=== PATIENT | male | born 1960 | race Caucasian/White ===

== ENCOUNTER 2019-04-14 21:17 | Inpatient (IN) | payer MEDICARE, BC, SELFPAY ==
[2019-04-14 20:15] VITALS: BP 138/77; PULSE 81; RESP 19; TEMP 37; O2SAT 94
[2019-04-14 21:25] VITALS: BMI 24.7
--- NOTE | 2019-04-14 21:38 | ECG_ITS ---
Measurements Intervals [place] Rate: 87 P: 68 RI: 164 QRS: -9 QRSD: 71 T: 30 QT: 334 QTc: 404 SINUS RHYTHM No previous ECG available for comparison Electronically Signed On 04-15-2019 14:44:06 [employer] by Pj Worthington M.D. [email or web address]
[2019-04-14 23:05] VITALS: RESP 20
[2019-04-14] MEDS: morphine 4 mg/mL SDV 1 mL 2 MG IVP (23:05)
[2019-04-14] MEDS: dextrose 5%-sod chloride 0.45% 1,000 ML 75 ML IV (23:05)
[2019-04-15] VITALS (23 sets, daily range): BP systolic 121–156; BP diastolic 68–83; PULSE 65–88; RESP 14–20; TEMP 36.1–38.1; O2SAT 90–98; BMI 24.5
[2019-04-15] MEDS: acetaminophen 325 mg Tablet 650 MG PO (00:24)
--- NOTE | 2019-04-15 02:59 | P.HP_ITS ---
Providers/Chief Complaint Admitting Physician: Awa Dozier MD Primary Care Provider: Evangelist Duvall Chief Complaint: L HIP FRACTURE History of Present Illness Regino Calvert is a 59 year old male who presented from [facility] with a complaint of left hip fracture. Patient had fallen a couple of days previously. He been getting around with assistance of a walker though with some difficulty. He was seen by primary care provider and sent to [facility] for further evaluation. He was found to have left subcapital hip fracture as well as a left fifth proximal phalanx fracture. He was transferred to [facility] for orthopedic care. Dr. Yousif was already made aware of the patient. Review of Systems Const: Denies: fever or chills Eyes: Denies: change in vision ENMT: Denies: throat pain or nasal congestion Card: Denies: chest pain or palpitations Resp: Denies: shortness of breath, productive cough or non-productive cough GI: Denies: abdominal pain, nausea or vomiting : Reports: testicular pain (Left testicle) Musc: Reports: extremity pain Skin/Breast: Denies: rash or itching Neuro: Reports: numbness in extremities and weakness in extremities Psych: Denies: anxiety or depression Medications/Allergies Home Medications Medication Instructions Recorded Confirmed Last Taken Type Unable to Assess 04/14/19 04/14/19 Unknown History Allergies Allergy/AdvReac Type Severity Reaction Status Date / Time No Known Allergies Allergy Verified 04/14/19 18:31 Additional Medication Information Additional Medication Information: Medication list from outside hospital showed xigduo, prednisolone ophthalmic, diclofenac gel, gabapentin 300 mg tablets, lisinopril 20 mg tablets and tramadol 50 mg tablets as well as what I think is probably polymyxin PFSH Acute PFSH: Statuses (acute, chronic, etc) shown below reflect problem list status as previously entered and may not be historically accurate Medical History (Updated 04/15/19 @ 03:37 by Myra Chang MD) Diabetes mellitus type 2, noninsulin dependent (Acute) Diabetic peripheral neuropathy (Acute) History of osteomyelitis (Acute) Right foot History of septic arthritis (Acute) Left knee Hyperlipidemia (Acute) Hypertension (Acute) Surgical History (Updated 04/15/19 @ 03:04 by Myra Chang MD) History of hand surgery (Acute) History of knee surgery (Acute) Bilateral History of toe surgery (Acute) Family History (Updated 04/15/19 @ 03:27 by Myra Chang MD) Other Cancer Diabetes Social History (Updated 04/15/19 @ 05:00 by Myra Chang MD) Smoking and tobacco status: never smoked Alcohol intake: current Alcohol intake frequency: 3 or more drinks per day Alcohol type: beer Substance/Drug Use: never Household members: spouse and children Marital status: Vitals/I&O/Wt Last Vital Signs Temp 99.2 F 04/15/19 00:00 Pulse 88 04/15/19 00:00 Resp 20 H 04/15/19 00:00 BP 137/83 04/15/19 00:00 Pulse Ox 94 04/15/19 00:00 04/14/19 04/14/19 04/15/19 14:59 22:59 06:59 Output Total 200 / 200 500 / 700 Balance -200 / -200 -500 / -700 Weight last 48 hrs Weight 80.513 kg Physical Exam Const: COMMON NORMALS: no apparent distress, oriented x3 and alert HENMT: COMMON NORMALS: normocephalic and head/scalp atraumatic Eye: COMMON NORMALS: PERRL and EOMs intact bilaterally Resp: COMMON NORMALS: normal respiratory effort, no use of accessory muscles and clear to auscultation bilaterally Cardio: COMMON NORMALS: regular rate, regular rhythm and no murmurs GI: COMMON NORMALS: normal to inspection, nondistended, normoactive bowel sounds, soft to palpation and non-tender : TESTES: Yes testicular lie normal, No testicular swelling, No testicular tenderness, No epididymal induration and No epididymal tenderness Extremity: NARRATIVE EXTREMITY EXAM: left leg externally rotated and shortened Neuro: COMMON NORMALS: oriented x3 and moves all extremities (decreasd left hip) Psych: COMMON NORMALS: mental status grossly normal, thought process normal and cooperative Skin: COMMON NORMALS: skin turgor normal NARRATIVE SKIN EXAM: left great toe sore ~0.5cm Urinary Catheter Management^: Truong: Cath Placed During This Visit: yes Urethral Indwelling: Yes Reason for Continuing Indwelling Catheter: Perioperative Use in Selected Surgeries Data Other Data: Other data: Labs and studies from [facility]: Chest x-ray showed no acute cardiopulmonary process Fracture at the base of the proximal phalanx of the fifth digit left hand Negative alcohol level Magnesium 2.0 Glucose 117, BUN/creatinine 19/0.9, sodium 137, potassium 4.1, chloride 103, CO2 22, total bilirubin 0.6, albumin 3.8, alkaline phosphatase 111 AST 15 ALT 10 osmolality 268, calcium 9.0 White count 11,000, H&H 10/32, platelet count 537 INR 1.2, PTT 26.3 UA with a specific gravity 1.020 and clear yellow urine with 2+ glucose, 1+ ketones negative nitrites and negative leukocyte esterase EKG here with sinus rhythm with no acute ST segment changes per my personal int erpretation A&P Assessment and plan (1) Closed left hip fracture: Status: Acute Qualifiers: Encounter type: initial encounter Qualified Code(s): S72.002A - Fracture of unspecified part of neck of left femur, initial encounter for closed fracture Code(s): S72.002A - Fracture of unspecified part of neck of left femur, initial encounter for closed fracture (2) Fracture of phalanx of digit of hand: Status: Acute Qualifiers: Encounter type: initial encounter Fracture type: closed Qualified Code(s): S62.609A - Fracture of unspecified phalanx of unspecified finger, initial encounter for closed fracture Code(s): S62.609A - Fracture of unspecified phalanx of unspecified finger, initial encounter for closed fracture (3) Diabetes mellitus type 2, noninsulin dependent: Status: Acute Code(s): E11.9 - Type 2 diabetes mellitus without complications (4) Hypertension: Status: Acute Qualifiers: Hypertension type: essential hypertension Qualified Code(s): I10 - Essential (primary) hypertension Code(s): I10 - Essential (primary) hypertension (5) Hyperlipidemia: Status: Acute Qualifiers: Hyperlipidemia type: pure hypercholesterolemia Qualified Code(s): E78.00 - Pure hypercholesterolemia, unspecified Code(s): E78.5 - Hyperlipidemia, unspecified (6) Diabetic peripheral neuropathy: Status: Acute Code(s): E11.42 - Type 2 diabetes mellitus with diabetic polyneuropathy Additional A&P Information Additional A&P Information: Inpatient admission Orthopedic consultation Pain control Need to clarify home medications more completely I will go on and continue gabapentin SCDs for DVT prophylaxis Images have been sent to radiology to be uploaded into the system Corrective dose insulin for diabetes currently Supportive care otherwise Full code Plans discussed with patient and he was given an opportunity to discuss questions Attestations Medical Necessity Statement*: Anticipated stay greater than 2 midnights in a patient with a hip fracture in need of surgical repair Coding Level of Care Code Acute Plan Coordinator for [facility] F[facility] Diagnoses Closed left hip fracture S72.002A Encounter type: initial encounter Fracture of phalanx of digit of hand S62.609A Encounter type: initial encounter Fracture type: closed Diabetes mellitus type 2, noninsulin dependent E11.9 Hypertension I10 Hypertension type: essential hypertension Hyperlipidemia E78.00 Hyperlipidemia type: pure hypercholesterolemia Diabetic peripheral neuropathy E11.42
[2019-04-15] MEDS: morphine 4 mg/mL SDV 1 mL 2 MG IVP (03:16)
[2019-04-15 06:48] LABS: Glucose Point of Care 142 mg/dL (70-110)
[2019-04-15 07:03] LABS: Blood Urea Nitrogen 14 mg/dL (6-20); Calcium 9.2 mg/Dl (8.6-10.0); Carbon Dioxide 22 mmol/L (22-29); Chloride 101 mmol/L (98-107); Glomerular Filtration Rate 99.3 mL/min (90-130); Glucose 142 mg/dL (74-109); Sodium 134 mmol/L (136-145)
[2019-04-15 07:06] LABS: Basophils # 0.1 10^3/uL (0.0-0.1); Basophils % 0.5 %; Eosinophils # 0.2 10^3/uL (0.0-0.8); Eosinophils % 2.4 %; Hematocrit 28.6 % (42.0-52.0); Hemoglobin 9.3 g/dL (11.7-16.6); Lymphocytes # 1.6 10^3/uL (0.8-4.8); Lymphocytes % 17.3 %; Mean Corpuscular HGB Conc 32.5 g/dL (30.0-36.0); Mean Corpuscular Hemoglobin 29.8 pg (28.0-34.0); Mean Corpuscular Volume 91.7 fL (80-94); Mean Platelet Volume 8.8 fL (7.4-10.4); Monocytes % 10.6 %; Neutrophils # 6.4 10^3/uL (1.8-7.7); Neutrophils % 68.7 %; Nucleated Red Blood Cells % 0 %; Platelet Count 401 10^3/cmm (130-400); Red Blood Count 3.12 10^6/uL (4.1-5.3); Red Cell Distribution Width 18.9 % (12.1-15.1); White Blood Count 9.3 10^3/uL (4.0-10.0)
--- NOTE | 2019-04-15 07:15 | ANES.PREANES ---
Pre-Anesthetic Assessment Pre-Anesthetic Assessment: Height/Weight: Height 1.8 m Weight 79.742 kg Temp Pulse Resp BP Pulse Ox 99.0 F 75 17 128/69 93 04/15/19 04:00 04/15/19 04:00 04/15/19 04:00 04/15/19 04:00 04/15/19 04:00 Preop Diagnosis: L hip fracture Proposed Procedure: Operation Date: 04/15/19 08:45 Proposed Procedures p Hemiarthroplasty Hip(Left) - Gino Yousif MD Operation Date: 04/15/19 08:00 Proposed Procedures p Hemiarthroplasty Hip(Left) - Gino Yousif MD Familial anesthetic complications: no trouble Was Beta Yee taken within 24 hours: N/A Last intake: Intake Last Liquid Date 04/14/19 Last Liquid Time 23:59 Last Solid Date 04/14/19 Last Solid Time 17:00 Social: Social History: No alcohol and No tobacco Exam: Pre-Anes Outpt Exam: alert, oriented x 3, clear to auscultation bilaterally and regular rate & rhythm Airway: Cervical ROM: WNL MP: 1 Dentition: Chipped Pulmonary: Pulmonary: None reported CV/HEM: CV/HEM: HTN : : None reported Hepatic: Hepatic: None reported GI: GI: GERD Metabolic: Metabolic: DM and Hyperlipidemia Musc/skel: Comments: L hip fracture, L 5th finger fracture Neuropsych: Neuropsych: None reported Anesthetic Plan: ASA status: II Anesthesia: General Risk of > 500 ml blood loss (7ml/kg in children): Yes, adequate IV access and fluids planned Meds/Allergies Current Medications: Current Medications Generic Name Dose Route Start Last Admin Trade Name Freq PRN Reason Stop Dose Admin Acetaminophen 650 mg 04/14/19 21:38 04/15/19 00:24 Tylenol PO 650 mg Q6H PRN Administration Mild/Mod Pain Or Temp >/= 101 Dextrose/Sodium Ch loride 1,000 mls @ 75 ml s/hr 04/14/19 21:45 04/14/19 23:05 Dextrose 5%-Sod Chloride 0.45% IV 75 mls/hr .[id number] ANA LAURA Administration Morphine Sulfate 2 mg 04/14/19 21:38 04/15/19 03:16 Morphine IVP 2 mg Q4H PRN Administration SEVERE PAIN Additional Medication Information: Medication list from outside hospital showed xigduo, prednisolone ophthalmic, diclofenac gel, gabapentin 300 mg tablets, lisinopril 20 mg tablets and tramadol 50 mg tablets as well as what I think is probably polymyxin PFSH Anesthesia PFSH: Medical History (Updated 04/15/19 @ 03:37 by Myra Chang MD) Diabetes mellitus type 2, noninsulin dependent (Acute) Diabetic peripheral neuropathy (Acute) History of osteomyelitis (Acute) Right foot History of septic arthritis (Acute) Left knee Hyperlipidemia (Acute) Hypertension (Acute) Surgical History (Updated 04/15/19 @ 03:04 by Myra Chang MD) History of hand surgery (Acute) History of knee surgery (Acute) Bilateral History of toe surgery (Acute) Family History (Updated 04/15/19 @ 03:27 by Myra Chang MD) Other Cancer Diabetes Social History (Updated 04/15/19 @ 05:00 by Myra Chang MD) Smoking and tobacco status: never smoked Alcohol intake: current Alcohol intake frequency: 3 or more drinks per day Alcohol type: beer Substance/Drug Use: never Household members: spouse and children Marital status: Data Anesthesia Labs: Other Labs: Laboratory Results - last 48 hr 04/15/19 04/15/19 04/15/19 06:29 06:29 06:30 WBC 9.3 RBC 3.12 L Hgb 9.3 L Hct 28.6 L MCV 91.7 MCH 29.8 MCHC 32.5 RDW 18.9 H Plt Count 401 H MPV 8.8 Neut % (Auto) 68.7 Lymph % (Auto) 17.3 [place] % (Auto) 10.6 Eos % (Auto) 2.4 Baso % (Auto) 0.5 Neut # (Auto) 6.4 Lymph # (Auto) 1.6 [place] # (Auto) 1.0 H Eos # (Auto) 0.2 Baso # (Auto) 0.1 Nucleated RBC % (a uto) 0 Nucleated RBCs # 0.0 Sodium 134 L Potassium 4.0 Chloride 101 Carbon Dioxide 22 Anion Gap 15.0 BUN 14 Creatinine 0.8 GFR Calculation 99.3 Glucose 142 H POC Glucose 142 Calcium 9.2 Cardiac Studies: No Data to Display
[2019-04-15] MEDS: sodium chloride 0.9% 1,000 ML 30 ML IV (07:18)
[2019-04-15 07:30] LABS: INR 1.14 (0.8-1.2)
--- NOTE | 2019-04-15 07:48 | PM.CONSULT ---
Providers/Reason For Consult Consulting Physican/Specialty*: Orthopedic surgery Reason for Consult*: Displaced left femoral neck fracture, nondisplaced fracture left little finger Requesting Physcian: Gino Yousif MD Attending Physician: Awa Dozier MD Primary Care Provider: Evangelist Duvall History of Present Illness History of Present Illness Regino Calvert is a 59 year old male transferred from [facility] with complaints of pain in his left hip and left hand. He apparently fell on Thursday. He has a history of neuropathy attributable to his diabetes on and had a walker at home. He has been ambulating with a walker with continued pain. He finally was seen by his primary care physician and sent to the [facility] emergency room last night. There radiographs revealed a displaced left subcapital fracture and a left fifth proximal phalanx fracture. He is transferred [facility] overt definitive medical care. The patient states he is and lives in a house with his . He has a walker but does not routinely use it. He states he is able to drive and typically walks short distances. He is disabled Review of Systems Const: Denies: fever or chills Card: Denies: chest pain, palpitations or irregular heart rhythm Resp: Denies: shortness of breath or productive cough GI: Denies: abdominal pain, nausea or vomiting : Denies: painful urination or urinary frequency Neuro: Reports: numbness in extremities (Attributable to diabetic neuropathy) and weakness in extremities (Attributable to diabetic neuropathy) Meds/Allergies Home Medications and Allergies Home Medications Medication Instructions Recorded Confirmed Type Unable to Assess 04/14/19 04/14/19 History Allergies Allergy/AdvReac Type Severity Reaction Status Date / Time No Known Allergies Allergy Verified 04/14/19 18:31 Current Medications Current Medications Generic Name Dose Route Start Last Admin Trade Name Freq PRN Reason Stop Dose Admin Acetaminophen 650 mg 04/14/19 21:38 04/15/19 00:24 Tylenol PO 650 mg Q6H PRN Administration Mild/Mod Pain Or Temp >/= 101 Dextrose/Sodium Chloride 1,000 mls @ 75 mls/hr 04/14/19 21:45 04/15/19 07:15 Dextrose 5%-Sod Chloride 0.45% IV Infused .[id number] ANA LAURA Infusion Sodium Chloride 1,000 mls @ 30 mls/hr 04/15/19 07:00 04/15/19 07:18 Sodium Chloride 0.9% IV 04/16/19 06:59 30 mls/hr .Q24H ANA LAURA Administration Morphine Sulfate 2 mg 04/14/19 21:38 04/15/19 03:16 Morphine IVP 2 mg Q4H PRN Administration SEVERE PAIN PFSH Acute PFSH: Statuses (acute, chronic, etc) shown below reflect problem list status as previously entered and may not be historically accurate Medical History Diabetes mellitus type 2, noninsulin dependent (Acute) Diabetic peripheral neuropathy (Acute) History of osteomyelitis (Acute) Right foot History of septic arthritis (Acute) Left knee Hyperlipidemia (Acute) Hypertension (Acute) Surgical History (Updated 04/15/19 @ 03:04 by Myra Chang MD) History of hand surgery (Acute) History of knee surgery (Acute) Bilateral History of toe surgery (Acute) Family History (Updated 04/15/19 @ 03:27 by Myra Chang MD) Other Cancer Diabetes Social History Smoking and tobacco status: never smoked Alcohol intake: current Alcohol intake frequency: 3 or more drinks per day Alcohol type: beer Substance/Drug Use: never Household members: spouse and children Marital status: Vitals/I&O/Wt Last Vital Signs Temp 97.0 F L 04/15/19 07:19 Pulse 72 04/15/19 07:19 Resp 18 04/15/19 07:19 BP 130/70 04/15/19 07:19 Pulse Ox 95 04/15/19 07:19 04/14/19 04/15/19 04/15/19 22:59 06:59 14:59 Intake Total 120 / 120 600 / 600 Output Total 200 / 200 1800 / 2000 Balance -200 / -200 -1680 / -1880 600 / 600 Weight last 48 hrs Weight 175 lb 12.8 oz Weight 175 lb 12.8 oz Weight 177 lb 8 oz Physical Exam HENMT: COMMON NORMALS: normocephalic HEAD & SCALP: normocephalic Neck/C-Spine: COMMON NORMALS: full ROM and supple CERVICAL SPINE: No pain with cervical ROM Chest: COMMONS NORMALS: inspection of chest normal Resp: COMMON NORMALS: clear to auscultation bilaterally AUSCULTATION: clear to auscultation bilaterally Cardio: COMMON NORMALS: regular rate and regular rhythm RATE: regular rate RHYTHM: regular rhythm GI: COMMON NORMALS: soft to palpation INSPECTION: Yes normal to inspection PALPATION: Yes soft and No tender Extremity: NARRATIVE EXTREMITY EXAM: The patient's left lower extremity is remarkable for being held in a shortened externally rotated position. He has severe pain with any motion of the hip. He has ecchymoses and swelling about his little finger and slight ulnar deviation of the digit. He will not move the digit due to pain. Neuro: SENSORY EXAM: Yes extremities (The patient has diminished sensation in both lower extremities attributed to his diabetes. Sensation is slightly diminished in the left little finger.) MOTOR EXAM: No no movement abnormalities noted (The patient has no purposeful movement in his ankles or toes. He will minimally invert and seymour his ankle. He can perform a straight leg raise on the right.) Urinary Catheter Management^: Truong: Cath Placed During This Visit: no Data Imaging^: Xray Ortho: My impression: Radiographs of the left hip reveal a displaced left femoral neck fracture. He has reasonable bone quality. Radiographs of the left hand reveal a essentially nondisplaced fracture through the proximal metaphysis. The fracture is in good alignment. Ulnar deviation of the digit is noted. A&P Assessment and plan (1) Fracture of phalanx of digit of hand: The fracture is in satisfactory alignment. We will put him in a functional ulnar gutter splint for protection. Platform walker will be used for for mobilization. Status: Acute Qualifiers: Encounter type: initial encounter Fracture type: closed Qualified Code(s): S62.609A - Fracture of unspecified phalanx of unspecified finger, initial encounter for closed fracture Code(s): S62.609A - Fracture of unspecified phalanx of unspecified finger, initial encounter for closed fracture (2) Closed left hip fracture: Status: Acute Qualifiers: Encounter type: initial encounter Qualified Code(s): S72.002A - Fracture of unspecified part of neck of left femur, initial encounter for closed fracture Code(s): S72.002A - Fracture of unspecified part of neck of left femur, initial encounter for closed fracture Coding Level of Care Code Acute Healthcare Analyst for [facility] Fwd Diagnoses Fracture of phalanx of digit of hand S62.607F Encounter type: initial encounter Fracture type: closed Closed left hip fracture S72.002A Encounter type: initial encounter
--- NOTE | 2019-04-15 09:35 | PM.OP ---
Operative Report Post-Operative Note: Date of procedure: 04/15/19 Preop Diagnosis: Dislaced left femoral neck fracture Post-op diagnosis: same Post-op Findings: Same Procedure Done: Left bipolar hip arthroplasty Implants: [place] Secure fit BUTT stem, 51 mm bipolar head, 28 mm femoral head/standard neck length Specimens removed/disposition: None Pathology: none sent Surgeon: Gino Yousif Anesthesia: general Estimated blood loss (mL): 250 Complications: None Findings: The patient had the previously described subacute left femoral neck fracture Condition: stable Disposition: PACU Operative Report: Brief History: The patient is a 59-year-old male who fell from his truck on Thursday with persistent pain in his left hip. He had a significant history of diabetes mellitus with complications of ulcers on his left foot and significant sensory and motor neuropathy. Physiologically he was felt to be much older than his 59 years of age and with his medical comorbidities bipolar was chosen as the most reliable option Procedure: The patient was taken to the operating room and a general l anesthesia was provided by the anesthesia service. They were given 2 g of Ancef and 1 g of TXA. and positioned in the lateral position with the hip exposed. A 10 cm long incision was made over the greater trochanter with a scalpel blade. Dissection was carried down through the fascia prudencio to the greater trochanter. The anterior two thirds of gluteus medius and minimus were elevated off the greater trochanter with electrocautery. The capsule was divided T like fashion. The hip was externally rotated and the neck brought up into the wound. An oscillating saw was really used to resect the neck just above the level of the lesser trochanter. The femoral head was removed and the acetabulumt sized to a 51 mm bipolar head. Sequential reaming of the canal was accomplished up to a size . The canal was broached to a size 10 and a size 10 [place] Secure[employer] BUTT stem was press fit into place. A trial reduction with a standard mm neck provided excellent stability. The final head and neck were placed and the hip reduced. The anterior capsule were reapproximated with 1 Ethibond. The gluteus medius and minimus were repaired through the greater trochanter with 5 Ethibond and reinforced with 1 Ethibond. The fascia prudencio was closed with 1 Ethibond. The subcutaneous tissues were closed with 2-0 Vicryl. The skin was closed with skin christiano. Sterile dressings were applied. The patient was placed in abduction pillow and taken recovery room in stable condition. 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
--- NOTE | 2019-04-15 09:51 | SUR.PHASEI ---
0949 PATIENT TO PACU FROM OR AT THIS TIME VIA BED. PATIENT AWAKE, RR EVEN AND UNLABORED. DRESSING TO LEFT HIP, CDI. PULSE PRESENT. CAP REFILL LESS THAN 3 SECONDS.
--- NOTE | 2019-04-15 09:56 | XR_ITS ---
WS: [id number] Left hip, AP view, today Clinical Data: L hip hemiarthroplasty Comparison: Left hip x-ray, 04/14/2019 Findings: The patient has had a left hip hemiarthroplasty. The acetabular component is in good position in the acetabulum. The femoral component is stabilized within the femoral medullary canal. XR/XR hip LT 2-3V wo/w pel* [id number] Impression: Left hip hemiarthroplasty.
--- NOTE | 2019-04-15 10:09 | SUR.PHASEI ---
1009 PATIENT SPOUSE UPDATED.
--- NOTE | 2019-04-15 10:28 | SUR.PHASEI ---
1017 PATIENT TO MED SURG VIA BED AT THIS TIME. RR EVEN AND UNLABORED. PWD. DRESSING INTACT TO LEFT HIP, CDI. PULSE PRESENT. FIRST ICE IN PLACE. VSS: 156/81, PULSE 74, RR 16, 94%RA, 97.7
[2019-04-15] MEDS: oxyCODONE 5 mg IR Tab/Cap PO ×3 (10:33→19:33)
[2019-04-15] MEDS: sodium chloride 0.9% 1,000 ML 100 ML IV ×2 (10:35→20:47)
[2019-04-15 11:39] LABS: Glucose Point of Care 126 mg/dL (70-110)
[2019-04-15] MEDS: chlorhexidine gluconate 0.12% Btl 473 mL 30 ML MUCOUS MEM ×3 (12:13→21:49)
--- NOTE | 2019-04-15 13:31 | PM.PN ---
Subjective Subjective: Interval history: AM labs noted, s/p L hip arthroplasty done earlier this AM. EBL-250 mL. Had 2000 mL urine output overnight. Patient seen and examined upon return from OR, awake, alert and oriented x3, adductor pillow in place which he complains is quite uncomfortable, ice pack in place as well over left hip incision which looks clean and intact. Requesting something for pain relief. Medications: Reviewed: Yes Medication Review Details: Active Medications Generic Name Dose Route Start Last Admin Trade Name Freq PRN Reason Stop Dose Admin Acetaminophen 650 mg 04/14/19 21:38 04/15/19 00:24 Tylenol PO 650 mg Q6H PRN Administration Mild/Mod Pain Or Temp >/= 101 Al Hydrox/Mg [place] x/Simethicone 15 ml 04/14/19 21:38 Maalox PO Q6H PRN INDIGESTION Calcium Carbonate 1,000 mg 04/15/19 18:00 Tums PO BID ANA LAURA Chlorhexidine Gluc marie 30 ml 04/15/19 13:00 04/15/19 12:13 Perigard MUCOUS MEM 30 ml QID ANA LAURA Administration Dextrose 25 ml 04/15/19 10:21 D50w IVP ONCE PRN hypoglycemia prot ocol Protocol Dextrose 50 ml 04/15/19 10:21 D50w IVP PRN PRN hypoglycemia prot ocol Protocol Enoxaparin Sodium 40 mg 04/16/19 10:52 Lovenox SUBCUT Q24H ANA LAURA Gabapentin 300 mg 04/15/19 09:00 Neurontin PO TID ANA LAURA Glucagon 1 mg 04/15/19 10:21 Glucagen IM ONCE PRN Adult Acute Hypog lycemia Prot. Protocol Cefazolin Sodium/D extrose 2 gm in 50 mls @ 100 mls/hr 04/15/19 15:30 Kefzol IV 04/16/19 07:59 Q8H ANA LAURA Protocol Sodium Chloride 1,000 mls @ 100 m ls/hr 04/15/19 10:21 04/15/19 10:35 Sodium Chloride 0.9% IV 100 mls/hr .Q10H ANA LAURA Administration Dextrose 500 mls @ 100 mls /hr 04/15/19 10:21 D5w IV ONCE PRN Adult Acute Hypog lycemia Prot Protocol Insulin Aspart 0 unit 04/15/19 12:00 04/15/19 11:50 Novolog SUBCUT Not Given WM&BEDTIME [facility] Protocol Morphine Sulfate 4 mg 04/15/19 10:21 Morphine IVP Q1H PRN BREAKTHROUGH PAIN Multivitamins Ther apeutic 1 tab 04/16/19 09:00 Multivitamin Tab PO DAILY [facility] Mupirocin 1 applic 04/15/19 18:00 Bactroban NASAL 04/20/19 17:59 BID [facility] Naloxone HCl 0.1 mg 04/15/19 10:21 Narcan IVP Q2M PRN Respiratory rate less than 8. Ondansetron HCl 4 mg 04/15/19 10:21 Zofran IVP Q6H PRN NAUSEA AND VOMITI NG Oxycodone HCl 5 mg 04/15/19 10:21 04/15/19 10:33 Oxycodone Ir PO 5 mg Q4H PRN Administration MODERATE PAIN Polysaccharide Iro n Complex 150 mg 04/15/19 18:00 Ferrex PO BIDWM [facility] Senna/Docusate Sod ium 2 tab 04/15/19 18:00 Senna-S PO BID [facility] Vitamin D 1,000 unit 04/16/19 09:00 Vitamin D3 PO DAILY [facility] No Known Allergies Allergy (Verified 04/14/19 18:31) Vitals/I&O/Wt Last Vital Signs Temp 97.8 F 04/15/19 11:20 Pulse 79 04/15/19 12:20 Resp 16 04/15/19 12:20 BP 122/69 04/15/19 12:20 Pulse Ox 95 04/15/19 12:20 04/14/19 04/15/19 04/15/19 22:59 06:59 14:59 Intake Total 120 / 120 1480 / 1480 Output Total 200 / 200 1800 / 2000 950 / 950 Balance -200 / -200 -1680 / -1880 530 / 530 Weight last 48 hrs Weight 79.742 kg Weight 79.742 kg Weight 79.742 kg Weight 80.513 kg Physical Exam Const: COMMON NORMALS: no apparent distress and oriented x3 GENERAL APPEARANCE: cooperative and comfortable ORIENTATION/CONSCIOUSNESS: Yes awake HENMT: COMMON NORMALS: normocephalic, head/scalp atraumatic, hearing grossly normal bilaterally and moist oral mucous membranes HEAD & SCALP: normocephalic and atraumatic Eye: COMMON NORMALS: PERRL, EOMs intact bilaterally and conjunctivae normal CONJUNCTIVA: Yes conjunctivae normal PUPIL: Yes PERRL Neck/C-Spine: COMMON NORMALS: full ROM GENERAL: Yes normal visual inspection and Yes trachea midline Resp: COMMON NORMALS: normal respiratory effort, no retractions, no use of accessory muscles and clear to auscultation bilaterally EFFORT & INSPECTION: Yes able to speak in complete sentences, Yes symmetric chest movement and No tachypneic AUSCULTATION: clear to auscultation bilaterally Cardio: COMMON NORMALS: regular rate, regular rhythm, S1 normal heart sound, S2 normal heart sound and no murmurs RATE: regular rate RHYTHM: regular rhythm HEART SOUNDS: S1 normal and S2 normal GI: COMMON NORMALS: normal to inspection, nondistended, normoactive bowel sounds, soft to palpation and non-tender PALPATION: Yes soft Extremity: COMMON NORMALS: normal to inspection, full ROM and no clubbing, cyanosis or edema; negative for no pedal edema LEFT UPPER EXTREMITY: Yes hand & digits (noted swelling of DIP and PIP joints of L 5th digit) LEFT LOWER EXTREMITY: Yes hip joint (Noted clean, intact dressing over incision; left thigh soft, no apparent hematoma) Neuro: COMMON NORMALS: oriented x3, moves all extremities, no focal motor deficits, no sensory deficits noted and gait normal Psych: COMMON NORMALS: mental status grossly normal, thought process normal, cooperative, affect normal and speech normal SPEECH: Yes normal speech THOUGHT PROCESS: normal thought process Skin: COMMON NORMALS: no rashes or lesions noted, no jaundice, no petechiae and no mottling GENERAL SKIN EXAM: no rashes or lesions noted Urinary Catheter Management^: Truong: Cath Placed During This Visit: no A&P Assessment and plan (1) Closed left hip fracture: -secondary to fall -now s/p L hip arthroplasty done today by Dr. Yousif; EBL-250 mL -fall precautions, pain control as needed -f/u H/H post-op -continue to monitor urine output -PT/OT evaluations when appropriate -bowel regimen -IVF hydration -on DVT ppx with Lovenox -complete regan-op abx -UA done at outside facility, not indicative of infection -pre-op labs noted -VSS; continue to monitor Status: Acute Qualifiers: Encounter type: initial encounter Qualified Code(s): S72.002A - Fracture of unspecified part of neck of left femur, initial encounter for closed fracture Code(s): S72.002A - Fracture of unspecified part of neck of left femur, initial encounter for closed fracture (2) Fracture of phalanx of digit of hand: -secondary to mechanical fall Status: Acute Qualifiers: Encounter type: initial encounter Fracture type: closed Qualified Code(s): S62.609A - Fracture of unspecified phalanx of unspecified finger, initial encounter for closed fracture Code(s): S62.609A - Fracture of unspecified phalanx of unspecified finger, initial encounter for closed fracture (3) Diabetes mellitus type 2, noninsulin dependent: -hx of NIDDM type II complicated by peripheral neuropathy -A1c -Acuchecks, ISS -diabetic diet as tolerated Status: Acute Code(s): E11.9 - Type 2 diabetes mellitus without complications (4) Diabetic peripheral neuropathy: Status: Acute Code(s): E11.42 - Type 2 diabetes mellitus with diabetic polyneuropathy Additional A&P Information Additional A&P Information: -Acute on chronic normocytic anemia; baseline Hg around 11 -GERD -Hyperlipidemia -HTN; currently normotensive -DVT ppx with lovenox -Dispo: home -Code status: FULL code Attestations Medical Necessity Statement*: Patient requires hospitalization for continued post-op management including appropriate pain control, pending PT/OT evaluations. Time Spent in Patient Care: Greater than 35 minutes (>than 50% of time spent in counselling and/or direct pt care on unit). Coding Level of Care Code Acute [employer] for Jack [employer]o Exam Problem Focused Diagnoses Closed left hip fracture S72.002A Encounter type: initial encounter Fracture of phalanx of digit of hand S62.609A Encounter type: initial encounter Fracture type: closed Diabetes mellitus type 2, noninsulin dependent E11.9 Diabetic peripheral neuropathy E11.42
[2019-04-15] MEDS: gabapentin 300 mg Capsule PO ×2 (15:01→21:49)
--- NOTE | 2019-04-15 15:50 | PM.PACU ---
PACU note Post-Anesthesia Exam: awake and vital signs stable Disposition: back to floor
--- NOTE | 2019-04-15 16:04 | PC.OT ---
OT NOTE: ORDERS RECEIVED FOR FASTFORM SPLINT TO LITTLE FINGER/FOREARM DUE TO FX OF UNSPECIFIED PHALNAX. THIS THERAPIST IS NOT TRAINED IN FASTFORM DEVICE USE. CONTACTED MY ROAD MAKER CONCERNING THIS SEVERAL TIME TODAY. CALLED [facility]IEL [facility] TO REPORT THIS AND ASK FOR CLARIFICATION FROM DR. BEST HE IS IN SURGERY TODAY. SUGGESTED TKO SPLINT APPLICATION. SHE REPORTED THAT SHE WOULD ATTEMPT TO CONTACT HIM TODAY. ALSO INFORMED NURSE IRVING ON 2ND FLOOR REGARDING ABOVE. PER ROAD MAKER, JORDY HAMMOND, IF NO CONTACT FROM DR. BEST, APPLY TKO SPLINT TO STABILIZE. TKO SPLINT APPLIED TO LEFT HAND WITH 5TH DIGIT IN ALIGNMENT. HAND ELEVATED ON PILLOW. NURSE IRVING INFORMED OF APPLICATION OF SPLINT.
--- NOTE | 2019-04-15 16:49 | PC.CHAP ---
Pastoral Care Encounter/Spiritual Assessment Type of Contact [] Declined flake or shred roll operator visit [] Patient/Family/Request visit [] Outpatient visit [] Follow-up visit [] Physician referral [] Code/Alert [x] Routine visit [] Staff referral [] Actively dying [] Patient sleeping [] Family support [] [] Out of room [] Palliative care [] [] Receiving care in room [x] Pre-surgical visit [] Trauma [] Long length of stay [] ICU visit [] Other: Relational/Emotional Strength [x] Patient feels connected with others/family/visitors/staff [] Distress [] Loneliness/isolation [] Abandonment Spirituality of Patient [x] Person of Shanna [] Attends Mosque of their Shanna [x] Believes in Prayer [] Reads Bible or Mu-Ism materials [] There are Spiritual issues to be addressed Swing Manager Interventions [x] Prayer [x] Active listening [x] Non-anxious presence []x Spiritual/emotional support [] Crisis/trauma care [] Spiritual counseling [] Bereavement support [] Provided bereavement packet [] Provided Bible/devotional materials [] Provided toy/stuffed animal, coloring book to patient or family member [] Completed spiritual assessment [] Provided Communion [] Anointing/[place] [] Salvation [] Other: Impact on Illness or Injury [] Angry [] Fearful [] Anxious [] Often cries [] Exhaustion [] Unable to work [x] Unable to attend oriental orthodox [x] Unable to walk/stand [] Unable to read [x] Unable to drive [] Unable to eat/drink [] Unable to sleep [] Unable to be with family [] Other: Summary patiemt was very uncomfortable due to surgery ths morning Swing Manager prayed with patient. Time spent with patient 20 min.
[2019-04-15 17:08] LABS: Glucose Point of Care 105 mg/dL (70-110)
[2019-04-15] MEDS: calcium carbonate 500 mg Chew Tablet 1000 MG PO (17:22)
[2019-04-15] MEDS: iron polysaccharide complex 150 mg Capsule PO (17:23)
[2019-04-15] MEDS: sennosides-docusate Tablet 2 TAB PO (17:23)
--- NOTE | 2019-04-15 17:29 | PC.OT ---
OT NOTE: PHONE CALL RECEIVED FROM [facility]ARIEL AT [facility] STATING THAT DR. BEST GAVE VERBAL APPROVAL FOR TKO SPLINT FOR THIS PATIENT.
[2019-04-15 20:53] LABS: Glucose Point of Care 173 mg/dL (70-110)
[2019-04-15 21:26] LABS: Basophils % 0.2 %; Eosinophils # 0.1 10^3/uL (0.0-0.8); Eosinophils % 0.7 %; Hematocrit 27.1 % (42.0-52.0); Hemoglobin 8.7 g/dL (11.7-16.6); Lymphocytes # 1.4 10^3/uL (0.8-4.8); Lymphocytes % 11.1 %; Mean Corpuscular HGB Conc 32.1 g/dL (30.0-36.0); Mean Corpuscular Hemoglobin 28.6 pg (28.0-34.0); Mean Corpuscular Volume 89.1 fL (80-94); Mean Platelet Volume 8.7 fL (7.4-10.4); Monocytes # 0.8 10^3/uL (0.2-0.9); Monocytes % 6.6 %; Neutrophils # 10.4 10^3/uL (1.8-7.7); Neutrophils % 81.2 %; Nucleated Red Blood Cells % 0 %; Platelet Count 410 10^3/cmm (130-400); Red Blood Count 3.04 10^6/uL (4.1-5.3); Red Cell Distribution Width 17.9 % (12.1-15.1); White Blood Count 12.8 10^3/uL (4.0-10.0)
[2019-04-16] VITALS (9 sets, daily range): BP systolic 120–133; BP diastolic 70–75; PULSE 84–107; RESP 18–28; TEMP 36.6–39.4; O2SAT 92–97; BMI 25.2
[2019-04-16 05:15] LABS: Basophils # 0.1 10^3/uL (0.0-0.1); Basophils % 0.3 %; Eosinophils % 0.2 %; Hematocrit 30.2 % (42.0-52.0); Hemoglobin 9.6 g/dL (11.7-16.6); Lymphocytes # 1.2 10^3/uL (0.8-4.8); Lymphocytes % 8.6 %; Mean Corpuscular HGB Conc 31.8 g/dL (30.0-36.0); Mean Corpuscular Hemoglobin 29.7 pg (28.0-34.0); Mean Corpuscular Volume 93.5 fL (80-94); Mean Platelet Volume 8.6 fL (7.4-10.4); Monocytes # 1.2 10^3/uL (0.2-0.9); Monocytes % 8.3 %; Neutrophils # 11.8 10^3/uL (1.8-7.7); Nucleated Red Blood Cells % 0 %; Platelet Count 402 10^3/cmm (130-400); Red Blood Count 3.23 10^6/uL (4.1-5.3); Red Cell Distribution Width 17.4 % (12.1-15.1); White Blood Count 14.4 10^3/uL (4.0-10.0)
[2019-04-16 05:29] LABS: Anion Gap 17.4 (5-19); Blood Urea Nitrogen 12 mg/dL (6-20); Calcium 8.9 mg/Dl (8.6-10.0); Carbon Dioxide 22 mmol/L (22-29); Chloride 94 mmol/L (98-107); Glomerular Filtration Rate 86.7 mL/min (90-130); Glucose 161 mg/dL (74-109); Potassium 4.4 mmol/L (3.5-5.1); Sodium 129 mmol/L (136-145)
[2019-04-16 06:42] LABS: Glucose Point of Care 142 mg/dL (70-110)
[2019-04-16] MEDS: sodium chloride 0.9% 1,000 ML 100 ML IV (06:42)
--- NOTE | 2019-04-16 08:46 | PM.PN ---
Subjective Subjective: Interval history: AM labs noted, had 3550 mL urine output overnight. Received oxycodone for pain control x 1 dose overnight. Will decrease rate of IVF. Anticipate removal of Truong catheter today. Noted high grade temp of 102.9 F overnight, increased leukocytosis this AM, will order UA and CXR. Patient seen and examined, resting in bed, dressing in place over left lateral hip, clean and dry. Continues to complain of pain in this area. Truong catheter is currently being removed by nursing staff. Has worked with PT earlier today. Medications: Reviewed: Yes Medication Review Details: Active Medications Generic Name Dose Route Start Last Admin Trade Name Freq PRN Reason Stop Dose Admin Acetaminophen 650 mg 04/14/19 21:38 04/15/19 00:24 Tylenol PO 650 mg Q6H PRN Administration Mild/Mod Pain Or Temp >/= 101 Al Hydrox/Mg [place] x/Simethicone 15 ml 04/14/19 21:38 Maalox PO Q6H PRN INDIGESTION Calcium Carbonate 1,000 mg 04/15/19 18:00 04/15/19 17:22 Tums PO 1,000 mg BID ANA LAURA Administration Chlorhexidine Gluc marie 30 ml 04/15/19 13:00 04/15/19 21:49 Perigard MUCOUS MEM 30 ml QID ANA LAURA Administration Dextrose 25 ml 04/15/19 10:21 D50w IVP ONCE PRN hypoglycemia prot ocol Protocol Dextrose 50 ml 04/15/19 10:21 D50w IVP PRN PRN hypoglycemia prot ocol Protocol Enoxaparin Sodium 40 mg 04/16/19 10:52 Lovenox SUBCUT Q24H ANA ALURA Gabapentin 300 mg 04/15/19 09:00 04/15/19 21:49 Neurontin PO 300 mg TID ANA LAURA Administration Glucagon 1 mg 04/15/19 10:21 Glucagen IM ONCE PRN Adult Acute Hypog lycemia Prot. Protocol Sodium Chloride 1,000 mls @ 75 ml s/hr 04/15/19 10:21 04/16/19 07:08 Sodium Chloride 0.9% IV 75 mls/hr .[id number] ANA LAURA Infusion Dextrose 500 mls @ 100 mls /hr 04/15/19 10:21 D5w IV ONCE PRN Adult Acute Hypog lycemia Prot Protocol Insulin Aspart 0 unit 04/15/19 12:00 04/15/19 21:48 Novolog SUBCUT 4 unit WM&BEDTIME ANA LAURA Administration Protocol Morphine Sulfate 4 mg 04/15/19 10:21 Morphine IVP Q1H PRN BREAKTHROUGH PAIN Multivitamins Ther apeutic 1 tab 04/16/19 09:00 Multivitamin Tab PO DAILY [facility] Mupirocin 1 applic 04/15/19 18:00 04/15/19 17:23 Bactroban NASAL 04/20/19 17:59 Not Given BID [facility] Naloxone HCl 0.1 mg 04/15/19 10:21 Narcan IVP Q2M PRN Respiratory rate less than 8. Ondansetron HCl 4 mg 04/15/19 10:21 Zofran IVP Q6H PRN NAUSEA AND VOMITI NG Oxycodone HCl 5 mg 04/15/19 10:21 04/15/19 19:33 Oxycodone Ir PO 5 mg Q4H PRN Administration MODERATE PAIN Polysaccharide Iro n Complex 150 mg 04/15/19 18:00 04/15/19 17:23 Ferrex PO 150 mg BIDWM [facility] Administration Senna/Docusate Sod ium 2 tab 04/15/19 18:00 04/15/19 17:23 Senna-S PO 2 tab BID [facility] Administration Vitamin D 1,000 unit 04/16/19 09:00 Vitamin D3 PO DAILY [facility] No Known Allergies Allergy (Verified 04/14/19 18:31) Vitals/I&O/Wt Last Vital Signs Temp 97.8 F 04/16/19 07:26 Pulse 84 04/16/19 07:26 Resp 18 04/16/19 07:26 BP 128/74 04/16/19 07:26 Pulse Ox 94 04/16/19 07:26 04/15/19 04/16/19 04/16/19 22:59 06:59 14:59 Intake Total 2009 1133.333 / 4623.333 0 / 0 Output Total 3550 / 4500 Balance 2009 2320 -2416.667 / 123.333 0 / 0 Weight last 48 hrs Weight 82.185 kg Weight 81.692 kg Weight 79.742 kg Weight 79.742 kg Weight 79.742 kg Weight 80.513 kg Physical Exam Const: COMMON NORMALS: no apparent distress and oriented x3 GENERAL APPEARANCE: cooperative and comfortable ORIENTATION/CONSCIOUSNESS: Yes awake HENMT: COMMON NORMALS: normocephalic, head/scalp atraumatic, hearing grossly normal bilaterally and moist oral mucous membranes HEAD & SCALP: normocephalic and atraumatic Eye: COMMON NORMALS: PERRL, EOMs intact bilaterally and conjunctivae normal CONJUNCTIVA: Yes conjunctivae normal PUPIL: Yes PERRL Neck/C-Spine: COMMON NORMALS: full ROM GENERAL: Yes normal visual inspection and Yes trachea midline Resp: COMMON NORMALS: normal respiratory effort, no retractions, no use of accessory muscles and clear to auscultation bilaterally EFFORT & INSPECTION: Yes able to speak in complete sentences, Yes symmetric chest movement and No tachypneic AUSCULTATION: clear to auscultation bilaterally Cardio: COMMON NORMALS: regular rate, regular rhythm, S1 normal heart sound, S2 normal heart sound and no murmurs RATE: regular rate RHYTHM: regular rhythm HEART SOUNDS: S1 normal and S2 normal GI: COMMON NORMALS: normal to inspection, nondistended, normoactive bowel sounds, soft to palpation and non-tender PALPATION: Yes soft Extremity: COMMON NORMALS: normal to inspection, full ROM and no clubbing, cyanosis or edema; negative for no pedal edema OTHER: Left hip: Clean, dry, intact dressing over lateral area. Splint in place over left hand Neuro: COMMON NORMALS: oriented x3, moves all extremities, no focal motor deficits, no sensory deficits noted and gait normal Psych: COMMON NORMALS: mental status grossly normal, thought process normal, cooperative, affect normal and speech normal SPEECH: Yes normal speech THOUGHT PROCESS: normal thought process Skin: COMMON NORMALS: no rashes or lesions noted, no jaundice, no petechiae and no mottling GENERAL SKIN EXAM: no rashes or lesions noted Urinary Catheter Management^: Truong: Cath Placed During This Visit: no A&P Assessment and plan (1) Closed left hip fracture: -secondary to fall -now POD # 1 s/p L hip arthroplasty done by Dr. Yousif; EBL-250 mL -fall precautions, pain control as needed -f/u H/H post-op stable -continue to monitor urine output; anticipate Truong catheter removal today -PT/OT evaluations appreciated -bowel regimen -IVF hydration; wean with improved oral intake -on DVT ppx with Lovenox -complete regan-op abx -UA done at outside facility, not indicative of infection -pre-op labs noted -VSS; continue to monitor -typically wears braces in both lower extremities Status: Acute Qualifiers: Encounter type: initial encounter Qualified Code(s): S72.002A - Fracture of unspecified part of neck of left femur, initial encounter for closed fracture Code(s): S72.002A - Fracture of unspecified part of neck of left femur, initial encounter for closed fracture (2) Fracture of phalanx of digit of hand: -secondary to mechanical fall -splint in place Status: Acute Qualifiers: Encounter type: initial encounter Fracture type: closed Qualified Code(s): S62.609A - Fracture of unspecified phalanx of unspecified finger, initial encounter for closed fracture Code(s): S62.609A - Fracture of unspecified phalanx of unspecified finger, initial encounter for closed fracture (3) Diabetes mellitus type 2, noninsulin dependent: -hx of NIDDM type II complicated by peripheral neuropathy -order A1c -Acuchecks, ISS -diabetic diet as tolerated Status: Acute Code(s): E11.9 - Type 2 diabetes mellitus without complications (4) Diabetic peripheral neuropathy: Status: Acute Code(s): E11.42 - Type 2 diabetes mellitus with diabetic polyneuropathy Additional A&P Information Additional A&P Information: -Acute on chronic normocytic anemia; baseline Hg around 11. Slight drop noted though improved from yesterday, continue to trend H/H -GERD; Add Famotidine for GI ppx -Hyperlipidemia -HTN; currently normotensive -DVT ppx with lovenox -Dispo: home -Code status: FULL code Attestations Medical Necessity Statement*: Patient requires hospitalization for continued post-op management including pain control, PT/OT evaluations. Time Spent in Patient Care: 16 - 35 minutes (>than 50% of time spent in counselling and/or direct pt care on unit). Coding Level of Care Code Acute [employer] for Jack Rayo Exam Problem Focused Diagnoses Closed left hip fracture S72.002A Encounter type: initial encounter Fracture of phalanx of digit of hand S62.609A Encounter type: initial encounter Fracture type: closed Diabetes mellitus type 2, noninsulin dependent E11.9 Diabetic peripheral neuropathy E11.42
--- NOTE | 2019-04-16 08:54 | XRR_ITS ---
PROCEDURE INFORMATION: Exam: XR Chest, 1 View Exam date and time: 04/16/2019 9:47 AM Age: 59 years old Clinical indication: Fever; Patient HX: PT denies any surgery; Additional info: High grade fever, leukocytosis post-op TECHNIQUE: Imaging protocol: XR of the chest Views: 1 view. COMPARISON: DX Chest 1 [place] [id number] 04/14/2019 4:59 PM FINDINGS: Lungs: No consolidation. Pleural space: No pleural effusion. No pneumothorax. Heart/Mediastinum: No cardiomegaly. Bones/joints: No acute fracture. XR/XR chest 1V portable [id number] IMPRESSION: No acute findings.
[2019-04-16] MEDS: sennosides-docusate Tablet 2 TAB PO ×2 (09:09→18:47)
[2019-04-16] MEDS: chlorhexidine gluconate 0.12% Btl 473 mL 30 ML MUCOUS MEM ×4 (09:10→21:59)
[2019-04-16] MEDS: multivitamin therapeutic Tablet 1 TAB PO (09:10)
[2019-04-16] MEDS: gabapentin 300 mg Capsule PO ×3 (09:10→22:00)
[2019-04-16] MEDS: iron polysaccharide complex 150 mg Capsule PO ×2 (09:10→18:47)
[2019-04-16] MEDS: cholecalciferol (vitamin D3) 1,000 unit Tablet 1000 UNIT PO (09:10)
[2019-04-16] MEDS: calcium carbonate 500 mg Chew Tablet 1000 MG PO ×2 (09:10→18:46)
--- NOTE | 2019-04-16 10:05 | ANE.PACU ---
 Inpatient post-anesthesia follow up: Airway intact: Yes Vital signs: Temperature 97.8 F Pulse Rate [Left D orsalis 84 Pedis] Pulse Rate [Left A pical] 68 Pulse Rate 89 Respiratory Rate 18 Blood Pressure [Ri ght Arm] 128/74 Pulse Oximetry 94 Oxygen Delivery Me thod Room Air Oxygen Flow Rate Fraction of Inspir ed Oxygen Hydration adequate: Yes Nausea and vomiting: No Mental status: Baseline
[2019-04-16 11:21] LABS: Estmated Average Glucose 111; Hemoglobin A1C 5.5 % (4.0-6.0)
[2019-04-16 11:36] LABS: Glucose Point of Care 154 mg/dL (70-110)
[2019-04-16] MEDS: enoxaparin 40 mg/0.4 mL Syringe SUBCUT (12:47)
[2019-04-16 13:54] LABS: Add Urine Microscopic? NO
[2019-04-16 14:20] LABS: Bilirubin Urine Neg (NEGATIVE); Blood Urine Neg (Negative); Glucose Urine UA 4+ (Normal); Ketones Urine Negative (Negative); Leukocyte Esterase Urine Negative (Negative); Nitrate Urine Negative (Negative); Protein Urine Neg (Negative); Urine Appearance Clear (CLEAR); Urine Color Yellow (Yellow); Urobilinogen Urine Norm (Negative); pH Urine 5 (5-7)
[2019-04-16] MEDS: oxyCODONE 5 mg IR Tab/Cap PO (16:35)
[2019-04-16 16:43] LABS: Glucose Point of Care 240 mg/dL (70-110)
[2019-04-16 21:42] LABS: Glucose Point of Care 165 mg/dL (70-110)
[2019-04-16] MEDS: famotidine 20 mg Tablet PO (22:08)
[2019-04-17] VITALS (10 sets, daily range): BP systolic 103–115; BP diastolic 51–66; PULSE 72–94; RESP 18–22; TEMP 36.5–38.7; O2SAT 94–100
[2019-04-17] MEDS: acetaminophen 325 mg Tablet 650 MG PO (01:16)
[2019-04-17] MEDS: sodium chloride 0.9% 1,000 ML 75 ML IV ×2 (02:55→18:16)
[2019-04-17 06:39] LABS: Basophils % 0.2 %; Eosinophils % 0.2 %; Hematocrit 27.5 % (42.0-52.0); Hemoglobin 8.7 g/dL (11.7-16.6); Lymphocytes % 15.4 %; Mean Corpuscular HGB Conc 31.6 g/dL (30.0-36.0); Mean Corpuscular Hemoglobin 28.6 pg (28.0-34.0); Mean Corpuscular Volume 90.5 fL (80-94); Mean Platelet Volume 9.2 fL (7.4-10.4); Monocytes # 1.4 10^3/uL (0.2-0.9); Monocytes % 11.1 %; Neutrophils # 9.4 10^3/uL (1.8-7.7); Neutrophils % 72.6 %; Nucleated Red Blood Cells % 0 %; Platelet Count 376 10^3/cmm (130-400); Red Blood Count 3.04 10^6/uL (4.1-5.3); Red Cell Distribution Width 16.3 % (12.1-15.1)
[2019-04-17 07:00] LABS: Glucose Point of Care 130 mg/dL (70-110)
[2019-04-17] MEDS: iron polysaccharide complex 150 mg Capsule PO ×2 (09:16→18:11)
[2019-04-17] MEDS: cholecalciferol (vitamin D3) 1,000 unit Tablet 1000 UNIT PO (09:16)
[2019-04-17] MEDS: multivitamin therapeutic Tablet 1 TAB PO (09:16)
[2019-04-17] MEDS: gabapentin 300 mg Capsule PO ×3 (09:16→20:23)
[2019-04-17] MEDS: calcium carbonate 500 mg Chew Tablet 1000 MG PO ×2 (09:16→18:11)
[2019-04-17] MEDS: sennosides-docusate Tablet 2 TAB PO ×2 (09:17→18:10)
[2019-04-17] MEDS: chlorhexidine gluconate 0.12% Btl 473 mL 30 ML MUCOUS MEM ×4 (09:20→20:22)
[2019-04-17] MEDS: oxyCODONE 5 mg IR Tab/Cap PO ×3 (09:23→20:23)
[2019-04-17] MEDS: morphine 4 mg/mL SDV 1 mL IVP (10:58)
[2019-04-17 11:58] LABS: Glucose Point of Care 178 mg/dL (70-110)
--- NOTE | 2019-04-17 12:05 | PM.PN ---
Subjective Subjective: Interval history: AM labs noted, had 710 mL urine output overnight, 1 BM today, got Tylenol for pain control. Noted temp of 101.6F overnight around midnight though has been afebrile since then. Patient resting in bed quietly, came by and selected home health services. Patient and declined SNF placement. Has been afebrile throughout the rest of the day. Medications: Reviewed: Yes Medication Review Details: Active Medications Generic Name Dose Route Start Last Admin Trade Name Freq PRN Reason Stop Dose Admin Acetaminophen 650 mg 04/14/19 21:38 04/17/19 01:16 Tylenol PO 650 mg Q6H PRN Administration Mild/Mod Pain Or Temp >/= 101 Al Hydrox/Mg [place] x/Simethicone 15 ml 04/14/19 21:38 Maalox PO Q6H PRN INDIGESTION Calcium Carbonate 1,000 mg 04/15/19 18:00 04/17/19 09:16 Tums PO 1,000 mg BID ANA LAURA Administration Chlorhexidine Gluc marie 30 ml 04/15/19 13:00 04/17/19 09:20 Perigard MUCOUS MEM 30 ml QID ANA LAURA Administration Dextrose 25 ml 04/15/19 10:21 D50w IVP ONCE PRN hypoglycemia prot ocol Protocol Dextrose 50 ml 04/15/19 10:21 D50w IVP PRN PRN hypoglycemia prot ocol Protocol Enoxaparin Sodium 40 mg 04/16/19 10:52 04/16/19 12:47 Lovenox SUBCUT 40 mg Q24H ANA LAURA Administration Famotidine 20 mg 04/16/19 21:00 04/16/19 22:08 Pepcid Tab PO 20 mg BEDTIME ANA LAURA Administration Gabapentin 300 mg 04/15/19 09:00 04/17/19 09:16 Neurontin PO 300 mg TID ANA LAURA Administration Glucagon 1 mg 04/15/19 10:21 Glucagen IM ONCE PRN Adult Acute Hypog lycemia Prot. Protocol Sodium Chloride 1,000 mls @ 75 ml s/hr 04/15/19 10:21 04/17/19 02:55 Sodium Chloride 0.9% IV 75 mls/hr .[id number] ANA LAURA Administration Dextrose 500 mls @ 100 mls /hr 04/15/19 10:21 D5w IV ONCE PRN Adult Acute Hypog lycemia Prot Protocol Insulin Aspart 0 unit 04/15/19 12:00 04/16/19 22:06 Novolog SUBCUT 4 unit WM&BEDTIME ANA LAURA Administration Protocol Morphine Sulfate 4 mg 04/15/19 10:21 04/17/19 10:58 Morphine IVP 4 mg Q1H PRN Administration BREAKTHROUGH PAIN Multivitamins Ther apeutic 1 tab 04/16/19 09:00 04/17/19 09:16 Multivitamin Tab PO 1 tab DAILY ANA LAURA Administration Mupirocin 1 applic 04/15/19 18:00 04/17/19 11:02 Bactroban NASAL 04/20/19 17:59 Not Given BID ANA LAURA Naloxone HCl 0.1 mg 04/15/19 10:21 Narcan IVP Q2M PRN Respiratory rate less than 8. Ondansetron HCl 4 mg 04/15/19 10:21 Zofran IVP Q6H PRN NAUSEA AND VOMITI NG Oxycodone HCl 5 mg 04/15/19 10:21 04/17/19 09:23 Oxycodone Ir PO 5 mg Q4H PRN Administration MODERATE PAIN Polysaccharide Iro n Complex 150 mg 04/15/19 18:00 04/17/19 09:16 Ferrex PO 150 mg BIDWM ANA LAURA Administration Senna/Docusate Sod ium 2 tab 04/15/19 18:00 04/17/19 09:17 Senna-S PO 2 tab BID ANA LAURA Administration Vitamin D 1,000 unit 04/16/19 09:00 04/17/19 09:16 Vitamin D3 PO 1,000 unit DAILY ANA LAURA Administration No Known Allergies Allergy (Verified 04/14/19 18:31) Vitals/I&O/Wt Last Vital Signs Temp 97.7 F 04/17/19 11:57 Pulse 94 04/17/19 11:57 Resp 20 H 04/17/19 11:57 BP 105/66 04/17/19 11:57 Pulse Ox 94 04/17/19 11:57 04/16/19 04/17/19 04/17/19 22:59 06:59 14:59 Intake Total 1356.667 / 2076.667 200 / 2276.667 360 / 360 Output Total 480 / 1680 430 / 2110 150 / 150 Balance 876.667 / 396.667 -230 / 166.667 210 / 210 Weight last 48 hrs Weight 79.095 kg Weight 82.185 kg Weight 81.692 kg Weight 79.742 kg Physical Exam Const: COMMON NORMALS: no apparent distress and oriented x3 GENERAL APPEARANCE: cooperative and comfortable ORIENTATION/CONSCIOUSNESS: Yes awake HENMT: COMMON NORMALS: normocephalic, head/scalp atraumatic, hearing grossly normal bilaterally and moist oral mucous membranes HEAD & SCALP: normocephalic and atraumatic Eye: COMMON NORMALS: PERRL, EOMs intact bilaterally and conjunctivae normal CONJUNCTIVA: Yes conjunctivae normal PUPIL: Yes PERRL Neck/C-Spine: COMMON NORMALS: full ROM GENERAL: Yes normal visual inspection and Yes trachea midline Resp: COMMON NORMALS: normal respiratory effort, no retractions, no use of accessory muscles and clear to auscultation bilaterally EFFORT & INSPECTION: Yes able to speak in complete sentences, Yes symmetric chest movement and No tachypneic AUSCULTATION: clear to auscultation bilaterally Cardio: COMMON NORMALS: regular rate, regular rhythm, S1 normal heart sound, S2 normal heart sound and no murmurs RATE: regular rate RHYTHM: regular rhythm HEART SOUNDS: S1 normal and S2 normal GI: COMMON NORMALS: normal to inspection, nondistended, normoactive bowel sounds, soft to palpation and non-tender PALPATION: Yes soft Extremity: COMMON NORMALS: normal to inspection, full ROM and no clubbing, cyanosis or edema; negative for no pedal edema OTHER: Left hip: Clean, dry, intact dressing over lateral area. Splint in place over left hand Neuro: COMMON NORMALS: oriented x3, moves all extremities, no focal motor deficits, no sensory deficits noted and gait normal Psych: COMMON NORMALS: mental status grossly normal, thought process normal, cooperative, affect normal and speech normal SPEECH: Yes normal speech THOUGHT PROCESS: normal thought process Skin: COMMON NORMALS: no rashes or lesions noted, no jaundice, no petechiae and no mottling GENERAL SKIN EXAM: no rashes or lesions noted Urinary Catheter Management^: Truong: Cath Placed During This Visit: no A&P Assessment and plan (1) Closed left hip fracture: -secondary to mechanical fall from truck -now POD # 2 s/p L hip arthroplasty done by Dr. Yousif; EBL-250 mL -fall precautions, pain control as needed -H/H post-op gradually trending down, continue to monitor -continue to monitor urine output; Truong catheter removed -PT/OT evaluations appreciated -bowel regimen -Discontinue IV fluid hydration as has appropriate oral intake -on DVT ppx with Lovenox -completed regan-op abx -UA not indicative of infection -VSS; continue to monitor -typically wears braces in both lower extremities Status: Acute Qualifiers: Encounter type: initial encounter Qualified Code(s): S72.002A - Fracture of unspecified part of neck of left femur, initial encounter for closed fracture Code(s): S72.002A - Fracture of unspecified part of neck of left femur, initial encounter for closed fracture (2) Fracture of phalanx of digit of hand: -secondary to mechanical fall -ulnar gutter splint in place Status: Acute Qualifiers: Encounter type: initial encounter Fracture type: closed Qualified Code(s): S62.609A - Fracture of unspecified phalanx of unspecified finger, initial encounter for closed fracture Code(s): S62.609A - Fracture of unspecified phalanx of unspecified finger, initial encounter for closed fracture (3) Diabetes mellitus type 2, noninsulin dependent: -hx of NIDDM type II complicated by peripheral neuropathy -A1c at goal (5.5) -CELESTE Mayo -diabetic diet as tolerated Status: Acute Code(s): E11.9 - Type 2 diabetes mellitus without complications (4) Diabetic peripheral neuropathy: Status: Acute Code(s): E11.42 - Type 2 diabetes mellitus with diabetic polyneuropathy Additional A&P Information Additional A&P Information: -Acute on chronic normocytic anemia; baseline Hg around 11. Continued drop noted today, transfuse if continued trend downward or patient is symptomatic -GERD; on Famotidine for GI ppx -Hyperlipidemia -HTN; currently normotensive -DVT ppx with lovenox -Dispo: home with home health services -Code status: FULL code Attestations Medical Necessity Statement*: Patient requires hospitalization for continued monitoring of H/H, pending appropriate disposition. Coding Level of Care Code Acute Ear Nose Throat Surgeon for Jack Rayo Exam Problem Focused Diagnoses Closed left hip fracture S72.002A Encounter type: initial encounter Fracture of phalanx of digit of hand S62.609A Encounter type: initial encounter Fracture type: closed Diabetes mellitus type 2, noninsulin dependent E11.9 Diabetic peripheral neuropathy E11.42
[2019-04-17 16:44] LABS: Glucose Point of Care 195 mg/dL (70-110)
[2019-04-17] MEDS: famotidine 20 mg Tablet PO (20:23)
[2019-04-17 22:04] LABS: Glucose Point of Care 140 mg/dL (70-110)
[2019-04-18] VITALS (11 sets, daily range): BP systolic 109–134; BP diastolic 57–73; PULSE 72–79; RESP 14–20; TEMP 36.4–37.3; O2SAT 94–97
[2019-04-18] MEDS: oxyCODONE 5 mg IR Tab/Cap PO ×5 (00:42→20:15)
[2019-04-18] MEDS: acetaminophen 325 mg Tablet 650 MG PO (03:55)
[2019-04-18] MEDS: sodium chloride 0.9% 1,000 ML 75 ML IV ×2 (03:56→21:37)
[2019-04-18 07:00] LABS: Basophils # 0.1 10^3/uL (0.0-0.1); Basophils % 0.6 %; Eosinophils # 0.2 10^3/uL (0.0-0.8); Eosinophils % 2.2 %; Hematocrit 25.4 % (42.0-52.0); Lymphocytes # 1.7 10^3/uL (0.8-4.8); Lymphocytes % 19.9 %; Mean Corpuscular HGB Conc 31.5 g/dL (30.0-36.0); Mean Corpuscular Hemoglobin 29.9 pg (28.0-34.0); Mean Corpuscular Volume 94.8 fL (80-94); Mean Platelet Volume 9.1 fL (7.4-10.4); Monocytes # 0.9 10^3/uL (0.2-0.9); Monocytes % 10.7 %; Neutrophils # 5.7 10^3/uL (1.8-7.7); Neutrophils % 66.1 %; Nucleated Red Blood Cells % 0 %; Platelet Count 347 10^3/cmm (130-400); Red Blood Count 2.68 10^6/uL (4.1-5.3); Red Cell Distribution Width 15.8 % (12.1-15.1); White Blood Count 8.6 10^3/uL (4.0-10.0)
[2019-04-18 07:08] LABS: Glucose Point of Care 184 mg/dL (70-110)
[2019-04-18] MEDS: chlorhexidine gluconate 0.12% Btl 473 mL 30 ML MUCOUS MEM ×4 (08:07→21:37)
[2019-04-18] MEDS: mupirocin oint 22 gm 1 APPLIC NASAL ×2 (08:07→18:16)
[2019-04-18] MEDS: cholecalciferol (vitamin D3) 1,000 unit Tablet 1000 UNIT PO (08:07)
[2019-04-18] MEDS: gabapentin 300 mg Capsule PO ×3 (08:08→21:38)
[2019-04-18] MEDS: iron polysaccharide complex 150 mg Capsule PO ×2 (08:08→18:09)
[2019-04-18] MEDS: calcium carbonate 500 mg Chew Tablet 1000 MG PO ×2 (08:08→18:09)
[2019-04-18] MEDS: multivitamin therapeutic Tablet 1 TAB PO (08:08)
[2019-04-18] MEDS: sennosides-docusate Tablet 2 TAB PO ×2 (09:16→18:10)
[2019-04-18 11:57] LABS: Glucose Point of Care 163 mg/dL (70-110)
--- NOTE | 2019-04-18 12:24 | DCPLANNER ---
*IMM* Patient received The important message from [employer]. Signed and placed in the chart. Patient now has a copy.
[2019-04-18 16:48] LABS: Glucose Point of Care 214 mg/dL (70-110)
--- NOTE | 2019-04-18 19:56 | PM.PN ---
Subjective Subjective: Interval history: Denies any new symptoms. Denies any discomfort. Says he is feeling well. Vitals/I&O/Wt Last Vital Signs Temp 98.0 F 04/18/19 15:43 Pulse 79 04/18/19 15:43 Resp 20 H 04/18/19 15:43 BP 113/63 04/18/19 15:43 Pulse Ox 97 04/18/19 15:43 04/18/19 04/18/19 04/18/19 06:59 14:59 22:59 Intake Total 1225 / 3675 960 / 960 Output Total 1200 / 1935 650 / 650 150 / 800 Balance 0 310 / 310 -150 / 160 Weight last 48 hrs Weight 81.675 kg Weight 79.095 kg Physical Exam Const: COMMON NORMALS: no apparent distress and oriented x3 HENMT: COMMON NORMALS: oropharynx normal Neck/C-Spine: COMMON NORMALS: no JVD Resp: COMMON NORMALS: normal respiratory effort and clear to auscultation bilaterally AUSCULTATION: clear to auscultation bilaterally Cardio: COMMON NORMALS: no JVD, regular rhythm, S1 normal heart sound, S2 normal heart sound and no murmurs RHYTHM: regular rhythm HEART SOUNDS: S1 normal and S2 normal GI: COMMON NORMALS: normal to inspection, nondistended, normoactive bowel sounds, soft to palpation and non-tender PALPATION: Yes soft Extremity: COMMON NORMALS: no joint enlargement and no pedal edema NARRATIVE EXTREMITY EXAM: Left hip with dressing on. Mild bloody strikethrough with old blood. No significant bruising. No significant swelling. No drainage or fresh bleeding. Neuro: COMMON NORMALS: oriented x3 and moves all extremities Skin: COMMON NORMALS: no rashes or lesions noted GENERAL SKIN EXAM: no rashes or lesions noted Urinary Catheter Management^: Truong: Cath Placed During This Visit: no A&P Assessment and plan (1) Closed left hip fracture: DVT prophylaxis was held yesterday. Hemoglobin trended down to 8 this morning. Discussed with orthopedics. Hold Lovenox for now. Recheck hemoglobin in the morning. Continue SCD for DVT prophylaxis. So far no further fever since last night. He says he is feeling well. Denies any respiratory, GI, genitourinary, integumentary, or other symptoms of possible infection. Secondary to mechanical fall from truck Status: Acute Qualifiers: Encounter type: initial encounter Qualified Code(s): S72.002A - Fracture of unspecified part of neck of left femur, initial encounter for closed fracture Code(s): S72.002A - Fracture of unspecified part of neck of left femur, initial encounter for closed fracture (2) Fracture of phalanx of digit of hand: He is having some discomfort, but no severe pain. -secondary to mechanical fall -ulnar gutter splint in place Status: Acute Qualifiers: Encounter type: initial encounter Fracture type: closed Qualified Code(s): S62.609A - Fracture of unspecified phalanx of unspecified finger, initial encounter for closed fracture Code(s): S62.609A - Fracture of unspecified phalanx of unspecified finger, initial encounter for closed fracture (3) Diabetes mellitus type 2, noninsulin dependent: NIDDM type II complicated by peripheral neuropathy. A1c 5.5. Continue Accu-Cheks, sliding scale insulin, consistent carbohydrate diet. Status: Acute Code(s): E11.9 - Type 2 diabetes mellitus without complications (4) Diabetic peripheral neuropathy: Status: Acute Code(s): E11.42 - Type 2 diabetes mellitus with diabetic polyneuropathy Additional A&P Information Acute on chronic normocytic anemia: Hemoglobin down to 8. DVT prophylaxis has been held. Reassess. GERD; on Famotidine for GI ppx Hyperlipidemia HTN; currently normotensive Attestations Medical Necessity Statement*: Continue admission for assessment of management after left hip fracture and repair, acute blood loss anemia. Coding Level of Care Code Acute Electronic Masking System Operator for Jack Rayo Diagnoses Closed left hip fracture S72.002A Encounter type: initial encounter Fracture of phalanx of digit of hand S62.609A Encounter type: initial encounter Fracture type: closed Diabetes mellitus type 2, noninsulin dependent E11.9 Diabetic peripheral neuropathy E11.42
[2019-04-18] MEDS: famotidine 20 mg Tablet PO (21:38)
[2019-04-18 22:39] LABS: Glucose Point of Care 159 mg/dL (70-110)
[2019-04-19] VITALS (14 sets, daily range): BP systolic 106–124; BP diastolic 61–74; PULSE 68–78; RESP 14–20; TEMP 36.3–37.7; O2SAT 93–97
[2019-04-19] MEDS: oxyCODONE 5 mg IR Tab/Cap PO ×3 (02:25→13:44)
[2019-04-19 03:45] LABS: Anion Gap 14.3 (5-19); Blood Urea Nitrogen 16 mg/dL (6-20); Carbon Dioxide 25 mmol/L (22-29); Chloride 97 mmol/L (98-107); Glomerular Filtration Rate 86.7 mL/min (90-130); Glucose 161 mg/dL (74-109); Potassium 4.3 mmol/L (3.5-5.1); Sodium 132 mmol/L (136-145)
[2019-04-19 03:56] LABS: Basophils # 0.1 10^3/uL (0.0-0.1); Basophils % 0.7 %; Eosinophils # 0.3 10^3/uL (0.0-0.8); Eosinophils % 4.2 %; Hematocrit 24.5 % (42.0-52.0); Hemoglobin 7.8 g/dL (11.7-16.6); Lymphocytes # 1.7 10^3/uL (0.8-4.8); Lymphocytes % 24.1 %; Mean Corpuscular HGB Conc 31.8 g/dL (30.0-36.0); Mean Corpuscular Hemoglobin 28.8 pg (28.0-34.0); Mean Corpuscular Volume 90.4 fL (80-94); Mean Platelet Volume 9.4 fL (7.4-10.4); Monocytes # 0.8 10^3/uL (0.2-0.9); Neutrophils # 4.3 10^3/uL (1.8-7.7); Neutrophils % 59.7 %; Nucleated Red Blood Cells % 0 %; Platelet Count 404 10^3/cmm (130-400); Red Blood Count 2.71 10^6/uL (4.1-5.3); Red Cell Distribution Width 15.3 % (12.1-15.1); White Blood Count 7.2 10^3/uL (4.0-10.0)
[2019-04-19] MEDS: acetaminophen 325 mg Tablet 650 MG PO (05:11)
[2019-04-19 06:31] LABS: Glucose Point of Care 170 mg/dL (70-110)
--- NOTE | 2019-04-19 07:15 | PM.PN ---
Subjective Subjective: Interval history: Pain OK with meds. Slow progress with therapy. Hoping for discharge home Vitals/I&O/Wt Last Vital Signs Temp 99.9 F H 04/19/19 03:55 Pulse 78 04/19/19 03:55 Resp 20 H 04/19/19 03:55 BP 115/65 04/19/19 03:55 Pulse Ox 93 04/19/19 03:55 04/18/19 04/19/19 04/19/19 22:59 06:59 14:59 Intake Total 1000 / 1960 Output Total 530 / 1180 1100 / 2280 Balance 470 / 780 -1100 / -320 Weight last 48 hrs Weight 179 lb 4.8 oz Weight 180 lb 1 oz Physical Exam Narrative: EXAM NARRATIVE: Left hip incision without drainage or erythema Left little finger in ulnar gutter brace. Urinary Catheter Management^: Truong: Cath Placed During This Visit: no A&P Assessment and plan (1) Anemia due to blood loss: Patient is currently asymptomatic. Appearance of wound stable. Feel this can be observed for now Status: Acute Code(s): D50.0 - Iron deficiency anemia secondary to blood loss (chronic) (2) Fracture of phalanx of digit of hand: Patient has preexisting abduction deformity at MCP joint. I encouraged him to reyna tape the littleto ring finger during bracing to better control litttle finger Status: Acute Qualifiers: Encounter type: initial encounter Fracture type: closed Qualified Code(s): S62.609A - Fracture of unspecified phalanx of unspecified finger, initial encounter for closed fracture Code(s): S62.609A - Fracture of unspecified phalanx of unspecified finger, initial encounter for closed fracture (3) Diabetic ulcer of foot associated with diabetes mellitus due to underlying condition, limited to breakdown of skin: I discussed the risk of infection to his total joint with non-treatment. I think it would be cole for him to follow-up with wound care. He is familiar with this clinic. Status: Acute Code(s): E08.621 - Diabetes mellitus due to underlying condition with foot ulcer; L97.501 - Non-pressure chronic ulcer of other part of unspecified foot limited to breakdown of skin (4) History of left hip hemiarthroplasty: The patient appears to be doing well with his hip. We can set him up with home health physical therapy for gait training if he chooses discharge home. Status: Acute Code(s): Z96.642 - Presence of left artificial hip joint Attestations Medical Necessity Statement*: Patient is stable for discharge from a orthopedic standpoint Coding Level of Care Code Acute Correctional Supply Supervisor for Chg Fwd Diagnoses Anemia due to blood loss D50.0 Fracture of phalanx of digit of hand S62.609A Encounter type: initial encounter Fracture type: closed Diabetic ulcer of foot associated with diabetes mellitus due to underlying condition, limited to breakdown of skin E08.621; L97.501 History of left hip hemiarthroplasty Z96.642
[2019-04-19] MEDS: multivitamin therapeutic Tablet 1 TAB PO (08:49)
[2019-04-19] MEDS: sennosides-docusate Tablet 2 TAB PO (08:49)
[2019-04-19] MEDS: calcium carbonate 500 mg Chew Tablet 1000 MG PO (08:49)
[2019-04-19] MEDS: cholecalciferol (vitamin D3) 1,000 unit Tablet 1000 UNIT PO (08:49)
[2019-04-19] MEDS: gabapentin 300 mg Capsule PO ×2 (08:49→16:00)
[2019-04-19] MEDS: iron polysaccharide complex 150 mg Capsule PO (08:49)
[2019-04-19] MEDS: mupirocin oint 22 gm 1 APPLIC NASAL (08:50)
[2019-04-19] MEDS: chlorhexidine gluconate 0.12% Btl 473 mL 30 ML MUCOUS MEM ×2 (08:50→13:46)
[2019-04-19 11:23] LABS: Glucose Point of Care 173 mg/dL (70-110)
--- NOTE | 2019-04-19 12:32 | PM.DCS ---
Discharge Providers Date of Admission: 04/14/19 21:17 Date of Discharge: 04/19/19 Attending Provider at Admission: Awa Dozier MD Attending Provider at Discharge: Serjio Hare Consults: Gino Yousif Primary Care Provider: Evangelist Duvall Diagnoses at Discharge Discharge Diagnosis (1) Anemia due to blood loss: Status: Acute (2) Fracture of phalanx of digit of hand: Status: Acute Problem details: Right fifth digit Qualifiers: Encounter type: initial encounter Fracture type: closed Qualified Code(s): S62.609A - Fracture of unspecified phalanx of unspecified finger, initial encounter for closed fracture (3) Diabetic ulcer of foot associated with diabetes mellitus due to underlying condition, limited to breakdown of skin: Status: Acute (4) History of left hip hemiarthroplasty: Status: Acute Reason for Visit Reason for Visit: Reason For Visit: L HIP FRACTURE Hospital Course Hospital Course: 59-year-old gentleman with DM 2, with peripheral neuropathy, history of right hallux osteomyelitis, history of left knee septic arthritis, HLD, HTN presented for evaluation after falling several days prior to admission, with finding of left hip fracture due to which he was transferred here from [facility]. Also noted fracture of left proximal fifth phalanx which was braced. He was assessed by orthopedics. He underwent bipolar hip arthroplasty on 04/15. After the procedure with noted episodes of fever, temperature as high as 102.9, however, without symptoms or signs of active infection. His postoperative course was complicated by acute blood loss anemia with hemoglobin trending down to as low as 7.8. He received 1 unit pRBC. His DVT prophylaxis was continued with SCDs, but Lovenox was held. His fevers gradually resolved. He reports continuing to feel well. He is feeling strong enough to return home. He will have home health follow-up. Hemoglobin will be rechecked in 4 days. Physical Exam Const: COMMON NORMALS: no apparent distress and oriented x3 HENMT: COMMON NORMALS: oropharynx normal Neck/C-Spine: COMMON NORMALS: no JVD Resp: COMMON NORMALS: normal respiratory effort and clear to auscultation bilaterally AUSCULTATION: clear to auscultation bilaterally Cardio: COMMON NORMALS: no JVD, regular rhythm, S1 normal heart sound, S2 normal heart sound and no murmurs RHYTHM: regular rhythm HEART SOUNDS: S1 normal and S2 normal GI: COMMON NORMALS: normal to inspection, nondistended, normoactive bowel sounds, soft to palpation and non-tender PALPATION: Yes soft Extremity: COMMON NORMALS: no joint enlargement and no pedal edema NARRATIVE EXTREMITY EXAM: Left hip wound appears clean, without active bleeding, no significant blue bruising. No surrounding erythema or discharge. Neuro: COMMON NORMALS: oriented x3 and moves all extremities Skin: COMMON NORMALS: no rashes or lesions noted GENERAL SKIN EXAM: no rashes or lesions noted Urinary Catheter Management^: Truong: Cath Placed During This Visit: no Discharge Data Data Completed and Pending: Completed Studies During Hospitalization Category Date Time Status XR chest 1V ben ble [id number] Routine Exams 04/16/19 08:54 Completed XR hip LT 2-3V wo /w pel* [id number] Rout ine Exams 04/15/19 09:56 Completed Labs from last 24 hours 04/19/19 04/19/19 04/19/19 11:12 09:40 06:16 WBC RBC Hgb Hct MCV MCH MCHC RDW Plt Count MPV Neut % (Auto) Lymph % (Auto) [place] % (Auto) Eos % (Auto) Baso % (Auto) Neut # (Auto) Lymph # (Auto) [place] # (Auto) Eos # (Auto) Baso # (Auto) Nucleated RBC % (a uto) Nucleated RBCs # Sodium Potassium Chloride Carbon Dioxide Anion Gap BUN Creatinine GFR Calculation Glucose POC Glucose 173 170 Calcium Blood Type O Positive Antibody Screen Negative Crossmatch See Detail 04/19/19 04/19/19 04/18/19 02:46 02:46 22:28 WBC 7.2 RBC 2.71 L Hgb 7.8 L Hct 24.5 L MCV 90.4 MCH 28.8 MCHC 31.8 RDW 15.3 H Plt Count 404 H MPV 9.4 Neut % (Auto) 59.7 Lymph % (Auto) 24.1 [place] % (Auto) 11.0 Eos % (Auto) 4.2 Baso % (Auto) 0.7 Neut # (Auto) 4.3 Lymph # (Auto) 1.7 [place] # (Auto) 0.8 Eos # (Auto) 0.3 Baso # (Auto) 0.1 Nucleated RBC % (a uto) 0 Nucleated RBCs # 0.0 Sodium 132 L Potassium 4.3 Chloride 97 L Carbon Dioxide 25 Anion Gap 14.3 BUN 16 Creatinine 0.9 GFR Calculation 86.7 L Glucose 161 H POC Glucose 159 Calcium 9.0 Blood Type Antibody Screen Crossmatch 04/18/19 16:45 WBC RBC Hgb Hct MCV MCH MCHC RDW Plt Count MPV Neut % (Auto) Lymph % (Auto) [place] % (Auto) Eos % (Auto) Baso % (Auto) Neut # (Auto) Lymph # (Auto) [place] # (Auto) Eos # (Auto) Baso # (Auto) Nucleated RBC % (a uto) Nucleated RBCs # Sodium Potassium Chloride Carbon Dioxide Anion Gap BUN Creatinine GFR Calculation Glucose POC Glucose 214 Calcium Blood Type Antibody Screen Crossmatch Vitals: Last Vital Signs Temp 98.3 F 04/19/19 11:27 Pulse 78 04/19/19 11:13 Resp 14 04/19/19 11:27 BP 121/63 04/19/19 11:27 Pulse Ox 97 04/19/19 11:27 Discharge Plan Discharge Patient Disposition: Home, Self-Care Condition: Stable Prescriptions: New oxycodone 5 mg Tablet 5 mg PO Q4H PRN (Reason: Moderate Pain) Qty: 30 RF: 0 No Action Unable to Assess RF: 0 Discharge Orders: Discharge Order (Routine); Ordered 04/19/19 Ordered By: Gino Yousif Other Ambulatory Orders: Complete Blood Count w/Auto (Routine) Timeframe: 4 Days Location: Determined by Patient Ordered By: Serjio Hare Referrals: [facility] [Outside] Evangelist Duvall [Primary Care Provider] - 4-7 days Gino Yousif MD [Physician] - 04/28/19 11:30 am [facility], [Staff Physician] - 1 week (L great toe ulcer) Discharge Diet: Advance as tolerated Discharge Activity: As per PT/OT instructions Patient Instructions: Anemia, Oxycodone, Rapid Release (By mouth), Hand Fracture (DC), Iron Rich Diet (DC), Revision Total Joint Arthroplasty (DC), Diabetic Foot Ulcers (DC) Activity Restrictions/Additional Instructions: May shower once incisions completely free of drainage. Discontinue right hip dressing in 24-48 hours. Replaced dressings as needed. Take Celebrex twice a day for the next 15 days for pain as needed, discontinue other anti-inflammatories take oxycodone for breakthrough pain. Exercises per physical therapy. May discontinue abduction pillow Discharge Attestations Time Spent in Discharge Care*: greater than 30 min Quality Metrics Clinical Quality Measures During this hospital stay, did patient experience: None Coding Level of Care Code Acute Bandage Wrapping Machine Operator for Jack Rayo Exam Problem Focused Diagnoses Anemia due to blood loss D50.0 Fracture of phalanx of digit of hand S62.600Q Encounter type: initial encounter Fracture type: closed Diabetic ulcer of foot associated with diabetes mellitus due to underlying condition, limited to breakdown of skin E08.621; L97.501 History of left hip hemiarthroplasty Z96.642
--- NOTE | 2019-04-19 14:58 | PC.CHAP ---
Pastoral Care Encounter/Spiritual Assessment Type of Contact [] Declined publication distributor visit [] Patient/Family/Request visit [] Outpatient visit [x] Follow-up visit [] Physician referral [] Code/Alert [] Routine visit [] Staff referral [] Actively dying [x] Patient sleeping [] Family support [] [] Out of room [] Palliative care [] [] Receiving care in room [] Pre-surgical visit [] Trauma [] Long length of stay [] ICU visit [] Other: Relational/Emotional Strength [] Patient feels connected with others/family/visitors/staff [] Distress [] Loneliness/isolation [] Abandonment Spirituality of Patient [] Person of Shanna [] Attends Denominational of their Shanna [] Believes in Prayer [] Reads Bible or Scientologist materials [] There are Spiritual issues to be addressed Welding Foreman Interventions [] Prayer [] Active listening [] Non-anxious presence [] Spiritual/emotional support [] Crisis/trauma care [] Spiritual counseling [] Bereavement support [] Provided bereavement packet [] Provided Bible/devotional materials [] Provided toy/stuffed animal, coloring book to patient or family member [] Completed spiritual assessment [] Provided Communion [] Anointing/[place] [] Salvation [] Other: Impact on Illness or Injury [] Angry [] Fearful [] Anxious [] Often cries [] Exhaustion [] Unable to work [] Unable to attend nondenominational [] Unable to walk/stand [] Unable to read [] Unable to drive [] Unable to eat/drink [] Unable to sleep [] Unable to be wit summary patient sleeping follow up needed charted by vamshi shine Time spent with patient two min
--- NOTE | 2019-04-20 15:29 | PC.NURSE ---
Patients family contacted staff due to being instructed to take Celebrex for pain. No prescriptions was given for celebrex. Dr. Hare notified of this. Orders received to phone Celebrex 100 mg po bid PRN pain #30. Called to [facility] in [place], [place]
== END 2019-04-19 18:00 | disposition home health service (06) | DRG 470 ==
PROVIDERS: Orthopaedic Surgery; Admitting Provider Family Medicine; Family Provider Student in an Organized Health Care Education/Training Program; PCP Student in an Organized Health Care Education/Training Program; Visit Provider Internal Medicine
PROC: (CPT 27125; principal; 2019-04-15 08:00)
DX: S72.012A Unspecified intracapsular fracture of left femur, initial encounter for closed fracture (principal); D62 Acute posthemorrhagic anemia; E11.42 Type 2 diabetes mellitus with diabetic polyneuropathy; I10 Essential (primary) hypertension; W17.89XA Other fall from one level to another, initial encounter; E78.00 Pure hypercholesterolemia, unspecified; S62.647A Nondisplaced fracture of proximal phalanx of left little finger, initial encounter for closed fracture; E11.621 Type 2 diabetes mellitus with foot ulcer; L97.509 Non-pressure chronic ulcer of other part of unspecified foot with unspecified severity; K21.9 Gastro-esophageal reflux disease without esophagitis; E78.5 Hyperlipidemia, unspecified
CPT/HCPCS: 12345; 36415; 36416; 36430; 51702; 71045; 73502; 80048; 81003; 82962; 83036; 85025; 85610; 86850; 86900; 93005; 96372; 96375; 97110; 97116; 97161; 97165; 97530; 97535; C1776; J0690; J1580; J1650; J1815; J2001; J2270; J2405; J2704; J3010; J7030; J7799; P9016

== ENCOUNTER 2019-04-25 16:46 | Outpatient (RCR) | payer MEDICARE, BC, SELFPAY ==
[2019-04-25 17:27] LABS: Basophils % 0.6 %; Eosinophils # 0.2 10^3/uL (0.0-0.8); Eosinophils % 2.4 %; Hematocrit 33.5 % (42.0-52.0); Hemoglobin 10.3 g/dL (11.7-16.6); Lymphocytes # 2.4 10^3/uL (0.8-4.8); Lymphocytes % 33.8 %; Mean Corpuscular HGB Conc 30.7 g/dL (30.0-36.0); Mean Corpuscular Hemoglobin 28.5 pg (28.0-34.0); Mean Corpuscular Volume 92.5 fL (80-94); Mean Platelet Volume 9.5 fL (7.4-10.4); Monocytes # 0.6 10^3/uL (0.2-0.9); Monocytes % 8.9 %; Neutrophils # 3.8 10^3/uL (1.8-7.7); Neutrophils % 53.9 %; Nucleated Red Blood Cells % 0 %; Platelet Count 626 10^3/cmm (130-400); Red Blood Count 3.62 10^6/uL (4.1-5.3); Red Cell Distribution Width 14.5 % (12.1-15.1)
== END 2019-05-06 23:59 | disposition home or self-care (01) ==
LOC: LAB 16:46
PROVIDERS: Internal Medicine; Family Provider Student in an Organized Health Care Education/Training Program; PCP Student in an Organized Health Care Education/Training Program; Visit Provider Dermatology
DX: Z01.89 Encounter for other specified special examinations (principal)
CPT/HCPCS: 85025

== ENCOUNTER → 2019-06-08 14:25 | Outpatient (BNVA) | payer MEDICARE, BC, SELFPAY | PROVIDERS: Family Provider Student in an Organized Health Care Education/Training Program; PCP Student in an Organized Health Care Education/Training Program; Visit Provider Orthopaedic Surgery | DX: M25.562 Pain in left knee (principal); M17.12 Unilateral primary osteoarthritis, left knee | CPT/HCPCS: 73560; 73565 ==

== ENCOUNTER 2019-09-13 13:53 | Inpatient (IN) | payer MEDICARE, BC, SELFPAY ==
[2019-09-12 12:38] LABS: Add Urine Microscopic? NO
[2019-09-12 12:39] VITALS: BMI 25.7
[2019-09-12 12:47] LABS: Bilirubin Urine Neg (NEGATIVE); Blood Urine Neg (Negative); Glucose Urine UA 4+ (Normal); Ketones Urine Negative (Negative); Leukocyte Esterase Urine Negative (Negative); Nitrate Urine Negative (Negative); Protein Urine Neg (Negative); Urine Appearance Clear (CLEAR); Urine Color Yellow (Yellow); Urobilinogen Urine Neg (Negative); pH Urine 5 (5-7)
[2019-09-12 13:30] LABS: Basophils # 0.1 10^3/uL (0.0-0.1); Basophils % 0.7 %; Eosinophils # 0.2 10^3/uL (0.0-0.8); Eosinophils % 3.1 %; Hematocrit 39.1 % (42.0-52.0); Hemoglobin 12.1 g/dL (11.7-16.6); Lymphocytes # 1.9 10^3/uL (0.8-4.8); Lymphocytes % 26.6 %; Mean Corpuscular HGB Conc 30.9 g/dL (30.0-36.0); Mean Corpuscular Hemoglobin 26.1 pg (28.0-34.0); Mean Corpuscular Volume 84.3 fL (80-94); Mean Platelet Volume 10.3 fL (7.4-10.4); Monocytes # 0.5 10^3/uL (0.2-0.9); Monocytes % 7.5 %; Neutrophils # 4.4 10^3/uL (1.8-7.7); Neutrophils % 61.8 %; Nucleated Red Blood Cells % 0 %; Platelet Count 288 10^3/cmm (130-400); Red Blood Count 4.64 10^6/uL (4.1-5.3); White Blood Count 7.1 10^3/uL (4.0-10.0)
[2019-09-12 13:40] LABS: Alanine Aminotransferase 17 U/L (0-41); Albumin Level 4.2 g/dL (3.5-5.2); Alkaline Phosphatase 121 IU/L (40-130); Anion Gap 18.2 (5-19); Aspartate Amino Transferase 18 U/L (0-40); Blood Urea Nitrogen 20 mg/dL (6-20); Calcium 9.6 mg/dL (8.5-10.5); Carbon Dioxide 23 mmol/L (22-29); Chloride 104 mmol/L (98-107); Globulin 2.8 g/dL (1.3-4.6); Glomerular Filtration Rate 56.7 mL/min (90-130); Glucose 156 mg/dL (65-115); Osmolality Calculated 292 mOsm/kg (285-295); Potassium 4.2 mmol/L (3.5-5.1); Sodium 141 mmol/L (136-145); Total Bilirubin 0.3 mg/dL (0.15-1.2)
--- NOTE | 2019-09-12 13:40 | P.ANESASSM_ITS ---
Pre-Anesthetic Assessment Pre-Anesthetic Assessment: Height/Weight: Height 1.8 m Weight 83.915 kg Preop Diagnosis: DJD left knee Proposed Procedure: Operation Date: 09/13/19 10:45 Proposed Procedures p Left total knee arthroplasty with imageless computer navigation/ [id number] Primary osteoarthritis of left knee/ M17.12(Left) - Jean-Pierre Sanders, DO Was Beta Yee taken within 24 hours: N/A Social: Social History: No alcohol and No tobacco Exam: Pre-Anes Outpt Exam: alert, oriented x 3, clear to auscultation bilaterally and regular rate & rhythm Airway: Submandibular: WNL Cervical ROM: WNL MP: 1 History/ROS: No significant complaints Pulmonary: Pulmonary: None reported CV/HEM: CV/HEM: None reported : : None reported Hepatic: Hepatic: None reported GI: GI: GERD Metabolic: Metabolic: DM Musc/skel: Musc/skel: OA/DJD Neuropsych: Neuropsych: None reported Anesthetic Plan: ASA status: 3 Anesthesia: General Risk of > 500 ml blood loss (7ml/kg in children): Yes, adequate IV access and fluids planned PFSH Anesthesia PFSH: Medical History Diabetes mellitus type 2, noninsulin dependent Diabetic peripheral neuropathy History of osteomyelitis Right foot History of septic arthritis Left knee Hx of fracture of left hip Hyperlipidemia Hypertension Surgical History History of hand surgery History of knee surgery Bilateral History of toe surgery Family History Other Cancer Diabetes Social History Smoking and tobacco status: never smoked Alcohol intake: current Alcohol intake frequency: 3 or more drinks per day Alcohol type: beer Household members: spouse and children Marital status: Data Anesthesia CBC & Chem 7: 09/12/19 12:50 Other Labs: Laboratory Results - last 48 hr 09/12/19 09/12/19 12:30 12:50 WBC 7.1 RBC 4.64 Hgb 12.1 Hct 39.1 L MCV 84.3 MCH 26.1 L MCHC 30.9 RDW 15.0 Plt Count 288 MPV 10.3 Neut % (Auto) 61.8 Lymph % (Auto) 26.6 [place] % (Auto) 7.5 Eos % (Auto) 3.1 Baso % (Auto) 0.7 Neut # (Auto) 4.4 Lymph # (Auto) 1.9 [place] # (Auto) 0.5 Eos # (Auto) 0.2 Baso # (Auto) 0.1 Nucleated RBC % (auto) 0 Nucleated RBCs # 0.0 Urine Color Yellow Urine Appearance Clear Urine pH 5 Ur Specific [place] 1.010 Urine Protein Neg Urine Glucose (UA) 4+ H Urine Ketones Negative Urine Blood Neg Urine Nitrate Negative Urine Bilirubin Neg Urine Urobilinogen Neg Ur Leukocyte Esterase Negative Cardiac Studies: No Data to Display
[2019-09-13] VITALS (13 sets, daily range): BP systolic 101–136; BP diastolic 55–83; PULSE 53–69; RESP 14–18; TEMP 35.8–36.7; O2SAT 95–97
--- NOTE | 2019-09-13 08:20 | W.PM.OPSUD ---
Surgery/Procedure H&P Update DATE OF PROCEDURE: September 13, 2019 DATE H&P PERFORMED: 08/17/19 H&P UPDATE INFORMATION: I have reviewed H&P completed within last 30 days, I have examined patient prior to procedure and No changes to prior documentation PREOP DIAGNOSIS: DJD left knee PRIMARY INDICATION FOR PROCEDURE: as above PLANNED PROCEDURE: Operation Date: 09/13/19 10:45 Proposed Procedures p Left total knee arthroplasty with imageless computer navigation/ [id number] Primary osteoarthritis of left knee/ M17.12(Left) - Jean-Pierre Sanders DO
--- NOTE | 2019-09-13 08:21 | PM.OP ---
Operative Report Date of procedure: September 13, 2019 Pre-op Diagnosis: DJD left knee Post-op diagnosis: same Post-op Findings: Severe tricompartmental degenerative arthritis left knee Procedure Done: Left total knee arthroplasty Imageless computer-assisted navigation Implants: Meredith triathlon knee system implants Specimens removed/disposition: Bone and cartilage from left knee Surgeon: Jean-Pierre Sanders Anesthesia: Nerve Block (Single shot adductor canal block) and Other (Spinal) Estimated blood loss (mL): 30 Tourniquet time (min): 120 Complications: No apparent complications Findings: Tricompartmental osteoarthritis Condition: stable Disposition: PACU Procedure: 2 g Ancef 1.5 g vancomycin Meredith triathlon total knee implants Size 6 posterior stabilized left femur Size 68 universal tibial baseplate Size 6 tibial articular surface posterior stabilized 11 mm thickness 36 mm diameter by 10 mm thickness symmetric patella Simplex P-2 package of low-viscosity cement with tobramycin Patient identified. Surgical site signed. Surgical permit signed. Patient received 1.5 g of Vancomycin and 2 g of Ancef for antimicrobial prophylaxis. Anesthesia team performed a adductor canal block in the preoperative holding area. He was taken to the operating room. He received a spinal anesthetic. Truong catheter was placed for urinary drainage. A gel bump was placed under the ipsilateral buttock. A tourniquet was placed about the upper aspect of the operative left limb. The operative limb was then sterilely prepped and draped usual fashion. The patient received 1 gm of TXA prior to skin incsion and prior to wound closure. The operative limb was exsanguinated using an Esmarch bandage and the tourniquet inflated to 300 mm Hg pressure. A 22 cm midline incision was made with a skin knife. Full-thickness skin flaps were made. Skin edge bleeders were coagulated with electrocautery. Using a second knife we perform a medial parapatellar arthrotomy. Soft tissues were released off the anteromedial aspect of the tibia to the posterior medial corner of the tibia with second knife and [place] elevator. The anterior horns of the medial and lateral menisci were released and resected. Partial fat pad resection was performed with sharp dissection. The anterior posterior cruciate ligaments were divided sharply. Using electrocautery the lateral patellofemoral ligament was divided. The knee was placed in full extension. The patella was everted. Marginal osteophytes were removed. Electrocautery was taken around the periphery of the patella. The patella measured 24 to 28 mm in thickness. It sized a 36 mm symmetric patella which is 10 mm in thickness. The patella was reamed to a thickness of 16 mm and then the patellar template was clamped to the cut surface of the patella and the 3 peg holes were drilled. A partial lateral facetectomy was performed with an oscillating saw. The knee was flexed to 60?. A guidepin for the [employer] navigation device was inserted on the distal femur on white sides line. We measured for the anterior posterior offset and input the number. We attached the anterior reference unit. We entered the offset. We maneuvered the leg to register the femur. We then set the resection plane at 0? of varus from the mechanical axis and flexion at 4? for the femoral component. We set the distal femoral resection guide for 11 mm as the pateint has a flexion contracture.. Using an oscillating saw we performed the distal femoral cut. We then secured the tibial cutting jig on the tibia and held in place with a rubberized strap. The guide was put in place and the medial one third of the tibial tubercle and was secured with 3 pins. Tibial registration was performed by first reading and then adjust the distal offset to match 4.5 to the midline probe offset. The side levers were unlocked and we extended the distal probe to match offsets. We then registered the lateral followed by the medial malleolus. We set the varus/valgus angle to 0? and set the posterior slope to 0 degrees. We used the 2 mm stylus set our depth for tibial resection. We then used the oscillating saw to perform our proximal tibial cut. We now at checked our extension space and we were able to put a size 11 spacer and with good stability and to near full extension. We sized the femur for a size 6 using the anterior referencing guide. Rotation was set at 3? of external rotation. The 4-in-1 cutting guide was put into place and an tay wing was placed through the anterior cutting guide to assess for the potential of anterior notching. The aty wing passed anterior to the femoral cortex. The 4-in-1 cutting block was pinned into place and the anterior and posterior as well as the chamfer cuts were then performed. The PS cutting block was pinned into place and the box cut was made with an oscillating saw. Lug holes were drilled. A size 6 femoral box cut component was then put on the distal femur. Box cut was then made with reciprocating saw. The knee was flexed to 110? and a PCL retractor was used to subluxate the tibia anteriorly with respect to the femur.The tibia was sized for a size 6. The placement of the tibial trial was adjusted for maximal coverage and appropriate rotation. The size 6 tibial plate was held in place using headed pins.We then drilled for the stem and punched for the keel. A trial reduction was performed with an 11 mm trial articular surface the knee was able to come to near full extension with a mild degree of effort flexion 110?. The patella had a slight tendency to subluxate laterally so a lateral retinacular release was performed. Patellar tracking improved after the release. All trial components were removed from the knee. The knee was irrigated with pulsatile lavage containing antibiotic solution and the joint was dried. we injected the area of resection of the meniscal tissue joint capsule quadriceps and patellar tendons using a 120 mL solution containing equal parts of Exparel, 0.25% Marcaine and sterile saline. We then mixed 2 bags of low viscosity cement with Tobramycin. Tobramycin for additional antimicrobial prophylaxis. The patellar component was cemented first and the patellar component compress to the patella using the patellar clamp. Excess cement was removed using a [place] elevator. We cemented the femoral component and removed excess cement. The tibial component was then cemented into place and excess cement was removed.The cement was allowed to cure fully. The actual 11 mm posterior stabilized tibial articular bearing surface was inserted into place. The knee was reduced. The knee came to near full extension flexion easily to 110?. The knee was stable to varus valgus stress. The patella tracked nicely with a no touch technique. The knee was then irrigated with Betadine-containing saline solution and antibiotic containing saline solution. FloSeal was then placed in the wound for additional hemostasis within the joint was dried. Vancomycin powder was placed and capsular closure was performed with permanent as well as absorbable barbed suture. The subcutaneous layer was irrigated with Betadine-containing saline solution and antibiotic containing saline solution. Vancomycin powder was also placed in this layer. The wound was then closed in layers with christiano and skin glue on skin. The tourniquet was deflated during closure of skin. Sterile dressings were then applied. A compressive Boogie wrap was applied from ankle to groin. The patient was aroused from sedation with spinal anesthetic still in effect. Patient was taken to recovery room. Patient tolerated the procedure well. All counts were correct.
--- NOTE | 2019-09-13 08:33 | XRR_ITS ---
PROCEDURE INFORMATION: Exam: XR Chest, 2 Views Exam date and time: 09/13/2019 8:58 AM Age: 59 years old Clinical indication: Pre-operative exam; Cardiovascular screening and respiratory screening exam; Patient HX: Pre op; Additional info: HTN TECHNIQUE: Imaging protocol: XR of the chest Views: 2 views. COMPARISON: No relevant prior studies available. FINDINGS: Lungs: Unremarkable. No consolidation. Pleural space: Unremarkable. No pleural effusion. No pneumothorax. Heart/Mediastinum: Unremarkable. No cardiomegaly. Bones/joints: Unremarkable. XR/XR chest 2V* [id number] IMPRESSION: No acute findings.
--- NOTE | 2019-09-13 08:33 | ECG_ITS ---
Measurements Intervals [place] Rate: 68 P: 50 [place]: 164 QRS: -32 QRSD: 82 T: 1 QT: 382 QTc: 408 SINUS RHYTHM MARKED LEFT AXIS DEVIATION [QRS AXIS < -30] LOW QRS VOLTAGE IN PRECORDIAL LEADS [QRS DEFLECTION < 1.0 mV IN CHEST LEADS] PATTERN CONSISTENT WITH PULMONARY DISEASE Compared to ECG 04/15/2019 00:08:47 Left-axis deviation now present Low QRS voltage now present Electronically Signed On 09-13-2019 19:36:24 CDT by Landen Alanis M.D. [email or web address]
--- NOTE | 2019-09-13 08:37 | ANES.PREANE2 ---
Pre-Anesthetic Assessment Pre-Anesthetic Assessment: Height/Weight: Height 1.8 m Weight 83.915 kg Preop Diagnosis: DJD left knee Proposed Procedure: Operation Date: 09/13/19 10:45 Proposed Procedures p Left total knee arthroplasty with imageless computer navigation/ [id number] Primary osteoarthritis of left knee/ M17.12(Left) - Jean-Pierre Sanders, DO Was Beta Yee taken within 24 hours: N/A Last intake: > 8 hours NPO Social: Social History: No alcohol and No tobacco Exam: Pre-Anes Outpt Exam: alert, oriented x 3, clear to auscultation bilaterally and regular rate & rhythm Airway: Submandibular: WNL Cervical ROM: WNL MP: 1 History/ROS: No significant history except as noted Pulmonary: Pulmonary: None reported CV/HEM: CV/HEM: None reported : : None reported Hepatic: Hepatic: None reported GI: GI: GERD Metabolic: Metabolic: DM Musc/skel: Musc/skel: OA/DJD Comments: Severe osteoarthritis with distal contractures Neuropsych: Neuropsych: None reported Anesthetic Plan: ASA status: 3 Anesthesia: Choice Risk of > 500 ml blood loss (7ml/kg in children): Yes, adequate IV access and fluids planned PFSH Anesthesia PFSH: Medical History Diabetes mellitus type 2, noninsulin dependent Diabetic peripheral neuropathy History of osteomyelitis Right foot History of septic arthritis Left knee Hx of fracture of left hip Hyperlipidemia Hypertension Surgical History History of hand surgery History of knee surgery Bilateral History of toe surgery Family History Other Cancer Diabetes Social History Smoking and tobacco status: never smoked Alcohol intake: current Alcohol intake frequency: 3 or more drinks per day Alcohol type: beer Household members: spouse and children Marital status: Data Anesthesia CBC & Chem 7: 09/12/19 12:50 09/12/19 12:50 Other Labs: Laboratory Results - last 48 hr 09/12/19 09/12/19 09/12/19 12:30 12:50 12:50 WBC 7.1 RBC 4.64 Hgb 12.1 Hct 39.1 L MCV 84.3 MCH 26.1 L MCHC 30.9 RDW 15.0 Plt Count 288 MPV 10.3 Neut % (Auto) 61.8 Lymph % (Auto) 26.6 [place] % (Auto) 7.5 Eos % (Auto) 3.1 Baso % (Auto) 0.7 Neut # (Auto) 4.4 Lymph # (Auto) 1.9 [place] # (Auto) 0.5 Eos # (Auto) 0.2 Baso # (Auto) 0.1 Nucleated RBC % (auto) 0 Nucleated RBCs # 0.0 Sodium 141 Potassium 4.2 Chloride 104 Carbon Dioxide 23 Anion Gap 18.2 BUN 20 Creatinine 1.3 H GFR Calculation 56.7 L Glucose 156 H Calculated Osmolality 292 Calcium 9.6 Total Bilirubin 0.3 AST 18 ALT 17 Alkaline Phosphatase 121 Total Protein 7.0 Albumin 4.2 Globulin 2.8 Urine Color Yellow Urine Appearance Clear Urine pH 5 Ur Specific [place] 1.010 Urine Protein Neg Urine Glucose (UA) 4+ H Urine Ketones Negative Urine Blood Neg Urine Nitrate Negative Urine Bilirubin Neg Urine Urobilinogen Neg Ur Leukocyte Esterase Negative Blood Type Rho(D) Type Antibody Screen 09/12/19 12:50 WBC RBC Hgb Hct MCV MCH MCHC RDW Plt Count MPV Neut % (Auto) Lymph % (Auto) [place] % (Auto) Eos % (Auto) Baso % (Auto) Neut # (Auto) Lymph # (Auto) [place] # (Auto) Eos # (Auto) Baso # (Auto) Nucleated RBC % (auto) Nucleated RBCs # Sodium Potassium Chloride Carbon Dioxide Anion Gap BUN Creatinine GFR Calculation Glucose Calculated Osmolality Calcium Total Bilirubin AST ALT Alkaline Phosphatase Total Protein Albumin Globulin Urine Color Urine Appearance Urine pH Ur Specific [place] Urine Protein Urine Glucose (UA) Urine Ketones Urine Blood Urine Nitrate Urine Bilirubin Urine Urobilinogen Ur Leukocyte Esterase Blood Type O Positive Rho(D) Type Positive Antibody Screen Negative Cardiac Studies: No Data to Display
[2019-09-13] MEDS: sodium chloride 0.9% 1,000 ML 30 ML IV (09:34)
[2019-09-13] MEDS: acetaminophen 500 mg Tablet 1000 MG PO ×3 (09:35→23:31)
[2019-09-13] MEDS: CELEcoxib 200 mg Capsule 400 MG PO (09:36)
[2019-09-13] MEDS: gabapentin 300 mg Capsule PO (09:36)
[2019-09-13] MEDS: fentaNYL 50 mcg/mL INJ 2mL 100 MCG IVP (10:46)
[2019-09-13] MEDS: midazolam 1 mg/mL INJ 2 mL 2 MG IVP (10:47)
--- NOTE | 2019-09-13 10:55 | ANES.PROC ---
Anesthesia Procedures Procedure/Date: 09/13/19 Nerve Block ^: Nerve Block 2: Main Anesthesia: other (Popliteal Nerve Block, Left) Time Out Performed: Yes Consent: requested by attending/covering physician, risks and benefits reviewed and patient agrees to proceed Nerve block location: popliteal Anesthesia monitors applied: pulse oximetry and BP cuff Nerve block position: lateral Anesthetic Used: ropivicaine 0.5% Amount of anesthesia used (mL): 20 Ultrasound used to: recognize landmarks Nerve Stimulator Used?: Yes Interscalene/Femoral BLK: 4 stimuplex 21 g needle used for position and inplane approach Injection: neg aspiration of heme Patient Tolerated Procedure: no complications Complications: none
--- NOTE | 2019-09-13 11:14 | ANES.PROC ---
Anesthesia Procedures Procedure/Date: 09/13/19 Nerve Block ^: Nerve Block 2: Main Anesthesia: other Time Out Performed: Yes Consent: requested by attending/covering physician, risks and benefits reviewed and patient agrees to proceed Nerve block location: adductor canal Anesthesia monitors applied: pulse oximetry and BP cuff Nerve block position: supine Anesthetic Used: ropivicaine 0.5% Amount of anesthesia used (mL): 20 Ultrasound used to: recognize landmarks Nerve Stimulator Used?: No Interscalene/Femoral BLK: 4 stimuplex 21 g needle used for position and inplane approach, visualize local anesthetic spread and no vascular puncture identified Patient Tolerated Procedure: well Complications: none
[2019-09-13] MEDS: vancomycin 1,000 MG SDV 1000 MG XX (12:47)
--- NOTE | 2019-09-13 14:54 | SUR.PHASEI ---
1447 PATIENT TO PACU FROM OR. TALKING, RR EVEN AND UNLABORED. SPO2 96% ON RA. DRESSING TO LEFT KNEE, CDI WITH DHRUV WRAP IN PLACE. LEFT PEDAL PULSE STRONG AND MARKED. FIRST ICE APPLIED. GÓMEZ CATH IN PLACE AND DRAINING CLEAR, YELLOW URINE.
--- NOTE | 2019-09-13 14:55 | XRR_ITS ---
PROCEDURE INFORMATION: Exam: XR Left Knee Exam date and time: 09/13/2019 3:05 PM Age: 59 years old Clinical indication: Device placement; Joint replacement hardware; Prior surgery; Surgery date: Post-operative (0-2 days); Surgery type: Knee replacement; Additional info: S/P left tkr TECHNIQUE: Imaging protocol: XR Left knee. Views: 3 views. COMPARISON: No relevant prior studies available. FINDINGS: Bones/joints: Vertical anterior row of skin christiano over the knee. Recent total knee replacement with a vertical row skin christiano. Soft tissues: Postoperative air in the subcutaneous tissues and knee joint consistent with recent surgery. XR/XR knee LT 3V* [id number] IMPRESSION: Recent total knee replacement with a vertical row skin christiano.
--- NOTE | 2019-09-13 15:15 | SUR.PHASEI ---
1506 PATIENT TO MED SURG AT THIS TIME. NO DISTRESS. DENIES PAIN. TALKATIVE. DENIES NAUSEA, TOLERATING ICE CHIPS. DRESSING TO LEFT KNEE, CDI. GÓMEZ CATH IN PLACE.
[2019-09-13] MEDS: sodium chloride 0.9% 1,000 ML 100 ML IV (15:52)
[2019-09-13] MEDS: gabapentin 400 mg Capsule 800 MG PO ×2 (15:53→20:31)
[2019-09-13 16:44] LABS: Glucose Point of Care 187 mg/dL (70-110)
[2019-09-13] MEDS: calcium carbonate 500 mg Chew Tablet 1000 MG PO (17:13)
[2019-09-13] MEDS: sennosides-docusate Tablet 2 TAB PO (17:13)
[2019-09-13] MEDS: iron polysaccharide complex 150 mg Capsule PO (17:13)
[2019-09-13] MEDS: chlorhexidine gluconate 0.12% Btl 473 mL 30 ML MUCOUS MEM ×2 (17:15→20:30)
[2019-09-13] MEDS: mupirocin oint 22 gm 1 APPLIC NASAL (17:29)
--- NOTE | 2019-09-13 18:14 | PC.NURSE ---
Summary MISHEL tx got PT up earlier in chair and he is sitting there drinking his dinner. No c/o pain as of yet.
[2019-09-13 21:13] LABS: Glucose Point of Care 159 mg/dL (70-110)
[2019-09-14] VITALS (8 sets, daily range): BP systolic 93–108; BP diastolic 48–65; PULSE 52–63; RESP 16–22; TEMP 35.8–36.7; O2SAT 95–99
[2019-09-14] MEDS: sodium chloride 0.9% 1,000 ML 100 ML IV ×2 (01:52→13:07)
[2019-09-14 02:40] LABS: Basophils % 0.1 %; Hemoglobin 10.9 g/dL (11.7-16.6); Lymphocytes % 8.9 %; Mean Corpuscular HGB Conc 31.1 g/dL (30.0-36.0); Mean Corpuscular Hemoglobin 26.3 pg (28.0-34.0); Mean Corpuscular Volume 84.3 fL (80-94); Mean Platelet Volume 10.5 fL (7.4-10.4); Monocytes # 0.3 10^3/uL (0.2-0.9); Monocytes % 2.9 %; Neutrophils # 9.6 10^3/uL (1.8-7.7); Neutrophils % 87.6 %; Nucleated Red Blood Cells % 0 %; Platelet Count 244 10^3/cmm (130-400); Red Blood Count 4.15 10^6/uL (4.1-5.3)
[2019-09-14 03:00] LABS: Blood Urea Nitrogen 18 mg/dL (6-20); Calcium 9.5 mg/dL (8.5-10.5); Carbon Dioxide 22 mmol/L (22-29); Chloride 104 mmol/L (98-107); Glomerular Filtration Rate 76.7 mL/min (90-130); Glucose 142 mg/dL (65-115); Osmolality Calculated 283 mOsm/kg (285-295); Sodium 137 mmol/L (136-145)
[2019-09-14] MEDS: apixaban 5 mg Tablet 2.5 MG PO ×3 (04:11→19:09)
[2019-09-14 06:51] LABS: Glucose Point of Care 122 mg/dL (70-110)
[2019-09-14] MEDS: multivitamin therapeutic Tablet 1 TAB PO (08:46)
[2019-09-14] MEDS: pantoprazole DR 40 mg Tablet PO (08:46)
[2019-09-14] MEDS: acetaminophen 500 mg Tablet 1000 MG PO ×3 (08:46→23:27)
[2019-09-14] MEDS: sennosides-docusate Tablet 2 TAB PO ×2 (08:46→19:09)
[2019-09-14] MEDS: cholecalciferol (vitamin D3) 1,000 unit Tablet 1000 UNIT PO (08:46)
[2019-09-14] MEDS: calcium carbonate 500 mg Chew Tablet 1000 MG PO ×2 (08:46→19:10)
[2019-09-14] MEDS: gabapentin 400 mg Capsule 800 MG PO ×3 (08:47→22:19)
[2019-09-14] MEDS: iron polysaccharide complex 150 mg Capsule PO ×2 (08:47→19:10)
--- NOTE | 2019-09-14 08:51 | PM.PN ---
Subjective Subjective: Interval history: 59-year-old white male postoperative day 1 status post left total knee arthroplasty for degenerative arthritis. Getting ready to participate with physical therapy for first time following surgery. no complaints of dizziness, chest pain, shortness of breath or abdominal discomfort. Vitals/I&O/Wt Last Vital Signs Temp 97.4 F L 09/14/19 07:43 Pulse 58 L 09/14/19 07:43 Resp 22 H 09/14/19 07:43 BP 103/65 09/14/19 07:43 Pulse Ox 95 09/14/19 07:43 09/13/19 09/14/19 09/14/19 22:59 06:59 14:59 Intake Total 910 / 2320 480 / 480 Output Total 0 / 1025 1250 / 2275 Balance 910 / 1295 -1250 / 45 480 / 480 Weight last 48 hrs Weight 185 lb Weight 185 lb Physical Exam Narrative: EXAM NARRATIVE: 59-year-old white male in no acute distress. He is alert and cooperative. Neck/C-Spine: COMMON NORMALS: no JVD Resp: COMMON NORMALS: normal respiratory effort and clear to auscultation bilaterally AUSCULTATION: clear to auscultation bilaterally, no crackles, no rales, no rhonchi and no wheezes Cardio: COMMON NORMALS: no JVD, regular rhythm, S1 normal heart sound present and S2 normal heart sound present RHYTHM: regular rhythm HEART SOUNDS: S1 normal heart sound present and S2 normal heart sound present GI: COMMON NORMALS: Normal to inspection, nondistended, normoactive bowel sounds present and non-tender Extremity: LEFT LOWER EXTREMITY: Yes knee joint (slight strikethrough left knee dressing, no calf tenderness bilaterally) Urinary Catheter Management^: F: Cath Placed During This Visit: yes Reason for Continuing Indwelling Catheter: Required Immobilization for Trauma or Surgery or Anesthesia Urinary Catheter Date of Insertion: 09/13/19 Urinary Catheter Time of Insertion: 12:15 Data : 09/14/19 02:03 09/14/19 02:03 Attestations Medical Necessity Statement*: Patient requires continued inpatient level care following left total knee arthroplasty for mobilization, pain control discharge planning Time Spent in Patient Care: 16 - 35 minutes (>than 50% of time spent in counselling and/or direct pt care on unit). Coding Level of Care Code Acute Human Resources Department Supervisor for Jack Rayo
[2019-09-14] MEDS: chlorhexidine gluconate 0.12% Btl 473 mL 30 ML MUCOUS MEM ×4 (08:55→22:20)
[2019-09-14] MEDS: mupirocin oint 22 gm 1 APPLIC NASAL ×2 (08:55→19:10)
--- NOTE | 2019-09-14 09:56 | PC.CHAP ---
Pastoral Care Encounter/Spiritual Assessment Type of Contact [] Declined cover stripper visit [] Patient/Family/Request visit [] Outpatient visit [] Follow-up visit [] Physician referral [] Code/Alert [x] Routine visit [] Staff referral [] Actively dying [] Patient sleeping [] Family support [] [] Out of room [] Palliative care [] [] Receiving care in room [] Pre-surgical visit [] Trauma [] Long length of stay [] ICU visit [] Other: Relational/Emotional Strength [] Patient feels connected with others/family/visitors/staff [] Distress [] Loneliness/isolation [] Abandonment Spirituality of Patient [] Person of Shanna [] Attends Christian of their Shanna [] Believes in Prayer [] Reads Bible or Presybeterian materials [] There are Spiritual issues to be addressed Stockroom Inventory Clerk Interventions [x] Prayer [] Active listening [] Non-anxious presence [] Spiritual/emotional support [] Crisis/trauma care [] Spiritual counseling [] Bereavement support [] Provided bereavement packet [] Provided Bible/devotional materials [] Provided toy/stuffed animal, coloring book to patient or family member [] Provided Communion [] Anointing/[place] [] Salvation [x] Completed spiritual assessment [] Other: Impact on Illness or Injury [] Angry [] Fearful [] Anxious [] Often cries [] Exhaustion [] Unable to work [] Unable to attend gnosticism [] Unable to walk/stand [] Unable to read [] Unable to drive [] Unable to eat/drink [] Unable to sleep [] Unable to be with family [] Patient intubated [] Other: Summary Patient setting in chair- feeling stronger Time spent with patient 10 min
[2019-09-14 10:48] LABS: Glucose Point of Care 220 mg/dL (70-110)
[2019-09-14 17:17] LABS: Glucose Point of Care 102 mg/dL (70-110)
[2019-09-14 21:09] LABS: Glucose Point of Care 204 mg/dL (70-110)
[2019-09-15 03:48] LABS: Basophils % 0.3 %; Eosinophils # 0.1 10^3/uL (0.0-0.8); Eosinophils % 1.3 %; Hemoglobin 9.9 g/dL (11.7-16.6); Lymphocytes # 1.6 10^3/uL (0.8-4.8); Lymphocytes % 24.1 %; Mean Corpuscular HGB Conc 30.9 g/dL (30.0-36.0); Mean Corpuscular Hemoglobin 25.6 pg (28.0-34.0); Mean Corpuscular Volume 82.9 fL (80-94); Mean Platelet Volume 10.4 fL (7.4-10.4); Monocytes # 0.6 10^3/uL (0.2-0.9); Monocytes % 8.8 %; Neutrophils # 4.4 10^3/uL (1.8-7.7); Neutrophils % 65.2 %; Nucleated Red Blood Cells % 0 %; Platelet Count 248 10^3/cmm (130-400); Red Blood Count 3.86 10^6/uL (4.1-5.3); Red Cell Distribution Width 14.9 % (12.1-15.1); White Blood Count 6.7 10^3/uL (4.0-10.0)
[2019-09-15 04:00] VITALS: BP 100/58; PULSE 62; RESP 18; TEMP 36.6; O2SAT 97
[2019-09-15 04:24] LABS: Anion Gap 13.6 (5-19); Blood Urea Nitrogen 17 mg/dL (6-20); Calcium 8.9 mg/dL (8.5-10.5); Carbon Dioxide 24 mmol/L (22-29); Chloride 108 mmol/L (98-107); Glomerular Filtration Rate 76.7 mL/min (90-130); Glucose 102 mg/dL (65-115); Osmolality Calculated 291 mOsm/kg (285-295); Potassium 3.6 mmol/L (3.5-5.1); Sodium 142 mmol/L (136-145)
[2019-09-15 06:32] LABS: Glucose Point of Care 140 mg/dL (70-110)
[2019-09-15 07:53] VITALS: BP 123/70; PULSE 68; RESP 18; TEMP 36.7; O2SAT 98
[2019-09-15] MEDS: calcium carbonate 500 mg Chew Tablet 1000 MG PO (08:19)
[2019-09-15] MEDS: acetaminophen 500 mg Tablet 1000 MG PO (08:20)
[2019-09-15] MEDS: cholecalciferol (vitamin D3) 1,000 unit Tablet 1000 UNIT PO (08:20)
[2019-09-15] MEDS: sennosides-docusate Tablet 2 TAB PO (08:20)
[2019-09-15] MEDS: apixaban 5 mg Tablet 2.5 MG PO (08:21)
[2019-09-15] MEDS: multivitamin therapeutic Tablet 1 TAB PO (08:21)
[2019-09-15] MEDS: pantoprazole DR 40 mg Tablet PO (08:21)
[2019-09-15] MEDS: iron polysaccharide complex 150 mg Capsule PO (08:21)
[2019-09-15] MEDS: gabapentin 400 mg Capsule 800 MG PO (08:21)
[2019-09-15] MEDS: mupirocin oint 22 gm 1 APPLIC NASAL (08:27)
[2019-09-15] MEDS: chlorhexidine gluconate 0.12% Btl 473 mL 30 ML MUCOUS MEM ×2 (08:27→12:13)
--- NOTE | 2019-09-15 09:43 | P.DS_ITS ---
Discharge Providers Date of Admission: 09/13/19 13:53 Date of Discharge: September 15, 2019 Attending Provider at Admission: Jean-Pierre Sanders DO Attending Provider at Discharge: Jean-Pierre Sanders DO Primary Care Provider: Evangelist Duvall Diagnoses at Discharge Discharge Diagnosis (1) History of total knee arthroplasty: Status: Acute Qualifiers: Laterality: left Qualified Code(s): Z96.652 - Presence of left artificial knee joint (2) Diabetes mellitus type 2, noninsulin dependent: Status: Acute Reason for Visit Reason for Visit: Primary osteoarthritis of left knee/ M17.12 Hospital Course Hospital Course: Patient was taken to the operating room where under spinal anesthetic and abductor canal block he underwent left total knee arthroplasty using imageless guided computer navigation. Patient had no intraoperative complications. Postoperatively he was on both vancomycin and cefazolin for a ntibiotic prophylaxis. He was started on mobilization, SCDs and Eliquis for VTE prophylaxis. He was started on physical therapy. Truong catheter was removed on postoperative day 1. He is been weightbearing as tolerated on his left lower extremity. He describes his pain is being less following surgery than prior to surgery although he is having discomfort. His comfort is well controlled with oral medication the present time. Immediate postoperative x-rays show satisfactory placement of the implants without complication. Discharge Summary: Patient was deemed fit for discharge on postoperative day 2 he will continue on Eliquis as he is discharged for VT prophylaxis for 2 weeks until he is seen in the office. He is to start cefuroxime 500 mg 1 p.o. twice daily for extended oral prophylaxis. He is given a prescription for oxycodone/acetaminophen 5/325 1 p.o. every 4 hours as needed pain. Arrangement for home health with home nursing, home health aide and physical therapy. Patient will follow-up in the office on September 28, 2019 for staple removal and wound check and review of his immediate postoperative x-rays. Physical Exam Narrative: EXAM NARRATIVE: 59-year-old white male in no acute distress. He is alert and cooperative. Neck/C-Spine: COMMON NORMALS: no JVD Resp: COMMON NORMALS: normal respiratory effort and clear to auscultation bilaterally AUSCULTATION: clear to auscultation bilaterally Cardio: COMMON NORMALS: no JVD, regular rate and regular rhythm RATE: regular rate RHYTHM: regular rhythm GI: COMMON NORMALS: Normal to inspection, nondistended, normoactive bowel sounds present, Soft to palpation and non-tender PALPATION: Yes Soft to palpation Extremity: RIGHT LOWER EXTREMITY: Yes lower leg Right lower leg: Yes special tests Right lower leg special tests: Nelsy's sign: Negative LEFT LOWER EXTREMITY: Yes knee joint Left knee: Yes inspection (Incision intact without erythema some mild bloody drainage) and Yes lower leg Left lower leg: Yes special tests Left lower leg special tests: Nelsy's sign: Negative Urinary Catheter Management^: F: Cath Placed During This Visit: yes Reason for Continuing Indwelling Catheter: Required Immobilization for Trauma or Surgery or Anesthesia Urinary Catheter Date of Insertion: 09/13/19 Urinary Catheter Time of Insertion: 12:15 Discharge Data Data Completed and Pending: Completed Studies During Hospitalization Category Date Time Status XR chest 2V* 7104 6 Routine Exams 09/13/19 08:33 Completed XR knee LT 3V* 73 562 Urgent Exams 09/13/19 14:55 Completed Pending at discharge Category Date Time Status Complete Blood Co unt w/Auto AM LABS Lab 09/16/19 04:00 Ordered Pathology: Surgic al [PTH] Routine Pth 09/13/19 14:53 Received Labs from last 24 hours 09/15/19 09/15/19 09/15/19 06:20 03:10 03:10 WBC 6.7 RBC 3.86 L Hgb 9.9 L Hct 32.0 L MCV 82.9 MCH 25.6 L MCHC 30.9 RDW 14.9 Plt Count 248 MPV 10.4 Neut % (Auto) 65.2 Lymph % (Auto) 24.1 [place] % (Auto) 8.8 Eos % (Auto) 1.3 Baso % (Auto) 0.3 Neut # (Auto) 4.4 Lymph # (Auto) 1.6 [place] # (Auto) 0.6 Eos # (Auto) 0.1 Baso # (Auto) 0.0 Nucleated RBC % (a uto) 0 Nucleated RBCs # 0.0 Sodium 142 Potassium 3.6 Chloride 108 H Carbon Dioxide 24 Anion Gap 13.6 BUN 17 Creatinine 1.0 GFR Calculation 76.7 L Glucose 102 POC Glucose 140 Calculated Osmolal ity 291 Calcium 8.9 09/14/19 09/14/19 09/14/19 20:48 16:49 10:39 WBC RBC Hgb Hct MCV MCH MCHC RDW Plt Count MPV Neut % (Auto) Lymph % (Auto) [place] % (Auto) Eos % (Auto) Baso % (Auto) Neut # (Auto) Lymph # (Auto) [place] # (Auto) Eos # (Auto) Baso # (Auto) Nucleated RBC % (a uto) Nucleated RBCs # Sodium Potassium Chloride Carbon Dioxide Anion Gap BUN Creatinine GFR Calculation Glucose POC Glucose 204 102 220 Calculated Osmolal ity Calcium Vitals: Last Vital Signs Temp 98.1 F 09/15/19 07:53 Pulse 68 09/15/19 07:53 Resp 18 09/15/19 07:53 BP 123/70 09/15/19 07:53 Pulse Ox 98 09/15/19 07:53 Discharge Plan Discharge Patient Disposition: Home Health Service Condition: Stable Prescriptions: New oxycodone-acetaminophen 5-325 mg tablet 1 tab PO Q4H PRN (Reason: pain) Qty: 40 RF: 0 cefuroxime axetil 500 mg tablet 500 mg PO BID 7 Days Qty: 14 RF: 0 Eliquis 2.5 mg tablet 2.5 mg PO BID 14 Days Qty: 28 RF: 0 Continued gabapentin [Neurontin] 800 mg tablet 800 mg PO TID RF: 0 Xigduo XR 10-500 mg tablet, IR - ER, biphasic 24hr 1 tab PO DAILY RF: 0 omeprazole 20 mg capsule,delayed release(DR/EC) 20 mg PO DAILY RF: 0 Discharge Orders: Discharge Order (Routine); Ordered 09/14/19 Ordered By: Jean-Pierre Sanders Referrals: Jean-Pierre Sanders DO [Physician] - 09/28/19 1:00 pm (You have a follow up appointment with [facility] on September 27 at 1:00. ) Discharge Diet: Diabetic Discharge Activity: Limit activity as instructed and Use walker/crutches as instructed Patient Instructions: Cefuroxime (By mouth), Oxycodone/Acetaminophen (By mouth), Apixaban (By mouth), Total Knee Replacement (DC) Activity Restrictions/Additional Instructions: Wound care right knee: Remove old dressing. Clean incision line with Castile soap. Rinse with saline. apply triple antibiotic ointment to incision line. Cover with Telfa island dressing gait and transfer training begin with walker may progress to cane as tolerated Quad sets, active and passive range of motion. Do not attempt to progress beyond 90 degrees of flexion so as not to disrupt wound ankle pumps, calf/thigh isometrics and gluteal squeezes--25 reps 3-4 sets per day stairclimbing when appropriate Mariya may be removed at 14 days postop. Apply benzoin and half-inch Steri- Strips to incision line after mariya removed Sponge bathe until mariya removed. Patient may shower after mariya are removed Discharge Attestations Time Spent in Discharge Care*: less than 30 min Status at Discharge: Cognitive status at discharge: cognitively intact , Behavioral status at discharge: cooperative , Functional status at discharge: uses cane/walker Overall status at discharge: patient is progressing back to baseline Quality Metrics Clinical Quality Measures During this hospital stay, did patient experience: None Coding Level of Care Code Acute Escape Wheel Tooth Cutter for Jack Rayo Diagnoses History of total knee arthroplasty Z96.652 Laterality: left Diabetes mellitus type 2, noninsulin dependent E11.9
[2019-09-15 11:00] LABS: Glucose Point of Care 262 mg/dL (70-110)
[2019-09-15 11:12] VITALS: BP 125/68; PULSE 87; RESP 18; TEMP 36.9; O2SAT 99
[2019-09-15 14:57] VITALS: BP 125/68; PULSE 87; RESP 18; TEMP 36.9; O2SAT 99
== END 2019-09-15 14:57 | disposition home health service (06) | DRG 470 ==
LOC: MEDSURG 21:27
PROVIDERS: Admitting Provider Orthopaedic Surgery; PCP Student in an Organized Health Care Education/Training Program; Visit Provider Orthopaedic Surgery
PROC: 0SRD0JZ Replacement of Left Knee Joint with Synthetic Substitute, Open Approach (ICD-10-PCS; CPT 27447; principal; 2019-09-13 10:45)
DX: M17.12 Unilateral primary osteoarthritis, left knee (principal); E11.42 Type 2 diabetes mellitus with diabetic polyneuropathy; E78.5 Hyperlipidemia, unspecified; I10 Essential (primary) hypertension
CPT/HCPCS: 12345; 36415; 36416; 51702; 71046; 73562; 80048; 80053; 81003; 82962; 85025; 86850; 86900; 88304; 93005; 96372; 97110; 97116; 97161; 97165; 97530; C1776; C9290; J0690; J1100; J1580; J1815; J2001; J2250; J2274; J2704; J2795; J3010; J3370; J3490; J7030; J7050

== ENCOUNTER 2019-09-20 13:51 | Inpatient (IN) | payer MEDICARE, BC, SELFPAY ==
[2019-09-20] VITALS (7 sets, daily range): BP systolic 116–167; BP diastolic 63–78; PULSE 82–98; RESP 16–20; TEMP 36.6–37.1; O2SAT 93–97; BMI 25.7
--- NOTE | 2019-09-20 14:13 | XR_ITS ---
WS: [id number] XR knee LT 3V* [id number] REASON FOR EXAM: injury FINDINGS: Total knee replacement is seen with the prosthesis adequately positioned. The joint space a t the knee appears to be narrowed. There is postop changes in the soft tissue XR/XR knee LT 3V* [id number] IMPRESSION: Total knee replacement with no displacement of the prosthesis. There is narrowing of the joint space seen at the knee.
--- NOTE | 2019-09-20 14:13 | XR_ITS ---
WS: [id number] XR hip LT 2-3V wo/w pel* [id number] REASON FOR EXAM: injury FINDINGS: Total hip prosthesis on the left. no change in the positioning since previous exam of 2019. Good settling of the stem is seen with no dysfunction noted. XR/XR hip LT 2-3V wo/w pel* [id number] IMPRESSION: Left total hip arthroplasty good position.
--- NOTE | 2019-09-20 14:15 | ED_ITS ---
HPI - Fall General: Chief Complaint: Fall Stated Complaint: HIP PAIN Time Seen by Provider: 09/20/19 14:11 Source: patient and EMS Mode of arrival: EMS Limitations: no limitations History of Present Illness: HPI Narrative: 59-year-old male with history of knee and hip replacements on the left. Patient had a knee replacement done weeks ago. He states he fell at home yesterday tripped and fell. He states he landed on his left hip and has had pain in that hip and difficulty walking since then. He states the pain is a 3 out of 10. He denies any other injuries. States pain is worse with movement and improved with rest. complaint: fall Onset (ago): hour(s) Fall from: standing Fall witnessed: yes, by family Place fall occurred: home Loss of consciousness: None Associated symptoms-after fall: Denies abdominal pain, chest pain or headache(s) Review of Systems Const: Denies: fever(s), chills, body aches or change in appetite Eyes: Denies: blurry vision or eye discomfort ENMT: Denies: throat pain or dental pain Card: Denies: chest pain Resp: Denies: dyspnea GI: Denies: abdominal pain, nausea, vomiting or diarrhea : Denies: dysuria Musc: Reports: joint pain Skin/Breast: Denies: rash Neuro: Denies: headache(s) Psych: Denies: depression Brian/Lymph: Denies: easy bruising All/Imm: Denies: urticaria PFSH ED PFSH: Medical History Diabetes mellitus type 2, noninsulin dependent Diabetic peripheral neuropathy History of osteomyelitis Right foot History of septic arthritis Left knee Hx of fracture of left hip Hyperlipidemia Hypertension Surgical History History of hand surgery History of knee surgery Bilateral History of toe surgery History of total knee arthroplasty Family History Other Cancer Diabetes Social History Smoking and tobacco status: never smoked Alcohol intake: current Alcohol intake frequency: 3 or more drinks per day Alcohol type: beer Household members: spouse and children Marital status: Physical Exam Const: COMMON NORMALS: no acute distress, patient oriented x3 and healthy appearing HENMT: COMMON NORMALS: normocephalic and atraumatic HEAD & SCALP: normocephalic and atraumatic Eye: COMMON NORMALS: Equal, round and reactive pupils present and EOMs intact bilaterally PUPIL: Yes Equal, round and reactive pupils present Neck/C-Spine: COMMON NORMALS: full ROM and supple Chest: COMMONS NORMALS: normal inspection of the chest and normal palpation of entire chest wall Resp: COMMON NORMALS: normal respiratory effort, No retractions, No use of accessory muscles and clear to auscultation bilaterally AUSCULTATION: clear to auscultation bilaterally Cardio: COMMON NORMALS: regular rate, regular rhythm and No murmurs present (Cardio) RATE: regular rate RHYTHM: regular rhythm GI: COMMON NORMALS: Normal to inspection, nondistended, normoactive bowel sounds present, Soft to palpation, non-tender and no masses PALPATION: Yes Soft to palpation Extremity: COMMON NORMALS: normal to inspection NARRATIVE EXTREMITY EXAM: Tenderness over left hip Neuro: COMMON NORMALS: patient oriented x3, moves all extremities and no focal motor deficits Psych: COMMON NORMALS: mental status grossly normal, Normal thought process present and cooperative THOUGHT PROCESS: Normal thought process present Skin: COMMON NORMALS: no rashes or lesions noted and no wounds GENERAL SKIN EXAM: no rashes or lesions noted Course Vital Signs: Vital signs: Vital Signs Temperature 97.8 F 09/20/19 13:54 Pulse Rate 98 09/20/19 15:11 Respiratory Rate 20 H 09/20/19 16:54 Blood Pressure 167/71 09/20/19 15:11 Pulse Oximetry 97 09/20/19 15:11 MDM - Fall MDM Narrative: Medical decision making narrative: Patient presents here with fall along with hip pain. Patient's x-ray of his knee and hip are negative patient's incision on his left knee is clean dry and intact. Patient here is unable to bear any weight or ambulate. Spoke to orthopedics and will admit is likely patient may need residential. Spoke to hospitalist who is admitting. Lab Data: Labs: Lab Results 09/20/19 Range/Units 16:38 WBC 9.2 (4.0-10.0) 10^3/ uL RBC 3.77 L (4.1-5.3) 10^6/u L Hgb 9.8 L (11.7-16.6) g/dL Hct 32.0 L (42.0-52.0) % MCV 84.9 (80-94) fL MCH 26.0 L (28.0-34.0) pg MCHC 30.6 (30.0-36.0) g/dL RDW 15.1 (12.1-15.1) % Plt Count 340 (130-400) 10^3/c mm MPV 9.6 (7.4-10.4) fL Neut % (Auto) 63.5 % Lymph % (Auto) 23.1 % [place] % (Auto) 11.7 % Eos % (Auto) 1.1 % Baso % (Auto) 0.4 % Neut # (Auto) 5.8 (1.8-7.7) 10^3/u L Lymph # (Auto) 2.1 (0.8-4.8) 10^3/u L [place] # (Auto) 1.1 H (0.2-0.9) 10^3/u L Eos # (Auto) 0.1 (0.0-0.8) 10^3/u L Baso # (Auto) 0.0 (0.0-0.1) 10^3/u L Nucleated RBC % (a uto) 0 % Nucleated RBCs # 0.0 /100WBC Imaging Data^: xr L hip: Attestation: I personally reviewed and interpreted this imaging study as follows: Radiologist's impression: [place] [address] XRay Report Signed Patient: Regino Calvert Unit #: [id number] : 1960 Age/Sex: 59 / M ADM Date: 09/20/19 Loc: ER Room/Bed: Attending Dr: Ordering Provider/Ordering MD: Clifford Vincent MD Date of Service: 09/20/19 Procedure(s): XR hip LT 2-3V wo/w pel* [id number] Accession Number(s): [id number] Report Number: [id number] WS: [id number] XR hip LT 2-3V wo/w pel* [id number] REASON FOR EXAM: injury FINDINGS: Total hip prosthesis on the left. no change in the positioning since previous exam of April 15, 2019. Good settling of the stem is seen with no dysfunction noted. XR/XR hip LT 2-3V wo/w pel* [id number] IMPRESSION: Left total hip arthroplasty good position. xr l knee: Radiologist's impression: [address] [address] XRay Report Signed Patient: Regino Calvert Unit #: [id number] : 1960 Age/Sex: 59 / M ADM Date: 09/20/19 Loc: ER Room/Bed: Attending Dr: Ordering Provider/Ordering MD: Clifford Vincent MD Date of Service: 09/20/19 Procedure(s): XR knee LT 3V* [id number] Accession Number(s): [id number] Report Number: [id number] WS: [id number] XR knee LT 3V* [id number] REASON FOR EXAM: injury FINDINGS: Total knee replacement is seen with the prosthesis adequately positioned. The joint space at the knee appears to be narrowed. There is postop changes in the soft tissue XR/XR knee LT 3V* [id number] IMPRESSION: Total knee replacement with no displacement of the prosthesis. There is narrowing of the joint space seen at the knee. Discharge Plan Discharge Patient Disposition: Admitted As Inpatient Clinical Impression: Hip pain, left Fall Qualifiers: Encounter type: initial encounter Qualified Code(s): W19.XXXA - Unspecified fall, initial encounter Condition: Stable Referrals: Evangelist Duvall [Primary Care Provider] - Interventions: ED Discharge Assessment Last Done: 09/20/19 15:11 ED Charges Last Done: 09/20/19 15:11 Coding Level of Care Code ED Milk Of Lime Slaker for Jack Fwd Exam Comprehensive
[2019-09-20 16:42] LABS: Basophils % 0.4 %; Eosinophils # 0.1 10^3/uL (0.0-0.8); Eosinophils % 1.1 %; Hemoglobin 9.8 g/dL (11.7-16.6); Lymphocytes # 2.1 10^3/uL (0.8-4.8); Lymphocytes % 23.1 %; Mean Corpuscular HGB Conc 30.6 g/dL (30.0-36.0); Mean Corpuscular Volume 84.9 fL (80-94); Mean Platelet Volume 9.6 fL (7.4-10.4); Monocytes # 1.1 10^3/uL (0.2-0.9); Monocytes % 11.7 %; Neutrophils # 5.8 10^3/uL (1.8-7.7); Neutrophils % 63.5 %; Nucleated Red Blood Cells % 0 %; Platelet Count 340 10^3/cmm (130-400); Red Blood Count 3.77 10^6/uL (4.1-5.3); Red Cell Distribution Width 15.1 % (12.1-15.1); White Blood Count 9.2 10^3/uL (4.0-10.0)
[2019-09-20] MEDS: morphine 4 mg/mL SDV 1 mL IVP (16:54)
[2019-09-20 17:08] LABS: Alanine Aminotransferase 9 U/L (0-41); Albumin Level 4.1 g/dL (3.5-5.2); Alkaline Phosphatase 101 IU/L (40-130); Anion Gap 19.7 (5-19); Aspartate Amino Transferase 18 U/L (0-40); Blood Urea Nitrogen 15 mg/dL (6-20); Carbon Dioxide 23 mmol/L (22-29); Chloride 98 mmol/L (98-107); Glomerular Filtration Rate 68.8 mL/min (90-130); Glucose 136 mg/dL (65-115); Osmolality Calculated 282 mOsm/kg (285-295); Potassium 3.7 mmol/L (3.5-5.1); Sodium 137 mmol/L (136-145); Total Bilirubin 0.7 mg/dL (0.15-1.2); Total Protein 7.1 g/dL (6.6-8.7)
--- NOTE | 2019-09-20 17:19 | PC.NURSE ---
patient ambulated with assist
--- NOTE | 2019-09-20 18:41 | PM.HP ---
Providers/Chief Complaint Admitting Physician: Awa Dozier MD Primary Care Provider: Evangelist Duvall Chief Complaint: Left hip pain, fall History of Present Illness Regino Calvert is a 59 year old male with PMHx of HTN, NIDDM type II and complicated by peripheral neuropathy, GERD, Chronic anemia, CKD stage 2, presents from home via ambulance following 2 falls due to acute onset of left hip pain since yesterday. Patient recently had left total knee arthroplasty done by Dr. Sanders last week and seemed to be doing well immediately postop, was discharged home with home health services and has been ambulating with a walker up until yesterday. Knee seems to be healing appropriately and he has residual bruising and noted swelling of his left leg. His pain is limited to the upper lateral thigh and hip joint. While attempting to ambulate yesterday in the living room he felt his left lower extremity give out on him and fell on the floor. He scooted on his bottom to the couch then was able to brace himself up onto the couch as he was by himself when the fall occurred. Later in the day he had another fall while in the bathroom and again was unable to get up unassisted so was able to edge to the bathtub and brace himself on the edge to get up. He remembers hitting his head but does not recall loss of consciousness. He denies any preceding chest pain, shortness of breath, lightheadedness or dizziness. Patient is known to me from previous admission in April during which time he had had a mechanical fall with resulting left hip fracture that required surgical intervention. During his last surgery last week he was discharged on an extended course of cefuroxime for antibiotic prophylaxis as well as apixaban 2.5 mg twice daily for VTE prophylaxis which he reports compliance with. He has significant pain during my assessment in the ER and I am unable to fully evaluate range of motion as a result of his inability to tolerate much movement. Per ER staff and attempt to get him up and ambulating was unsuccessful as he was barely able to stand up. Work-up shows normal white count of 9.2, hemoglobin of 9.8, normal chemistry including renal function. He has had a knee and hip and pelvic x-ray both of which are unremarkable for any displacement or fractures. Dr. Yu has been contacted by the ER physician. Due to significant pain and inability to ambulate patient will be admitted for further management. I did discuss possibility of SNF placement which patient is agreeable to if needed. Review of Systems Const: Denies: fever(s), chills, change in appetite or fatigue Eyes: Denies: change in vision ENMT: Reports: dry mouth; Denies: odynophagia Card: Denies: chest pain, swelling of feet/ankles or lightheadedness Resp: Denies: dyspnea, productive cough or non-productive cough GI: Denies: abdominal pain, nausea, vomiting, hematemesis or hematochezia : Denies: dysuria or urinary frequency Musc: Reports: extremity swelling (left leg), joint pain (left hip pain) and limited range of motion (left hip); Denies: back pain Skin/Breast: Reports: other (residual bruising around L knee and leg); Denies: rash Neuro: Reports: weakness in extremities, difficulty walking and frequent falls; Denies: numbness in extremities Psych: Denies: anxiety Medications/Allergies Home Medications Medication Instructions Recorded Confirmed Last Taken Type gabapentin 800 mg tablet 800 mg PO TID 05/02/19 09/20/19 09/20/19 History dapagliflozin 10 mg-metformin ER 1 tab PO DAILY 06/08/19 09/20/19 09/20/19 History 500 mg tablet,extended release 24hr omeprazole 20 mg capsule,delayed 20 mg PO DAILY 08/17/19 09/20/19 09/20/19 History release apixaban [Eliquis] 2.5 mg PO BID 14 Days #28 tab 09/14/19 09/20/19 09/20/19 Rx cefuroxime axetil 500 mg PO BID 7 Days #14 tab 09/14/19 09/20/19 09/20/19 Rx oxycodone-acetaminophen 1 tab PO Q4H PRN #40 tab 09/14/19 09/20/19 09/20/19 Rx Allergies Allergy/AdvReac Type Severity Reaction Status Date / Time No Known Allergies Allergy Verified 08/17/19 14:34 PFSH Acute PFSH: Medical History (Updated 09/20/19 @ 19:18 by Awa Dozier MD) Chronic anemia CKD (chronic kidney disease) stage 2, GFR 60-89 ml/min Diabetes mellitus type 2, noninsulin dependent Diabetic peripheral neuropathy GERD (gastroesophageal reflux disease) History of osteomyelitis Right foot History of septic arthritis Left knee Hx of fracture of left hip Hyperlipidemia Hypertension Surgical History History of hand surgery History of knee surgery Bilateral History of toe surgery History of total knee arthroplasty Family History Other Cancer Diabetes Social History Smoking and tobacco status: never smoked Alcohol intake: current Alcohol intake frequency: 3 or more drinks per day Alcohol type: beer Household members: spouse and children Marital status: Vitals/I&O/Wt Last Vital Signs Temp 98.3 F 09/20/19 18:23 Pulse 83 09/20/19 18:23 Resp 20 H 09/20/19 18:23 BP 126/71 09/20/19 18:23 Pulse Ox 93 09/20/19 18:23 Weight last 48 hrs Weight 83.915 kg Physical Exam Const: COMMON NORMALS: no acute distress, patient oriented x3 and alert GENERAL APPEARANCE: cooperative and comfortable ORIENTATION/CONSCIOUSNESS: Yes awake HENMT: COMMON NORMALS: normocephalic, atraumatic, hearing grossly normal bilaterally and moist oral mucous membranes HEAD & SCALP: normocephalic and atraumatic Eye: COMMON NORMALS: Equal, round and reactive pupils present, EOMs intact bilaterally and conjunctivae normal CONJUNCTIVA: Yes conjunctivae normal PUPIL: Yes Equal, round and reactive pupils present Neck/C-Spine: COMMON NORMALS: full ROM GENERAL: Yes normal visual inspection and Yes trachea midline Chest: CHEST: Yes Symmetrical chest wall rise Resp: COMMON NORMALS: normal respiratory effort, No retractions, No use of accessory muscles and clear to auscultation bilaterally EFFORT & INSPECTION: Yes able to speak in complete sentences, Yes symmetric chest movement and No tachypneic AUSCULTATION: clear to auscultation bilaterally OTHER: -on RA Cardio: COMMON NORMALS: regular rate, regular rhythm, S1 normal heart sound present, S2 normal heart sound present and No murmurs present (Cardio) RATE: regular rate RHYTHM: regular rhythm HEART SOUNDS: S1 normal heart sound present and S2 normal heart sound present GI: COMMON NORMALS: Normal to inspection, nondistended, normoactive bowel sounds present, Soft to palpation and non-tender INSPECTION: Yes central obesity PALPATION: Yes Soft to palpation Back/Pelvis: COMMON NORMALS: thoracic and lumbar spine normal to inspection Extremity: COMMON NORMALS: normal to inspection and full ROM NARRATIVE EXTREMITY EXAM: -L hip: tenderness to palpation of upper lateral thigh and hip joint. Unable to effectively assess ROM due to pain even with minimal movement GENERAL: Yes edema (Left leg ) Neuro: COMMON NORMALS: patient oriented x3, no focal motor deficits and no sensory deficits noted SENSORIUM/ORIENTATION: Yes alert GAIT: Yes Unable to assess gait (as unable to weight bear) Psych: COMMON NORMALS: mental status grossly normal, Normal thought process present, cooperative, normal affect and speech normal SPEECH: Yes normal speech THOUGHT PROCESS: Normal thought process present Skin: COMMON NORMALS: no rashes or lesions noted, no jaundice, no petechiae and no mottling GENERAL SKIN EXAM: no rashes or lesions noted Data : 09/20/19 16:38 09/20/19 16:38 A&P Assessment and plan (1) Hip pain, left: -acute onset of L hip pain x 1 day with falls x 2 -had recent L total knee arthroplasty done secondary to primary OA 1 week ago; had L total hip arthroplasty done in 04/2019 after mechanical fall. Did well post-op after both surgeries, was ambulatory with walker at home until fall yesterday -pain control as needed -unable to stand and weight bear currently -PT evaluation in AM -imaging reviewed, no dislocation or fracture noted -apparent swelling of left leg, has been on Eliquis 2.5 mg BID for DVT ppx but with recent surgery will order venous duplex to r/o DVT -Ortho consult requested; Dr. Yu to see patient -had been prescribed extended course of oral antibiotics for ppx; will resume Cefuroxime 500 mg BID -no leukocytosis, afebrile -monitor vital signs Status: Acute (2) Fall: -fall x 2 as noted above -fall precautions Status: Acute Qualifiers: Encounter type: initial encounter Qualified Code(s): W19.XXXA - Unspecified fall, initial encounter (3) Hyperlipidemia: Status: Chronic Qualifiers: Hyperlipidemia type: pure hypercholesterolemia Qualified Code(s): E78.00 - Pure hypercholesterolemia, unspecified (4) Hypertension: -monitor vital signs Status: Chronic Qualifiers: Hypertension type: essential hypertension Qualified Code(s): I10 - Essential (primary) hypertension (5) Diabetes mellitus type 2, noninsulin dependent: -hx of NIDDM type II complicated by peripheral neuropathy -A1c at goal (5.5) -Acuchecks, ISS -diabetic diet as tolerated Status: Chronic (6) GERD (gastroesophageal reflux disease): -resume PPI Status: Chronic Qualifiers: Esophagitis presence: esophagitis presence not specified Qualified Code(s): K21.9 - Gastro-esophageal reflux disease without esophagitis (7) Chronic anemia: -Chronic normocytic anemia; baseline Hg around 10. -monitor H/H Status: Chronic (8) CKD (chronic kidney disease) stage 2, GFR 60-89 ml/min: -baseline Cr wnl -renal function stable Status: Chronic Additional A&P Information -DVT ppx not needed as on Eliquis -Dispo: will likely need SNF placement, came from home with services ([place]) -Code status: FULL code Attestations Medical Necessity Statement*: Regino Calvert's hospital stay will require greater than 2 midnights for management of L hip pain with subsequent falls and inability to ambulate. Time Spent in Patient Care: Greater than 35 minutes (>than 50% of time spent in counselling and/or direct pt care on unit). Coding Level of Care Code Acute Electronic Warfare Specialist for Chg Fwd Diagnoses Hip pain, left M25.552 Fall W19.XXXA Encounter type: initial encounter Hyperlipidemia E78.00 Hyperlipidemia type: pure hypercholesterolemia Hypertension I10 Hypertension type: essential hypertension Diabetes mellitus type 2, noninsulin dependent E11.9 GERD (gastroesophageal reflux disease) K21.9 Esophagitis presence: esophagitis presence not specified Chronic anemia D64.9 CKD (chronic kidney disease) stage 2, GFR 60-89 ml/min N18.2
[2019-09-20] MEDS: gabapentin 400 mg Capsule 800 MG PO (19:43)
[2019-09-20 20:42] LABS: Glucose Point of Care 148 mg/dL (70-110)
[2019-09-21] VITALS (11 sets, daily range): BP systolic 103–132; BP diastolic 65–73; PULSE 67–85; RESP 16–18; TEMP 36.4–36.9; O2SAT 94–97
[2019-09-21 06:17] LABS: Glucose Point of Care 168 mg/dL (70-110)
[2019-09-21] MEDS: apixaban 5 mg Tablet 2.5 MG PO ×2 (08:30→17:26)
[2019-09-21] MEDS: gabapentin 400 mg Capsule 800 MG PO ×2 (08:30→21:43)
[2019-09-21] MEDS: pantoprazole DR 40 mg Tablet PO (08:30)
[2019-09-21] MEDS: cefUROXime 250 mg Tablet 500 MG PO ×2 (08:30→17:25)
--- NOTE | 2019-09-21 09:36 | PC.CHAP ---
Pastoral Care Encounter/Spiritual Assessment Type of Contact [] Declined informatics specialist visit [] Patient/Family/Request visit [] Outpatient visit [] Follow-up visit [] Physician referral [] Code/Alert [x] Routine visit [] Staff referral [] Actively dying [] Patient sleeping [] Family support [] [] Out of room [] Palliative care [] [] Receiving care in room [] Pre-surgical visit [] Trauma [] Long length of stay [] ICU visit [] Other: Relational/Emotional Strength [] Patient feels connected with others/family/visitors/staff [] Distress [] Loneliness/isolation [] Abandonment Spirituality of Patient [] Person of Shanna [] Attends Tenriism of their Shanna [] Believes in Prayer [] Reads Bible or Church materials [] There are Spiritual issues to be addressed Scenery Builder Interventions [x] Prayer [] Active listening [] Non-anxious presence [] Spiritual/emotional support [] Crisis/trauma care [] Spiritual counseling [] Bereavement support [] Provided bereavement packet [] Provided Bible/devotional materials [] Provided toy/stuffed animal, coloring book to patient or family member [] Provided Communion [] Anointing/[place] [] Salvation [x] Completed spiritual assessment [] Other: Impact on Illness or Injury [] Angry [] Fearful [] Anxious [] Often cries [] Exhaustion [] Unable to work [] Unable to attend taoist [] Unable to walk/stand [] Unable to read [] Unable to drive [] Unable to eat/drink [] Unable to sleep [] Unable to be with family [] Patient intubated [] Other: Summary Patient has fallen twice in home. Not noted if broken, feeling stronger, but pain. Time spent with patient 10 min
[2019-09-21] MEDS: oxyCODONE-APAP 5-325 mg Tablet 1 TAB PO ×4 (09:46→21:44)
[2019-09-21 10:49] LABS: Glucose Point of Care 180 mg/dL (70-110)
--- NOTE | 2019-09-21 13:48 | CT_ITS ---
WS: [id number] CT hip LT wo con* [id number] REASON FOR EXAM: Pain following bipolar hip arthroplasty IV CONTRAST ADMINISTERED: NONE TOTAL EXAM DLP: 2739.[address] scans at [facility] use at least one of these dose optimization techniques: automat ed exposure control; mA and/or kV adjustment per patient size (includes targeted exams where dose is matched to clinical indication); or iterative reconstruction. FINDINGS: A bipolar hip arthritic plasty is seen. Previous plain films show normal alignment yesterda y CT today suggests a nondisplaced fracture through the proximal diaphyseal metaphyseal portion of th e femur no gross displacement of the shaft is seen but there is mild slight deformity seen at this ar ea. The bipolar configuration remains satisfactory alignment. CT/CT hip LT wo con* [id number] IMPRESSION: Suspect nondisplaced fracture through the shaft of the proximal femur The bipolar arthroplasty otherwise is normal.
--- NOTE | 2019-09-21 15:51 | PC.NURSE ---
Patient returned from CT at this time.
--- NOTE | 2019-09-21 16:06 | P.CONIM_ITS ---
Providers/Reason For Consult Consulting Physican/Specialty*: Dr. Kylie Yu - Orthopedics Reason for Consult*: Left hip and left knee pain following fall at home with recent history of left total knee arthroplasty Requesting Physcian: Dr. Vincent Attending Physician: Awa Dozier MD Primary Care Provider: Evangelist Duvall History of Present Illness History of Present Illness Regino Calvert is a 59 year old male who recently underwent left total knee arthroplasty with Dr. Sanders. He was admitted last evening through the emergency department after he fell at home. Additionally, the patient had a bipolar hip arthroplasty with Dr. Yousif in April of this year. Today, upon my evaluation, the patient complained primarily of hip pain. He notes that his total knee which was accomplished 2 weeks ago is doing quite well. The patient was discharged home with home health, and he has been using his walker to ambulate until yesterday. He states that his left lower extremity gave out on him and he fell onto the floor onto his left lower extremity. He was able to scoot on his bottom over to the couch, and he was then able to get himself up. Later in the day, he fell again and at that time, he notes he hit his head but did not recall losing consciousness. The patient denied any chest pain dizziness or lightheadedness causing his fall. When he came to the emergency department, attempt was made to help him ambulate, but he was barely able to stand up. Therefore, the patient was admitted to the hospital for further treatment and possible SNF placement if we were not able to identify a reason for his weakness. Review of Systems Const: Denies: fever(s) or chills Eyes: Denies: change in vision Card: Denies: chest pain or dyspnea on exertion Resp: Denies: dyspnea or productive cough GI: Denies: abdominal pain Musc: Reports: extremity pain (Left lower extremity) Skin/Breast: Denies: erythema or changes in skin color Neuro: Denies: numbness in extremities Psych: Denies: anxiety or depression Brian/Lymph: Denies: easy bruising or easy bleeding Meds/Allergies Home Medications and Allergies Home Medications Medication Instructions Recorded Confirmed Last Taken Type gabapentin 800 mg tablet 800 mg PO TID 05/02/19 09/20/19 09/20/19 History dapagliflozin 10 mg-metformin ER 1 tab PO DAILY 06/08/19 09/20/19 09/20/19 Histo ry 500 mg tablet,extended release 24hr omeprazole 20 mg capsule,delayed 20 mg PO DAILY 08/17/19 09/20/19 09/20/19 History release apixaban [Eliquis] 2.5 mg PO BID 14 Days #28 tab 09/14/19 09/20/19 09/20/19 Rx cefuroxime axetil 500 mg PO BID 7 Days #14 tab 09/14/19 09/20/19 09/20/19 Rx oxycodone-acetaminophen 1 tab PO Q4H PRN #40 tab 09/14/19 09/20/19 09/20/19 Rx Allergies Allergy/AdvReac Type Severity Reaction Status Date / Time No Known Allergies Allergy Verified 08/17/19 14:34 Current Medications Current Medications Generic Name Dose Route Start Last Admin Trade Name Freq PRN Reason Stop Dose Admin Apixaban 2.5 mg 09/21/19 09:00 09/21/19 08:30 Eliquis PO 2.5 mg BID ANA LAURA Administration Cefuroxime Axetil 500 mg 09/21/19 09:00 09/21/19 08:30 Ceftin PO 500 mg BID ANA LAURA Administration Gabapentin 800 mg 09/20/19 21:00 09/21/19 08:30 Neurontin PO 800 mg TID ANA LAURA Administration Insulin Aspart 0 unit 09/20/19 21:00 09/21/19 12:11 Novolog SUBCUT 2 unit WM&BEDTIME ANA LAURA Administration Protocol Oxycodone/Acetaminophen 1 tab 09/20/19 19:00 09/21/19 13:38 Percocet 5-325 Mg PO 1 tab Q4H PRN Administration pain Pantoprazole Sodium 40 mg 09/21/19 09:00 09/21/19 08:30 Protonix PO 40 mg DAILY ANA LAURA Administration PFSH Acute PFSH: Medical History Chronic anemia CKD (chronic kidney disease) stage 2, GFR 60-89 ml/min Diabetes mellitus type 2, noninsulin dependent Diabetic peripheral neuropathy GERD (gastroesophageal reflux disease) History of osteomyelitis Right foot History of septic arthritis Left knee Hx of fracture of left hip Hyperlipidemia Hypertension Surgical History History of hand surgery History of knee surgery Bilateral History of toe surgery History of total knee arthroplasty Family History Other Cancer Diabetes Social History Smoking and tobacco status: never smoked Alcohol intake: current Alcohol intake frequency: 3 or more drinks per day Alcohol type: beer Household members: spouse and children Marital status: Vitals/I&O/Wt Last Vital Signs Temp 98.4 F 09/21/19 11:06 Pulse 83 09/21/19 11:06 Resp 18 09/21/19 13:38 BP 103/65 09/21/19 11:06 Pulse Ox 96 09/21/19 11:06 09/21/19 09/21/19 09/21/19 06:59 14:59 22:59 Intake Total 680 / 680 Output Total 960 / 960 1275 / 1275 Balance -960 / -960 -595 / -595 Weight last 48 hrs Weight 186 lb 6 oz Weight 185 lb Physical Exam Const: COMMON NORMALS: no acute distress, average body habitus, patient oriented x3 and alert GENERAL APPEARANCE: cooperative and comfortable ORIENTATION/CONSCIOUSNESS: Yes awake HENMT: COMMON NORMALS: normocephalic and atraumatic HEAD & SCALP: normocephalic and atraumatic Eye: GENERAL EYE: appearance normal, both eyes and all related structures Chest: COMMONS NORMALS: normal inspection of the chest Resp: COMMON NORMALS: normal respiratory effort EFFORT & INSPECTION: Yes able to speak in complete sentences and Yes symmetric chest movement Extremity: GENERAL: Yes normal exam except as noted LEFT LOWER EXTREMITY: Yes hip joint (Severe tenderness to any range of motion.) Left hip: Yes palpation (Light palpation causes significant tenderness.) and Yes neurovascular exam (Intact neurovascular function.) and Yes knee joint Left knee: Yes inspection (Recent surgical incision without drainage or evidence of infection.), Yes ROM (Not evaluated secondary to hip pain, severe) and Yes neurovascular exam (No evidence of DVT) Neuro: COMMON NORMALS: patient oriented x3 SENSORIUM/ORIENTATION: Yes alert Psych: COMMON NORMALS: mental status grossly normal APPEARANCE: Yes grossly normal ATTITUDE: Yes calm and Yes engaged ATTENTION/CONCENTRATION: Yes attention grossly intact Skin: COMMON NORMALS: no rashes or lesions noted GENERAL SKIN EXAM: no rashes or lesions noted Data Imaging^: CT Abd/Pel: My impression: CT scan is reviewed. There appears to be a periprosthetic fracture surrounding the upper portion of the femoral stem. Also, this extends to the base of the greater trochanter. There is subsidence of the femoral stem on regular images and on the machinist bench image. Xray Ortho: I personally reviewed and interpreted this imaging study as follows: My impression: X-rays are concerning for subsidence of the femoral stem. For this reason, I have ordered a CT scan for further evaluation. Other Xray: I personally reviewed and interpreted this imaging study as follows: My impression: Knee images are reviewed. There is no evidence of fracture or dislocation. A&P Assessment and plan (1) Hip pain, left: The patient has hip pain following a fall x2 at his home. Initial x-rays were felt to be negative, however, on my review, there did appear to be subsidence of the bipolar hip arthroplasty which was placed there in April. CT scan was therefore ordered. The CT scan demonstrates a periprosthetic fracture around the femoral stem. Status: Acute (2) Periprosthetic fracture around internal prosthetic left hip joint, initial encounter: Discussion will be undertaken with the patient regarding appropriate treatment and therapies for this fracture. I have made arrangements for the pentecostal modular [employer] system so that we can remove the patient's previous hip stem and place a modular revision prosthesis in hopes of bypassing the proximal fractures. Status: Acute (3) History of total knee arthroplasty: Recent total knee arthroplasty appears to be in good position with no evidence of fracture, dislocation, or other complication. Status: Acute Qualifiers: Laterality: left Qualified Code(s): Z96.652 - Presence of left artificial knee joint Consult Attestations Medical Necessity Statement: Patient will require inpatient for optimization. He is on Eliquis, and will require 48 hours prior to undergoing surgical interventions. Plan will be made for revision surgery following this. Coding Level of Care Code Acute Wholesale Account Executive for Jack Rayo Diagnoses Hip pain, left M25.552 Periprosthetic fracture around internal prosthetic left hip joint, initial encounter M97.02XA History of total knee arthroplasty Z96.652 Laterality: left
[2019-09-21 17:11] LABS: Glucose Point of Care 146 mg/dL (70-110)
--- NOTE | 2019-09-21 17:44 | PM.PN ---
Subjective Subjective: Interval history: Seems more comfortable, pain is tolerable, aggravated by movement. Had 960 mL urine output overnight. CT hip done and shows possible non-displaced fracture through shaft of proximal femur. Will need surgical intervention, discussed with Dr. Yu, has been on Eliquis for DVT ppx due to recent L knee surgery. Hemodynamically stable, on RA, afebrile. Stable hemoglobin. Medications: Reviewed: Yes Medication Review Details: Active Medications Generic Name Dose Route Start Last Admin Trade Name Freq PRN Reason Stop Dose Admin Acetaminophen 650 mg 09/20/19 19:00 Tylenol PO Q6H PRN Mild/Mod Pain Or Temp >/= 101 Apixaban 2.5 mg 09/21/19 09:00 09/21/19 17:26 Eliquis PO 2.5 mg BID ANA LAURA Administration Cefuroxime Axetil 500 mg 09/21/19 09:00 09/21/19 17:25 Ceftin PO 500 mg BID ANA LAURA Administration Dextrose 25 ml 09/20/19 19:00 D50w IVP ONCE PRN hypoglycemia prot ocol Protocol Dextrose 50 ml 09/20/19 19:00 D50w IVP PRN PRN hypoglycemia prot ocol Protocol Gabapentin 800 mg 09/20/19 21:00 09/21/19 16:16 Neurontin PO Not Given TID ANA LAURA Glucagon 1 mg 09/20/19 19:00 Glucagen IM ONCE PRN Adult Acute Hypog lycemia Prot. Protocol Dextrose 500 mls @ 100 mls /hr 09/20/19 19:00 D5w IV ONCE PRN Adult Acute Hypog lycemia Prot Protocol Insulin Aspart 0 unit 09/20/19 21:00 09/21/19 17:26 Novolog SUBCUT 2 unit WM&BEDTIME ANA LAURA Administration Protocol Morphine Sulfate 2 mg 09/20/19 19:00 Morphine IVP Q4H PRN SEVERE PAIN Ondansetron HCl 4 mg 09/20/19 19:00 Zofran IVP Q6H PRN vomiting, or N/V if npo Oxycodone/Acetamin ophen 1 tab 09/20/19 19:00 09/21/19 17:36 Percocet 5-325 M g PO 1 tab Q4H PRN Administration pain Pantoprazole Sodiu m 40 mg 09/21/19 09:00 06/17/20 08:30 Protonix PO 40 mg DAILY ANA LAURA Administration No Known Allergies Allergy (Verified 08/17/19 14:34) Vitals/I&O/Wt Last Vital Signs Temp 98.1 F 09/21/19 16:00 Pulse 75 09/21/19 16:00 Resp 16 09/21/19 17:36 BP 124/73 09/21/19 16:00 Pulse Ox 95 09/21/19 16:00 09/21/19 09/21/19 09/21/19 06:59 14:59 22:59 Intake Total 680 / 680 360 / 1040 Output Total 960 / 960 1275 / 1275 250 / 1525 Balance -960 / -960 -595 / -595 110 / -485 Weight last 48 hrs Weight 84.538 kg Weight 83.915 kg Physical Exam Const: COMMON NORMALS: no acute distress, patient oriented x3 and alert GENERAL APPEARANCE: cooperative and comfortable ORIENTATION/CONSCIOUSNESS: Yes awake HENMT: COMMON NORMALS: normocephalic, atraumatic, hearing grossly normal bilaterally and moist oral mucous membranes HEAD & SCALP: normocephalic and atraumatic Eye: COMMON NORMALS: Equal, round and reactive pupils present, EOMs intact bilaterally and conjunctivae normal CONJUNCTIVA: Yes conjunctivae normal PUPIL: Yes Equal, round and reactive pupils present Neck/C-Spine: COMMON NORMALS: full ROM GENERAL: Yes normal visual inspection and Yes trachea midline Chest: CHEST: Yes Symmetrical chest wall rise Resp: COMMON NORMALS: normal respiratory effort, No retractions, No use of accessory muscles and clear to auscultation bilaterally EFFORT & INSPECTION: Yes able to speak in complete sentences, Yes symmetric chest movement and No tachypneic AUSCULTATION: clear to auscultation bilaterally OTHER: -on RA Cardio: COMMON NORMALS: regular rate, regular rhythm, S1 normal heart sound present, S2 normal heart sound present and No murmurs present (Cardio) RATE: regular rate RHYTHM: regular rhythm HEART SOUNDS: S1 normal heart sound present and S2 normal heart sound present GI: COMMON NORMALS: Normal to inspection, nondistended, normoactive bowel sounds present, Soft to palpation and non-tender INSPECTION: Yes central obesity PALPATION: Yes Soft to palpation Back/Pelvis: COMMON NORMALS: thoracic and lumbar spine normal to inspection Extremity: COMMON NORMALS: normal to inspection and full ROM NARRATIVE EXTREMITY EXAM: -L hip: tenderness to palpation of upper lateral thigh and hip joint. Unable to effectively assess ROM due to pain even with minimal movement GENERAL: Yes edema (Left leg ) Neuro: COMMON NORMALS: patient oriented x3, no focal motor deficits and no sensory deficits noted SENSORIUM/ORIENTATION: Yes alert GAIT: Yes Unable to assess gait (as unable to weight bear) Psych: COMMON NORMALS: mental status grossly normal, Normal thought process present, cooperative, normal affect and speech normal SPEECH: Yes normal speech THOUGHT PROCESS: Normal thought process present Skin: COMMON NORMALS: no rashes or lesions noted, no jaundice, no petechiae and no mottling GENERAL SKIN EXAM: no rashes or lesions noted Data : 09/20/19 16:38 09/20/19 16:38 A&P Assessment and plan (1) Hip pain, left: -acute onset of L hip pain x 1 day with falls x 2 -had recent L total knee arthroplasty done secondary to primary OA 1 week ago; had L total hip arthroplasty done in 04/2019 after mechanical fall. Did well post-op after both surgeries, was ambulatory with walker at home until fall yesterday -pain control as needed -unable to stand and weight bear currently -PT evaluation appreciated -imaging reviewed, no dislocation or fracture noted -apparent swelling of left leg, has been on Eliquis 2.5 mg BID for DVT ppx but with recent surgery, venous duplex done, pending report -Ortho consult by Dr. Yu appreciated; will need surgical repair; need to have Eliquis held for 48 hrs prior to surgery -had been prescribed extended course of oral antibiotics for ppx; on Cefuroxime 500 mg BID -no leukocytosis, afebrile -VSS: continue to monitor -check UA Status: Acute (2) Fall: -fall x 2 as noted above -fall precautions Status: Acute Qualifiers: Encounter type: initial encounter Qualified Code(s): W19.XXXA - Unspecified fall, initial encounter (3) Hyperlipidemia: Status: Chronic Qualifiers: Hyperlipidemia type: pure hypercholesterolemia Qualified Code(s): E78.00 - Pure hypercholesterolemia, unspecified (4) Hypertension: -monitor vital signs Status: Chronic Qualifiers: Hypertension type: essential hypertension Qualified Code(s): I10 - Essential (primary) hypertension (5) Diabetes mellitus type 2, noninsulin dependent: -hx of NIDDM type II complicated by peripheral neuropathy -A1c at goal (5.5) -Acuchecks, ISS -diabetic diet as tolerated Status: Chronic (6) GERD (gastroesophageal reflux disease): -continue PPI Status: Chronic Qualifiers: Esophagitis presence: esophagitis presence not specified Qualified Code(s): K21.9 - Gastro-esophageal reflux disease without esophagitis (7) Chronic anemia: -Chronic normocytic anemia; baseline Hg around 10. -continue to monitor H/H Status: Chronic (8) CKD (chronic kidney disease) stage 2, GFR 60-89 ml/min: -baseline Cr wnl -renal function stable Status: Chronic Additional A&P Information -DVT ppx with SCDs, foot pumps; d/c Eliquis in anticipation of surgery. If need for extended period pending surgery, will need alternative prophylaxis due to recent L knee surgery and decreased mobility with increased risk of VTE. -Dispo: will likely need SNF placement, came from home with services ([place]) -Code status: FULL code Attestations Medical Necessity Statement*: Patient requires hospitalization for continued pain control, pending surgical intervention for periprosthetic fracture of L hip. Time Spent in Patient Care: 16 - 35 minutes (>than 50% of time spent in counselling and/or direct pt care on unit). Coding Level of Care Code Acute Merchandise Planner for g Fwd Exam Comprehensive Diagnoses Hip pain, left M25.552 Fall W19.XXXA Encounter type: initial encounter Hyperlipidemia E78.00 Hyperlipidemia type: pure hypercholesterolemia Hypertension I10 Hypertension type: essential hypertension Diabetes mellitus type 2, noninsulin dependent E11.9 GERD (gastroesophageal reflux disease) K21.9 Esophagitis presence: esophagitis presence not specified Chronic anemia D64.9 CKD (chronic kidney disease) stage 2, GFR 60-89 ml/min N18.2
--- NOTE | 2019-09-21 18:18 | USCV_ITS ---
SavjuniRegino Age: 59 Gender: M : 1960 Exam Date: 09/21/2019 06:35 Ordering Phys: Clifford Vincent MD Technologist: Homar Hurst [place] [facility] [place]ication: POST LT KNEE SURG SWELLING HISTORY: Lower extremity swelling. PROCEDURES: Venous duplex imaging was performed in only the left lower extremity. The following venous structures were evaluated: common femoral vein, profunda vein, proximal portion of the greater saphenous vein, superficial femoral vein, and the popliteal vein. In addition, the posterior tibial and peroneal trunk were evaluated. On the left side, the common femoral, superficial femoral, profunda femoral, popliteal, posterior tibial, greater saphenous veins, and the peroneal trunk were identified and interrogated in the standard fashion. These veins were found to be easily compressible with spontaneous blood flow. No evidence of insufficiency or thrombus noted. FINDINGS: Normal 2-D Doppler and augmentation and compressibility throughout the lower extremity venous structures. Additional imaging through the proximal calf veins also reveals no thrombus. Limited evaluation of the greater saphenous vein is patent with no thrombus.. Echolucent areas are noted in the subcutaneous plane. CONCLUSIONS No evidence of DVT in the above-mentioned identifiable veins. Features of fluid retention/edema in the left lower extremity Dr Landen Alanis MD [facility] (Electronically Signed) Final Date: 22 September 2019 08:08 S
[2019-09-21 19:36] LABS: Add Urine Microscopic? NO
[2019-09-21 20:06] LABS: Bilirubin Urine Neg (NEGATIVE); Blood Urine Neg (Negative); Glucose Urine UA 4+ (Normal); Ketones Urine Negative (Negative); Leukocyte Esterase Urine Negative (Negative); Nitrate Urine Negative (Negative); Protein Urine Neg (Negative); Specific Gravity, Urine 1.005 (1.005-1.030); Urine Appearance Clear (CLEAR); Urine Color Straw (Yellow); Urobilinogen Urine Norm (Negative); pH Urine 6 (5-7)
[2019-09-21 20:21] LABS: Glucose Point of Care 206 mg/dL (70-110)
[2019-09-22] VITALS (11 sets, daily range): BP systolic 114–128; BP diastolic 67–79; PULSE 72–78; RESP 18–20; TEMP 36.7–37.1; O2SAT 95–96
[2019-09-22] MEDS: oxyCODONE-APAP 5-325 mg Tablet 1 TAB PO ×5 (03:25→21:17)
[2019-09-22 06:19] LABS: Glucose Point of Care 177 mg/dL (70-110)
[2019-09-22] MEDS: acetaminophen 325 mg Tablet 650 MG PO (08:43)
[2019-09-22] MEDS: gabapentin 400 mg Capsule 800 MG PO ×3 (08:44→21:17)
[2019-09-22] MEDS: pantoprazole DR 40 mg Tablet PO (08:44)
[2019-09-22] MEDS: cefUROXime 250 mg Tablet 500 MG PO ×2 (08:44→17:14)
[2019-09-22 10:55] LABS: Glucose Point of Care 182 mg/dL (70-110)
[2019-09-22] MEDS: morphine 4 mg/mL SDV 1 mL 2 MG IVP (10:56)
--- NOTE | 2019-09-22 15:24 | PM.PN ---
Subjective Subjective: Interval history: Had 850 mL urine output overnight, hemodynamically stable, it has been about 24 hours since last dose of Eliquis. L hip pain exacerbated by movement. Knee appears to be healing appropriately. Pain seems to be controlled with current analgesic regimen. Medications: Reviewed: Yes Medication Review Details: Active Medications Generic Name Dose Route Start Last Admin Trade Name Freq PRN Reason Stop Dose Admin Acetaminophen 650 mg 09/20/19 19:00 09/22/19 08:43 Tylenol PO 650 mg Q6H PRN Administration Mild/Mod Pain Or Temp >/= 101 Cefuroxime Axetil 500 mg 09/21/19 09:00 09/22/19 08:44 Ceftin PO 500 mg BID ANA LAURA Administration Dextrose 25 ml 09/20/19 19:00 D50w IVP ONCE PRN hypoglycemia prot ocol Protocol Dextrose 50 ml 09/20/19 19:00 D50w IVP PRN PRN hypoglycemia prot ocol Protocol Gabapentin 800 mg 09/20/19 21:00 09/22/19 14:12 Neurontin PO 800 mg TID ANA LAURA Administration Glucagon 1 mg 09/20/19 19:00 Glucagen IM ONCE PRN Adult Acute Hypog lycemia Prot. Protocol Dextrose 500 mls @ 100 mls /hr 09/20/19 19:00 D5w IV ONCE PRN Adult Acute Hypog lycemia Prot Protocol Insulin Aspart 0 unit 09/20/19 21:00 09/22/19 11:02 Novolog SUBCUT 2 unit WM&BEDTIME ANA LAURA Administration Protocol Morphine Sulfate 2 mg 09/20/19 19:00 09/22/19 10:56 Morphine IVP 2 mg Q4H PRN Administration SEVERE PAIN Ondansetron HCl 4 mg 09/20/19 19:00 Zofran IVP Q6H PRN vomiting, or N/V if npo Oxycodone/Acetamin ophen 1 tab 09/20/19 19:00 09/22/19 13:02 Percocet 5-325 M g PO 1 tab Q4H PRN Administration pain Pantoprazole Sodiu m 40 mg 09/21/19 09:00 09/22/19 08:44 Protonix PO 40 mg DAILY ANA LAURA Administration No Known Allergies Allergy (Verified 08/17/19 14:34) Vitals/I&O/Wt Last Vital Signs Temp 98.6 F 09/22/19 15:19 Pulse 72 09/22/19 15:19 Resp 18 09/22/19 15:19 BP 118/74 09/22/19 15:19 Pulse Ox 96 09/22/19 15:19 09/22/19 09/22/19 09/22/19 06:59 14:59 22:59 Intake Total 1100 / 1100 Output Total 750 / 2525 640 / 640 Balance -750 / -1485 460 / 460 Weight last 48 hrs Weight 85.502 kg Weight 84.538 kg Physical Exam Const: COMMON NORMALS: no acute distress, patient oriented x3 and alert GENERAL APPEARANCE: cooperative and comfortable ORIENTATION/CONSCIOUSNESS: Yes awake HENMT: COMMON NORMALS: normocephalic, atraumatic, hearing grossly normal bilaterally and moist oral mucous membranes HEAD & SCALP: normocephalic and atraumatic Eye: COMMON NORMALS: Equal, round and reactive pupils present, EOMs intact bilaterally and conjunctivae normal CONJUNCTIVA: Yes conjunctivae normal PUPIL: Yes Equal, round and reactive pupils present Neck/C-Spine: COMMON NORMALS: full ROM GENERAL: Yes normal visual inspection and Yes trachea midline Chest: CHEST: Yes Symmetrical chest wall rise Resp: COMMON NORMALS: normal respiratory effort, No retractions, No use of accessory muscles and clear to auscultation bilaterally EFFORT & INSPECTION: Yes able to speak in complete sentences, Yes symmetric chest movement and No tachypneic AUSCULTATION: clear to auscultation bilaterally OTHER: -on RA Cardio: COMMON NORMALS: regular rate, regular rhythm, S1 normal heart sound present, S2 normal heart sound present and No murmurs present (Cardio) RATE: regular rate RHYTHM: regular rhythm HEART SOUNDS: S1 normal heart sound present and S2 normal heart sound present GI: COMMON NORMALS: Normal to inspection, nondistended, normoactive bowel sounds present, Soft to palpation and non-tender INSPECTION: Yes central obesity PALPATION: Yes Soft to palpation Back/Pelvis: COMMON NORMALS: thoracic and lumbar spine normal to inspection Extremity: COMMON NORMALS: normal to inspection and full ROM NARRATIVE EXTREMITY EXAM: -L hip: tenderness to palpation of upper lateral thigh and hip joint. Unable to effectively assess ROM due to pain even with minimal movement -L knee: linear incision with christiano intact; decreased leg edema and bruising GENERAL: Yes edema (Left leg ) Neuro: COMMON NORMALS: patient oriented x3, no focal motor deficits and no sensory deficits noted SENSORIUM/ORIENTATION: Yes alert GAIT: Yes Unable to assess gait (as unable to weight bear) Psych: COMMON NORMALS: mental status grossly normal, Normal thought process present, cooperative, normal affect and speech normal SPEECH: Yes normal speech THOUGHT PROCESS: Normal thought process present Skin: COMMON NORMALS: no rashes or lesions noted, no jaundice, no petechiae and no mottling GENERAL SKIN EXAM: no rashes or lesions noted Data : 09/20/19 16:38 09/20/19 16:38 Micro: Microbiology 09/22/19 06:40 MRSA Culture - Final Nose A&P Assessment and plan (1) Hip pain, left: -acute onset of L hip pain x 1 day with falls x 2 -had recent L total knee arthroplasty done secondary to primary OA 1 week ago; had L total hip arthroplasty done in 04/2019 after mechanical fall. Did well post-op after both surgeries, was ambulatory with walker at home until fall yesterday -pain control as needed -unable to stand and weight bear currently -PT evaluation appreciated -imaging reviewed, no dislocation or fracture noted -apparent swelling of left leg, has been on Eliquis 2.5 mg BID for DVT ppx but with recent surgery, venous duplex done and negative for DVT -Ortho consult by Dr. Yu appreciated; will need surgical repair; need to have Eliquis held for 48 hrs prior to surgery (which will be 09/22 after 1700); currently scheduled for 09/23 -had been prescribed extended course of oral antibiotics for ppx; on Cefuroxime 500 mg BID -no leukocytosis, afebrile -VSS: continue to monitor -UA negative for infection Status: Acute (2) Fall: -fall x 2 as noted above -fall precautions Status: Acute Qualifiers: Encounter type: initial encounter Qualified Code(s): W19.XXXA - Unspecified fall, initial encounter (3) Hyperlipidemia: Status: Chronic Qualifiers: Hyperlipidemia type: pure hypercholesterolemia Qualified Code(s): E78.00 - Pure hypercholesterolemia, unspecified (4) Hypertension: -VSS; continue to monitor Status: Chronic Qualifiers: Hypertension type: essential hypertension Qualified Code(s): I10 - Essential (primary) hypertension (5) Diabetes mellitus type 2, noninsulin dependent: -hx of NIDDM type II complicated by peripheral neuropathy -A1c at goal (5.5) -Acuchecks, ISS -diabetic diet as tolerated Status: Chronic (6) GERD (gastroesophageal reflux disease): -continue PPI Status: Chronic Qualifiers: Esophagitis presence: esophagitis presence not specified Qualified Code(s): K21.9 - Gastro-esophageal reflux disease without esophagitis (7) Chronic anemia: -Chronic normocytic anemia; baseline Hg around 10. -continue to monitor H/H Status: Chronic (8) CKD (chronic kidney disease) stage 2, GFR 60-89 ml/min: -baseline Cr wnl -renal function stable Status: Chronic Additional A&P Information -DVT ppx with SCDs, foot pumps; d/c Eliquis in anticipation of surgery. Will cover with lovenox in the interim then hold for surgery to continue appropriate DVT ppx with shorter acting reversable AC -Dispo: will likely need SNF placement, came from home with services ([place]). [facility]ed to [facility] -Code status: FULL code Attestations Medical Necessity Statement*: Patient requires hospitalization pending surgical repair of L periprosthetic fracture, needs to be off anticoagulation for 48 hrs, continued pain control. Time Spent in Patient Care: 16 - 35 minutes (>than 50% of time spent in counselling and/or direct pt care on unit). Coding Level of Care Code Acute Collector Of Internal Revenue for g Fwd Exam Comprehensive Diagnoses Hip pain, left M25.552 Fall W19.XXXA Encounter type: initial encounter Hyperlipidemia E78.00 Hyperlipidemia type: pure hypercholesterolemia Hypertension I10 Hypertension type: essential hypertension Diabetes mellitus type 2, noninsulin dependent E11.9 GERD (gastroesophageal reflux disease) K21.9 Esophagitis presence: esophagitis presence not specified Chronic anemia D64.9 CKD (chronic kidney disease) stage 2, GFR 60-89 ml/min N18.2
[2019-09-22 17:07] LABS: Glucose Point of Care 180 mg/dL (70-110)
--- NOTE | 2019-09-22 17:33 | P.PN_ITS ---
Subjective Subjective: Interval history: The patient is comfortable when he is not moving. Any range of motion of the hip, however, is very uncomfortable for him. Medications: Reviewed: Yes Medication Review Details: Tanyais has been held pending further surgical intervention. Vitals/I&O/Wt Last Vital Signs Temp 98.6 F 09/22/19 16:00 Pulse 72 09/22/19 16:00 Resp 18 09/22/19 17:15 BP 118/74 09/22/19 16:00 Pulse Ox 96 09/22/19 16:00 09/22/19 09/22/19 09/22/19 06:59 14:59 22:59 Intake Total 1100 / 1100 Output Total 750 / 2525 640 / 640 Balance -750 / -1485 460 / 460 Weight last 48 hrs Weight 188 lb 8 oz Weight 186 lb 6 oz Physical Exam Const: COMMON NORMALS: no acute distress, average body habitus, patient oriented x3 and alert GENERAL APPEARANCE: cooperative and comfortable ORIENTATION/CONSCIOUSNESS: Yes awake HENMT: COMMON NORMALS: normocephalic and atraumatic HEAD & SCALP: normocephalic and atraumatic Eye: GENERAL EYE: appearance normal, both eyes and all related structures Chest: COMMONS NORMALS: normal inspection of the chest Resp: COMMON NORMALS: normal respiratory effort EFFORT & INSPECTION: Yes able to speak in complete sentences and Yes symmetric chest movement Extremity: GENERAL: Yes normal exam except as noted LEFT LOWER EXTREMITY: Yes hip joint Left hip: Yes inspection (The patient has no swelling or ecc hymosis about the hip.), Yes palpation (There is pain to palpation over the greater trochanter), Yes ROM (There is pain with any range of motion of the hip that the patient is unable to tolerate.) and Yes neurovascular exam (Intact) and Yes knee joint Left knee: Yes inspection (There is a total knee incision anteriorly of the knee which demonstrates no evidence of infection.), Yes palpation (There is expected postoperative tenderness to palpation secondary to total knee arthroplasty.) and Yes neurovascular exam (Intact) Neuro: COMMON NORMALS: patient oriented x3 SENSORIUM/ORIENTATION: Yes alert Psych: COMMON NORMALS: mental status grossly normal APPEARANCE: Yes grossly normal ATTITUDE: Yes calm and Yes engaged ATTENTION/CONCENTRATION: Yes attention grossly intact Skin: COMMON NORMALS: no rashes or lesions noted GENERAL SKIN EXAM: no rashes or lesions noted Data : 09/20/19 16:38 09/20/19 16:38 Micro: Microbiology 09/22/19 06:40 MRSA Culture - Final Nose A&P Assessment and plan (1) Periprosthetic fracture around internal prosthetic left hip joint, initial encounter: Plans have been made for the patient undergo open reduction internal fixation of his left hip periprosthetic fracture. The patient had his bipolar hip arthroplasty in April of this year. He has significant pain with any range of motion. Plans have been made to proceed with operative intervention, however, the patient requires a minimum of 48 hours off Eliquis to allow us to proceed with the surgery. Therefore, surgery is scheduled for him on September 23 to allow this 48-hour passage of time. Status: Acute (2) Status post hip hemiarthroplasty: Status: Acute (3) History of total knee arthroplasty: Status: Acute Qualifiers: Laterality: left Qualified Code(s): Z96.652 - Presence of left ely ficial knee joint Attestations Medical Necessity Statement*: Awaiting 48 hours post last Eliquis dosing. Coding Level of Care Code Acute [place] Weapon System Operator for Jack Rayo Diagnoses Periprosthetic fracture around internal prosthetic left hip joint, initial encounter M97.02XA Status post hip hemiarthroplasty Z96.649 History of total knee arthroplasty Z96.652 Laterality: left
[2019-09-22] MEDS: enoxaparin 40 mg/0.4 mL Syringe SUBCUT (18:34)
[2019-09-22 20:38] LABS: Glucose Point of Care 204 mg/dL (70-110)
[2019-09-23] VITALS (12 sets, daily range): BP systolic 104–121; BP diastolic 60–70; PULSE 70–77; RESP 16–20; TEMP 36.7–37.1; O2SAT 95–96
[2019-09-23] MEDS: morphine 4 mg/mL SDV 1 mL 2 MG IVP (00:54)
[2019-09-23] MEDS: oxyCODONE-APAP 5-325 mg Tablet 1 TAB PO ×5 (02:01→20:56)
[2019-09-23 06:41] LABS: Glucose Point of Care 144 mg/dL (70-110)
[2019-09-23] MEDS: cefUROXime 250 mg Tablet 500 MG PO ×2 (08:31→17:33)
[2019-09-23] MEDS: gabapentin 400 mg Capsule 800 MG PO ×3 (08:31→20:56)
[2019-09-23] MEDS: pantoprazole DR 40 mg Tablet PO (08:31)
--- NOTE | 2019-09-23 09:00 | PC.SOCIAL ---
IMM Page 2 of IMM explained to patient. Initialed, dated, and timed and placed in chart. Copy provided to patient.
--- NOTE | 2019-09-23 09:48 | PC.CHAP ---
Pastoral Care Encounter/Spiritual Assessment Type of Contact [] Declined president & ceo visit [] Patient/Family/Request visit [] Outpatient visit [] Follow-up visit [] Physician referral [] Code/Alert [x] Routine visit [] Staff referral [] Actively dying [] Patient sleeping [] Family support [] [] Out of room [] Palliative care [] [] Receiving care in room [] Pre-surgical visit [] Trauma [] Long length of stay [] ICU visit [] Other: Relational/Emotional Strength [] Patient feels connected with others/family/visitors/staff [] Distress [] Loneliness/isolation [] Abandonment Spirituality of Patient [] Person of Shanna [] Attends Spiritism of their Shanna [x] Believes in Prayer [] Reads Bible or Voodoo materials [] There are Spiritual issues to be addressed Milk Deliverer Interventions [x] Prayer [] Active listening [] Non-anxious presence [] Spiritual/emotional support [] Crisis/trauma care [] Spiritual counseling [] Bereavement support [] Provided bereavement packet [] Provided Bible/devotional materials [] Provided toy/stuffed animal, coloring book to patient or family member [] Provided Communion [] Anointing/[place] [] Salvation [x] Completed spiritual assessment [] Other: Impact on Illness or Injury [] Angry [] Fearful [] Anxious [] Often cries [] Exhaustion [] Unable to work [] Unable to attend pentecostal [] Unable to walk/stand [] Unable to read [] Unable to drive [] Unable to eat/drink [] Unable to sleep [] Unable to be with family [] Patient intubated [] Other: Summary Patient resting- awaiting surgery for hip replacement tomorrow. Time spent with patient 10 min
[2019-09-23 11:31] LABS: Glucose Point of Care 156 mg/dL (70-110)
--- NOTE | 2019-09-23 13:43 | PC.OT ---
OT TREATMENT HELD YESTERDAY AND TODAY DUE TO HIP FX AND AWAITING SURGERY. WILL AWAIT NEW ORDERS AFTER SURGERY
--- NOTE | 2019-09-23 14:59 | PM.PN ---
Subjective Subjective: Interval history: Had 900 mL urine output overnight, pending surgery tomorrow as he will be off Eliquis x 48 hrs later this afternoon. Hemodynamically stable. Pain controlled as long as he is not moving his LLE. He is in good spirits but a little nervous about surgery tomorrow. Will be NPO after midnight. Medications: Reviewed: Yes Medication Review Details: Active Medications Generic Name Dose Route Start Last Admin Trade Name Freq PRN Reason Stop Dose Admin Acetaminophen 650 mg 09/20/19 19:00 09/22/19 08:43 Tylenol PO 650 mg Q6H PRN Administration Mild/Mod Pain Or Temp >/= 101 Cefuroxime Axetil 500 mg 09/21/19 09:00 09/23/19 08:31 Ceftin PO 500 mg BID ANA LAURA Administration Dextrose 25 ml 09/20/19 19:00 D50w IVP ONCE PRN hypoglycemia prot ocol Protocol Dextrose 50 ml 09/20/19 19:00 D50w IVP PRN PRN hypoglycemia prot ocol Protocol Gabapentin 800 mg 09/20/19 21:00 09/23/19 08:31 Neurontin PO 800 mg TID ANA LAURA Administration Glucagon 1 mg 09/20/19 19:00 Glucagen IM ONCE PRN Adult Acute Hypog lycemia Prot. Protocol Dextrose 500 mls @ 100 mls /hr 09/20/19 19:00 D5w IV ONCE PRN Adult Acute Hypog lycemia Prot Protocol Insulin Aspart 0 unit 09/20/19 21:00 09/23/19 12:19 Novolog SUBCUT 2 unit WM&BEDTIME ANA LAURA Administration Protocol Morphine Sulfate 2 mg 09/20/19 19:00 09/23/19 00:54 Morphine IVP 2 mg Q4H PRN Administration SEVERE PAIN Ondansetron HCl 4 mg 09/20/19 19:00 Zofran IVP Q6H PRN vomiting, or N/V if npo Oxycodone/Acetamin ophen 1 tab 09/20/19 19:00 09/23/19 12:19 Percocet 5-325 M g PO 1 tab Q4H PRN Administration pain Pantoprazole Sodiu m 40 mg 09/21/19 09:00 09/23/19 08:31 Protonix PO 40 mg DAILY ANA LAURA Administration No Known Allergies Allergy (Verified 08/17/19 14:34) Vitals/I&O/Wt Last Vital Signs Temp 98.2 F 09/23/19 11:13 Pulse 77 09/23/19 11:13 Resp 18 09/23/19 12:19 BP 104/61 09/23/19 11:13 Pulse Ox 96 09/23/19 11:13 09/22/19 09/23/19 09/23/19 22:59 06:59 14:59 Intake Total 480 / 1580 360 / 1940 720 / 720 Output Total 750 / 1390 350 / 1740 Balance -270 / 190 10 / 200 720 / 720 Weight last 48 hrs Weight 79.288 kg Weight 85.502 kg Physical Exam Const: COMMON NORMALS: no acute distress, patient oriented x3 and alert GENERAL APPEARANCE: cooperative and comfortable ORIENTATION/CONSCIOUSNESS: Yes awake HENMT: COMMON NORMALS: normocephalic, atraumatic, hearing grossly normal bilaterally and moist oral mucous membranes HEAD & SCALP: normocephalic and atraumatic Eye: COMMON NORMALS: Equal, round and reactive pupils present, EOMs intact bilaterally and conjunctivae normal CONJUNCTIVA: Yes conjunctivae normal PUPIL: Yes Equal, round and reactive pupils present Neck/C-Spine: COMMON NORMALS: full ROM GENERAL: Yes normal visual inspection and Yes trachea midline Chest: CHEST: Yes Symmetrical chest wall rise Resp: COMMON NORMALS: normal respiratory effort, No retractions, No use of accessory muscles and clear to auscultation bilaterally EFFORT & INSPECTION: Yes able to speak in complete sentences, Yes symmetric chest movement and No tachypneic AUSCULTATION: clear to auscultation bilaterally OTHER: -on RA Cardio: COMMON NORMALS: regular rate, regular rhythm, S1 normal heart sound present, S2 normal heart sound present and No murmurs present (Cardio) RATE: regular rate RHYTHM: regular rhythm HEART SOUNDS: S1 normal heart sound present and S2 normal heart sound present GI: COMMON NORMALS: Normal to inspection, nondistended, normoactive bowel sounds present, Soft to palpation and non-tender INSPECTION: Yes central obesity PALPATION: Yes Soft to palpation Back/Pelvis: COMMON NORMALS: thoracic and lumbar spine normal to inspection Extremity: COMMON NORMALS: normal to inspection and full ROM NARRATIVE EXTREMITY EXAM: -L hip: tenderness to palpation of upper lateral thigh and hip joint. Unable to effectively assess ROM due to pain even with minimal movement -L knee: linear incision with christiano intact; decreased leg edema and bruising GENERAL: Yes edema (Left leg ) Neuro: COMMON NORMALS: patient oriented x3, no focal motor deficits and no sensory deficits noted SENSORIUM/ORIENTATION: Yes alert GAIT: Yes Unable to assess gait (as unable to weight bear) Psych: COMMON NORMALS: mental status grossly normal, Normal thought process present, cooperative, normal affect and speech normal SPEECH: Yes normal speech THOUGHT PROCESS: Normal thought process present Skin: COMMON NORMALS: no rashes or lesions noted, no jaundice, no petechiae and no mottling GENERAL SKIN EXAM: no rashes or lesions noted Data : 09/20/19 16:38 09/20/19 16:38 Micro: Microbiology 09/22/19 06:40 MRSA Culture - Final Nose A&P Assessment and plan (1) Hip pain, left: -acute onset of L hip pain x 1 day with falls x 2 -had recent L total knee arthroplasty done secondary to primary OA 1 week ago; had L total hip arthroplasty done in 04/2019 after mechanical fall. Did well post-op after both surgeries, was ambulatory with walker at home until fall yesterday -pain control as needed -unable to stand and weight bear currently -PT evaluation appreciated -imaging reviewed, no dislocation or fracture noted -apparent swelling of left leg, has been on Eliquis 2.5 mg BID for DVT ppx but with recent surgery, venous duplex done and negative for DVT -Ortho consult by Dr. Yu appreciated; will need surgical repair; need to have Eliquis held for 48 hrs prior to surgery (which will be 09/22 after 1700); currently scheduled for 09/23 -had been prescribed extended course of oral antibiotics for ppx; on Cefuroxime 500 mg BID -no leukocytosis, afebrile -VSS: continue to monitor -UA negative for infection -keep NPO after midnight, IVF due to NPO status Status: Acute (2) Fall: -fall x 2 as noted above -fall precautions Status: Acute Qualifiers: Encounter type: initial encounter Qualified Code(s): W19.XXXA - Unspecified fall, initial encounter (3) Hyperlipidemia: Status: Chronic Qualifiers: Hyperlipidemia type: pure hypercholesterolemia Qualified Code(s): E78.00 - Pure hypercholesterolemia, unspecified (4) Hypertension: -VSS; continue to monitor Status: Chronic Qualifiers: Hypertension type: essential hypertension Qualified Code(s): I10 - Essential (primary) hypertension (5) Diabetes mellitus type 2, noninsulin dependent: -hx of NIDDM type II complicated by peripheral neuropathy -A1c at goal (5.5) -Acuchecks, ISS -diabetic diet as tolerated Status: Chronic (6) GERD (gastroesophageal reflux disease): -continue PPI Status: Chronic Qualifiers: Esophagitis presence: esophagitis presence not specified Qualified Code(s): K21.9 - Gastro-esophageal reflux disease without esophagitis (7) Chronic anemia: -Chronic normocytic anemia; baseline Hg around 10. -continue to monitor H/H Status: Chronic (8) CKD (chronic kidney disease) stage 2, GFR 60-89 ml/min: -baseline Cr wnl -renal function stable Status: Chronic Additional A&P Information -DVT ppx with SCDs, foot pumps; d/c Eliquis in anticipation of surgery. Will cover with lovenox in the interim then hold for surgery to continue appropriate DVT ppx with shorter acting reversable AC -Dispo: will likely need SNF placement, came from home with services ([facility]). Accepted to [facility] -Code status: FULL code Attestations Medical Necessity Statement*: Patient requires hospitalization pending surgical intervention for left periprosthetic fracture, once off anticoagulation x 48 hrs. Time Spent in Patient Care: 16 - 35 minutes (>than 50% of time spent in counselling and/or direct pt care on unit). Coding Level of Care Code Acute Manager User Experience for [facility] Fwd Exam Comprehensive Diagnoses Hip pain, left M25.552 Fall W19.XXXA Encounter type: initial encounter Hyperlipidemia E78.00 Hyperlipidemia type: pure hypercholesterolemia Hypertension I10 Hypertension type: essential hypertension Diabetes mellitus type 2, noninsulin dependent E11.9 GERD (gastroesophageal reflux disease) K21.9 Esophagitis presence: esophagitis presence not specified Chronic anemia D64.9 CKD (chronic kidney disease) stage 2, GFR 60-89 ml/min N18.2
[2019-09-23 16:52] LABS: Glucose Point of Care 196 mg/dL (70-110)
[2019-09-23 21:00] LABS: Glucose Point of Care 165 mg/dL (70-110)
[2019-09-23] MEDS: dextrose 5%-ns 0.45% + KCl 10 1,000 ML 75 MEQ IV (21:37)
--- NOTE | 2019-09-23 21:51 | P.PN_ITS ---
Subjective Subjective: Interval history: The patient continues to have pain with left hip range of motion. He is ready for his surgery tomorrow. Medications: Reviewed: Yes Vitals/I&O/Wt Last Vital Signs Temp 98.1 F 09/23/19 20:22 Pulse 75 09/23/19 20:22 Resp 18 09/23/19 20:56 BP 115/60 09/23/19 20:22 Pulse Ox 95 09/23/19 20:22 09/23/19 09/23/19 09/23/19 06:59 14:59 22:59 Intake Total 360 / 1940 720 / 720 360 / 1080 Output Total 350 / 1740 830 / 830 Balance 10 / 200 720 / 720 -470 / 250 Weight last 48 hrs Weight 174 lb 12.8 oz Weight 188 lb 8 oz Physical Exam Const: COMMON NORMALS: no acute distress, average body habitus, patient oriented x3 and alert GENERAL APPEARANCE: cooperative and comfortable ORIENTATION/CONSCIOUSNESS: Yes awake HENMT: COMMON NORMALS: normocephalic and atraumatic HEAD & SCALP: normocephalic and atraumatic Eye: GENERAL EYE: appearance normal, both eyes and all related structures Chest: COMMONS NORMALS: normal inspection of the chest Resp: COMMON NORMALS: normal respiratory effort EFFORT & INSPECTION: Yes able to speak in complete sentences and Yes symmetric chest movement Extremity: GENERAL: Yes normal exam except as noted LEFT LOWER EXTREMITY: Yes hip joint (Pain with any range of motion to left hip) and Yes knee joint (Healing well post total knee arthroplasty) Left knee: Yes neurovascular exam (Intact) Neuro: COMMON NORMALS: patient oriented x3 SENSORIUM/ORIENTATION: Yes alert Psych: COMMON NORMALS: mental status grossly normal APPEARANCE: Yes grossly normal ATTITUDE: Yes calm and Yes engaged ATTENTION/CONCENTRATION: Yes attention grossly intact Skin: COMMON NORMALS: no rashes or lesions noted GENERAL SKIN EXAM: no rashes or lesions noted Data : 09/20/19 16:38 09/20/19 16:38 A&P Assessment and plan (1) Periprosthetic fracture around internal prosthetic left hip joint, initial encounter: Plans have been made for the patient undergo open reduction internal fixation of his left hip periprosthetic fracture. The patient had his bipolar hip arthroplasty in April of this year. He has significant pain with any range of motion. Plans have been made to proceed with operative intervention, however, the patient requires a minimum of 48 hours off Eliquis to allow us to proceed with the surgery. Therefore, surgery is scheduled for him on September 23 to allow this 48-hour passage of time. Status: Acute (2) Status post hip hemiarthroplasty: Status: Acute (3) History of total knee arthroplasty: Status: Acute Qualifiers: Laterality: left Qualified Code(s): Z96.652 - Presence of left artificial knee joint Attestations Medical Necessity Statement*: Patient required 48 hours off Eliquis prior to surgical treatment of his periprosthetic hip fracture. 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
[2019-09-24] VITALS (29 sets, daily range): BP systolic 115–159; BP diastolic 69–107; PULSE 67–105; RESP 12–18; TEMP 36.4–38; O2SAT 91–100
[2019-09-24] MEDS: oxyCODONE-APAP 5-325 mg Tablet 1 TAB PO ×2 (01:56→13:19)
[2019-09-24] MEDS: morphine 4 mg/mL SDV 1 mL 2 MG IVP (05:36)
[2019-09-24 06:59] LABS: Glucose Point of Care 159 mg/dL (70-110)
--- NOTE | 2019-09-24 07:31 | PC.NURSE ---
Off Unit Pt went down to surgery via bed with Nurse Deanna.
--- NOTE | 2019-09-24 07:43 | P.ANESASSM_ITS ---
Pre-Anesthetic Assessment Pre-Anesthetic Assessment: Height/Weight: Height 1.8 m Weight 79.515 kg Temp Pulse Resp BP Pulse Ox 98.4 F 68 18 121/69 96 09/24/19 04:00 09/24/19 04:00 09/24/19 05:36 09/24/19 04:00 09/24/19 04:00 Preop Diagnosis: DJD left knee Proposed Procedure: Operation Date: 09/24/19 08:00 Proposed Procedures p Total Hip Arthroplasty Revision(Left) - Kylie Yu MD Last intake: Intake Last Liquid Date 09/23/19 Last Liquid Time 23:30 Last Solid Date 09/23/19 Last Solid Time 17:00 Social: Social History: Alcohol (occ) and No tobacco Exam: Pre-Anes Outpt Exam: alert, oriented x 3, clear to auscultation bilatera lly and regular rate & rhythm Airway: Submandibular: WNL Cervical ROM: WNL MP: 2 Dentition: Other (teeth ok) History/ROS: No significant history except as noted Pulmonary: Pulmonary: None reported CV/HEM: CV/HEM: HTN : : Chronic renal Insufficiency Hepatic: Hepatic: None reported GI: GI: GERD Metabolic: Metabolic: DM and Hyperlipidemia Musc/skel: Musc/skel: OA/DJD Neuropsych: Neuropsych: None reported Anesthetic Plan: ASA status: 3 Anesthesia: Anesthesia Evaluation and General Risk of > 500 ml blood loss (7ml/kg in children): Yes, adequate IV access and fluids planned Meds/Allergies Current Medications: Current Medications Generic Name Dose Route Start Last Admin Trade Name Freq PRN Reason Stop Dose Admin Acetaminophen 650 mg 09/20/19 19:00 09/22/19 08:43 Tylenol PO 650 mg Q6H PRN Administration Mild/Mod Pain Or Temp >/= 101 Cefuroxime Axetil 500 mg 09/21/19 09:00 09/23/19 17:33 Ceftin PO 500 mg BID ANA LAURA Administration Gabapentin 800 mg 09/20/19 21:00 09/23/19 20:56 Neurontin PO 800 mg TID ANA LAURA Administration Potassium Chloride /Dextrose/Sod Cl 1,000 mls @ 75 ml s/hr 09/23/19 18:45 09/23/19 21:37 Dextrose 5%-Ns 0 .45% + Kcl 10 IV 75 mls/hr .[id number] ANA LAURA Administration Insulin Aspart 0 unit 09/20/19 21:00 09/24/19 07:31 Novolog SUBCUT Not Given WM&BEDTIME ANA LAURA Protocol Morphine Sulfate 2 mg 09/20/19 19:00 09/24/19 05:36 Morphine IVP 2 mg Q4H PRN Administration SEVERE PAIN Oxycodone/Acetamin ophen 1 tab 09/20/19 19:00 09/24/19 01:56 Percocet 5-325 M g PO 1 tab Q4H PRN Administration pain Pantoprazole Sodiu m 40 mg 09/21/19 09:00 09/23/19 08:31 Protonix PO 40 mg DAILY ANA LAURA Administration Additional Medication Information: Active Medications Generic Name Dose Route Start Last Admin Trade Name Freq PRN Reason Stop Dose Admin Acetaminophen 650 mg 09/20/19 19:00 09/22/19 08:43 Tylenol PO 650 mg Q6H PRN Administration Mild/Mod Pain Or Temp >/= 101 Cefuroxime Axetil 500 mg 09/21/19 09:00 09/23/19 08:31 Ceftin PO 500 mg BID ANA LAURA Administration Dextrose 25 ml 09/20/19 19:00 D50w IVP ONCE PRN hypoglycemia prot ocol Protocol Dextrose 50 ml 09/20/19 19:00 D50w IVP PRN PRN hypoglycemia prot ocol Protocol Gabapentin 800 mg 09/20/19 21:00 09/23/19 08:31 Neurontin PO 800 mg TID ANA LAURA Administration Glucagon 1 mg 09/20/19 19:00 Glucagen IM ONCE PRN Adult Acute Hypog lycemia Prot. Protocol Dextrose 500 mls @ 100 mls /hr 09/20/19 19:00 D5w IV ONCE PRN Adult Acute Hypog lycemia Prot Protocol Insulin Aspart 0 unit 09/20/19 21:00 09/23/19 12:19 Novolog SUBCUT 2 unit WM&BEDTIME ANA LAURA Administration Protocol Morphine Sulfate 2 mg 09/20/19 19:00 09/23/19 00:54 Morphine IVP 2 mg Q4H PRN Administration SEVERE PAIN Ondansetron HCl 4 mg 09/20/19 19:00 Zofran IVP Q6H PRN vomiting, or N/V if npo Oxycodone/Acetamin ophen 1 tab 09/20/19 19:00 09/23/19 12:19 Percocet 5-325 M g PO 1 tab Q4H PRN Administration pain Pantoprazole Sodiu m 40 mg 09/21/19 09:00 09/23/19 08:31 Protonix PO 40 mg DAILY ANA LAURA Administration No Known Allergies Allergy (Verified 08/17/19 14:34) PFSH Anesthesia PFSH: Medical History Chronic anemia CKD (chronic kidney disease) stage 2, GFR 60-89 ml/min Diabetes mellitus type 2, noninsulin dependent Diabetic peripheral neuropathy GERD (gastroesophageal reflux disease) History of osteomyelitis Right foot History of septic arthritis Left knee Hx of fracture of left hip Hyperlipidemia Hypertension Surgical History History of hand surgery History of knee surgery Bilateral History of toe surgery History of total knee arthroplasty Family History Other Cancer Diabetes Social History Smoking and tobacco status: never smoked Alcohol intake: current Alcohol intake frequency: 3 or more drinks per day Alcohol type: beer Household members: spouse and children Marital status: Data Anesthesia CBC & Chem 7: 09/20/19 16:38 09/20/19 16:38 Other Labs: Laboratory Results - last 48 hr 09/22/19 09/22/19 09/22/19 10:51 16:54 20:33 POC Glucose 182 180 204 09/23/19 09/23/19 09/23/19 06:37 11:17 16:48 POC Glucose 144 156 196 09/23/19 09/24/19 20:56 06:53 POC Glucose 165 159 Cardiac Studies: No Data to Display
[2019-09-24] MEDS: sodium chloride 0.9% 1,000 ML 100 ML IV (07:46)
[2019-09-24] MEDS: fentaNYL 50 mcg/mL INJ 2mL 100 MCG (07:58)
--- NOTE | 2019-09-24 08:11 | SUR.PHASEI ---
0735 PT TO PACU AWAKE ALERT ON BED CALL LIGHT WITHIN REACH,
[2019-09-24] MEDS: vancomycin 1,000 MG SDV 1000 MG XX (08:25)
[2019-09-24] MEDS: vancomycin 1,000 MG in sodium chloride 0.9% 250 ML 250 MG IV ×2 (08:25→21:12)
--- NOTE | 2019-09-24 08:26 | SUR.PHASEI ---
2233 DR AGUILAR AT BEDSIDE ORDERS FOR FENTANYL PER PRE OP ORDERS SEE MED GIVEN IVP SLOWLY, PT RATES PAIN AT 8 . LAB HERE TO DRAW BLOOD FOR T&C. 0403 PT AWAKE ALERT TO OR PER BED . PT GLASSES TO PACU.
[2019-09-24] MEDS: ceFAZolin 1,000 mg SDV 1000 MG IRRIGATION ×2 (09:39→10:27)
--- NOTE | 2019-09-24 11:34 | XRR_ITS ---
PROCEDURE INFORMATION: Exam: XR Pelvis Exam date and time: 09/24/2019 11:36 AM Age: 59 years old Clinical indication: Device placement; Other: Hardware; Prior surgery; Surgery date: Post-operative (0-2 days); Surgery type: Lt hip; Additional info: Status post revision total hip arthroplasty TECHNIQUE: Imaging protocol: XR pelvis. Views: 1 or 2 view. COMPARISON: No relevant prior studies available. FINDINGS: Bones/joints: Total left hip arthroplasty in place. Air in the joint postoperatively. Overlying row of skin closure christiano in place. Soft tissues: See Bones/joints finding. XR/XR pelvis 1-2V* [id number] IMPRESSION: Status post left hip arthroplasty revision.
--- NOTE | 2019-09-24 11:36 | PM.OP ---
Operative Report Date of procedure: September 24, 2019 Pre-op Diagnosis: Left periprosthetic hip fracture Post-op diagnosis: same Post-op Findings: Significant comminution of the proximal femur around the prior hemiarthroplasty. Femoral stem removed without bone loss. Procedure Done: Left hip revision femoral stem of hip arthroplasty and conversion to bipolar revision hip arthroplasty utilizing the following system: The [place] Confucianist Modular hip system with a size 155 mm x 21 mm modular femoral stem, a size 29 mm with a +0 height and a V40 taper proximal calcar replacement, a size 51 mm outer diameter by 28 mm inner diameter universal head bipolar component with a femoral head size 28 mm x +0 mm offset Specimens removed/disposition: Explant disposed of Pathology: none sent Surgeon: Kylie Yu Supervisor Inspection: Kat Booker Anesthesia: General (Intubated, ASA 3) Estimated blood loss (mL): 900 Estimated blood loss: With 390 mL return per Cell Saver IV fluids (mL): 1,300 Urine output (mL): 1,000 Complications: None Findings: Comminuted fracture surrounding the proximal aspect of the previous bipolar hip arthroplasty stem. Loose stem. Following completion of the implants, the hip was stable at 90 degrees of flexion with 90 degrees of internal rotation and 30 degrees of adduction. It was also stable to toe hang and external rotation. Condition: stable Disposition: PACU (Then to floor for postoperative rehabilitation and pain management.) Brief History: This 59-year-old gentleman was in his usual state of health when he fell in his home suffering the above injury. The patient had a bipolar hip arthroplasty placed by Dr. Yousif in April of this year, and most recently, he had a total knee arthroplasty by Dr. Sanders earlier in September. Patient presents with a fresh postoperative knee with christiano still in place. He had pain in the hip consistent with hip injury. CT scan demonstrated a periprosthetic fracture that was not visualized on x-ray. Procedure: Patient was brought to the operating theater. He was transferred to the operating room table and subsequently administered a general anesthetic intubated. Following administration of adequate anesthesia, the patient was placed in full lateral position and held in position with a pegboard. Care was taken to protect the patient's recent total knee throughout the operative procedure. We removed dressing and clean the area. A Tegaderm was then placed sterilely prior to prepping and draping. The patient's [] lower extremity was then prepped and draped in usual fashion utilizing Betadine. It was draped free. Following prepping and draping a surgical pause was performed. At the time of surgical pause, we identified the site and side of surgery. We also identified the patient and preoperative surgical markings. Confirmation was made of equipment availability. Additionally, the patient's preoperative IV antibiotic, vancomycin 1 g, was confirmed as being given in a timely fashion and being the appropriate antibiotic. Following the surgical pause, an incision was made in the location of the previous incision as it was from April. Dissection continued through skin and soft tissues using a scalpel and hemostasis was obtained using electrocautery. Prior Ethibond suture was removed from the local wound. The tensor fascia prudencio was identified and incised longitudinally. Sciatic nerve was identified and protected throughout the surgical procedure. A Charnley U retractor was placed after the tensor fascia prudencio had been incised longitudinally, and the sciatic nerve had been identified. The hip was internally rotated, and the piriformis muscle was identified and tagged. Piriformis muscle along with the remaining short external rotators were then incised from the posterior aspect of the hip joint. These were retracted posteriorly. The capsule was entered in a T-type fashion with the edges being tagged, and subsequently the hip was dislocated. We are able to remove the previous bipolar head and femoral head. This left the stem in position. There was significant scarring and soft tissue adhesions which were removed to allow the hip to be dislocated, and subsequent to dislocation, further soft tissue was removed. The femur was evaluated. Once soft tissue had been cleared from the superior aspect of the femoral stem, there was noted to be a significant calcar split. There was also evidence of instability extending down the femoral shaft including the greater trochanter. We were able to remove the stem with minimal bone loss. There was minimal bone healing to the stem which was placed in April. We then evaluated the proximal femur and there was comminution in the area. Further evaluation of the acetabulum demonstrated retained labrum posteriorly and this was excised without difficulty. Components were removed were evaluated. The universal head component was a size 51 and plans were made to use the similar size femoral head and bipolar head as this fit the acetabulum nicely. Attention was redirected to the proximal femur. We then began reaming for the distal aspect of the Confucianist Modular femoral stem. This was a straight stem. We reamed to allow for a size 15 mm stem. Proximally, reaming was accomplished to allow for a calcar replacement of 29 mm. This was a +0 height. Reduction was then accomplished with a 51 mm universal head component and a +0 femoral head. With this in place, we had the above stabilities, and at that time, we felt that we had restored leg lengths. We also felt that we had excellent stability noted above. Therefore, trial components were removed after the hip was dislocated. Proximal calcar component was placed in appropriate rotation. It was impacted into position. The screw was then torqued to 180. Onto this, we placed a +0 femoral head with a bipolar head component size 51 to match what was removed. At this time, with all components in appropriate position, the hip was reduced. Following reduction of the prosthesis once again, we confirmed the stability of the hip. Leg lengths were also felt to be satisfactory. Being satisfied with the prosthesis, attention was directed to closure. Closure was accomplished with 0 Vicryl in the capsular tissues. Piriformis was reattached with 0 Vicryl as well. Tensor fascia prudencio was closed with 0 Vicryl in an interrupted fashion. The subcutaneous tissues were closed with 2-0 Monocryl. Vancomycin powder and a Gelfoam thrombin mixture was placed into the wound as well. The skin was closed with skin christiano followed by Exofin and Steri-Strips. This was covered with Telfa and Tegaderm. The patient was placed in an abduction pillow. He was returned the Recovery Room in a satisfactory condition and will be discharged to the floor for postoperative rehabilitation and pain management. There were no complications. Associated Problem List Diagnoses (1) Periprosthetic fracture around internal prosthetic left hip joint, initial encounter:
[2019-09-24] MEDS: fentaNYL 50 mcg/mL INJ 2mL IVP (12:08)
--- NOTE | 2019-09-24 12:51 | P.PN_ITS ---
Subjective Subjective: Interval history: OR today, hemodynamically stable, had 1210 mL urine output overnight. Seen post-op, resting in bed, quite groggy and not making much sense, cannot seem to remember that he just had surgery following a fall several days ago. Discussed with Dr. Yu. Medications: Reviewed: Yes Medication Review Details: Active Medications Generic Name Dose Route Start Last Admin Trade Name Freq PRN Reason Stop Dose Admin Acetaminophen 1,000 mg 09/25/19 14:00 Tylenol PO Q8H ANA LAURA Apixaban 2.5 mg 09/24/19 23:33 Eliquis PO BID ANA LAURA Calcium Carbonate 1,000 mg 09/24/19 18:00 Tums PO BID ANA LAURA Cefuroxime Axetil 500 mg 09/21/19 09:00 09/23/19 17:33 Ceftin PO 500 mg BID ANA LAURA Administration Celecoxib 200 mg 09/24/19 13:00 Celebrex PO Q12H ANA LAURA Chlorhexidine Gluc marie 30 ml 09/24/19 13:00 Perigard MUCOUS MEM QID ANA LAURA Dextrose 25 ml 09/20/19 19:00 D50w IVP ONCE PRN hypoglycemia prot ocol Protocol Dextrose 50 ml 09/20/19 19:00 D50w IVP PRN PRN hypoglycemia prot ocol Protocol Gabapentin 800 mg 09/20/19 21:00 09/23/19 20:56 Neurontin PO 800 mg TID ANA LAURA Administration Glucagon 1 mg 09/20/19 19:00 Glucagen IM ONCE PRN Adult Acute Hypog lycemia Prot. Protocol Dextrose 500 mls @ 100 mls /hr 09/20/19 19:00 D5w IV ONCE PRN Adult Acute Hypog lycemia Prot Protocol Potassium Chloride /Dextrose/Sod Cl 1,000 mls @ 75 ml s/hr 09/23/19 18:45 09/23/19 21:37 Dextrose 5%-Ns 0 .45% + Kcl 10 IV 75 mls/hr .[id number] ANA LAURA Administration Acetaminophen 1,000 mg in 100 m ls @ 400 mls/hr 09/24/19 17:00 Ofirmev IV 09/25/19 09:14 Q8H ANA LAURA Vancomycin HCl 1,0 00 mg/ 250 mls @ 250 mls /hr 09/24/19 20:00 Sodium Chloride IV 09/24/19 20:59 ONCE ONE Protocol Insulin Aspart 0 unit 09/20/19 21:00 09/24/19 07:31 Novolog SUBCUT Not Given WM&BEDTIME [facility] Protocol Morphine Sulfate 2 mg 09/20/19 19:00 09/24/19 05:36 Morphine IVP 2 mg Q4H PRN Administration SEVERE PAIN Multivitamins Ther apeutic 1 tab 09/25/19 09:00 Multivitamin Tab PO DAILY [facility] Mupirocin 1 applic 09/24/19 18:00 Bactroban NASAL 09/29/19 17:59 BID [facility] Naloxone HCl 0.1 mg 09/24/19 12:39 Narcan IVP Q2M PRN Respiratory rate less than 8. Ondansetron HCl 4 mg 09/24/19 12:39 Zofran IVP Q6H PRN NAUSEA AND VOMITI NG Oxycodone HCl 5 mg 09/24/19 12:39 Oxycodone Ir PO Q4H PRN MODERATE PAIN Oxycodone/Acetamin ophen 1 tab 09/20/19 19:00 09/24/19 01:56 Percocet 5-325 M g PO 1 tab Q4H PRN Administration pain Pantoprazole Sodiu m 40 mg 09/21/19 09:00 09/23/19 08:31 Protonix PO 40 mg DAILY [facility] Administration Polysaccharide Iro n Complex 150 mg 09/24/19 18:00 Ferrex PO BIDWM [facility] Senna/Docusate Sod ium 2 tab 09/24/19 18:00 Senna-S PO BID [facility] Vitamin D 1,000 unit 09/25/19 09:00 Vitamin D3 PO DAILY [facility] No Known Allergies Allergy (Verified 08/17/19 14:34) Vitals/I&O/Wt Last Vital Signs Temp 97.6 F 09/24/19 12:40 Pulse 88 09/24/19 12:40 Resp 18 09/24/19 12:40 BP 159/94 09/24/19 12:40 Pulse Ox 100 09/24/19 12:40 09/23/19 09/24/19 09/24/19 22:59 06:59 14:59 Intake Total 360 / 1080 720 / 1800 1760 / 1760 Output Total 830 / 830 800 / 1630 2900 / 2900 Balance -470 / 250 -80 / 170 -1140 / -1140 Weight last 48 hrs Weight 79.515 kg Weight 79.288 kg Physical Exam Const: COMMON NORMALS: no acute distress GENERAL APPEARANCE: cooperative and comfortable; not ill appearing ORIENTATION/CONSCIOUSNESS: Yes awake OTHER: -groggy HENMT: COMMON NORMALS: normocephalic, atraumatic, hearing grossly normal bilaterally and moist oral mucous membranes HEAD & SCALP: normocephalic and atraumatic Eye: COMMON NORMALS: Equal, round and reactive pupils present, EOMs intact bilaterally and conjunctivae normal CONJUNCTIVA: Yes conjunctivae normal PUPIL: Yes Equal, round and reactive pupils present Neck/C-Spine: COMMON NORMALS: full ROM GENERAL: Yes normal visual inspection and Yes trachea midline Chest: CHEST: Yes Symmetrical chest wall rise Resp: COMMON NORMALS: normal respiratory effort, No retractions, No use of accessory muscles and clear to auscultation bilaterally EFFORT & INSPECTION: Yes able to speak in complete sentences, Yes symmetric chest movement and No tachypneic AUSCULTATION: clear to auscultation bilaterally OTHER: -on RA Cardio: COMMON NORMALS: regular rate, regular rhythm, S1 normal heart sound present, S2 normal heart sound present and No murmurs present (Cardio) RATE: regular rate RHYTHM: regular rhythm HEART SOUNDS: S1 normal heart sound present and S2 normal heart sound present GI: COMMON NORMALS: Normal to inspection, nondistended, normoactive bowel sounds present, Soft to palpation and non-tender INSPECTION: Yes central obesity PALPATION: Yes Soft to palpation Back/Pelvis: COMMON NORMALS: thoracic and lumbar spine normal to inspection Extremity: COMMON NORMALS: normal to inspection and full ROM NARRATIVE EXTREMITY EXAM: -L hip: clean/dry/intact dressing in place; gross sensation intact, able to move toes -L knee: linear incision with christiano intact; decreased leg edema and bruising GENERAL: Yes edema (Left leg, decreasing) Neuro: COMMON NORMALS: moves all extremities, no focal motor deficits and no sensory deficits noted GAIT: Yes Unable to assess gait (as unable to weight bear) Psych: COMMON NORMALS: mental status grossly normal, Normal thought process present, cooperative, normal affect and speech normal SPEECH: Yes normal speech THOUGHT PROCESS: Normal thought process present Skin: COMMON NORMALS: no rashes or lesions noted, no jaundice, no petechiae and no mottling GENERAL SKIN EXAM: no rashes or lesions noted Urinary Catheter Management^: Truong: Cath Placed During This Visit: yes Urinary Catheter Date of Insertion: 09/24/19 Urinary Catheter Time of Insertion: 09:00 Data : 09/20/19 16:38 09/20/19 16:38 A&P Assessment and plan (1) Hip pain, left: -acute onset of L hip pain x 1 day with falls x 2 -had recent L total knee arthroplasty done secondary to primary OA 1 week ago; had L total hip arthroplasty done in 04/2019 after mechanical fall. Did well post-op after both surgeries, was ambulatory with walker at home until fall yesterday -pain control as needed -unable to stand and weight bear currently -PT evaluation appreciated -imaging reviewed, no dislocation or fracture noted -apparent swelling of left leg, has been on Eliquis 2.5 mg BID for DVT ppx but with recent surgery, venous duplex done and negative for DVT -Ortho consult by Dr. Yu appreciated; s/p L bipolar hip arthroplasty revision today. EBL-900 mL, received 390 mL return per Cell Saver. Close monitoring of H/H post op in case of need for additional blood products -had been prescribed extended course of oral antibiotics for ppx; on Cefuroxime 500 mg BID -no leukocytosis, afebrile -VSS: continue to monitor -UA negative for infection -kept NPO after midnight, IVF due to NPO status Status: Acute (2) Fall: -fall x 2 as noted above -fall precautions Status: Acute Qualifiers: Encounter type: initial encounter Qualified Code(s): W19.XXXA - Unspecified fall, initial encounter (3) Hyperlipidemia: Status: Chronic Qualifiers: Hyperlipidemia type: pure hypercholesterolemia Qualified Code(s): E78.00 - Pure hypercholesterolemia, unspecified (4) Hypertension: -VSS; continue to monitor Status: Chronic Qualifiers: Hypertension type: essential hypertension Qualified Code(s): I10 - Essential (primary) hypertension (5) Diabetes mellitus type 2, noninsulin dependent: -hx of NIDDM type II complicated by peripheral neuropathy -A1c at goal (5.5) -Acuchecks, ISS -diabetic diet as tolerated Status: Chronic (6) GERD (gastroesophageal reflux disease): -continue PPI Status: Chronic Qualifiers: Esophagitis presence: esophagitis presence not specified Qualified Code(s): K21.9 - Gastro-esophageal reflux disease without esophagitis (7) Chronic anemia: -Chronic normocytic anemia; baseline Hg around 10. -EBL-900 mL, received 390 mL return per Cell Saver. Close monitoring of H/H post op in case of need for additional blood products Status: Chronic (8) CKD (chronic kidney disease) stage 2, GFR 60-89 ml/min: -baseline Cr wnl -renal function stable Status: Chronic Additional A&P Information -DVT ppx with SCDs, foot pumps; resume Eliquis post-op -Dispo: Accepted to [facility] -Code status: FULL code Attestations Medical Necessity Statement*: Patient requires hospitalization for post-op care s/p L hip revision surgery, including pain control, therapy evaluations and monitoring of hemoglobin. Time Spent in Patient Care: 16 - 35 minutes (>than 50% of time spent in counselling and/or direct pt care on unit) . Coding Level of Care Code Acute Wharfmaster for Chg Fwd Exam Comprehensive Diagnoses Hip pain, left M25.552 Fall W19.XXXA Encounter type: initial encounter Hyperlipidemia E78.00 Hyperlipidemia type: pure hypercholesterolemia Hypertension I10 Hypertension type: essential hypertension Diabetes mellitus type 2, noninsulin dependent E11.9 GERD (gastroesophageal reflux disease) K21.9 Esophagitis presence: esophagitis presence not specified Chronic anemia D64.9 CKD (chronic kidney disease) stage 2, GFR 60-89 ml/min N18.2
[2019-09-24 12:56] LABS: Glucose Point of Care 205 mg/dL (70-110)
--- NOTE | 2019-09-24 13:13 | SUR.PHASEI ---
1226 PT ALERT TALKATIVE ON RA, PT ORIENTED TO PLACE AND NAME BUT DENIES REMEMBERING HOW IT HAPPENED OR BEING IN HOSPITAL CELL SAVER BLOOD INFUSED IN OR AND LINE FLUSHED WITH NS IN PACU AND DCD TUBING. LT HIP DRESSING D/I, FIRST ICE TO HIP , X RAYS DONE PT HAS STRONG REGULAR PULSE TO LT FOOT MARKED AND FOOT PUMP TO LT FOOT. REPORT CALLED AND PT TO FLOOR PER BED 1240 PT BP 159/94, HRE 88, RESP 18 SATS ON RA 100%. HANDOFF AT BEDSIDE.
[2019-09-24] MEDS: chlorhexidine gluconate 0.12% Btl 473 mL 30 ML MUCOUS MEM ×3 (13:18→21:12)
[2019-09-24] MEDS: CELEcoxib 200 mg Capsule PO (13:19)
[2019-09-24] MEDS: gabapentin 400 mg Capsule 800 MG PO ×2 (16:11→21:13)
[2019-09-24] MEDS: dextrose 5%-ns 0.45% + KCl 10 1,000 ML 75 MEQ IV (16:13)
[2019-09-24 16:47] LABS: Glucose Point of Care 220 mg/dL (70-110)
[2019-09-24] MEDS: mupirocin oint 22 gm 1 APPLIC NASAL (18:17)
[2019-09-24] MEDS: iron polysaccharide complex 150 mg Capsule PO (18:18)
[2019-09-24] MEDS: calcium carbonate 500 mg Chew Tablet 1000 MG PO (18:18)
[2019-09-24] MEDS: sennosides-docusate Tablet 2 TAB PO (18:18)
[2019-09-24] MEDS: cefUROXime 250 mg Tablet 500 MG PO (18:18)
[2019-09-24] MEDS: oxyCODONE 5 mg IR Tab/Cap PO ×2 (18:22→23:37)
[2019-09-24 21:41] LABS: Glucose Point of Care 163 mg/dL (70-110)
[2019-09-25] VITALS (10 sets, daily range): BP systolic 101–125; BP diastolic 63–74; PULSE 76–90; RESP 16–22; TEMP 36.6–37.6; O2SAT 95–97
[2019-09-25] MEDS: apixaban 5 mg Tablet 2.5 MG PO ×3 (01:47→17:54)
[2019-09-25] MEDS: CELEcoxib 200 mg Capsule PO ×3 (01:49→23:12)
[2019-09-25 03:04] LABS: Basophils % 0.2 %; Eosinophils # 0.1 10^3/uL (0.0-0.8); Eosinophils % 0.9 %; Hematocrit 27.2 % (42.0-52.0); Hemoglobin 8.5 g/dL (11.7-16.6); Lymphocytes % 10.1 %; Mean Corpuscular HGB Conc 31.3 g/dL (30.0-36.0); Mean Corpuscular Hemoglobin 26.4 pg (28.0-34.0); Mean Corpuscular Volume 84.5 fL (80-94); Mean Platelet Volume 9.6 fL (7.4-10.4); Monocytes # 0.8 10^3/uL (0.2-0.9); Monocytes % 8.1 %; Neutrophils # 7.9 10^3/uL (1.8-7.7); Neutrophils % 80.3 %; Nucleated Red Blood Cells % 0 %; Platelet Count 354 10^3/cmm (130-400); Red Blood Count 3.22 10^6/uL (4.1-5.3); Red Cell Distribution Width 14.7 % (12.1-15.1); White Blood Count 9.9 10^3/uL (4.0-10.0)
[2019-09-25 03:17] LABS: Anion Gap 15.3 (5-19); Blood Urea Nitrogen 18 mg/dL (6-20); Calcium 8.3 mg/dL (8.5-10.5); Carbon Dioxide 23 mmol/L (22-29); Chloride 97 mmol/L (98-107); Glomerular Filtration Rate 86.7 mL/min (90-130); Glucose 207 mg/dL (65-115); Osmolality Calculated 275 mOsm/kg (285-295); Potassium 4.3 mmol/L (3.5-5.1); Sodium 131 mmol/L (136-145)
[2019-09-25 06:07] LABS: Glucose Point of Care 218 mg/dL (70-110)
[2019-09-25] MEDS: sennosides-docusate Tablet 2 TAB PO ×2 (08:22→17:54)
[2019-09-25] MEDS: gabapentin 400 mg Capsule 800 MG PO ×3 (08:23→21:41)
[2019-09-25] MEDS: calcium carbonate 500 mg Chew Tablet 1000 MG PO ×2 (08:23→17:54)
[2019-09-25] MEDS: cefUROXime 250 mg Tablet 500 MG PO ×2 (08:23→17:54)
[2019-09-25] MEDS: iron polysaccharide complex 150 mg Capsule PO ×2 (08:23→17:54)
[2019-09-25] MEDS: pantoprazole DR 40 mg Tablet PO (08:23)
[2019-09-25] MEDS: cholecalciferol (vitamin D3) 1,000 unit Tablet 1000 UNIT PO (08:23)
[2019-09-25] MEDS: multivitamin therapeutic Tablet 1 TAB PO (08:24)
[2019-09-25] MEDS: oxyCODONE 5 mg IR Tab/Cap PO ×2 (09:34→23:12)
[2019-09-25 11:02] LABS: Glucose Point of Care 233 mg/dL (70-110)
[2019-09-25] MEDS: chlorhexidine gluconate 0.12% Btl 473 mL 30 ML MUCOUS MEM ×4 (12:08→21:42)
[2019-09-25] MEDS: mupirocin oint 22 gm 1 APPLIC NASAL ×2 (12:09→17:53)
--- NOTE | 2019-09-25 13:37 | P.PN_ITS ---
Subjective Subjective: Interval history: The patient notes he feels much better after his hip revision. He complains of some soreness at the hip, but he has been up with physical therapy and is able to move with minimal discomfort. Medications: Reviewed: Yes Vitals/I&O/Wt Last Vital Signs Temp 98.5 F 09/25/19 12:00 Pulse 88 09/25/19 12:00 Resp 20 H 09/25/19 12:00 BP 112/64 09/25/19 12:00 Pulse Ox 96 09/25/19 12:00 09/24/19 09/25/19 09/25/19 22:59 06:59 14:59 Intake Total 1180 / 3970 580 / 4550 477 / 477 Output Total 750 / 3650 1550 / 5200 300 / 300 Balance 430 / 320 -970 / -650 177 / 177 Weight last 48 hrs Weight 189 lb 6.4 oz Weight 175 lb 4.8 oz Physical Exam Const: COMMON NORMALS: no acute distress, average body habitus, patient oriented x3 and alert GENERAL APPEARANCE: cooperative and comfortable ORIENTATION/CONSCIOUSNESS: Yes awake HENMT: COMMON NORMALS: normocephalic and atraumatic HEAD & SCALP: normocephalic and atraumatic Eye: GENERAL EYE: appearance normal, both eyes and all related structures Chest: COMMONS NORMALS: normal inspection of the chest Resp: COMMON NORMALS: normal respiratory effort EFFORT & INSPECTION: Yes able to speak in complete sentences and Yes symmetric chest movement Extremity: GENERAL: Yes normal exam except as noted LEFT LOWER EXTREMITY: Yes hip joint (The thigh is slightly swollen, but it is minimally tender.) Left hip: Yes inspection (There is no evidence of infection or drainage.) and Yes neurovascular exam (Intact distal to the surgical site with no evidence of DVT.) Neuro: COMMON NORMALS: patient oriented x3 SENSORIUM/ORIENTATION: Yes alert Psych: COMMON NORMALS: mental status grossly normal APPEARANCE: Yes grossly normal ATTITUDE: Yes calm and Yes engaged ATTENTION/CONCENTRATION: Yes attention grossly intact Skin: COMMON NORMALS: no rashes or lesions noted GENERAL SKIN EXAM: no r ashes or lesions noted Urinary Catheter Management^: Truong: Cath Placed During This Visit: yes, but has since been removed by the nurse Reason for Continuing Indwelling Catheter: Decision to DC Catheter Urinary Catheter Date of Insertion: 06/20/20 Urinary Catheter Time of Insertion: 09:00 Date Urinary Catheter Removed: 09/25/19 Time Urinary Catheter Discontinued: 06:34 Data : 09/25/19 02:20 09/25/19 02:20 A&P Assessment and plan (1) Periprosthetic fracture around internal prosthetic left hip joint, initial encounter: Patient underwent prosthesis removal yesterday. We revised him to a longer stem alevism modular hip system. No cerclage wires were required. This was a bipolar implant as well. The patient is much more comfortable today and working with physical therapy. He will likely require jail at the time of discharge. Status: Acute Attestations Medical Necessity Statement*: Patient continues to require inpatient management for his periprosthetic fracture and progression of activities. Coding Level of Care Code Acute [employer] Professional for [employer] Diagnoses Periprosthetic fracture around internal prosthetic left hip joint, initial encounter M97.02XA
--- NOTE | 2019-09-25 14:10 | PC.SOCIAL ---
IMM Updated Page 2 of IMM updated and given to patient. Initialed, dated, and timed and placed back in chart.
[2019-09-25] MEDS: acetaminophen 500 mg Tablet 1000 MG PO ×2 (15:12→21:42)
[2019-09-25 17:09] LABS: Glucose Point of Care 268 mg/dL (70-110)
--- NOTE | 2019-09-25 17:47 | P.PN_ITS ---
Subjective Subjective: Interval history: Seems to be doing well, has been up and working with physical therapy today, had 1550 mL urine output overnight, noted drop in hemoglobin from 9.8->8.5 this morning, mild hyponatremia with a sodium of 131. Hemodynamically stable, afebrile, on room air. He is postop day #1 s/p revision surgery. Pain is much better controlled today. Eliquis resumed for DVT prophylaxis. Truong catheter removed this morning and has been able to void without difficulty. Medications: Reviewed: Yes Medication Review Details: Active Medications Generic Name Dose Route Start Last Admin Trade Name Freq PRN Reason Stop Dose Admin Acetaminophen 1,000 mg 09/25/19 14:00 09/25/19 15:12 Tylenol PO 1,000 mg Q8H ANA LAURA Administration Apixaban 2.5 mg 09/24/19 23:33 09/25/19 08:23 Eliquis PO 2.5 mg BID ANA LAURA Administration Calcium Carbonate 1,000 mg 09/24/19 18:00 09/25/19 08:23 Tums PO 1,000 mg BID ANA LAURA Administration Cefuroxime Axetil 500 mg 09/21/19 09:00 09/25/19 08:23 Ceftin PO 500 mg BID ANA LAURA Administration Celecoxib 200 mg 09/24/19 13:00 09/25/19 12:07 Celebrex PO 200 mg Q12H ANA LAURA Administration Chlorhexidine Gluc marie 30 ml 09/24/19 13:00 09/25/19 14:59 Perigard MUCOUS MEM 30 ml QID ANA LAURA Administration Dextrose 25 ml 09/20/19 19:00 D50w IVP ONCE PRN hypoglycemia prot ocol Protocol Dextrose 50 ml 09/20/19 19:00 D50w IVP PRN PRN hypoglycemia prot ocol Protocol Gabapentin 800 mg 09/20/19 21:00 09/25/19 15:12 Neurontin PO 800 mg TID ANA LAURA Administration Glucagon 1 mg 09/20/19 19:00 Glucagen IM ONCE PRN Adult Acute Hypog lycemia Prot. Protocol Dextrose 500 mls @ 100 mls /hr 09/20/19 19:00 D5w IV ONCE PRN Adult Acute Hypog lycemia Prot Protocol Insulin Aspart 0 unit 09/20/19 21:00 09/25/19 12:07 Novolog SUBCUT 6 unit WM&BEDTIME ANA LAURA Administration Protocol Morphine Sulfate 2 mg 09/20/19 19:00 09/24/19 05:36 Morphine IVP 2 mg Q4H PRN Administration SEVERE PAIN Multivitamins Ther apeutic 1 tab 09/25/19 09:00 09/25/19 08:24 Multivitamin Tab PO 1 tab DAILY ANA LAURA Administration Mupirocin 1 applic 09/24/19 18:00 09/25/19 12:09 Bactroban NASAL 09/29/19 17:59 1 applic BID ANA LAURA Administration Naloxone HCl 0.1 mg 09/24/19 12:39 Narcan IVP Q2M PRN Respiratory rate less than 8. Ondansetron HCl 4 mg 09/24/19 12:39 Zofran IVP Q6H PRN NAUSEA AND VOMITI NG Oxycodone HCl 5 mg 09/24/19 12:39 09/25/19 09:34 Oxycodone Ir PO 5 mg Q4H PRN Administration MODERATE PAIN Oxycodone/Acetamin ophen 1 tab 09/20/19 19:00 09/24/19 13:19 Percocet 5-325 M g PO 1 tab Q4H PRN Administration pain Pantoprazole Sodiu m 40 mg 09/21/19 09:00 09/25/19 08:23 Protonix PO 40 mg DAILY ANA LAURA Administration Polysaccharide Iro n Complex 150 mg 09/24/19 18:00 09/25/19 08:23 Ferrex PO 150 mg BIDWM ANA LAURA Administration Senna/Docusate Sod ium 2 tab 09/24/19 18:00 09/25/19 08:22 Senna-S PO 2 tab BID ANA LAURA Administration Vitamin D 1,000 unit 09/25/19 09:00 09/25/19 08:23 Vitamin D3 PO 1,000 unit DAILY ANA LAURA Administration No Known Allergies Allergy (Verified 08/17/19 14:34) Vitals/I&O/Wt Last Vital Signs Temp 97.8 F 09/25/19 16:00 Pulse 84 09/25/19 16:00 Resp 20 H 09/25/19 16:00 BP 113/68 09/25/19 16:00 Pulse Ox 96 09/25/19 16:00 09/25/19 09/25/19 09/25/19 06:59 14:59 22:59 Intake Total 580 / 4550 477 / 477 Output Total 1550 / 5200 300 / 300 720 / 1020 Balance -970 / -650 177 / 177 -720 / -543 Weight last 48 hrs Weight 85.91 kg Weight 79.515 kg Physical Exam Const: COMMON NORMALS: no acute distress, patient oriented x3 and alert GENERAL APPEARANCE: cooperative and comfortable; not ill appearing ORIENTATION/CONSCIOUSNESS: Yes awake HENMT: COMMON NORMALS: normocephalic, atraumatic, hearing grossly normal bilaterally and moist oral mucous membranes HEAD & SCALP: normocephalic and atraumatic Eye: COMMON NORMALS: Equal, round and reactive pupils present, EOMs intact bilaterally and conjunctivae normal CONJUNCTIVA: Yes conjunctivae normal PUPIL: Yes Equal, round and reactive pupils present Neck/C-Spine: COMMON NORMALS: full ROM GENERAL: Yes normal visual inspection and Yes trachea midline Chest: CHEST: Yes Symmetrical chest wall rise Resp: COMMON NORMALS: normal respiratory effort, No retractions, No use of accessory muscles and clear to auscultation bilaterally EFFORT & INSPECTION: Yes able to speak in complete sentences, Yes symmetric chest movement and No tachypneic AUSCULTATION: clear to auscultation bilaterally OTHER: -on RA Cardio: COMMON NORMALS: regular rate, regular rhythm, S1 normal heart sound present, S2 normal heart sound present and No murmurs present (Cardio) RATE: regular rate RHYTHM: regular rhythm HEART SOUNDS: S1 normal heart sound present and S2 normal heart sound present GI: COMMON NORMALS: Normal to inspection, nondistended, normoactive bowel sounds present, Soft to palpation and non-tender INSPECTION: Yes central obesity PALPATION: Yes Soft to palpation Back/Pelvis: COMMON NORMALS: thoracic and lumbar spine normal to inspection Extremity: COMMON NORMALS: normal to inspection and full ROM NARRATIVE EXTREMITY EXAM: -L hip: clean/dry/intact dressing in place; gross sensation intact, able to move toes -L knee: linear incision with christiano intact; decreased leg edema and bruising GENERAL: Yes edema (Left leg, decreasing) Neuro: COMMON NORMALS: patient oriented x3, moves all extremities, no focal motor deficits and no sensory deficits noted SENSORIUM/ORIENTATION: Yes alert GAIT: Yes Unable to assess gait (as unable to weight bear) Psych: COMMON NORMALS: mental status grossly normal, Normal thought process present, cooperative, normal affect and speech normal SPEECH: Yes normal speech THOUGHT PROCESS: Normal thought process present Skin: COMMON NORMALS: no rashes or lesions noted, no jaundice, no petechiae and no mottling GENERAL SKIN EXAM: no rashes or lesions noted Urinary Catheter Management^: Truong: Cath Placed During This Visit: yes, but has since been removed by the nurse Reason for Continuing Indwelling Catheter: Decision to DC Catheter Urinary Catheter Date of Insertion: 09/24/19 Urinary Catheter Time of Insertion: 09:00 Date Urinary Catheter Removed: 09/25/19 Time Urinary Catheter Discontinued: 06:34 Data : 09/25/19 02:20 09/25/19 02:20 A&P Assessment and plan (1) Hip pain, left: -acute onset of L hip pain x 1 day with falls x 2 -had recent L total knee arthroplasty done secondary to primary OA 1 week ago; had L total hip arthroplasty done in 04/2019 after mechanical fall. Did well post-op after both surgeries, was ambulatory with walker at home until fall yesterday -pain control as needed -unable to stand and weight bear currently -PT evaluation appreciated -imaging reviewed, no dislocation or fracture noted -apparent swelling of left leg, has been on Eliquis 2.5 mg BID for DVT ppx but with recent surgery, venous duplex done and negative for DVT -Ortho consult by Dr. Yu appreciated; s/p L bipolar hip arthroplasty revision today. EBL-900 mL, received 390 mL return per [facility]. Close monitoring of H/H post op in case of need for additional blood products. Noted slight drop from 9.8->8.5. Continue to monitor closely -had been prescribed extended course of oral antibiotics for ppx; on Cefuroxime 500 mg BID -no leukocytosis, afebrile -VSS: continue to monitor -UA negative for infection -received Vancomycin for regan-op abx Status: Acute (2) Fall: -fall x 2 as noted above -fall precautions Status: Acute Qualifiers: Encounter type: initial encounter Qualified Code(s): W19.XXXA - Unspecified fall, initial encounter (3) Hyperlipidemia: Status: Chronic Qualifiers: Hyperlipidemia type: pure hypercholesterolemia Qualified Code(s): E78.00 - Pure hypercholesterolemia, unspecified (4) Hypertension: -VSS; continue to monitor Status: Chronic Qualifiers: Hypertension type: essential hypertension Qualified Code(s): I10 - Essential (primary) hypertension (5) Diabetes mellitus type 2, noninsulin dependent: -hx of NIDDM type II complicated by peripheral neuropathy -A1c at goal (5.5) -Acuchecks, ISS -diabetic diet as tolerated Status: Chronic (6) GERD (gastroesophageal reflux disease): -continue PPI Status: Chronic Qualifiers: Esophagitis presence: esophagitis presence not specified Qualified Code(s): K21.9 - Gastro-esophageal reflux disease without esophagitis (7) Chronic anemia: -Chronic normocytic anemia; baseline Hg around 10. -EBL-900 mL, received 390 mL return per [facility]. Close monitoring of H/H post op in case of need for additional blood products Status: Chronic (8) CKD (chronic kidney disease) stage 2, GFR 60-89 ml/min: -baseline Cr wnl -renal function stable Status: Chronic Additional A&P Information -DVT ppx with SCDs, foot pumps; resumed Eliquis post-op -Dispo: Accepted to [facility], patient now reports wanting to go home with instead -Code status: FULL code Attestations Medical Necessity Statement*: Patient requires hospitalization for continued post-op management including pain control, therapy. Time Spent in Patient Care: 16 - 35 minutes (>than 50% of time spent in counselling and/or direct pt care on unit) . 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
--- NOTE | 2019-09-25 19:42 | PC.NURSE ---
Patient very pleasant and eager to go home. Patient states he does not want to go to rehab and wants therapy at home. Patient was up in chair three times and used bedside commode. Voiding well and no complaints of pain or difficulty voiding. Patient had two large bowel movements, Appetite good, and only requested pain medication one time this shift. Patient had dressing change to Left and the left hip dressing was intact and was inspected per Dr. Yu.
[2019-09-25 20:39] LABS: Glucose Point of Care 173 mg/dL (70-110)
[2019-09-26] VITALS (12 sets, daily range): BP systolic 97–126; BP diastolic 55–66; PULSE 69–92; RESP 16–18; TEMP 36.6–37.6; O2SAT 94–99
[2019-09-26 04:05] LABS: Basophils % 0.3 %; Eosinophils # 0.1 10^3/uL (0.0-0.8); Eosinophils % 1.6 %; Hematocrit 24.5 % (42.0-52.0); Hemoglobin 7.4 g/dL (11.7-16.6); Lymphocytes # 1.4 10^3/uL (0.8-4.8); Lymphocytes % 16.2 %; Mean Corpuscular HGB Conc 30.2 g/dL (30.0-36.0); Mean Corpuscular Hemoglobin 25.9 pg (28.0-34.0); Mean Corpuscular Volume 85.7 fL (80-94); Mean Platelet Volume 9.4 fL (7.4-10.4); Monocytes # 0.7 10^3/uL (0.2-0.9); Monocytes % 7.8 %; Neutrophils # 6.5 10^3/uL (1.8-7.7); Neutrophils % 73.6 %; Nucleated Red Blood Cells % 0 %; Platelet Count 321 10^3/cmm (130-400); Red Blood Count 2.86 10^6/uL (4.1-5.3); Red Cell Distribution Width 15.1 % (12.1-15.1); White Blood Count 8.8 10^3/uL (4.0-10.0)
[2019-09-26 04:22] LABS: Blood Urea Nitrogen 21 mg/dL (6-20); Calcium 8.3 mg/dL (8.5-10.5); Carbon Dioxide 24 mmol/L (22-29); Chloride 103 mmol/L (98-107); Glomerular Filtration Rate 86.7 mL/min (90-130); Glucose 204 mg/dL (65-115); Osmolality Calculated 286 mOsm/kg (285-295); Sodium 137 mmol/L (136-145)
[2019-09-26] MEDS: acetaminophen 500 mg Tablet 1000 MG PO ×3 (05:21→21:01)
[2019-09-26 06:56] LABS: Glucose Point of Care 174 mg/dL (70-110)
--- NOTE | 2019-09-26 08:35 | P.DS_ITS ---
Discharge Providers Date of Admission: 09/20/19 16:48 Date of Discharge: September 26, 2019 Attending Provider at Admission: Awa Dozier MD Attending Provider at Discharge: Awa Dozier MD Consults: Kylie Yu MD; Orthopedic surgery Primary Care Provider: Evangelist Duvall Diagnoses at Discharge Discharge Diagnosis (1) Hip pain, left: Status: Acute Problem details: -acute onset of L hip pain x 1 day with falls x 2 -had recent L total knee arthroplasty done secondary to primary OA approximately 1 week ago; had L total hip arthroplasty done in 04/2019 after mechanical fall. Did well post-op after both surgeries, was ambulatory with walker at home until fall yesterday -pain control as needed -PT evaluation appreciated -imaging reviewed, no dislocation or fracture noted -apparent swelling of left leg, has been on Eliquis 2.5 mg BID for DVT ppx but with recent surgery, venous duplex done and negative for DVT -Ortho consult by Dr. Yu appreciated; s/p L bipolar hip arthroplasty revision today. EBL-900 mL, received 390 mL return per [facility]. Continued drop in Hg (12.1--->7.4); transfused 1 unit PRBCs. -had been prescribed extended course of oral antibiotics for ppx; on Cefuroxime 500 mg BID -no leukocytosis, afebrile -VSS: continue to monitor -UA negative for infection -received Vancomycin for regan-op abx (2) Fall: Status: Acute Problem details: -fall x 2 as noted above -fall precautions Qualifiers: Encounter type: initial encounter Qualified Code(s): W19.XXXA - U nspecified fall, initial encounter (3) Hyperlipidemia: Status: Chronic Qualifiers: Hyperlipidemia type: pure hypercholesterolemia Qualified Code(s): E78.00 - Pure hypercholesterolemia, unspecified (4) Hypertension: Status: Chronic Problem details: -VSS; continue to monitor Qualifiers: Hypertension type: essential hypertension Qualified Code(s): I10 - Essential (primary) hypertension (5) Diabetes mellitus type 2, noninsulin dependent: Status: Chronic Problem details: -hx of NIDDM type II complicated by peripheral neuropathy -A1c at goal (5.5) -Acuchecks, ISS -diabetic diet as tolerated (6) GERD (gastroesophageal reflux disease): Status: Chronic Problem details: -continue PPI Qualifiers: Esophagitis presence: esophagitis presence not specified Qualified Code(s): K21.9 - Gastro-esophageal reflux disease without esophagitis (7) Chronic anemia: Status: Chronic Problem details: -Chronic normocytic anemia; baseline Hg around 10. Noted acute blood loss post- op -continue to monitor H/H (8) CKD (chronic kidney disease) stage 2, GFR 60-89 ml/min: Status: Chronic Problem details: -baseline Cr wnl -renal function stable Reason for Visit Reason for Visit: Left hip pain, fall Hospital Course Hospital Course: Patient was admitted to the medical surgical floor and orthopedic surgery consulted due to finding of left periprosthetic hip fracture. It was initially unclear what the chief cause of patient's left hip pain was as initial imaging was negative for any fracture or dislocation. Patient had recently had a left knee arthroplasty approximately a week prior to presentation and had been discharged on Eliquis for DVT prophylaxis. Due to high risk for VTE and lack of clear fracture or dislocation on initial imaging Eliquis was continued. Patient was found to have a left periprosthetic hip fracture on CT and determined to require surgical intervention at which point his Eliquis was discontinued. However he would need to be off of anticoagulation for 48 hours p rior to surgical intervention hence surgery done on Thursday. He is post-op day #2 status post revision surgery done by Dr. Yu. He had an estimated blood loss of approximately 900 mL and received 390 mL through [facility]. His hemoglobin is slowly trended down and he has received a transfusion of 1 unit of PRBCs. Due to anticipated need for SNF placement and this was pursued early on and he has been accepted at [facility]. However, following surgery, patient is now wanting to return home with home health services. He is to be weight bearing as tolerated on the left and has been working with physical therapy following his surgery. He has been hemodynamically stable, afebrile and on room air consistently throughout his hospital stay. He has had good urine output. Truong catheter was placed prior to surgery then removed approximately 24 hours thereafter and he has been able to void without difficulty. He had been placed on extended antibiotic prophylaxis which has since been completed. Eliquis has been resumed for VTE prophylaxis which will be continued for 2 weeks. Patient did not require COVID-19 testing as he did not present with symptoms concerning for this. He will need to follow-up with Dr. Yu in 2 weeks and with his primary care provider within 1 week or per SNF. He will need close follow up on his hemoglobin in the next 2-3 days. Discharge Summary: -Patient to follow up with primary care physician within 1 week or per SNF. He will need CBC done in about 3-4 days to monitor his hemoglobin -Patient to follow up with Dr. Yu in 2 weeks Physical Exam Const: COMMON NORMALS: no acute distress, patient oriented x3 and alert GENERAL APPEARANCE: cooperative and comfortable; not ill appearing ORIENTATION/CONSCIOUSNESS: Yes awake HENMT: COMMON NORMALS: normocephalic, atraumatic, hearing grossly normal bilaterally and moist oral mucous membranes HEAD & SCALP: normocephalic and atraumatic Eye: COMMON NORMALS: Equal, round and reactive pupils present, EOMs intact sienna aterally and conjunctivae normal CONJUNCTIVA: Yes conjunctivae normal PUPIL: Yes Equal, round and reactive pupils present Neck/C-Spine: COMMON NORMALS: full ROM GENERAL: Yes normal visual inspe ction and Yes trachea midline Chest: CHEST: Yes Symmetrical chest wall rise Resp: COMMON NORMALS: normal respiratory effort, No retractions, No use of accessory muscles and clear to auscultation bilaterally EFFORT & INSPECTION: Yes able to speak in complete sentences, Yes symmetric chest movement and No tachypneic AUSCULTATION: clear to auscultation bilaterally OTHER: -on RA Cardio: COMMON NORMALS: regular rate, regular rhythm, S1 normal heart sound present, S2 normal heart sound present and No murmurs present (Cardio) RATE: regular rate RHYTHM: regular rhythm HEART SOUNDS: S1 normal heart sound present and S2 normal heart sound present GI: COMMON NORMALS: Normal to inspection, nondistended, normoactive bowel sounds present, Soft to palpation and non-tender INSPECTION: Yes central obesity PALPATION: Yes Soft to palpation Back/Pelvis: COMMON NORMALS: thoracic and lumbar spine normal to inspection Extremity: COMMON NORMALS: normal to inspection and full ROM NARRATIVE EXTREMITY EXAM: -L hip: clean/dry/intact dressing in place; gross sensation intact, able to move toes -L knee: linear incision with christiano intact; decreased leg edema and bruising GENERAL: Yes edema (Left leg, decreasing) Neuro: COMMON NORMALS: patient oriented x3, moves all extremities, no focal motor deficits and no sensory deficits noted SENSORIUM/ORIENTATION: Yes alert GAIT: Yes Unable to assess gait (as unable to weight bear) Psych: COMMON NORMALS: mental status grossly normal, Normal thought process present, cooperative, normal affect and speech normal SPEECH: Yes normal speech THOUGHT PROCESS: Normal thought process present Skin: COMMON NORMALS: no rashes or lesions noted, no jaundice, no petechiae and no mottling GENERAL SKIN EXAM: no rashes or lesions noted Urinary Catheter Management^: Truong: Cath Placed During This Visit: yes, but has since been removed by the nurse Reason for Continuing Indwelling Catheter: Decision to DC Catheter Urinary Catheter Date of Insertion: 09/24/19 Urinary Catheter Time of Insertion: 09:00 Date Urinary Catheter Removed: 09/25/19 Time Urinary Catheter Discontinued: 06:34 Discharge Data Data Completed and Pending: Completed Studies During Hospitalization Category Date Time Status CT hip LT wo con* [id number] Routine Cat Scan 09/21/19 13:48 Completed XR hip LT 2-3V wo /w pel* [id number] Stat Exams 09/20/19 14:13 Completed XR knee LT 3V* 73 [id number] Stat Exams 09/20/19 14:13 Completed XR pelvis 1-2V* 7 [id number] Routine Exams 09/24/19 11:34 [place] [id number] Routin e Ultrasound 09/21/19 18:18 Completed Pending at discharge Category Date Time Status Hemoglobin and He matocrit Timed Lab 09/26/19 13:00 Ordered Leukocyte Reduced RBC Stat Lab 09/24/19 08:05 Results Type and Screen S tat Lab 09/24/19 08:05 Results Labs from last 24 hours 09/26/19 09/26/19 09/26/19 06:18 03:25 03:25 WBC 8.8 RBC 2.86 L Hgb 7.4 L Hct 24.5 L MCV 85.7 MCH 25.9 L MCHC 30.2 RDW 15.1 Plt Count 321 MPV 9.4 Neut % (Auto) 73.6 Lymph % (Auto) 16.2 [place] % (Auto) 7.8 Eos % (Auto) 1.6 Baso % (Auto) 0.3 Neut # (Auto) 6.5 Lymph # (Auto) 1.4 [place] # (Auto) 0.7 Eos # (Auto) 0.1 Baso # (Auto) 0.0 Nucleated RBC % (a uto) 0 Nucleated RBCs # 0.0 Sodium 137 Potassium 4.0 Chloride 103 Carbon Dioxide 24 Anion Gap 14.0 BUN 21 H Creatinine 0.9 GFR Calculation 86.7 L Glucose 204 H POC Glucose 174 Calculated Osmolal ity 286 Calcium 8.3 L Crossmatch 09/25/19 09/25/19 09/25/19 20:29 17:04 10:55 WBC RBC Hgb Hct MCV MCH MCHC RDW Plt Count MPV Neut % (Auto) Lymph % (Auto) [place] % (Auto) Eos % (Auto) Baso % (Auto) Neut # (Auto) Lymph # (Auto) [place] # (Auto) Eos # (Auto) Baso # (Auto) Nucleated RBC % (a uto) Nucleated RBCs # Sodium Potassium Chloride Carbon Dioxide Anion Gap BUN Creatinine GFR Calculation Glucose POC Glucose 173 268 233 Calculated Osmolal ity Calcium Crossmatch 09/24/19 08:05 WBC RBC Hgb Hct MCV MCH MCHC RDW Plt Count MPV Neut % (Auto) Lymph % (Auto) [place] % (Auto) Eos % (Auto) Baso % (Auto) Neut # (Auto) Lymph # (Auto) [place] # (Auto) Eos # (Auto) Baso # (Auto) Nucleated RBC % (a uto) Nucleated RBCs # Sodium Potassium Chloride Carbon Dioxide Anion Gap BUN Creatinine GFR Calculation Glucose POC Glucose Calculated Osmolal ity Calcium Crossmatch See Detail Vitals: Last Vital Signs Temp 98.1 F 09/26/19 07:27 Pulse 74 09/26/19 07:27 Resp 16 09/26/19 07:27 BP 108/59 09/26/19 07:27 Pulse Ox 97 09/26/19 07:27 Discharge Plan Discharge Patient Disposition: Home Health Service Condition: Stable Prescriptions: New celecoxib 200 mg Capsule 200 mg PO Q12H Qty: 30 RF: 0 Ferrex 150 150 mg iron Capsule 150 mg PO BIDWM 30 Days Qty: 60 RF: 0 sennosides-docusate sodium 8.6-50 mg Tablet 2 tab PO BID PRN (Reason: Constipation) Qty: 30 RF: 0 Vitamin D3 25 mcg (1,000 unit) Tablet 1,000 unit PO DAILY 30 Days Qty: 30 RF: 0 Thera 400 mcg Tablet 1 tab PO DAILY 30 Days Qty: 30 RF: 0 Continued gabapentin [Neurontin] 800 mg tablet 800 mg PO TID RF: 0 Xigduo XR 10-500 mg tablet, IR - ER, biphasic 24hr 1 tab PO DAILY RF: 0 omeprazole 20 mg capsule,delayed release(DR/EC) 20 mg PO DAILY RF: 0 Eliquis 2.5 mg tablet 2.5 mg PO BID 14 Days Qty: 28 RF: 0 oxycodone-acetaminophen 5-325 mg tablet 1 tab PO Q4H PRN (Reason: pain) Qty: 40 RF: 0 Discontinued cefuroxime axetil 500 mg tablet 500 mg PO BID 7 Days Qty: 14 RF: 0 Discharge Orders: Discharge Order (Routine); Ordered 09/26/19 Ordered By: Awa Dozier Referrals: [facility] [Outside] Evangelist Duvall [Primary Care Provider] - 4-7 days (Post hospital discharge follow up. Had revision surgery of L hip due to periprosthetic fracture. ) Kylie Yu MD [Physician] - 2 weeks Discharge Diet: Diabetic Discharge Activity: Limit activity as instructed, Use walker/crutches as instructed and As per PT/OT instructions Activity Restrictions/Additional Instructions: Posterior hip precautions, work with physical therapy and Occupational Therapy on gait training and ambulation, he may weight-bear fully on your left lower extremity. Discharge Attestations Time Spent in Discharge Care*: greater than 30 min Specific Discharge Activities: Specific discharge activities: educating patient, discussing with supportive employment case manager/social workers/dc planners, documenting/other paperwork and evaluating patient/reviewing data Status at Discharge: Cognitive status at discharge: cognitively intact , Behavioral status at discharge: cooperative , Functional status at discharge: uses cane/walker (weight bearing as tolerated on left) Overall status at discharge: patient is progressing back to baseline Quality Metrics Clinical Quality Measures During this hospital stay, did patient experience: None Coding Level of Care Code 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
[2019-09-26] MEDS: cefUROXime 250 mg Tablet 500 MG PO ×2 (09:27→17:59)
[2019-09-26] MEDS: cholecalciferol (vitamin D3) 1,000 unit Tablet 1000 UNIT PO (09:30)
[2019-09-26] MEDS: gabapentin 400 mg Capsule 800 MG PO ×3 (09:30→21:01)
[2019-09-26] MEDS: calcium carbonate 500 mg Chew Tablet 1000 MG PO ×2 (09:30→17:59)
[2019-09-26] MEDS: apixaban 5 mg Tablet 2.5 MG PO ×2 (09:31→17:59)
[2019-09-26] MEDS: multivitamin therapeutic Tablet 1 TAB PO (09:31)
[2019-09-26] MEDS: pantoprazole DR 40 mg Tablet PO (09:31)
[2019-09-26] MEDS: iron polysaccharide complex 150 mg Capsule PO ×2 (09:33→17:59)
[2019-09-26 11:40] LABS: Glucose Point of Care 264 mg/dL (70-110)
[2019-09-26] MEDS: CELEcoxib 200 mg Capsule PO (12:56)
[2019-09-26] MEDS: chlorhexidine gluconate 0.12% Btl 473 mL 30 ML MUCOUS MEM ×3 (12:56→21:02)
[2019-09-26 15:40] LABS: Hematocrit 25.6 % (42.0-52.0); Hemoglobin 8.1 g/dL (11.7-16.6)
[2019-09-26 17:27] LABS: Glucose Point of Care 162 mg/dL (70-110)
[2019-09-26] MEDS: sennosides-docusate Tablet 2 TAB PO (17:58)
--- NOTE | 2019-09-26 18:53 | PM.PN ---
Subjective Subjective: Interval history: Noted drop in his hemoglobin this morning from 8.5-7.4 so we will transfuse 1 unit of PRBCs and recheck H&H in the afternoon. Had 550 mL urine output overnight. Hemodynamically stable, Accu-Cheks reviewed. He is postop day #2 s/p L hip revision surgery. Hyponatremia has resolved, renal function is stable. Noted oozing from left knee incision, clean dressing currently in place. He insists on wanting to go home though we discussed need for more intensive therapy which would be better served in a rehab setting. Later in the day I discussed this with the patient's Krysta who states that she is away from home for about 8 hours a day and in light of recent surgery patient may not be safe at home on his own. Per his he seems to be reluctant to go to SNF though he is agreeable. Medications: Reviewed: Yes Medication Review Details: Active Medications Generic Name Dose Route Start Last Admin Trade Name Freq PRN Reason Stop Dose Admin Acetaminophen 1,000 mg 09/25/19 14:00 09/26/19 12:56 Tylenol PO 1,000 mg Q8H ANA LAURA Administration Apixaban 2.5 mg 09/24/19 23:33 09/26/19 17:59 Eliquis PO 2.5 mg BID ANA LAURA Administration Calcium Carbonate 1,000 mg 09/24/19 18:00 09/26/19 17:59 Tums PO 1,000 mg BID ANA LAURA Administration Cefuroxime Axetil 500 mg 09/21/19 09:00 09/26/19 17:59 Ceftin PO 500 mg BID ANA LAURA Administration Celecoxib 200 mg 09/24/19 13:00 09/26/19 12:56 Celebrex PO 200 mg Q12H ANA LAURA Administration Chlorhexidine Gluc marie 30 ml 09/24/19 13:00 09/26/19 18:01 Perigard MUCOUS MEM 30 ml QID ANA ALURA Administration Dextrose 25 ml 09/20/19 19:00 D50w IVP ONCE PRN hypoglycemia prot ocol Protocol Dextrose 50 ml 09/20/19 19:00 D50w IVP PRN PRN hypoglycemia prot ocol Protocol Gabapentin 800 mg 09/20/19 21:00 09/26/19 14:44 Neurontin PO 800 mg TID ANA LAURA Administration Glucagon 1 mg 09/20/19 19:00 Glucagen IM ONCE PRN Adult Acute Hypog lycemia Prot. Protocol Dextrose 500 mls @ 100 mls /hr 09/20/19 19:00 D5w IV ONCE PRN Adult Acute Hypog lycemia Prot Protocol Insulin Aspart 0 unit 09/20/19 21:00 09/26/19 17:59 Novolog SUBCUT 2 unit WM&BEDTIME ANA LAURA Administration Protocol Morphine Sulfate 2 mg 09/20/19 19:00 09/24/19 05:36 Morphine IVP 2 mg Q4H PRN Administration SEVERE PAIN Multivitamins Ther apeutic 1 tab 09/25/19 09:00 09/26/19 09:31 Multivitamin Tab PO 1 tab DAILY ANA LAURA Administration Mupirocin 1 applic 09/24/19 18:00 09/26/19 18:03 Bactroban NASAL 09/29/19 17:59 Not Given BID ANA LAURA Naloxone HCl 0.1 mg 09/24/19 12:39 Narcan IVP Q2M PRN Respiratory rate less than 8. Ondansetron HCl 4 mg 09/24/19 12:39 Zofran IVP Q6H PRN NAUSEA AND VOMITI NG Oxycodone HCl 5 mg 09/24/19 12:39 09/25/19 23:12 Oxycodone Ir PO 5 mg Q4H PRN Administration MODERATE PAIN Oxycodone/Acetamin ophen 1 tab 09/20/19 19:00 09/24/19 13:19 Percocet 5-325 M g PO 1 tab Q4H PRN Administration pain Pantoprazole Sodiu m 40 mg 09/21/19 09:00 09/26/19 09:31 Protonix PO 40 mg DAILY ANA LAURA Administration Polysaccharide Iro n Complex 150 mg 09/24/19 18:00 09/26/19 17:59 Ferrex PO 150 mg BIDWM ANA LAURA Administration Senna/Docusate Sod ium 2 tab 09/24/19 18:00 09/26/19 17:58 Senna-S PO 2 tab BID ANA LAURA Administration Vitamin D 1,000 unit 09/25/19 09:00 09/26/19 09:30 Vitamin D3 PO 1,000 unit DAILY ANA LAURA Administration No Known Allergies Allergy (Verified 08/17/19 14:34) Vitals/I&O/Wt Last Vital Signs Temp 97.9 F 09/26/19 16:43 Pulse 79 09/26/19 16:43 Resp 16 09/26/19 16:43 BP 106/58 09/26/19 16:43 Pulse Ox 96 09/26/19 16:43 09/26/19 09/26/19 09/26/19 06:59 14:59 22:59 Intake Total 220 / 697 1070 / 1070 Output Total 900 / 900 Balance 220 / -873 1070 / 1070 -900 / 170 Weight last 48 hrs Weight 88.496 kg Weight 85.91 kg Physical Exam Const: COMMON NORMALS: no acute distress, patient oriented x3 and alert GENERAL APPEARANCE: cooperative and comfortable; not ill appearing ORIENTATION/CONSCIOUSNESS: Yes awake HENMT: COMMON NORMALS: normocephalic, atraumatic, hearing grossly normal bilaterally and moist oral mucous membranes HEAD & SCALP: normocephalic and atraumatic Eye: COMMON NORMALS: Equal, round and reactive pupils present, EOMs intact bilaterally and conjunctivae normal CONJUNCTIVA: Yes conjunctivae normal PUPIL: Yes Equal, round and reactive pupils present Neck/C-Spine: COMMON NORMALS: full ROM GENERAL: Yes normal visual inspection and Yes trachea midline Chest: CHEST: Yes Symmetrical chest wall rise Resp: COMMON NORMALS: normal respiratory effort, No retractions, No use of accessory muscles and clear to auscultation bilaterally EFFORT & INSPECTION: Yes able to speak in complete sentences, Yes symmetric chest movement and No tachypneic AUSCULTATION: clear to auscultation bilaterally OTHER: -on RA Cardio: COMMON NORMALS: regular rate, regular rhythm, S1 normal heart sound present, S2 normal heart sound present and No murmurs present (Cardio) RATE: regular rate RHYTHM: regular rhythm HEART SOUNDS: S1 normal heart sound present and S2 normal heart sound present GI: COMMON NORMALS: Normal to inspection, nondistended, normoactive bowel sounds present, Soft to palpation and non-tender INSPECTION: Yes central obesity PALPATION: Yes Soft to palpation Back/Pelvis: COMMON NORMALS: thoracic and lumbar spine normal to inspection Extremity: COMMON NORMALS: normal to inspection and full ROM NARRATIVE EXTREMITY EXAM: -L hip: clean/dry/intact dressing in place; gross sensation intact, able to move toes -L knee: linear incision with christiano intact; decreased leg edema and bruising GENERAL: Yes edema (Left leg, decreasing) Neuro: COMMON NORMALS: patient oriented x3, moves all extremities, no focal motor deficits and no sensory deficits noted SENSORIUM/ORIENTATION: Yes alert GAIT: Yes Unable to assess gait (as unable to weight bear) Psych: COMMON NORMALS: mental status grossly normal, Normal thought process present, cooperative, normal affect and speech normal SPEECH: Yes normal speech THOUGHT PROCESS: Normal thought process present Skin: COMMON NORMALS: no rashes or lesions noted, no jaundice, no petechiae and no mottling GENERAL SKIN EXAM: no rashes or lesions noted Urinary Catheter Management^: Truong: Cath Placed During This Visit: yes, but has since been removed by the nurse Reason for Continuing Indwelling Catheter: Decision to DC Catheter Urinary Catheter Date of Insertion: 09/24/19 Urinary Catheter Time of Insertion: 09:00 Date Urinary Catheter Removed: 09/25/19 Time Urinary Catheter Discontinued: 06:34 Data : 09/26/19 15:26 09/26/19 03:25 A&P Assessment and plan (1) Hip pain, left: -acute onset of L hip pain x 1 day with falls x 2 -had recent L total knee arthroplasty done secondary to primary OA 1 week ago; had L total hip arthroplasty done in 04/2019 after mechanical fall. Did well post-op after both surgeries, was ambulatory with walker at home until fall yesterday -pain control as needed -unable to stand and weight bear currently -PT evaluation appreciated -imaging reviewed, no dislocation or fracture noted -apparent swelling of left leg, has been on Eliquis 2.5 mg BID for DVT ppx but with recent surgery, venous duplex done and negative for DVT -Ortho consult by Dr. Yu appreciated; s/p L bipolar hip arthroplasty revision today. EBL-900 mL, received 390 mL return per Cell [employer]ver. Close monitoring of H/H post op in case of need for additional blood products. Noted slight drop from 9.8->8.5. Continue to monitor closely -had been prescribed extended course of oral antibiotics for ppx; on Cefuroxime 500 mg BID -no leukocytosis, afebrile -VSS: continue to monitor -UA negative for infection -received Vancomycin for regan-op abx Status: Acute (2) Fall: -fall x 2 as noted above -fall precautions Status: Acute Qualifiers: Encounter type: initial encounter Qualified Code(s): W19.XXXA - Unspecified fall, initial encounter (3) Hyperlipidemia: Status: Chronic Qualifiers: Hyperlipidemia type: pure hypercholesterolemia Qualified Code(s): E78.00 - Pure hypercholesterolemia, unspecified (4) Hypertension: -VSS; continue to monitor Status: Chronic Qualifiers: Hypertension type: essential hypertension Qualified Code(s): I10 - Essential (primary) hypertension (5) Diabetes mellitus type 2, noninsulin dependent: -hx of NIDDM type II complicated by peripheral neuropathy -A1c at goal (5.5) -Acuchecks, ISS -diabetic diet as tolerated Status: Chronic (6) GERD (gastroesophageal reflux disease): -continue PPI Status: Chronic Qualifiers: Esophagitis presence: esophagitis presence not specified Qualified Code(s): K21.9 - Gastro-esophageal reflux disease without esophagitis (7) Chronic anemia: -Chronic normocytic anemia; baseline Hg around 10. -EBL-900 mL, received 390 mL return per Cell Saver. Close monitoring of H/H post op in case of need for additional blood products. Transfuse 1 unit today, repeat H & H in AM Status: Chronic (8) CKD (chronic kidney disease) stage 2, GFR 60-89 ml/min: -baseline Cr wnl -renal function stable Status: Chronic Additional A&P Information -DVT ppx with SCDs, foot pumps; resumed Eliquis post-op -Dispo: Accepted to [facility], patient now reports wanting to go home with instead. Following discussion with Lashonda, patient seems agreeable to SNF -Code status: FULL code Attestations Medical Necessity Statement*: Patient requires hospitalization for continued monitoring of hemoglobin, pending appropriate disposition now that he is agreeable to SNF placement. Time Spent in Patient Care: Greater than 35 minutes (>than 50% of time spent in counselling and/or direct pt care on unit). Coding Level of Care Code Acute Rehabilitation Specialist for Chg Fwd Diagnoses Hip pain, left M25.552 Fall W19.XXXA Encounter type: initial encounter Hyperlipidemia E78.00 Hyperlipidemia type: pure hypercholesterolemia Hypertension I10 Hypertension type: essential hypertension Diabetes mellitus type 2, noninsulin dependent E11.9 GERD (gastroesophageal reflux disease) K21.9 Esophagitis presence: esophagitis presence not specified Chronic anemia D64.9 CKD (chronic kidney disease) stage 2, GFR 60-89 ml/min N18.2
[2019-09-26 20:46] LABS: Glucose Point of Care 237 mg/dL (70-110)
[2019-09-26] MEDS: oxyCODONE 5 mg IR Tab/Cap PO (20:58)
[2019-09-27] VITALS (8 sets, daily range): BP systolic 106–119; BP diastolic 54–69; PULSE 72–77; RESP 16–18; TEMP 36.7–37.2; O2SAT 96–99
[2019-09-27] MEDS: oxyCODONE 5 mg IR Tab/Cap PO ×2 (01:24→09:57)
[2019-09-27] MEDS: acetaminophen 500 mg Tablet 1000 MG PO ×2 (05:06→13:20)
[2019-09-27 05:31] LABS: Hematocrit 26.5 % (42.0-52.0); Hemoglobin 8.3 g/dL (11.7-16.6)
[2019-09-27 06:16] LABS: Glucose Point of Care 170 mg/dL (70-110)
--- NOTE | 2019-09-27 07:57 | P.PN_ITS ---
Subjective Subjective: Interval history: Hemoglobin 8.3 today, hemodynamically stable, afebrile, had 1100 mL urine output overnight. He is POD # 3 s/p L hip revision surgery. Sitting the chair by window, seems to be in good spirits, he is agreeable to going to [facility]. Medications: Reviewed: Yes Medication Review Details: Active Medications Generic Name Dose Route Start Last Admin Trade Name Freq PRN Reason Stop Dose Admin Acetaminophen 1,000 mg 09/25/19 14:00 09/27/19 05:06 Tylenol PO 1,000 mg Q8H ANA LAURA Administration Apixaban 2.5 mg 09/24/19 23:33 09/26/19 17:59 Eliquis PO 2.5 mg BID ANA LAURA Administration Calcium Carbonate 1,000 mg 09/24/19 18:00 09/26/19 17:59 Tums PO 1,000 mg BID ANA LAURA Administration Cefuroxime Axetil 500 mg 09/21/19 09:00 09/26/19 17:59 Ceftin PO 500 mg BID ANA LAURA Administration Celecoxib 200 mg 09/24/19 13:00 09/27/19 00:00 Celebrex PO 200 mg Q12H ANA LAURA Administration Chlorhexidine Gluc marie 30 ml 09/24/19 13:00 09/26/19 21:02 Perigard MUCOUS MEM 30 ml QID ANA LAURA Administration Dextrose 25 ml 09/20/19 19:00 D50w IVP ONCE PRN hypoglycemia prot ocol Protocol Dextrose 50 ml 09/20/19 19:00 D50w IVP PRN PRN hypoglycemia prot ocol Protocol Gabapentin 800 mg 09/20/19 21:00 09/26/19 21:01 Neurontin PO 800 mg TID ANA LAURA Administration Glucagon 1 mg 09/20/19 19:00 Glucagen IM ONCE PRN Adult Acute Hypog lycemia Prot. Protocol Dextrose 500 mls @ 100 mls /hr 09/20/19 19:00 D5w IV ONCE PRN Adult Acute Hypog lycemia Prot Protocol Insulin Aspart 0 unit 09/20/19 21:00 09/26/19 20:57 Novolog SUBCUT 6 unit WM&BEDTIME ANA LAURA Administration Protocol Morphine Sulfate 2 mg 09/20/19 19:00 09/24/19 05:36 Morphine IVP 2 mg Q4H PRN Administration SEVERE PAIN Multivitamins Ther apeutic 1 tab 09/25/19 09:00 09/26/19 09:31 Multivitamin Tab PO 1 tab DAILY ANA LAURA Administration Mupirocin 1 applic 09/24/19 18:00 09/26/19 18:03 Bactroban NASAL 09/29/19 17:59 Not Given BID ANA LAURA Naloxone HCl 0.1 mg 09/24/19 12:39 Narcan IVP Q2M PRN Respiratory rate less than 8. Ondansetron HCl 4 mg 09/24/19 12:39 Zofran IVP Q6H PRN NAUSEA AND VOMITI NG Oxycodone HCl 5 mg 09/24/19 12:39 09/27/19 01:24 Oxycodone Ir PO 5 mg Q4H PRN Administration MODERATE PAIN Oxycodone/Acetamin ophen 1 tab 09/20/19 19:00 09/24/19 13:19 Percocet 5-325 M g PO 1 tab Q4H PRN Administration pain Pantoprazole Sodiu m 40 mg 09/21/19 09:00 09/26/19 09:31 Protonix PO 40 mg DAILY ANA LAURA Administration Polysaccharide Iro n Complex 150 mg 09/24/19 18:00 09/26/19 17:59 Ferrex PO 150 mg BIDWM ANA LAURA Administration Senna/Docusate Sod ium 2 tab 09/24/19 18:00 09/26/19 17:58 Senna-S PO 2 tab BID ANA LAURA Administration Vitamin D 1,000 unit 09/25/19 09:00 09/26/19 09:30 Vitamin D3 PO 1,000 unit DAILY ANA LAURA Administration No Known Allergies Allergy (Verified 08/17/19 14:34) Vitals/I&O/Wt Last Vital Signs Temp 98.1 F 09/27/19 04:00 Pulse 72 09/27/19 04:00 Resp 18 09/27/19 04:00 BP 119/67 09/27/19 04:00 Pulse Ox 98 09/27/19 04:00 09/26/19 09/27/19 09/27/19 22:59 06:59 14:59 Output Total 1300 / 1300 700 / 2000 Balance -1300 / -230 -700 / -930 Weight last 48 hrs Weight 89.981 kg Weight 88.496 kg Physical Exam Const: COMMON NORMALS: no acute distress, patient oriented x3 and alert GENERAL APPEARANCE: cooperative and comfortable; not ill appearing ORIENTATION/CONSCIOUSNESS: Yes awake OTHER: HENMT: COMMON NORMALS: normocephalic, atraumatic, hearing grossly normal bilaterally and moist oral mucous membranes HEAD & SCALP: normocephalic and atraumatic Eye: COMMON NORMALS: Equal, round and reactive pupils present, EOMs intact bilaterally and conjunctivae normal CONJUNCTIVA: Yes conjunctivae normal PUPIL: Yes Equal, round and reactive pupils present Neck/C-Spine: COMMON NORMALS: full ROM GENERAL: Yes normal visual inspection and Yes trachea midline Chest: CHEST: Yes Symmetrical chest wall rise Resp: COMMON NORMALS: normal respiratory effort, No retractions, No use of accessory muscles and clear to auscultation bilaterally EFFORT & INSPECTION: Yes able to speak in complete sentences, Yes symmetric chest movement and No tachypneic AUSCULTATION: clear to auscultation bilaterally OTHER: -on RA Cardio: COMMON NORMALS: regular rate, regular rhythm, S1 normal heart sound present, S2 normal heart sound present and No murmurs present (Cardio) RATE: regular rate RHYTHM: regular rhythm HEART SOUNDS: S1 normal heart sound present and S2 normal heart sound present GI: COMMON NORMALS: Normal to inspection, nondistended, normoactive bowel sounds present, Soft to palpation and non-tender INSPECTION: Yes central obesity PALPATION: Yes Soft to palpation Back/Pelvis: COMMON NORMALS: thoracic and lumbar spine normal to inspection Extremity: COMMON NORMALS: normal to inspection and full ROM NARRATIVE EXTREMITY EXAM: -L hip: clean/dry/intact dressing in place; gross sensation intact, able to move toes -L knee: linear incision with christiano intact; decreased leg edema and bruising GENERAL: Yes edema (Left leg, decreasing) Neuro: COMMON NORMALS: patient oriented x3, moves all extremities, no focal motor deficits and no sensory deficits noted SENSORIUM/ORIENTATION: Yes alert GAIT: Yes Unable to assess gait (as unable to weight bear) Psych: COMMON NORMALS: mental status grossly normal, Normal thought process present, cooperative, normal affect and speech normal SPEECH: Yes normal speech THOUGHT PROCESS: Normal thought process present Skin: COMMON NORMALS: no rashes or lesions noted, no jaundice, no petechiae and no mottling GENERAL SKIN EXAM: no rashes or lesions noted Urinary Catheter Management^: Truong: Cath Placed During This Visit: yes, but has since been removed by the nurse Reason for Continuing Indwelling Catheter: Decision to DC Catheter Urinary Catheter Date of Insertion: 09/24/19 Urinary Catheter Time of Insertion: 09:00 Date Urinary Catheter Removed: 09/25/19 Time Urinary Catheter Discontinued: 06:34 Data : 09/27/19 04:32 09/26/19 03:25 A&P Assessment and plan (1) Hip pain, left: -acute onset of L hip pain x 1 day with falls x 2 -had recent L total knee arthroplasty done secondary to primary OA 1 week ago; had L total hip arthroplasty done in 04/2019 after mechanical fall. Did well post-op after both surgeries, was ambulatory with walker at home until fall yesterday -pain control as needed -unable to stand and weight bear currently -PT evaluation appreciated -imaging reviewed, no dislocation or fracture noted -apparent swelling of left leg, has been on Eliquis 2.5 mg BID for DVT ppx but with recent surgery, venous duplex done and negative for DVT -Ortho consult by Dr. Yu appreciated; s/p L bipolar hip arthroplasty revision; POD # 3. EBL-900 mL, received 390 mL return per Cell Saver and 1 unit PRBCs yesterday with improvement in Hg. Will need follow up CBC in 2-3 days -had been prescribed extended course of oral antibiotics for ppx; on Cefuroxime 500 mg BID; can discontinue -no leukocytosis, afebrile -VSS: continue to monitor -UA negative for infection -received Vancomycin for regan-op abx Status: Acute (2) Fall: -fall x 2 as noted above -fall precautions Status: Acute Qualifiers: Encounter type: initial encounter Qualified Code(s): W19.XXXA - Unspecified fall, initial encounter (3) Hyperlipidemia: Status: Chronic Qualifiers: Hyperlipidemia type: pure hypercholesterolemia Qualified Code(s): E78.00 - Pure hypercholesterolemia, unspecified (4) Hypertension: -VSS; continue to monitor Status: Chronic Qualifiers: Hypertension type: essential hypertension Qualified Code(s): I10 - Essential (primary) hypertension (5) Diabetes mellitus type 2, noninsulin dependent: -hx of NIDDM type II complicated by peripheral neuropathy -A1c at goal (5.5) -Acuchecks, ISS -diabetic diet as tolerated Status: Chronic (6) GERD (gastroesophageal reflux disease): -continue PPI Status: Chronic Qualifiers: Esophagitis presence: esophagitis presence not specified Qualified Code(s): K21.9 - Gastro-esophageal reflux disease without esophagitis (7) Chronic anemia: -Chronic normocytic anemia; baseline Hg around 10. -EBL-900 mL, received 390 mL return per Cell Saver. Close monitoring of H/H post op in case of need for additional blood products. Transfused 1 unit of PRBCs (09/25), repeat H & H in AM shows improvement (8.3) Status: Chronic (8) CKD (chronic kidney disease) stage 2, GFR 60-89 ml/min: -baseline Cr wnl -renal function stable Status: Chronic Additional A&P Information -DVT ppx with SCDs, foot pumps; resumed Eliquis post-op -Dispo: Accepted to [facility], patient now reports wanting to go home with instead. Following discussion with Lashonda, patient seems agreeable to SNF -Code status: FULL code Attestations Medical Necessity Statement*: Discharge to SNF today. Time Spent in Patient Care: 16 - 35 minutes (>than 50% of time spent in counselling and/or direct pt care on unit) . Coding Level of Care Code Acute Rerolling Machine Operator for g Fwd Exam Comprehensive Diagnoses Hip pain, left M25.552 Fall W19.XXXA Encounter type: initial encounter Hyperlipidemia E78.00 Hyperlipidemia type: pure hypercholesterolemia Hypertension I10 Hypertension type: essential hypertension Diabetes mellitus type 2, noninsulin dependent E11.9 GERD (gastroesophageal reflux disease) K21.9 Esophagitis presence: esophagitis presence not specified Chronic anemia D64.9 CKD (chronic kidney disease) stage 2, GFR 60-89 ml/min N18.2
[2019-09-27] MEDS: sennosides-docusate Tablet 2 TAB PO (09:56)
[2019-09-27] MEDS: gabapentin 400 mg Capsule 800 MG PO ×2 (09:56→15:20)
[2019-09-27] MEDS: multivitamin therapeutic Tablet 1 TAB PO (09:56)
[2019-09-27] MEDS: pantoprazole DR 40 mg Tablet PO (09:56)
[2019-09-27] MEDS: cholecalciferol (vitamin D3) 1,000 unit Tablet 1000 UNIT PO (09:56)
[2019-09-27] MEDS: apixaban 5 mg Tablet 2.5 MG PO (09:56)
[2019-09-27] MEDS: cefUROXime 250 mg Tablet 500 MG PO (09:56)
[2019-09-27] MEDS: calcium carbonate 500 mg Chew Tablet 1000 MG PO (09:56)
[2019-09-27] MEDS: iron polysaccharide complex 150 mg Capsule PO (09:56)
[2019-09-27] MEDS: chlorhexidine gluconate 0.12% Btl 473 mL 30 ML MUCOUS MEM ×2 (09:57→13:21)
[2019-09-27 10:39] LABS: Glucose Point of Care 288 mg/dL (70-110)
--- NOTE | 2019-09-27 10:41 | PC.SOCIAL ---
Pg 2 IMM Explained to pt Pg 2 IMM. Pt verbally understands, no questions voiced. Provided pt a copy. Signed, dated, & timed a copy & placed in pt's chart.
[2019-09-27] MEDS: CELEcoxib 200 mg Capsule PO ×2 (13:21)
--- NOTE | 2019-09-27 14:44 | PC.NURSE ---
Report called to [facility], report given to NILTON Leal
--- NOTE | 2019-09-27 14:50 | PC.NURSE ---
notified that patient is being transported to [facility]
--- NOTE | 2019-09-27 17:06 | P.PN_ITS ---
Subjective Subjective: Interval history: The patient is doing well. He was hoping for discharge to home, but in discussion with the patient and his family, the decision was made that he would benefit from group home. Therefore this is the plan. Medications: Reviewed: Yes Vitals/I&O/Wt Last Vital Signs Temp 98.9 F 09/27/19 15:33 Pulse 75 09/27/19 15:33 Resp 18 09/27/19 15:33 BP 106/58 09/27/19 15:33 Pulse Ox 97 09/27/19 15:33 09/27/19 09/27/19 09/27/19 06:59 14:59 22:59 Intake Total 720 / 720 Output Total 700 / 2000 260 / 260 Balance -700 / -930 460 / 460 Weight last 48 hrs Weight 198 lb 6 oz Weight 195 lb 1.6 oz Physical Exam Const: COMMON NORMALS: no acute distress, average body habitus, patient oriented x3 and alert GENERAL APPEARANCE: cooperative and comfortable ORIENTATION/CONSCIOUSNESS: Yes awake HENMT: COMMON NORMALS: normocephalic and atraumatic HEAD & SCALP: normocephalic and atraumatic Eye: GENERAL EYE: appearance normal, both eyes and all related structures Chest: COMMONS NORMALS: normal inspection of the chest Resp: COMMON NORMALS: normal respiratory effort EFFORT & INSPECTION: Yes able to speak in complete sentences and Yes symmetric chest movement Extremity: GENERAL: Yes normal exam except as noted LEFT LOWER EXTREMITY: Yes hip joint Left hip: Yes inspection (Patient's hip is benign. Dressing is removed. There is no drainage.), Yes palpation (There is minimal tenderness to palpation.) and Yes neurovascular exam (Intact distal to the fracture site.) and Yes knee joint (Patient's total knee incision from earlier this month is evaluated. There is no evidence of infection. Drainage has diminished.) Neuro: COMMON NORMALS: patient oriented x3 SENSORIUM/ORIENTATION: Yes alert Psych: COMMON NORMALS: mental status grossly normal APPEARANCE: Yes grossly normal ATTITUDE: Yes calm and Yes engaged ATTENTION/CONCENTRATION: Yes attention grossly intact Skin: COMMON NORMALS: no rashes or lesions noted GENERAL SKIN EXAM: no rashes or lesions noted Urinary Catheter Management^: Truong: Cath Placed During This Visit: yes, but has since been removed by the nurse Reason for Continuing Indwelling Catheter: Decision to DC Catheter Urinary Catheter Date of Insertion: 09/24/19 Urinary Catheter Time of Insertion: 09:00 Date Urinary Catheter Removed: 09/25/19 Time Urinary Catheter Discontinued: 06:34 Data : 09/27/19 04:32 09/26/19 03:25 A&P Assessment and plan (1) Periprosthetic fracture around internal prosthetic left hip joint, initial encounter: Patient underwent revision bipolar hip arthroplasty utilizing a long mormon modular stem. This was a bipolar implant as well. The patient is much more comfortable postoperatively, and he worked aggressively with physical therapy. He will require group home at the time of discharge. Patient is in agreement with this plan. This is what his family desires as well. He will follow-up with me in approximately 2 weeks. Status: Acute Attestations Medical Necessity Statement*: Patient is ready for discharge to group home today. Coding Level of Care Code Acute Elevating Grader Operator for Jack Rayo Diagnoses Periprosthetic fracture around internal prosthetic left hip joint, initial encounter M97.02XA
== END 2019-09-27 15:34 | disposition skilled nursing facility (03) | DRG 467 ==
LOC: ER 17:31 → MEDSURG 17:35
PROVIDERS: Emergency Medicine; Admitting Provider Specialist; PCP Student in an Organized Health Care Education/Training Program; Visit Provider Family Medicine
PROC: 0SPB0JZ Removal of Synthetic Substitute from Left Hip Joint, Open Approach (ICD-10-PCS; principal; 2019-09-24 08:00)
DX: M97.02XA Periprosthetic fracture around internal prosthetic left hip joint, initial encounter (principal); E87.1 Hypo-osmolality and hyponatremia; G89.11 Acute pain due to trauma; K21.9 Gastro-esophageal reflux disease without esophagitis; D64.9 Anemia, unspecified; N18.3 Chronic kidney disease, stage 3 (moderate); I12.9 Hypertensive chronic kidney disease with stage 1 through stage 4 chronic kidney disease, or unspecified chronic kidney disease; E11.22 Type 2 diabetes mellitus with diabetic chronic kidney disease; E11.42 Type 2 diabetes mellitus with diabetic polyneuropathy; W19.XXXA Unspecified fall, initial encounter; Y92.009 Unspecified place in unspecified non-institutional (private) residence as the place of occurrence of the external cause; Z96.652 Presence of left artificial knee joint; E87.5 Hyperkalemia
CPT/HCPCS: 12345; 36415; 36416; 36430; 72170; 73502; 73562; 73700; 80048; 80053; 81003; 82962; 85014; 85018; 85025; 86850; 86900; 86920; 87641; 93971; 96372; 96375; 97110; 97116; 97161; 97165; 97530; 97535; 99281; C1776; J0131; J0690; J1644; J1650; J1815; J2270; J2405; J2704; J2710; J3010; J3370; J3490; J7030; J7050; P9016

== ENCOUNTER → 2019-10-20 10:35 | Outpatient (BNVA) | payer OTHER, SELFPAY | PROVIDERS: PCP Student in an Organized Health Care Education/Training Program; Visit Provider Specialist | DX: Z96.652 Presence of left artificial knee joint (principal); Z96.649 Presence of unspecified artificial hip joint | CPT/HCPCS: 73560; 73565 ==

== ENCOUNTER 2019-10-20 13:24 | Outpatient (CLI) | payer OTHER, SELFPAY | END 2019-10-20 13:25 | disposition home or self-care (01) | LOC: SPT 13:25 | PROVIDERS: PCP Student in an Organized Health Care Education/Training Program; Visit Provider Specialist | DX: Z47.1 Aftercare following joint replacement surgery (principal); Z96.652 Presence of left artificial knee joint; Z96.649 Presence of unspecified artificial hip joint | CPT/HCPCS: 73560; 73565; 87070; 87077; 87186; 97760; L1830 ==

== ENCOUNTER 2019-10-25 11:19 | Inpatient (IN) | payer MEDICARE, BC, SELFPAY ==
[2019-10-24 12:42] LABS: Add Urine Microscopic? NO
[2019-10-24 12:42] LABS: Basophils % 0.4 %; Eosinophils # 0.1 10^3/uL (0.0-0.8); Eosinophils % 1.7 %; Hematocrit 33.3 % (42.0-52.0); Hemoglobin 10.1 g/dL (11.7-16.6); Lymphocytes # 1.8 10^3/uL (0.8-4.8); Lymphocytes % 26.1 %; Mean Corpuscular HGB Conc 30.3 g/dL (30.0-36.0); Mean Corpuscular Volume 82.4 fL (80-94); Mean Platelet Volume 9.5 fL (7.4-10.4); Monocytes # 0.7 10^3/uL (0.2-0.9); Monocytes % 9.4 %; Neutrophils # 4.28 10^3/uL (1.8-7.7); Neutrophils % 62.1 %; Nucleated Red Blood Cells % 0 %; Platelet Count 486 10^3/cmm (130-400); Red Blood Count 4.04 10^6/uL (4.1-5.3); Red Cell Distribution Width 15.1 % (12.1-15.1); White Blood Count 6.9 10^3/uL (4.0-10.0)
--- NOTE | 2019-10-24 12:43 | ANES.PREANE2 ---
Pre-Anesthetic Assessment Pre-Anesthetic Assessment: Height/Weight: Height 1.8 m Weight 81.647 kg Preop Diagnosis: Knee effusion and possible infection left total knee Proposed Procedure: Operation Date: 10/25/19 13:15 Proposed Procedures p Revison Total Arthroplasty Knee Open with Adhesion lysis Polyethylene Liner Replacement and Synovectomy 89511 M17.12(Left) - Kylie Yu MD Familial anesthetic complications: None Last intake: NPO > 8 hrs Social: Social History: No alcohol and No tobacco Exam: Pre-Anes Outpt Exam: alert, oriented x 3, clear to auscultation bilaterally and regular rate & rhythm Airway: Cervical ROM: WNL MP: 1 Dentition: Chipped Pulmonary: Pulmonary: None reported CV/HEM: CV/HEM: None reported : : None reported Hepatic: Hepatic: None reported GI: GI: GERD Metabolic: Metabolic: DM Musc/skel: Comments: Knee and hip replacements Neuropsych: Neuropsych: None reported Anesthetic Plan: ASA status: 2 Anesthesia: General and Regional (specify below) Risk of > 500 ml blood loss (7ml/kg in children): No PFSH Anesthesia PFSH: Medical History Chronic anemia CKD (chronic kidney disease) stage 2, GFR 60-89 ml/min Diabetes mellitus type 2, noninsulin dependent Diabetic peripheral neuropathy Fall GERD (gastroesophageal reflux disease) History of osteomyelitis Right foot History of septic arthritis Left knee Hx of fracture of left hip Hyperlipidemia Hypertension Surgical History History of hand surgery History of knee surgery Bilateral History of toe surgery History of total knee arthroplasty Family History Other Cancer Diabetes Social History Smoking and tobacco status: never smoked Alcohol intake: current Alcohol intake frequency: 3 or more drinks per day Alcohol type: beer Household members: spouse and children Marital status: Data Anesthesia CBC & Chem 7: 10/24/19 12:00 10/24/19 12:00 Other Labs: Laboratory Results - last 48 hr 10/24/19 12:00 WBC 6.9 RBC 4.04 L Hgb 10.1 L Hct 33.3 L MCV 82.4 MCH 25.0 L MCHC 30.3 RDW 15.1 Plt Count 486 H MPV 9.5 Neut % (Auto) 62.1 Lymph % (Auto) 26.1 [place] % (Auto) 9.4 Eos % (Auto) 1.7 Baso % (Auto) 0.4 Neut # (Auto) 4.28 Lymph # (Auto) 1.8 [place] # (Auto) 0.7 Eos # (Auto) 0.1 Baso # (Auto) 0.0 Nucleated RBC % (auto) 0 Nucleated RBCs # 0.0 Cardiac Studies: No Data to Display
[2019-10-24 12:50] LABS: Bilirubin Urine Neg (NEGATIVE); Blood Urine Neg (Negative); Glucose Urine UA 4+ (Normal); Ketones Urine Negative (Negative); Leukocyte Esterase Urine Negative (Negative); Nitrate Urine Negative (Negative); Protein Urine Neg (Negative); Urine Appearance Clear (CLEAR); Urine Color Yellow (Yellow); Urobilinogen Urine Neg (Negative); pH Urine 6 (5-7)
[2019-10-24 12:56] LABS: Alanine Aminotransferase 8 U/L (0-41); Alkaline Phosphatase 198 IU/L (40-130); Anion Gap 14.4 (5-19); Aspartate Amino Transferase 13 U/L (0-40); Blood Urea Nitrogen 17 mg/dL (6-20); Calcium 8.6 mg/dL (8.5-10.5); Carbon Dioxide 25 mmol/L (22-29); Chloride 103 mmol/L (98-107); Creatinine Clr Calc Pharmacy 73.8748; Globulin 3.8 g/dL (1.3-4.6); Glomerular Filtration Rate 62.2 mL/min (90-130); Glucose 104 mg/dL (65-115); Osmolality Calculated 283 mOsm/kg (285-295); Potassium 4.4 mmol/L (3.5-5.1); Sodium 138 mmol/L (136-145); Total Bilirubin 0.2 mg/dL (0.15-1.2); Total Protein 7.8 g/dL (6.6-8.7)
[2019-10-25] VITALS (20 sets, daily range): BP systolic 111–144; BP diastolic 54–93; PULSE 65–103; RESP 16–20; TEMP 36.7–37.3; O2SAT 93–100
[2019-10-25 12:08] LABS: Glucose Point of Care 122 mg/dL (70-110)
[2019-10-25] MEDS: sodium chloride 0.9% 1,000 ML 30 ML IV ×2 (12:17→18:16)
[2019-10-25] MEDS: midazolam 1 mg/mL INJ 2 mL 2 MG IVP (12:35)
--- NOTE | 2019-10-25 12:52 | ANES.PROC ---
Anesthesia Procedures Procedure/Date: 10/25/19 Nerve Block ^: Nerve Block 1: Main Anesthesia: general anesthesia Time Out Performed: Yes Consent: requested by attending/covering physician, from patient, from other, risks and benefits reviewed and patient agrees to proceed Nerve block location: axillary (L) Anesthesia monitors applied: pulse oximetry and oxygen Nerve block position: supine Anesthetic Used: ropivicaine 0.5% and with decadron (4 mg) Amount of anesthesia used (mL): 30 Ultrasound used to: recognize landmarks Nerve Stimulator Used?: No Interscalene/Femoral BLK: 4 stimuplex 21 g needle used for position and inplane approach, visualize local anesthetic spread and no vascular puncture identified Injection: neg aspiration of heme and paresthesia +/- Patient Tolerated Procedure: well Complications: none
--- NOTE | 2019-10-25 13:58 | W.PM.OPSUD ---
Surgery/Procedure H&P Update DATE OF PROCEDURE: October 25, 2019 DATE H&P PERFORMED: 10/20/19 H&P UPDATE INFORMATION: I have reviewed H&P completed within last 30 days, I have examined patient prior to procedure and H&P is in [facility] on date indicated PREOP DIAGNOSIS: Knee effusion and infection left total knee PLANNED PROCEDURE: Operation Date: 10/25/19 13:50 Proposed Procedures p Revison Total Arthroplasty Knee Open with Adhesion lysis Polyethylene Liner Replacement and Synovectomy 13684 M17.12(Left) - Kylie Yu MD Related Problem List Diagnoses (1) Knee effusion, left: (2) Infection of total left knee replacement:
[2019-10-25] MEDS: vancomycin 1,000 MG SDV 1000 MG XX (15:47)
[2019-10-25] MEDS: ceFAZolin 1,000 mg SDV 1000 MG IRRIGATION ×2 (15:48→15:49)
[2019-10-25] MEDS: vancomycin 1,000 MG in sodium chloride 0.9% 250 ML 250 MG IV (16:34)
[2019-10-25] MEDS: vancomycin 1,000 MG SDV 6000 MG IRRIGATION (16:42)
--- NOTE | 2019-10-25 17:11 | XRR_ITS ---
PROCEDURE INFORMATION: Exam: XR Left Knee Exam date and time: 10/25/2019 6:10 PM Age: 59 years old Clinical indication: Condition or disease; Other: S/P revision polyethylene; Prior surgery; Surgery date: 1-6 months; Surgery type: Tka 09/13/19. Revision plyethylene 10/25/19; Additional info: Status post revision polyethylene TECHNIQUE: Imaging protocol: XR Left knee. Views: 1 or 2 views. COMPARISON: CR XR knees AP WB w LT lmt ORTH 10/20/2019 10:40 AM FINDINGS: Bones/joints: No postoperative complication in the setting of left knee arthroplasty. Anatomic alignment. Soft tissues: Postoperative subcutaneous emphysema, skin christiano, surgical drain. XR/XR knee LT 1-2V 26445 IMPRESSION: No postoperative complication in the setting of left knee arthroplasty.
--- NOTE | 2019-10-25 17:24 | P.OP_ITS ---
Operative Report Date of procedure: October 25, 2019 Pre-op Diagnosis: Infection left total knee with effusion and drainage Post-op diagnosis: same Post-op Findings: Compromised patellar tendon near the insertion point with gross synovitis consistent with infection as noted. Purulent knee effusion fluid. Procedure Done: Left total knee arthroplasty revision and irrigation and debridement with removal of tibial polyethylene and conversion from a size 6 x 11 mm posterior stabilized tibial bearing insert to a 6 x 13 mm tibial bearing insert with aggressive complete synovectomy, and irrigation with 10 L of fluid. Specimens removed/disposition: Bone and synovium sent to pathology, synovial fluid, synovium, and bone sent for culture. Pathology: other (See above under specimen) Intake Specialist: [facility] OR technicians Anesthesia: General (Intubated, ASA 2) Estimated blood loss (mL): 100 Tourniquet time (min): 97 Tourniquet time: 250 mmHg IV fluids (mL): 800 Urine output (mL): 700 Complications: None Findings: Compromised patellar tendon at the distal insertion point, gross synovitis consistent with infected total knee arthroplasty, and purulent synovium Condition: stable Disposition: PACU (Operative rehabilitation and antibiotic therapy, IV.) Brief History: This 59-year-old gentleman underwent total knee arthroplasty on September 12 of this [address] Dr. Sanders. Subsequent to that, he fell multiple times onto this knee. He suffered a periprosthetic hip fracture which I revised from a bipolar to a revision bipolar earlier this month. At the time of initial evaluation for the hip, the knee had drainage consistent with a fall but it was very minimal. There is no redness, there was no heat, and there was no evidence of infection. He was then followed by Dr. Sanders via telehealth, and the knee continue to look good. The patient had a culture taken superficially at [facility] which demonstrated Enterococcus faecalis. I brought him to the office for aspiration. This culture grew Enterococcus faecalis and staph epidermidis. Sensitivities were available in the chart, and after discussion with Dr. Sanders, the patient was scheduled for the above procedure. As Dr. Sanders is retiring, I agreed to proceed with appropriate interventions in this gentleman's care. Procedure: The patient was brought to the operating theater, and after undergoing adequate general intubated anesthesia the left lower extremity was prepped and draped in usual fashion following placement of a tourniquet high on the leg. The leg was then draped free with the prepping accomplished with DuraPrep. Following prepping and draping, the tourniquet was elevated to 250 mmHg for total tourniquet time of 97 minutes without exsanguination. Prior to elevation of the tourniquet the following exposure of the site of surgery, a surgical pause was performed. At the time of the surgical pause we confirmed the site and side of surgery. Additionally, we confirmed the availability of vancomycin following cultures. The availability of equipment was confirmed, and the patient's identity was verbalized as well. Following the surgical pause, an incision was made centering over the patella continuing proximally and distally as necessary to allow access to the knee joint. This incision was along the patient's initial incision. Dissection continued through skin and soft tissues using a scalpel. Hemostasis was obtained using electrocautery. The previous arthrotomy incision was identified and suture to approximate this new was removed. The knee was opened through the patient's previous arthrotomy incision. This was a median parapatellar arthrotomy. In an extended position. There was copious synovitis both exterior to the knee joint and within the knee joint. A combination of rongeurs, sharp dissection, and curettes style debridement was accomplished. Care was taken to remove as much suture as we could visualize from the previous closure. Once the soft tissues have been debrided, the polyethylene was removed. Confirmation was made of its size which was a size 6 x 11 mm thick. Prior to removal of the polyethylene tibia tray, an exam under anesthesia demonstrated some slight varus valgus instability, and the decision was made to revise this polyethylene to the next available thickness. This was a size 6 x 13 mm thick. With the polyethylene out, we were able to access the back of the knee and further synove ctomy was accomplished. Once the synovectomy had been completed, copious irrigation was accomplished with 10 L of fluid. One liter contained Ancef, 3 L were plain, and an additional 6 L contained vancomycin 1 g/L. Once irrigation was accomplished, the polyethylene was obtained. This was inserted with some difficulty. Additionally, there was noted to be breakdown of the patellar tendon near the insertion point. Interestingly, upon entering the knee, there was a suture in this area as well. But this area had indeed thin significantly, to the point that the tendon had some incompetence to it. Care was taken when inserting the polyethylene component to not further damage this tendon. Following insertion of the polyethylene, some of the varus valgus instability had been resolved. Attention was then directed to closure. Closure was accomplished with #1 PDS in the fascial tissues distal patellar tendon, 2-0 Monocryl was used in the subcutaneous tissues, and the skin was closed with skin christiano. A sterile dressing was then placed consisting of Xeroform gauze, 4 x 4's, ABDs, sterile soft roll, and an Boogie wrap. The patient was returned the Recovery Room in a satisfactory condition. X-rays were obtained there. The patient will be discharged to the floor for postoperative rehabilitation and pain management. There were multiple specimens including synovial fluid, synovium, and bone for culture as well as synovium and bone for pathology, and there were no complications. Associated Problem List Diagnoses (1) Infection of total left knee replacement: Qualifiers: Encounter type: initial encounter Qualified Code(s): T84.54XA - Infection and inflammatory reaction due to internal left knee prosthesis, initial encounter (2) Knee effusion, left:
[2019-10-25] MEDS: fentaNYL 50 mcg/mL INJ 2mL 100 MCG IVP (17:45)
[2019-10-25] MEDS: morphine 4 mg/mL SDV 1 mL 2 MG IVP (17:53)
--- NOTE | 2019-10-25 18:39 | SUR.PHASEI ---
1830 PT TO FLOOR PER BED PT AWAKE ALERT TALKATIVE WITH YISSEL RN, PT REQUESTS DIET SPRITE TO SIP ON, PT IV PATENT, WITH VANCOMYCIN INFUSING APPROX 40 ML IN BAG, GÓMEZ TO DD YELLOW URINE NOTED 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 IN PLACE OVER SOFT DRESSING FIRST ICETO SITE. DISTAL PULSE STRONG AND REGULAR FELT THRU SOFT DRESSING, HEMAVAC DRAIN COMPRESSED WITH SMALL AMT SANGUINOUS DRAINAGE NOTED . VSS.
--- NOTE | 2019-10-25 19:13 | P.CONIM_ITS ---
Providers/Reason For Consult Consulting Physican/Specialty*: Hospitalist service for septic joint Reason for Consult*: Hospital service for septic joint Attending Physician: Kylie Yu MD Primary Care Provider: Evangelist Duvall History of Present Illness History of Present Illness Regino Calvert is a 59 year old male who underwent total knee arthroplasty on September [address] Sanders, patient sustained multiple falls on his knees suffered periprosthetic hip fracture underwent revision, he had some knee drainage which was noticed by orthopedic surgeon culture taken from the wound at the [facility] demonstrated Enterococcus faecalis. Dr. Yu asked him to come to the office for aspiration of his knee. Synovial aspiration grew Enterococcus faecalis and staph epidermidis and sensitivity has been reviewed. Patient is postop day 0 for knee irrigation and debridement. Hospitalist service has been requested to comanage because of positive cultures. Patient has a history of type 2 diabetes peripheral neuropathy, chronic kidney disease stage II, hypertension, dyslipidemia, recurrent falls, left hip fracture, bipolar hip arthroplasty 04/15, postoperative blood loss anemia requiring blood transfusion in the past. Patient is not a reliable historian, at the time of my evaluation he is endorsing knee pain 01/13, denying passage of flatus, his last bowel movement was yesterday. Patient mentioned that he sometimes acts like a baby and cry and right now he wants to cry . Cultures from 10/20/2019 grew Enterococcus faecalis staph epidermidis sensitive to penicillin and vancomycin currently patient has received vancomycin dosage, he has been afebrile, normal hemodynamics, no leukocytosis no signs of sepsis or bacteremia, I have requested blood cultures Review of Systems Const: Reports: body aches and fatigue; Denies: fever(s) or chills Eyes: Denies: change in vision ENMT: Denies: throat pain Card: Denies: chest pain Resp: Denies: dyspnea GI: Reports: heartburn; Denies: abdominal pain, nausea, vomiting, diarrhea or constipation : Denies: flank pain Musc: Denies: neck pain Skin/Breast: Reports: lesions Neuro: Reports: confusion and difficulty communicating thoughts Psych: Reports: irritability and memory loss Endo: Denies: polyuria Brian/Lymph: Denies: easy bruising All/Imm: Denies: urticaria Meds/Allergies Home Medications and Allergies Home Medications Medication Instructions Recorded Confirmed Last Taken Type celecoxib 200 mg PO Q12H #30 cap 09/26/19 10/24/19 Unknown Rx cholecalciferol (vitamin D3) 1,000 unit PO DAILY 30 Days #30 tab 09/26/19 10/24/19 Unknown Rx [Vitamin D3] multivitamin with folic acid 1 tab PO DAILY 30 Days #30 tab 09/26/19 10/24/19 Unknown Rx [Thera] oxycodone-acetaminophen 1 tab PO Q4H PRN #40 tab 09/26/19 10/25/19 10/23/19 Rx polysaccharide iron complex 150 mg PO BIDWM 30 Days #60 cap 09/26/19 10/25/19 10/24/19 Rx [Ferrex 150] sennosides-docusate sodium 2 tab PO BID PRN #30 tab 09/26/19 10/25/19 10/24/19 Rx Xigduo XR 1 tab PO DAILY #30 each 09/27/19 10/25/19 10/24/19 08:00 Rx gabapentin [Neurontin] 800 mg PO TID #30 tab 09/27/19 10/25/19 10/24/19 20:00 Rx omeprazole 20 mg PO DAILY #30 cap 09/27/19 10/25/19 10/24/19 Rx 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 #1 ea NS 10/20/19 10/20/19 Unknown Rx Allergies Allergy/AdvReac Type Severity Reaction Status Date / Time No Known Allergies Allergy Verified 10/20/19 10:08 PFSH Acute PFSH: Medical History Chronic anemia CKD (chronic kidney disease) stage 2, GFR 60-89 ml/min Diabetes mellitus type 2, noninsulin dependent Diabetic peripheral neuropathy Fall GERD (gastroesophageal reflux disease) History of osteomyelitis Right foot History of septic arthritis Left knee Hx of fracture of left hip Hyperlipidemia Hypertension Surgical History History of hand surgery History of knee surgery Bilateral History of toe surgery History of total knee arthroplasty Family History Other Cancer Diabetes Social History Smoking and tobacco status: never smoked Alcohol intake: current Alcohol intake frequency: 3 or more drinks per day Alcohol type: beer Household members: spouse and children Marital status: Vitals/I&O/Wt Last Vital Signs Temp 98.1 F 10/25/19 18:30 Pulse 85 10/25/19 18:30 Resp 18 10/25/19 18:30 BP 123/73 10/25/19 18:30 Pulse Ox 99 10/25/19 18:30 10/25/19 10/25/19 10/25/19 06:59 14:59 22:59 Intake Total 1110 / 1110 Output Total 1500 / 1500 Balance -390 / -390 Weight last 48 hrs Weight 81.647 kg Physical Exam Narrative: EXAM NARRATIVE: Head to toe examination As I entered the room patient asked me to remove his nasal cannula and fold the blinds and stated that he acts like a baby and wants to cry right now Most of his comments were inappropriate during my evaluation, female nurse was also present in the room Patient was alert awake oriented x3 He was complaining of left knee pain 01/13 I was not able to examine his left knee it was extensively covered with dressing Patient wearing a sling on right foot S1, S2 no signs of heart failure Bilateral breath sounds without adventitious sounds Abdomen soft nontender nondistended bowel sounds sluggish Irritable mood Inappropriate comments Able to follow commands Normal hemodynamics Urinary Catheter Management^: F: Cath Placed During This Visit: yes Urinary Catheter Date of Insertion: 10/25/19 Urinary Catheter Time of Insertion: 15:00 Data Micro: Micro: Microbiology 10/25/19 15:57 Gram Stain - Final Synovial Fluid A&P Assessment and plan (1) Infection of total left knee replacement: Status: Acute Qualifiers: Encounter type: initial encounter Qualified Code(s): T84.54XA - Infection and inflammatory reaction due to internal left knee prosthesis, initial encounter (2) Knee effusion, left: Status: Acute (3) History of total knee arthroplasty: Status: Acute Qualifiers: Laterality: left Qualified Code(s): Z96.652 - Presence of left artificial knee joint (4) Anemia due to blood loss: Status: Acute (5) Diabetic peripheral neuropathy: Status: Acute (6) Septic joint: Status: Acute Additional A&P Information Left knee septic joint Postop day 0 status post irrigation and debridement Synovial fluid cultures from 10/20/2019 grew Enterococcus faecalis and staph epidermidis sensitive to penicillin Currently patient is not septic or bacteremic normal hemodynamics, I would continue vancomycin for now, I believe he will be able to go back to nursing facility on oral antibiotics as microorganisms are sensitive to penicillin if his clinical status stays stable I have requested blood culture and lactic acid Analgesia with Dilaudid as patient is complaining of pain 10/ Bowel regimen senna S Continue clear liquid Anemia due to blood loss: Hemoglobin stable Delirium I am not sure about his underlying cognitive status/history of dementia, while I was in the room he was making incoherent statements Kindly reevaluate in the morning, he does not have any neurological deficit, no need of CT head at this point, as he is postop day 0 we will monitor him overnight Full code DVT prophylaxis as per orthopedic surgery Consult Attestations Medical Necessity Statement: As per orthopedic surgery Time Spent in Patient Care: 16 - 35 minutes Coding Level of Care Code 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
[2019-10-25] MEDS: sennosides-docusate Tablet 2 TAB PO (20:45)
[2019-10-25] MEDS: calcium carbonate 500 mg Chew Tablet 1000 MG PO (20:45)
[2019-10-25] MEDS: CELEcoxib 200 mg Capsule PO (20:47)
[2019-10-25] MEDS: gabapentin 400 mg Capsule 800 MG PO (20:47)
[2019-10-25] MEDS: iron polysaccharide complex 150 mg Capsule PO (20:47)
[2019-10-25] MEDS: chlorhexidine gluconate 0.12% Btl 473 mL 30 ML MUCOUS MEM (20:48)
[2019-10-25] MEDS: sodium chloride 0.9% 1,000 ML 80 ML IV (20:49)
[2019-10-25] MEDS: mupirocin oint 22 gm 1 APPLIC NASAL (20:49)
[2019-10-25] MEDS: oxyCODONE 5 mg IR Tab/Cap PO (20:49)
--- NOTE | 2019-10-25 21:04 | PC.PHAR ---
Vancomycin is dosed at 1250mg IVPB ever 12 hours to produce a predicted trough level of 19.90 (population based pharmacokinetic analysis). A trough level has been ordered to be obtained before the fourth dose to confirm and adjust if needed.
[2019-10-25 21:13] LABS: Glucose Point of Care 166 mg/dL (70-110)
[2019-10-25 22:07] LABS: Lactate (Lactic Acid level) 1.1 mmol/L (0.5-2.2)
[2019-10-26] VITALS (8 sets, daily range): BP systolic 105–149; BP diastolic 55–84; PULSE 66–79; RESP 16–20; TEMP 36.6–36.9; O2SAT 95–97
[2019-10-26 04:11] LABS: Basophils % 0.1 %; Hematocrit 28.9 % (42.0-52.0); Hemoglobin 8.7 g/dL (11.7-16.6); Lymphocytes # 1.2 10^3/uL (0.8-4.8); Lymphocytes % 16.2 %; Mean Corpuscular HGB Conc 30.1 g/dL (30.0-36.0); Mean Corpuscular Hemoglobin 24.8 pg (28.0-34.0); Mean Corpuscular Volume 82.3 fL (80-94); Mean Platelet Volume 9.6 fL (7.4-10.4); Monocytes # 0.4 10^3/uL (0.2-0.9); Monocytes % 5.5 %; Neutrophils # 5.76 10^3/uL (1.8-7.7); Neutrophils % 77.9 %; Nucleated Red Blood Cells % 0 %; Platelet Count 399 10^3/cmm (130-400); Red Blood Count 3.51 10^6/uL (4.1-5.3); Red Cell Distribution Width 15.3 % (12.1-15.1); White Blood Count 7.4 10^3/uL (4.0-10.0)
[2019-10-26 04:31] LABS: Anion Gap 16.8 (5-19); Blood Urea Nitrogen 21 mg/dL (6-20); Carbon Dioxide 21 mmol/L (22-29); Chloride 102 mmol/L (98-107); Creatinine Clr Calc Pharmacy 73.8748; Glomerular Filtration Rate 62.2 mL/min (90-130); Glucose 139 mg/dL (65-115); Osmolality Calculated 279 mOsm/kg (285-295); Potassium 4.8 mmol/L (3.5-5.1); Sodium 135 mmol/L (136-145)
[2019-10-26] MEDS: CELEcoxib 200 mg Capsule PO ×2 (05:45→17:41)
[2019-10-26 06:31] LABS: Glucose Point of Care 131 mg/dL (70-110)
[2019-10-26] MEDS: pantoprazole DR 40 mg Tablet PO (07:28)
[2019-10-26] MEDS: aspirin 325 mg EC Tablet PO (07:28)
[2019-10-26] MEDS: sodium chloride 0.9% 1,000 ML 80 ML IV ×2 (07:28→21:54)
[2019-10-26] MEDS: iron polysaccharide complex 150 mg Capsule PO ×2 (07:28→17:41)
[2019-10-26] MEDS: gabapentin 400 mg Capsule 800 MG PO ×3 (07:28→20:00)
[2019-10-26] MEDS: oxyCODONE 5 mg IR Tab/Cap PO ×2 (07:29→11:18)
[2019-10-26] MEDS: multivitamin therapeutic Tablet 1 TAB PO (07:29)
[2019-10-26] MEDS: calcium carbonate 500 mg Chew Tablet 1000 MG PO ×2 (07:29→17:41)
[2019-10-26] MEDS: cholecalciferol (vitamin D3) 1,000 unit Tablet 1000 UNIT PO (07:29)
[2019-10-26] MEDS: sennosides-docusate Tablet 2 TAB PO ×2 (07:32→17:41)
[2019-10-26] MEDS: chlorhexidine gluconate 0.12% Btl 473 mL 30 ML MUCOUS MEM ×4 (07:33→20:01)
--- NOTE | 2019-10-26 11:03 | PC.CHAP ---
Pastoral Care Encounter/Spiritual Assessment Type of Contact [] Declined lotteries agent visit [] Patient/Family/Request visit [] Outpatient visit [] Follow-up visit [] Physician referral [] Code/Alert [x] Routine visit [] Staff referral [] Actively dying [] Patient sleeping [] Family support [] [] Out of room [] Palliative care [] [] Receiving care in room [] Pre-surgical visit [] Trauma [] Long length of stay [] ICU visit [] Other: Relational/Emotional Strength [] Patient feels connected with others/family/visitors/staff [] Distress [] Loneliness/isolation [] Abandonment Spirituality of Patient [] Person of Shanna [] Attends Caodaism of their Shanna [] Believes in Prayer [] Reads Bible or Shinto materials [] There are Spiritual issues to be addressed 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 Interventions [x] Prayer [x] Active listening [x] Non-anxious presence [x] Spiritual/emotional support [] Crisis/trauma care [] Spiritual counseling [] Bereavement support [] Provided bereavement packet [] Provided Bible/devotional materials [] Provided toy/stuffed animal, coloring book to patient or family member [] Provided Communion [] Anointing/[place] [] Salvation [x] Completed spiritual assessment [] Other: Impact on Illness or Injury [] Angry [] Fearful [] Anxious [] Often cries [] Exhaustion [] Unable to work [] Unable to attend jew [] Unable to walk/stand [] Unable to read [] Unable to drive [] Unable to eat/drink [] Unable to sleep [] Unable to be with family [] Patient intubated [] Other: Summary 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 Always loving and pleasant. Resting well should be going home tomorrow. Time spent with patient 10 min
[2019-10-26 11:59] LABS: Glucose Point of Care 179 mg/dL (70-110)
--- NOTE | 2019-10-26 14:30 | P.PN_ITS ---
Subjective Subjective: Interval history: Patient reports feeling better but continues to have left lower extremity pain. Denies shortness of breath or chest pain. Denies abdominal pain. Patient lives with his . He is retired. I have discussed with Dr. Yu regarding patient's recent history of knee surgeries and infection. Vitals/I&O/Wt Last Vital Signs Temp 97.9 F 10/26/19 11:18 Pulse 67 10/26/19 11:18 Resp 16 10/26/19 11:18 BP 121/64 10/26/19 11:18 Pulse Ox 97 10/26/19 11:18 10/25/19 10/26/19 10/26/19 22:59 06:59 14:59 Intake Total 1940 / 1940 340 / 2280 1452 / 1452 Output Total 1500 / 1500 1310 / 2810 300 / 300 Balance 440 / 440 -970 / -530 1152 / 1152 Physical Exam Const: COMMON NORMALS: no acute distress and patient oriented x3 Resp: COMMON NORMALS: normal respiratory effort and clear to auscultation bilaterally AUSCULTATION: clear to auscultation bilaterally Cardio: COMMON NORMALS: regular rate, regular rhythm and S2 normal heart sound present RATE: regular rate RHYTHM: regular rhythm HEART SOUNDS: S2 normal heart sound present OTHER: No lower extremity edema GI: COMMON NORMALS: Normal to inspection, nondistended, normoactive bowel sounds present, Soft to palpation and non-tender PALPATION: Yes Soft to palpation Neuro: COMMON NORMALS: patient oriented x3 and no focal motor deficits Urinary Catheter Management^: F: Cath Placed During This Visit: yes, but has since been removed by the nurse Reason for Continuing Indwelling Catheter: Decision to DC Catheter Urinary Catheter Date of Insertion: 10/25/19 Urinary Catheter Time of Insertion: 15:00 Date Urinary Catheter Removed: 10/26/19 Time Urinary Catheter Discontinued: 06:06 Data : 10/26/19 03:40 10/26/19 03:40 Micro: Microbiology 10/25/19 20:20 Blood Culture - Preliminary Blood SPECIMEN COLLECTED 10/25/19 20:16 Blood Culture - Preliminary Blood SPECIMEN COLLECTED 10/25/19 15:57 Gram Stain - Final Synovial Fluid A&P Assessment and plan (1) Infection of total left knee replacement: Cultures growing Enterococcus faecalis and Streptococcus epidermidis Status: Acute Qualifiers: Encounter type: initial encounter Qualified Code(s): T84.54XA - Infection and inflammatory reaction due to internal left knee prosthesis, initial encounter (2) Knee effusion, left: Status: Acute (3) History of total knee arthroplasty: Status: Acute Qualifiers: Laterality: left Qualified Code(s): Z96.652 - Presence of left artificial knee joint (4) Anemia due to blood loss: Status: Acute (5) Diabetic peripheral neuropathy: Status: Acute (6) Septic joint: Status: Acute Additional A&P Information Left knee septic joint Synovial fluid cultures from 10/20/2019 grew Enterococcus faecalis and staph epidermidis resistant to penicillin and ampicillin Currently patient is not septic or bacteremic normal hemodynamics, I would continue vancomycin for now, I believe he will be able to go back to nursing facility on oral antibiotics as microorganisms are sensitive to penicillin if his clinical status stays stable I have requested blood culture and lactic acid Analgesia with Dilaudid as patient is complaining of pain 10/10 Bowel regimen senna S Continue clear liquid Anemia due to blood loss: Hemoglobin stable Delirium, resolved. Patient appears to be at his normal baseline. PLAN: We will continue vancomycin which should cover both pathogens. Patient will need to have IV antibiotics considering significant extent of patient's infection therefore will proceed with placement of PICC line. Full code DVT prophylaxis as per orthopedic surgery Attestations Medical Necessity Statement*: Patient with significant knee infection requires close inpatient monitoring and treatment until deemed safe for discharge. 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
[2019-10-26] MEDS: TRAMadol 50 mg Tablet PO (15:33)
--- NOTE | 2019-10-26 16:34 | PM.PN ---
Subjective Subjective: Interval history: The patient is doing well. He is being followed by the medical team. He is also seen today with his . Medications: Reviewed: Yes Vitals/I&O/Wt Last Vital Signs Temp 97.9 F 10/26/19 16:00 Pulse 76 10/26/19 16:00 Resp 16 10/26/19 16:00 BP 132/78 10/26/19 16:00 Pulse Ox 96 10/26/19 16:00 10/26/19 10/26/19 10/26/19 06:59 14:59 22:59 Intake Total 340 / 2280 1452 / 1452 Output Total 1310 / 2810 300 / 300 Balance -970 / -530 1152 / 1152 Physical Exam Const: COMMON NORMALS: no acute distress, average body habitus, patient oriented x3 and alert GENERAL APPEARANCE: cooperative and comfortable ORIENTATION/CONSCIOUSNESS: Yes awake HENMT: COMMON NORMALS: normocephalic and atraumatic HEAD & SCALP: normocephalic and atraumatic Eye: GENERAL EYE: appearance normal, both eyes and all related structures Chest: COMMONS NORMALS: normal inspection of the chest Resp: COMMON NORMALS: normal respiratory effort EFFORT & INSPECTION: Yes able to speak in complete sentences and Yes symmetric chest movement Extremity: GENERAL: Yes normal exam except as noted LEFT LOWER EXTREMITY: Yes knee joint (The patient's postoperative dressing is removed. The knee is benign. Hemovac is removed as well.) Left knee: Yes inspection (There is no significant erythema or swelling about the knee.), Yes palpation (Minimal tenderness to palpation.), Yes ROM (Not evaluated.) and Yes neurovascular exam (Intact distal to the knee.) Neuro: COMMON NORMALS: patient oriented x3 SENSORIUM/ORIENTATION: Yes alert Psych: COMMON NORMALS: mental status grossly normal APPEARANCE: Yes grossly normal ATTITUDE: Yes calm and Yes engaged ATTENTION/CONCENTRATION: Yes attention grossly intact Skin: COMMON NORMALS: no rashes or lesions noted GENERAL SKIN EXAM: no rashes or lesions noted Urinary Catheter Management^: F: Cath Placed During This Visit: yes, but has since been removed by the nurse Reason for Continuing Indwelling Catheter: Decision to DC Catheter Urinary Catheter Date of Insertion: 10/25/19 Urinary Catheter Time of Insertion: 15:00 Date Urinary Catheter Removed: 10/26/19 Time Urinary Catheter Discontinued: 06:06 Data : 10/26/19 03:40 10/26/19 03:40 Micro: Microbiology 10/25/19 20:20 Blood Culture - Preliminary Blood SPECIMEN COLLECTED 10/25/19 20:16 Blood Culture - Preliminary Blood SPECIMEN COLLECTED 10/25/19 15:57 Gram Stain - Final Synovial Fluid Culture is still pending with no results. Gram stain demonstrated white blood cells but no organisms were seen. A&P Assessment and plan (1) Infection of total left knee replacement: Patient underwent total synovectomy and revision of tibial component yesterday evening. Gram stain is as noted above with no organisms seen. Preoperative cultures and evaluation demonstrated Enterococcus faecalis and a staph epidermidis. Both are sensitive to vancomycin and currently, the patient is being treated with this. He is being followed by the medical service as well. A PICC line has been ordered for him. The wound is benign with dressing change. There is no evidence of significant inflammation in the area. The Hemovac is discontinued secondary to low output. Status: Acute Qualifiers: Encounter type: initial encounter Qualified Code(s): T84.54XA - Infection and inflammatory reaction due to internal left knee prosthesis, initial encounter (2) Knee effusion, left: Status: Acute Attestations Medical Necessity Statement*: Patient requires inpatient status for IV antibiotic and stabilization of therapy. 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
[2019-10-26 16:58] LABS: Glucose Point of Care 159 mg/dL (70-110)
[2019-10-26] MEDS: acetaminophen 500 mg Tablet 1000 MG PO (17:41)
--- NOTE | 2019-10-26 18:16 | PC.NURSE ---
SHIFT SUMMARY PATIENT HAS DONE WELL TODAY. BEEN UP MULTIPLE TIMES WITH ONE ASSIST. WORKED WITH PT AND OT. REMOVED DRESSING AND HEMOVAC WITH DR. VIEIRA. APPLIED NEW DRESSING ALONG WITH 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. PATIENT HAS HAD GOOD URINE OUTPUT AND A BOWEL MOVEMENT. NO COMPLAINTS AT THIS TIME.
[2019-10-26 20:15] LABS: Glucose Point of Care 208 mg/dL (70-110)
[2019-10-26 20:49] LABS: Vancomycin Trough 22.8 ug/mL (10-15)
--- NOTE | 2019-10-26 21:58 | PC.PHAR ---
Vancomycin trough level at dose of 1250mg IVPB every 12 hours is 22.8. Dose is reduced to 1000mg IVPB every 12 hours with another trough level to be obtained by the lab before the fourth 1000mg dose.
[2019-10-27] VITALS: BP 126/70; PULSE 73; RESP 17; TEMP 36.8; O2SAT 96
[2019-10-27] MEDS: acetaminophen 500 mg Tablet 1000 MG PO ×2 (03:01→13:26)
[2019-10-27 04:00] VITALS: BP 129/73; PULSE 63; RESP 18; TEMP 36.5; O2SAT 96
[2019-10-27 06:03] LABS: Basophils % 0.2 %; Eosinophils # 0.1 10^3/uL (0.0-0.8); Eosinophils % 1.5 %; Hematocrit 29.2 % (42.0-52.0); Hemoglobin 8.7 g/dL (11.7-16.6); Lymphocytes # 1.5 10^3/uL (0.8-4.8); Lymphocytes % 26.8 %; Mean Corpuscular HGB Conc 29.8 g/dL (30.0-36.0); Mean Corpuscular Volume 83.9 fL (80-94); Mean Platelet Volume 9.7 fL (7.4-10.4); Monocytes # 0.5 10^3/uL (0.2-0.9); Monocytes % 8.2 %; Neutrophils # 3.46 10^3/uL (1.8-7.7); Neutrophils % 62.9 %; Nucleated Red Blood Cells % 0 %; Platelet Count 389 10^3/cmm (130-400); Red Blood Count 3.48 10^6/uL (4.1-5.3); Red Cell Distribution Width 15.3 % (12.1-15.1); White Blood Count 5.5 10^3/uL (4.0-10.0)
[2019-10-27] MEDS: CELEcoxib 200 mg Capsule PO (06:19)
[2019-10-27 06:24] VITALS: RESP 16
[2019-10-27] MEDS: oxyCODONE 5 mg IR Tab/Cap PO (06:24)
[2019-10-27 06:34] LABS: Glucose Point of Care 143 mg/dL (70-110)
[2019-10-27 07:10] LABS: Procalcitonin 0.06 ng/mL (0-0.5)
[2019-10-27 07:16] VITALS: BP 118/68; PULSE 60; RESP 16; TEMP 36.6; O2SAT 98
[2019-10-27 07:20] LABS: C Reactive Protein 47.6 mg/L (0.0-4.9)
[2019-10-27] MEDS: gabapentin 400 mg Capsule 800 MG PO ×2 (08:42→15:20)
[2019-10-27] MEDS: iron polysaccharide complex 150 mg Capsule PO (08:42)
[2019-10-27] MEDS: pantoprazole DR 40 mg Tablet PO (08:43)
[2019-10-27] MEDS: sennosides-docusate Tablet 2 TAB PO (08:43)
[2019-10-27] MEDS: cholecalciferol (vitamin D3) 1,000 unit Tablet 1000 UNIT PO (08:43)
[2019-10-27] MEDS: multivitamin therapeutic Tablet 1 TAB PO (08:43)
[2019-10-27] MEDS: aspirin 325 mg EC Tablet PO (08:44)
[2019-10-27] MEDS: chlorhexidine gluconate 0.12% Btl 473 mL 30 ML MUCOUS MEM ×2 (08:56→13:42)
[2019-10-27] MEDS: calcium carbonate 500 mg Chew Tablet 1000 MG PO (08:57)
[2019-10-27] MEDS: vancomycin 1,000 MG in sodium chloride 0.9% 250 ML 250 MG IV (10:11)
--- NOTE | 2019-10-27 11:00 | PC.NURSE ---
Patient to PACU for PICC line placement.
[2019-10-27 11:11] LABS: Glucose Point of Care 176 mg/dL (70-110)
--- NOTE | 2019-10-27 11:30 | XR_ITS ---
WS: [id number] Portable AP upright chest, 10/27/2019 Clinical Data: picc placement Comparison: PA and lateral chest, 09/13/2019. Findings: A right PICC line enters superior vena cava and ends at the level of the right fifth rib. N o pneumothorax is seen. The remainder of the chest is unremarkable. XR/XR chest 1V portable [id number] Impression: Satisfactory placement of right PICC line.
[2019-10-27 12:00] VITALS: BP 128/73; PULSE 73; RESP 16; TEMP 36.4; O2SAT 96
[2019-10-27] MEDS: sodium chloride 0.9% 1,000 ML 80 ML IV (13:25)
--- NOTE | 2019-10-27 14:47 | PM.DCS ---
Discharge Providers Date of Admission: 10/25/19 11:19 Date of Discharge: October 27, 2019 Attending Provider at Admission: Kylie Yu MD Attending Provider at Discharge: Kylie Yu MD Primary Care Provider: Evangelist Duvall Diagnoses at Discharge Discharge Diagnosis (1) Infection of total left knee replacement: Status: Acute Problem details: Initial surgery on September 13, [address] Sanders Qualifiers: Encounter type: initial encounter Qualified Code(s): T84.54XA - Infection and inflammatory reaction due to internal left knee prosthesis, initial encounter (2) Knee effusion, left: Status: Acute Reason for Visit Reason for Visit: Infected left total knee arthroplasty Hospital Course Hospital Course: This 59-year-old gentleman was admitted with plans for a left knee arthrotomy with irrigation and debridement, complete synovectomy, and polyethylene exchange of the tibial component of the left total knee arthroplasty. The patient came to the hospital following procedure was performed: Left total knee arthroplasty revision and irrigation and debridement with removal of tibial polyethylene and conversion from a size 6 x 11 mm posterior stabilized tibial bearing insert to a 6 x 13 mm tibial bearing insert with aggressive complete synovectomy, and irrigation with 10 L of fluid. This was well-tolerated. A drain was placed and the drain was removed yesterday. The patient was reevaluated today. The wound remained benign. He was neurologically intact distally. There was no drainage. There was no effusion. The patient was felt to be ready for discharge back to the halfway facility from whence he came. He will follow-up with me as scheduled. Also, the hospitalist team was involved, and he will be seeing Dr. Harris postoperatively for her infectious disease expertise. Discharge Summary: Patient was admitted on October 24 for revision tibial component and irrigation and extensive debridement and synovectomy following infection of a total knee arthroplasty which was placed on September [address] Sanders. A drain was placed postoperatively which was removed on the first postoperative day. The patient's wound remained benign. There was no evidence of sepsis. The patient was treated based on outpatient cultures. A PICC line was placed and the patient was ready for discharge back to the halfway facility on the second postoperative day. Physical Exam Const: COMMON NORMALS: no acute distress, average body habitus, patient oriented x3 and alert GENERAL APPEARANCE: cooperative and comfortable ORIENTATION/CONSCIOUSNESS: Yes awake HENMT: COMMON NORMALS: normocephalic and atraumatic HEAD & SCALP: normocephalic and atraumatic Eye: GENERAL EYE: appearance normal, both eyes and all related structures Chest: COMMONS NORMALS: normal inspection of the chest Resp: COMMON NORMALS: normal respiratory effort EFFORT & INSPECTION: Yes able to speak in complete sentences and Yes symmetric chest movement Extremity: GENERAL: Yes normal exam except as noted LEFT LOWER EXTREMITY: Yes knee joint Left knee: Yes inspection (The wound is benign. There is no drainage. There is no drainage from the drain site.), Yes palpation (There is minimal tenderness, and there is no evidence of effusion.), Yes ROM (The patient is in a knee immobilizer and I have limited his range of motion from 0 to 30 degrees. He is not to flex beyond that.) and Yes neurovascular exam (Intact distally.) Neuro: COMMON NORMALS: patient oriented x3 SENSORIUM/ORIENTATION: Yes alert Psych: COMMON NORMALS: mental status grossly normal APPEARANCE: Yes grossly normal ATTITUDE: Yes calm and Yes engaged ATTENTION/CONCENTRATION: Yes attention grossly intact Skin: COMMON NORMALS: no rashes or lesions noted GENERAL SKIN EXAM: no rashes or lesions noted Urinary Catheter Management^: F: Cath Placed During This Visit: yes, but has since been removed by the nurse Reason for Continuing Indwelling Catheter: Decision to DC Catheter Urinary Catheter Date of Insertion: 10/25/19 Urinary Catheter Time of Insertion: 15:00 Date Urinary Catheter Removed: 10/26/19 Time Urinary Catheter Discontinued: 06:06 Discharge Data Data Completed and Pending: Completed Studies During Hospitalization Category Date Time Status XR chest 1V ben ble [id number] Routine Exams 10/27/19 11:30 Completed XR knee LT 1-2V 7 3560 Stat Exams 10/25/19 17:11 Completed Pending at discharge Category Date Time Status Anaerobic Culture Routine Lab 10/25/19 15:57 Results Blood Culture Sta t Lab 10/25/19 20:20 Results Body Fluid Cultur e & GS Stat Lab 10/25/19 15:57 Results Complete Blood Co unt w/Auto AM LABS Lab 10/28/19 04:00 Ordered Vancomycin Trough Timed Lab 10/28/19 20:00 Ordered Pathology: Surgic al [PTH] Routine Pth 10/26/19 14:07 Received Labs from last 24 hours 10/27/19 10/27/19 10/27/19 10:54 06:26 03:25 WBC RBC Hgb Hct MCV MCH MCHC RDW Plt Count MPV Neut % (Auto) Lymph % (Auto) Schleicher % (Auto) Eos % (Auto) Baso % (Auto) Neut # (Auto) Lymph # (Auto) Schleicher # (Auto) Eos # (Auto) Baso # (Auto) Nucleated RBC % (a uto) Nucleated RBCs # POC Glucose 176 143 C-Reactive Protein 47.6 H Procalcitonin 0.06 Vancomycin Trough 10/27/19 10/26/19 10/26/19 03:25 20:02 19:54 WBC 5.5 RBC 3.48 L Hgb 8.7 L Hct 29.2 L MCV 83.9 MCH 25.0 L MCHC 29.8 L RDW 15.3 H Plt Count 389 MPV 9.7 Neut % (Auto) 62.9 Lymph % (Auto) 26.8 Schleicher % (Auto) 8.2 Eos % (Auto) 1.5 Baso % (Auto) 0.2 Neut # (Auto) 3.46 Lymph # (Auto) 1.5 Schleicher # (Auto) 0.5 Eos # (Auto) 0.1 Baso # (Auto) 0.0 Nucleated RBC % (a uto) 0 Nucleated RBCs # 0.0 POC Glucose 208 C-Reactive Protein Procalcitonin Vancomycin Trough 22.8 H 10/26/19 16:44 WBC RBC Hgb Hct MCV MCH MCHC RDW Plt Count MPV Neut % (Auto) Lymph % (Auto) Schleicher % (Auto) Eos % (Auto) Baso % (Auto) Neut # (Auto) Lymph # (Auto) Schleicher # (Auto) Eos # (Auto) Baso # (Auto) Nucleated RBC % (a uto) Nucleated RBCs # POC Glucose 159 C-Reactive Protein Procalcitonin Vancomycin Trough Vitals: Last Vital Signs Temp 97.5 F L 10/27/19 12:00 Pulse 73 10/27/19 12:00 Resp 16 10/27/19 12:00 BP 128/73 10/27/19 12:00 Pulse Ox 96 10/27/19 12:00 Discharge Plan Discharge Patient Disposition: Xfer SNF Condition: Stable Prescriptions: New aspirin 325 mg Tablet,Delayed Release (Dr/Ec) 325 mg PO DAILY 30 Days Qty: 0 RF: 0 vancomycin 1,000 mg recon soln 1,000 mg IV BID 42 Days Qty: 90 RF: 0 Continued (DME) 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 See Rx Instructions .Route .MEDSUPPLY Qty: 1 RF: 0 celecoxib 200 mg Capsule 200 mg PO Q12H Qty: 30 RF: 0 polysaccharide iron complex [Ferrex 150] 150 mg iron Capsule 150 mg PO BIDWM 30 Days Qty: 60 RF: 0 sennosides-docusate sodium 8.6-50 mg Tablet 2 tab PO BID PRN (Reason: Constipation) Qty: 30 RF: 0 cholecalciferol (vitamin D3) [Vitamin D3] 25 mcg (1,000 unit) Tablet 1,000 unit PO DAILY 30 Days Qty: 30 RF: 0 Thera 400 mcg Tablet 1 tab PO DAILY 30 Days Qty: 30 RF: 0 oxycodone-acetaminophen 5-325 mg tablet 1 tab PO Q4H PRN (Reason: pain) Qty: 40 RF: 0 gabapentin [Neurontin] 800 mg tablet 800 mg PO TID Qty: 30 RF: 0 omeprazole 20 mg capsule,delayed release(DR/EC) 20 mg PO DAILY Qty: 30 RF: 0 Xigduo XR 10-500 mg tablet, IR - ER, biphasic 24hr 1 tab PO DAILY Qty: 30 RF: 0 Discharge Orders: Discharge Order (Routine); Ordered 10/27/19 Ordered By: Kylie Yu Other Ambulatory Orders: Vancomycin Trough (Routine) Timeframe: 20191029 Facility: [facility] - Location: Lab - Main Lab Ordered By: Josiah Vazquez Referrals: [facility] [Outside] Kylie Yu MD [Physician] - 11/10/19 9:15 am Discharge Diet: Advance as tolerated and Usual diet Discharge Activity: Limit activity as instructed, Use walker/crutches as instructed and As per PT/OT instructions Patient Instructions: Anemia, Iron Rich Diet (DC), Osteoarthritis (DC) Activity Restrictions/Additional Instructions: Knee immobilizer at all times. Do not bend the knee past 30 degrees. Do not actively extend the knee. May weight-bear as tolerated. 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
--- NOTE | 2019-10-27 14:48 | PM.PN ---
Subjective Subjective: Interval history: Patient denies shortness of breath or chest pain. Denies abdominal pain or problems with bowel movement. He is being dismissed to nursing facility for further monitoring and treatment Vitals/I&O/Wt Last Vital Signs Temp 97.5 F L 10/27/19 12:00 Pulse 73 10/27/19 12:00 Resp 16 10/27/19 12:00 BP 128/73 10/27/19 12:00 Pulse Ox 96 10/27/19 12:00 10/26/19 10/27/19 10/27/19 22:59 06:59 14:59 Intake Total 1240 / 2942 480 / 3422 1850 / 1850 Output Total 1615 / 1915 1400 / 3315 950 / 950 Balance -375 / 1027 -920 / 107 900 / 900 Physical Exam Const: COMMON NORMALS: no acute distress and patient oriented x3 Resp: COMMON NORMALS: normal respiratory effort and clear to auscultation bilaterally AUSCULTATION: clear to auscultation bilaterally Cardio: COMMON NORMALS: regular rate, regular rhythm and S2 normal heart sound present RATE: regular rate RHYTHM: regular rhythm HEART SOUNDS: S2 normal heart sound present OTHER: No lower extremity edema. Left leg dressed. GI: COMMON NORMALS: Normal to inspection, nondistended, normoactive bowel sounds present, Soft to palpation and non-tender PALPATION: Yes Soft to palpation Neuro: COMMON NORMALS: patient oriented x3 and no focal motor deficits Urinary Catheter Management^: F: Cath Placed During This Visit: yes, but has since been removed by the nurse Reason for Continuing Indwelling Catheter: Decision to DC Catheter Urinary Catheter Date of Insertion: 10/25/19 Urinary Catheter Time of Insertion: 15:00 Date Urinary Catheter Removed: 10/26/19 Time Urinary Catheter Discontinued: 06:06 Data : 10/27/19 03:25 10/26/19 03:40 Micro: Microbiology 10/25/19 15:57 Gram Stain - Final Synovial Fluid Anaerobic Culture - Preliminary Body Fluid Culture - Preliminary 10/25/19 20:20 Blood Culture - Preliminary Blood NEGATIVE TO DATE 10/25/19 20:16 Blood Culture - Preliminary Blood NEGATIVE TO DATE A&P Assessment and plan (1) Infection of total left knee replacement: Cultures growing Enterococcus faecalis and Streptococcus epidermidis Status: Acute Qualifiers: Encounter type: initial encounter Qualified Code(s): T84.54XA - Infection and inflammatory reaction due to internal left knee prosthesis, initial encounter (2) Knee effusion, left: Status: Acute (3) History of total knee arthroplasty: Status: Acute Qualifiers: Laterality: left Qualified Code(s): Z96.652 - Presence of left artificial knee joint (4) Anemia due to blood loss: Status: Acute (5) Diabetic peripheral neuropathy: Status: Acute (6) Septic joint: Status: Acute Additional A&P Information Left knee septic joint Synovial fluid cultures from 10/20/2019 grew Enterococcus faecalis and staph epidermidis resistant to penicillin and ampicillin Currently patient is not septic or bacteremic normal hemodynamics, I would continue vancomycin for now, I believe he will be able to go back to nursing facility on oral antibiotics as microorganisms are sensitive to penicillin if his clinical status stays stable I have requested blood culture and lactic acid Analgesia with Dilaudid as patient is complaining of pain 10/ Bowel regimen senna S Continue clear liquid Anemia due to blood loss: Hemoglobin stable Delirium, resolved. Patient appears to be at his normal baseline. PLAN: Patient to continue with vancomycin 1 g twice daily. Patient to have trough checked day after tomorrow before morning dose with results sent to primary care physician. Discussed with Dr. Morrell. We will continue vancomycin for 6 weeks with plan to transition to suppressive antibiotics. Will request outpatient follow-up with JIMENEZ Mckinley. Full code DVT prophylaxis as per orthopedic surgery Attestations Medical Necessity Statement*: Patient is being discharged. 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
[2019-10-27 16:20] VITALS: BP 128/73; PULSE 73; RESP 16; TEMP 36.4; O2SAT 96
== END 2019-10-27 16:21 | disposition skilled nursing facility (03) | DRG 486 ==
PROVIDERS: Internal Medicine; Admitting Provider Specialist; PCP Student in an Organized Health Care Education/Training Program; Visit Provider Specialist
PROC: 0SWD04Z Revision of Internal Fixation Device in Left Knee Joint, Open Approach (ICD-10-PCS; CPT 27447; principal; 2019-10-25 13:40)
DX: T84.54XA Infection and inflammatory reaction due to internal left knee prosthesis, initial encounter (principal); M00.9 Pyogenic arthritis, unspecified; D62 Acute posthemorrhagic anemia; Y69 Unspecified misadventure during surgical and medical care; Y92.009 Unspecified place in unspecified non-institutional (private) residence as the place of occurrence of the external cause; M25.462 Effusion, left knee; Z96.652 Presence of left artificial knee joint; E11.42 Type 2 diabetes mellitus with diabetic polyneuropathy; B95.2 Enterococcus as the cause of diseases classified elsewhere; K21.9 Gastro-esophageal reflux disease without esophagitis; E11.22 Type 2 diabetes mellitus with diabetic chronic kidney disease; N18.2 Chronic kidney disease, stage 2 (mild); Z91.81 History of falling; E78.5 Hyperlipidemia, unspecified; I12.9 Hypertensive chronic kidney disease with stage 1 through stage 4 chronic kidney disease, or unspecified chronic kidney disease
CPT/HCPCS: 12345; 36415; 36416; 36569; 51702; 71045; 73560; 80048; 80053; 80202; 81003; 82962; 83605; 84145; 85025; 86140; 87040; 87070; 87075; 87205; 88304; 88305; 96372; 96374; 97116; 97161; 97166; 97530; 97535; C1776; C9290; J0131; J0690; J1100; J1815; J2250; J2270; J2405; J2704; J2795; J3010; J3370; J3490; J7030; J7050

== ENCOUNTER → 2019-11-10 09:16 | Outpatient (BNVA) | payer OTHER, SELFPAY | PROVIDERS: PCP Student in an Organized Health Care Education/Training Program; Visit Provider Specialist | DX: Z96.652 Presence of left artificial knee joint (principal) | CPT/HCPCS: 73560; 73565 ==

== ENCOUNTER → 2019-11-23 09:15 | Outpatient (BNVA) | payer OTHER, SELFPAY | PROVIDERS: PCP Student in an Organized Health Care Education/Training Program; Visit Provider Specialist | DX: T84.54XA Infection and inflammatory reaction due to internal left knee prosthesis, initial encounter (principal); Z96.652 Presence of left artificial knee joint | CPT/HCPCS: 73560; 73565 ==

== ENCOUNTER → 2019-12-14 11:01 | Outpatient (BNVA) | payer MEDICARE, SELFPAY | PROVIDERS: PCP Student in an Organized Health Care Education/Training Program; Visit Provider Specialist | DX: M25.462 Effusion, left knee (principal); Z96.652 Presence of left artificial knee joint; T84.54XA Infection and inflammatory reaction due to internal left knee prosthesis, initial encounter; M97.02XA Periprosthetic fracture around internal prosthetic left hip joint, initial encounter; Z96.642 Presence of left artificial hip joint | CPT/HCPCS: 73502; 73560; 73565 ==

== ENCOUNTER 2020-02-15 12:51 | Inpatient (IN) | payer MEDICARE, BC, SELFPAY ==
[2020-02-15] VITALS (10 sets, daily range): BP systolic 114–128; BP diastolic 68–74; PULSE 74–84; RESP 16–18; TEMP 36.4–37.6; O2SAT 93–98; BMI 24.7
--- NOTE | 2020-02-15 13:47 | ECG_ITS ---
[facility] Test Date: 2020-02-15 Pat Name: Regino Calvert Department: Room: Gender: Male Bariatric Nurse: : 1960 Requested By: Johnny Go Order Number: [id number] Edilma MD: Dakota Ambriz M.D. Measurements Intervals [place] Rate: 72 P: 47 ND: 148 QRS: -27 QRSD: 97 T: 2 QT: 393 QTc: 432 Interpretive Statements SINUS RHYTHM BORDERLINE LEFT AXIS DEVIATION [QRS AXIS < -20] LOW QRS VOLTAGE IN PRECORDIAL LEADS [QRS DEFLECTION < 1.0 mV IN CHEST LEADS] Compared to ECG 09/13/2019 09:06:02 No significant changes Electronically Signed On 02-15-2020 16:07:44 PLASTIC INSTALLER by Dakota Ambriz M.D. [email or web address]
--- NOTE | 2020-02-15 13:47 | XR_ITS ---
WS: [id number] Portable AP upright chest, 02/15/2020 Clinical Data: dyspnea/cough Comparison: Portable chest, 10/27/2019. Findings: No nodules, masses or effusions are seen. The heart is normal. The pulmonary vascularity is not increased. No pneumonia or pneumothorax is seen. XR/XR chest 1V portable [id number] Impression: Negative chest.
--- NOTE | 2020-02-15 13:55 | W.ED.FALL ---
HPI - Fall General: Chief Complaint: Fall Stated Complaint: L HIP PAIN,S/P FALL,SENT BY DR YU Time Seen by Provider: 02/15/20 13:38 History of Present Illness: HPI Narrative: 59-year-old male presents emergency room via wheelchair from the Ortho clinic across the street from the emergency room. He was seen today for routine follow-up visit for previous arthroplasties of his knee and hip. He had actually been given a clean bill of health as far as his prosthetics were concerned and was to follow-up with Ortho in 6 months. While leaving the clinic he fell. He has a history of frequent falls particularly at home evidently he was brought back into the clinic and reevaluated by Dr. Rivas and found to have a left periprosthetic fracture. He is in a fair amount of pain here in the emergency room. His only complaint from the fall is the left hip pain he denies striking his head or losing consciousness. He denies being ill recently no fever sweats chills cough cold or flu symptoms. He denies any chest pain. Dr. Rivas had called ahead that he would be coming he is to be admitted there hoping to do a surgical repair of the periprosthetic fracture in the next day or 2. MD complaint: fall Onset (ago): minute(s) Fall from: standing Fall witnessed: yes, by family Place fall occurred: other ([facility]) Loss of consciousness: None Prolonged down time: no Context: other (Stumbled patient has a history of frequent falls) Location of injury - extremities: Left: thigh Severity: severe Quality: sharp Associated symptoms-after fall: Denies abdominal pain, chest pain, confusion, difficulty walking, headache(s), hematuria, lightheadedness, neck pain, numbness, short of breath, vertigo or weakness Review of Systems Const: Denies: fever(s), chills, body aches, change in appetite, fatigue or malaise ENMT: Denies: throat pain, ear or mastoid pain, nasal discharge or nasal congestion Card: Denies: chest pain or lightheadedness Resp: Denies: dyspnea, productive cough or non-productive cough GI: Denies: abdominal pain : Denies: hematuria Musc: Denies: neck pain Skin/Breast: Denies: rash or pruritus Neuro: Denies: headache(s), difficulty walking, vertigo or confusion PFSH ED PFSH: Medical History Chronic anemia CKD (chronic kidney disease) stage 2, GFR 60-89 ml/min Diabetes mellitus type 2, noninsulin dependent Diabetic peripheral neuropathy Fall GERD (gastroesophageal reflux disease) History of osteomyelitis Right foot History of septic arthritis Left knee Hx of fracture of left hip Hyperlipidemia Hypertension Surgical History History of hand surgery History of knee surgery Bilateral History of toe surgery History of total knee arthroplasty Family History Other Cancer Diabetes Social History Smoking and tobacco status: never smoked Alcohol intake: current Alcohol intake frequency: 3 or more drinks per day Alcohol type: beer Household members: spouse and children Marital status: Physical Exam Const: COMMON NORMALS: no acute distress GENERAL APPEARANCE: cooperative and comfortable ORIENTATION/CONSCIOUSNESS: Yes awake, Yes oriented to person, Yes oriented to place and Yes oriented to time HENMT: COMMON NORMALS: normocephalic, atraumatic and hearing grossly normal bilaterally HEAD & SCALP: normocephalic and atraumatic Eye: COMMON NORMALS: Equal, round and reactive pupils present, EOMs intact bilaterally, conjunctivae normal and no scleral icterus CONJUNCTIVA: Yes conjunctivae normal PUPIL: Yes Equal, round and reactive pupils present Neck/C-Spine: COMMON NORMALS: no JVD Resp: COMMON NORMALS: normal respiratory effort, No retractions, No use of accessory muscles and clear to auscultation bilaterally AUSCULTATION: clear to auscultation bilaterally Cardio: COMMON NORMALS: no JVD, regular rate, regular rhythm and No murmurs present (Cardio) RATE: regular rate RHYTHM: regular rhythm GI: COMMON NORMALS: Soft to palpation and No hepatosplenomegaly present AUSCULTATION: Yes normoactive bowel sounds PALPATION: Yes Soft to palpation, No Tenderness to palpation present (GI), No Guarding due to palpation present (GI) and Yes No hepatosplenomegaly present Extremity: COMMON NORMALS: normal to inspection, capillary refill normal, no clubbing, cyanosis or edema, no calf tenderness and no pedal edema Neuro: SENSORIUM/ORIENTATION: Yes oriented to person, Yes oriented to place and Yes oriented to time Skin: COMMON NORMALS: no rashes or lesions noted GENERAL SKIN EXAM: no rashes or lesions noted Course Vital Signs: Vital signs: Vital Signs Temperature 98.8 F 02/20/20 04:00 Pulse Rate 62 02/20/20 04:00 Respiratory Rate 20 H 02/20/20 04:00 Blood Pressure 111/66 02/20/20 04:00 Pulse Oximetry 97 02/20/20 04:00 MDM - Fall MDM Narrative: Medical decision making narrative: Discussed with hospitalist and Ortho orders written Lab Data: Labs: Lab Results 02/15/20 02/15/20 02/15/20 Range/Units 13:24 13:24 13:24 WBC 9.3 (4.0-10.0) 10^3/ uL RBC 4.53 (4.1-5.3) 10^6/u L Hgb 10.6 L (11.7-16.6) g/dL Hct 34.5 L (42.0-52.0) % MCV 76.2 L (80-94) fL MCH 23.4 L (28.0-34.0) pg MCHC 30.7 (30.0-36.0) g/dL RDW 17.3 H (12.1-15.1) % Plt Count 396 (130-400) 10^3/c mm MPV 9.1 (7.4-10.4) fL Neut % (Auto) 82.6 % Lymph % (Auto) 10.6 % [place] % (Auto) 5.7 % Eos % (Auto) 0.4 % Baso % (Auto) 0.3 % Neut # (Auto) 7.70 (1.8-7.7) 10^3/u L Lymph # (Auto) 1.0 (0.8-4.8) 10^3/u L [place] # (Auto) 0.5 (0.2-0.9) 10^3/u L Eos # (Auto) 0.0 (0.0-0.8) 10^3/u L Baso # (Auto) 0.0 (0.0-0.1) 10^3/u L Nucleated RBC % (a uto) 0 % Nucleated RBCs # 0.0 /100WBC PT 14.70 (12.1-14.9) SECO NDS INR 1.11 (0.8-1.2) APTT 31.4 (23.9-36.7) SECO NDS Sodium 137 (136-145) mmol/L Potassium 3.7 (3.5-5.1) mmol/L Chloride 100 (98-107) mmol/L Carbon Dioxide 24 (22-29) mmol/L Anion Gap 16.7 (5-19) BUN 19 (6-20) mg/dL Creatinine 0.8 (0.7-1.2) mg/dL GFR Calculation 99.3 (90-130) mL/min Glucose 131 H (65-115) mg/dL Calculated Osmolal ity 288 (285-295) mOsm/k g Calcium 9.5 (8.5-10.5) mg/dL Total Bilirubin 0.3 (0.15-1.2) mg/dL AST 19 (0-40) U/L ALT 16 (0-41) U/L Alkaline Phosphata se 158 H (40-130) IU/L Total Protein 7.9 (6.6-8.7) g/dL Albumin 4.3 (3.5-5.2) g/dL Globulin 3.6 (1.3-4.6) g/dL Urine Color (Yellow) Urine Appearance (CLEAR) Urine pH (5-7) Ur Specific Gravit y (1.005-1.030) Urine Protein (Negative) Urine Glucose (UA) (Normal) Urine Ketones (Negative) Urine Blood (Negative) Urine Nitrate (Negative) Urine Bilirubin (Negative) Urine Urobilinogen (Negative) mg/dL Ur Leukocyte Robina ase (Negative) Nasal/Oral COVID-1 9 PCR 02/15/20 02/15/20 Range/Units 14:20 14:30 WBC (4.0-10.0) 10^3/ uL RBC (4.1-5.3) 10^6/u L Hgb (11.7-16.6) g/dL Hct (42.0-52.0) % MCV (80-94) fL MCH (28.0-34.0) pg MCHC (30.0-36.0) g/dL RDW (12.1-15.1) % Plt Count (130-400) 10^3/c mm MPV (7.4-10.4) fL Neut % (Auto) % Lymph % (Auto) % [place] % (Auto) % Eos % (Auto) % Baso % (Auto) % Neut # (Auto) (1.8-7.7) 10^3/u L Lymph # (Auto) (0.8-4.8) 10^3/u L [place] # (Auto) (0.2-0.9) 10^3/u L Eos # (Auto) (0.0-0.8) 10^3/u L Baso # (Auto) (0.0-0.1) 10^3/u L Nucleated RBC % (a uto) % Nucleated RBCs # /100WBC PT (12.1-14.9) SECO NDS INR (0.8-1.2) APTT (23.9-36.7) SECO NDS Sodium (136-145) mmol/L Potassium (3.5-5.1) mmol/L Chloride (98-107) mmol/L Carbon Dioxide (22-29) mmol/L Anion Gap (5-19) BUN (6-20) mg/dL Creatinine (0.7-1.2) mg/dL GFR Calculation (90-130) mL/min Glucose (65-115) mg/dL Calculated Osmolal ity (285-295) mOsm/k g Calcium (8.5-10.5) mg/dL Total Bilirubin (0.15-1.2) mg/dL AST (0-40) U/L ALT (0-41) U/L Alkaline Phosphata se (40-130) IU/L Total Protein (6.6-8.7) g/dL Albumin (3.5-5.2) g/dL Globulin (1.3-4.6) g/dL Urine Color Yellow (Yellow) Urine Appearance Clear (CLEAR) Urine pH 6 (5-7) Ur Specific Gravit y 1.010 (1.005-1.030) Urine Protein Neg (Negative) Urine Glucose (UA) 4+ H (Normal) Urine Ketones Negative (Negative) Urine Blood Neg (Negative) Urine Nitrate Negative (Negative) Urine Bilirubin Neg (Negative) Urine Urobilinogen Norm (Negative) mg/dL Ur Leukocyte Robina ase Negative (Negative) Nasal/Oral COVID-1 9 PCR Positive Discharge Plan Discharge Patient Disposition: Admitted As Inpatient Admit Provider: Roderick Garcia Clinical Impression: Periprosthetic fracture around internal prosthetic left hip joint, initial encounter, Diabetic peripheral neuropathy, Status post hip hemiarthroplasty, Type 2 diabetes mellitus, Chronic kidney disease (CKD) History of total knee arthroplasty Qualifiers: Laterality: left Qualified Code(s): Z96.652 - Presence of left artificial knee joint Condition: Stable Coding Level of Care Code ED [employer] Tax Assessor for Chg Fwd Exam Comprehensive
[2020-02-15] MEDS: ondansetron 2 mg/ML SDV 2 mL 4 MG IVP (14:00)
[2020-02-15] MEDS: morphine 4 mg/mL SDV 1 mL IVP ×2 (14:00→14:57)
[2020-02-15 14:05] LABS: Basophils % 0.3 %; Eosinophils % 0.4 %; Hematocrit 34.5 % (42.0-52.0); Hemoglobin 10.6 g/dL (11.7-16.6); Lymphocytes % 10.6 %; Mean Corpuscular HGB Conc 30.7 g/dL (30.0-36.0); Mean Corpuscular Hemoglobin 23.4 pg (28.0-34.0); Mean Corpuscular Volume 76.2 fL (80-94); Mean Platelet Volume 9.1 fL (7.4-10.4); Monocytes # 0.5 10^3/uL (0.2-0.9); Monocytes % 5.7 %; Neutrophils % 82.6 %; Nucleated Red Blood Cells % 0 %; Platelet Count 396 10^3/cmm (130-400); Red Blood Count 4.53 10^6/uL (4.1-5.3); Red Cell Distribution Width 17.3 % (12.1-15.1); White Blood Count 9.3 10^3/uL (4.0-10.0)
[2020-02-15 14:27] LABS: INR 1.11 (0.8-1.2)
[2020-02-15 14:28] LABS: Partial Thromboplastin Time 31.4 SECONDS (23.9-36.7)
[2020-02-15 14:32] LABS: Add Urine Microscopic? NO
--- NOTE | 2020-02-15 14:40 | P.HP_ITS ---
Providers/Chief Complaint Admitting Physician: Roderick Garcia M.D Primary Care Provider: Evangelist Duvall Chief Complaint: L HIP PAIN,S/P FALL,SENT BY DR VIEIRA History of Present Illness Regino Calvert is a 59 year old male HTN, NIDDM type II and complicated by peripheral neuropathy, GERD, Chronic anemia, CKD stage 2,L total knee arthroplasty,was admitted post mechanical fall at orthopedic clinic today.Post fall he deny hitting his head,no dizziness,no LOC. Vitals and labs reviewed Imaging studies: XR hip LT: Probable cortical fracture of the medial aspect of the junction of the proximal and middle thirds of the left femur. 2. Left hip hemiarthroplasty components remain in good position. XR knees AP WB w LT:Suspected joint effusion and 13 mm posterior intra-articular calcification. 2. Soft tissue swelling. Xray chest : No nodules, masses or effusions are seen. The heart is normal. The pulmonary vascularity is not increased. No pneumonia or pneumothorax is seen EKG : SINUS RHYTHM . LOW QRS VOLTAGE IN PRECORDIAL LEADS Review of Systems General: Reports: 10 or more systems reviewed and unremarkable except in HPI and below Const: Denies: fever(s), chills, body aches, change in appetite or diaphoresis Card: Denies: palpitations, edema, swelling of feet/ankles, dyspnea on exertion, orthopnea or leg pain with exertion Resp: Denies: dyspnea, productive cough, wheezing or pain on inspiration GI: Denies: abdominal pain, nausea, vomiting, diarrhea or constipation : Denies: flank pain or difficulty urinating Musc: Denies: back pain, extremity pain or extremity swelling Neuro: Denies: headache(s), difficulty walking or confusion Medications/Allergies Home Medications Medication Instructions Recorded Confirmed Last Taken Type Xigduo XR 1 tab PO DAILY #30 each 09/27/19 02/15/20 02/15/20 Rx gabapentin [Neurontin] 800 mg PO TID #30 tab 09/27/19 02/15/20 02/15/20 Rx omeprazole 20 mg PO DAILY #30 cap 09/27/19 02/15/20 02/15/20 Rx 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 #1 ea NS 10/20/19 02/15/20 Unknown Rx Post operative hinged Left knee #1 ea NS 11/23/19 02/15/20 Unknown Rx brace FRONT WHEEL FOLDING WALKER #1 ea NS 12/14/19 02/15/20 Unknown Rx Otc Muscle Cramps 1 tab PO DAILY 02/15/20 02/15/20 02/14/20 History multivit-iron [id number] 1 ea PO DAILY 02/15/20 02/15/20 02/15/20 History [Multi For Him] Allergies Allergy/AdvReac Type Severity Reaction Status Date / Time No Known Allergies Allergy Verified 02/15/20 13:07 PFSH Acute PFSH: Medical History (Updated 02/15/20 @ 14:58 by Roderick Garcia MD) Chronic anemia CKD (chronic kidney disease) stage 2, GFR 60-89 ml/min Diabetes mellitus type 2, noninsulin dependent Diabetic peripheral neuropathy Fall GERD (gastroesophageal reflux disease) History of osteomyelitis Right foot History of septic arthritis Left knee Hx of fracture of left hip Hyperlipidemia Hypertension Surgical History History of hand surgery History of knee surgery Bilateral History of toe surgery History of total knee arthroplasty Family History Other Cancer Diabetes Social History Smoking and tobacco status: never smoked Alcohol intake: current Alcohol intake frequency: 3 or more drinks per day Alcohol type: beer Household members: spouse and children Marital status: Vitals/I&O/Wt Last Vital Signs Temp 97.5 F L 02/15/20 13:05 Pulse 74 02/15/20 13:05 Resp 18 02/15/20 14:00 BP 119/71 02/15/20 13:05 Pulse Ox 97 02/15/20 14:00 Weight last 48 hrs Weight 80.286 kg Physical Exam Const: COMMON NORMALS: patient oriented x3 HENMT: COMMON NORMALS: normocephalic, atraumatic, hearing grossly normal bilaterally and external ears normal HEAD & SCALP: normocephalic and atraumatic EXTERNAL EAR: Yes external ears normal Eye: COMMON NORMALS: no scleral icterus GENERAL EYE: appearance normal, both eyes and all related structures Chest: COMMONS NORMALS: normal inspection of the chest and normal palpation of entire chest wall CHEST: Yes Symmetrical chest wall rise Resp: COMMON NORMALS: normal respiratory effort, No retractions, No use of accessory muscles and clear to auscultation bilaterally EFFORT & INSPECTION: Yes symmetric chest movement AUSCULTATION: clear to auscultation bilaterally Cardio: COMMON NORMALS: regular rate, regular rhythm, S1 normal heart sound present, S2 normal heart sound present, No gallops present (Cardio), No murmurs present (Cardio), No rub (Cardio) and Peripheral pulses 2+ throughout RATE: regular rate RHYTHM: regular rhythm HEART SOUNDS: S1 normal heart sound present and S2 normal heart sound present PERIPHERAL PULSES: Peripheral pulses 2+ throughout GI: COMMON NORMALS: Normal to inspection, nondistended, normoactive bowel sounds present, Soft to palpation, non-tender, No hepatosplenomegaly present and no masses AUSCULTATION: Yes normoactive bowel sounds PALPATION: Yes Soft to palpation and Yes No hepatosplenomegaly present RECTAL EXAM: Yes deferred Extremity: OTHER: Lt hip tenderness present . Lt hip ROM not tested due to pain.ROM of other joints normal. Neuro: COMMON NORMALS: patient oriented x3 Data : 02/15/20 13:24 02/15/20 13:24 A&P Assessment and plan (1) Femur fracture: Proximal and middle thirds of the left femur fracture. Pain Control Dr.jolly Roque leavitt Status: Acute (2) Type 2 diabetes mellitus: LDSSI Monitor FSG Diabetic Diet Status: Acute (3) Chronic kidney disease (CKD): Status: Acute (4) History of total knee arthroplasty: Status: Acute (5) Status post hip hemiarthroplasty: Status: Acute (6) Chronic anemia: Monitor CBC Status: Inactive (7) Hypertension: Currently Normotensive Monitor B/P Status: Inactive Qualifiers: Hypertension type: essential hypertension Qualified Code(s): I10 - Essential (primary) hypertension Additional A&P Information DVT PPX: Lovenox 40 mg sc daily Code status :Full code Disposition :Home Attestations Medical Necessity Statement*: Patient needs to be in hospital for Lt femur fracture management Coding Level of Care Code Acute Oven Equipment Repairer for g Fwd Diagnoses Femur fracture S72.90XA Type 2 diabetes mellitus E11.9 Chronic kidney disease (CKD) N18.9 History of total knee arthroplasty Z96.659 Status post hip hemiarthroplasty Z96.649 Chronic anemia D64.9 Hypertension I10 Hypertension type: essential hypertension
[2020-02-15 14:48] LABS: Urine Appearance Clear (CLEAR); Urine Color Yellow (Yellow); pH Urine 6 (5-7)
[2020-02-15 14:49] LABS: Bilirubin Urine Neg (Negative); Blood Urine Neg (Negative); Glucose Urine UA 4+ (Normal); Ketones Urine Negative (Negative); Leukocyte Esterase Urine Negative (Negative); Nitrate Urine Negative (Negative); Protein Urine Neg (Negative); Urobilinogen Urine Norm (Negative)
[2020-02-15 14:50] LABS: Alanine Aminotransferase 16 U/L (0-41); Albumin Level 4.3 g/dL (3.5-5.2); Alkaline Phosphatase 158 IU/L (40-130); Anion Gap 16.7 (5-19); Aspartate Amino Transferase 19 U/L (0-40); Blood Urea Nitrogen 19 mg/dL (6-20); Calcium 9.5 mg/dL (8.5-10.5); Carbon Dioxide 24 mmol/L (22-29); Chloride 100 mmol/L (98-107); Globulin 3.6 g/dL (1.3-4.6); Glomerular Filtration Rate 99.3 mL/min (90-130); Glucose 131 mg/dL (65-115); Osmolality Calculated 288 mOsm/kg (285-295); Potassium 3.7 mmol/L (3.5-5.1); Sodium 137 mmol/L (136-145); Total Bilirubin 0.3 mg/dL (0.15-1.2); Total Protein 7.9 g/dL (6.6-8.7)
[2020-02-15] MEDS: enoxaparin 40 mg/0.4 mL Syringe SUBCUT (14:57)
--- NOTE | 2020-02-15 16:00 | PM.MISC ---
Miscellaneous Note Purpose of Documentation: Admission note Note: Please consider my office visit from February 14 to serve as the admission note with orthopedic evaluation. This is available in [facility]. The patient was admitted for a periprosthetic fracture which occurred in the parking lot outside of my office as is well-documented in the office note.
[2020-02-15] MEDS: morphine 4 mg/mL SDV 1 mL 2 MG IVP ×2 (16:15→17:57)
--- NOTE | 2020-02-15 19:11 | PC.NURSE ---
Report to Lovely CALLAWAY
[2020-02-15 21:30] LABS: Glucose Point of Care 126 mg/dL (70-110)
[2020-02-16] VITALS (15 sets, daily range): BP systolic 110–154; BP diastolic 67–78; PULSE 61–79; RESP 15–19; TEMP 36.5–37.2; O2SAT 94–96
[2020-02-16] MEDS: morphine 4 mg/mL SDV 1 mL 2 MG IVP ×4 (00:43→18:17)
[2020-02-16 02:53] LABS: Basophils % 0.2 %; Eosinophils % 0.1 %; Hematocrit 31.3 % (42.0-52.0); Hemoglobin 9.6 g/dL (11.7-16.6); Lymphocytes # 1.5 10^3/uL (0.8-4.8); Lymphocytes % 17.9 %; Mean Corpuscular HGB Conc 30.7 g/dL (30.0-36.0); Mean Corpuscular Hemoglobin 23.1 pg (28.0-34.0); Mean Corpuscular Volume 75.4 fL (80-94); Mean Platelet Volume 9.7 fL (7.4-10.4); Monocytes # 0.6 10^3/uL (0.2-0.9); Monocytes % 7.8 %; Neutrophils # 6.06 10^3/uL (1.8-7.7); Neutrophils % 73.8 %; Nucleated Red Blood Cells % 0 %; Platelet Count 358 10^3/cmm (130-400); Red Blood Count 4.15 10^6/uL (4.1-5.3); Red Cell Distribution Width 17.2 % (12.1-15.1); White Blood Count 8.2 10^3/uL (4.0-10.0)
[2020-02-16 03:20] LABS: Partial Thromboplastin Time 38.3 SECONDS (23.9-36.7)
[2020-02-16 03:31] LABS: Alanine Aminotransferase 12 U/L (0-41); Albumin Level 3.8 g/dL (3.5-5.2); Alkaline Phosphatase 142 IU/L (40-130); Aspartate Amino Transferase 15 U/L (0-40); Blood Urea Nitrogen 18 mg/dL (6-20); Calcium 8.8 mg/dL (8.5-10.5); Carbon Dioxide 23 mmol/L (22-29); Chloride 99 mmol/L (98-107); Globulin 3.4 g/dL (1.3-4.6); Glomerular Filtration Rate 86.7 mL/min (90-130); Glucose 141 mg/dL (65-115); Osmolality Calculated 284 mOsm/kg (285-295); Phosphorus 3.8 mg/dL (2.5-4.5); Sodium 135 mmol/L (136-145); Total Bilirubin 0.5 mg/dL (0.15-1.2); Total Protein 7.2 g/dL (6.6-8.7)
[2020-02-16 07:09] LABS: Glucose Point of Care 115 mg/dL (70-110)
--- NOTE | 2020-02-16 10:52 | PC.CHAP ---
Pastoral Care Encounter/Spiritual Assessment Type of Contact [] Declined harm reduction worker visit [] Patient/Family/Request visit [] Outpatient visit [] Follow-up visit [] Physician referral [] Code/Alert [] Routine visit [] Staff referral [] Actively dying [] Patient sleeping [] Family support [] [] Out of room [] Palliative care [] [] Receiving care in room [] Pre-surgical visit [] Trauma [] Long length of stay [] ICU visit [X] Other:Isolation Relational/Emotional Strength [] Patient feels connected with others/family/visitors/staff [] Distress [] Loneliness/isolation [] Abandonment Spirituality of Patient [] Person of Shanna [] Attends Uatsdin of their Shanna [] Believes in Prayer [] Reads Bible or Evangelical materials [] There are Spiritual issues to be addressed [employer] Interventions [] Prayer [] Active listening [] Non-anxious presence [] Spiritual/emotional support [] Crisis/trauma care [] Spiritual counseling [] Bereavement support [] Provided bereavement packet [] Provided Bible/devotional materials [] Provided toy/stuffed animal, coloring book to patient or family member [] Provided Communion [] Anointing/Thayne [] Salvation [] Completed spiritual assessment [] Other: Impact on Illness or Injury [] Angry [] Fearful [] Anxious [] Often cries [] Exhaustion [] Unable to work [] Unable to attend mandaeism [] Unable to walk/stand [] Unable to read [] Unable to drive [] Unable to eat/drink [] Unable to sleep [] Unable to be with family [] Patient intubated [] Other: Summary Isolation Time spent with patient 5 mins
[2020-02-16 10:53] LABS: Glucose Point of Care 189 mg/dL (70-110)
[2020-02-16] MEDS: enoxaparin 40 mg/0.4 mL Syringe SUBCUT (15:01)
--- NOTE | 2020-02-16 15:31 | P.CONIM_ITS ---
Providers/Reason For Consult Consulting Physican/Specialty*: Dr. Kylie Yu - Orthopedics Reason for Consult*: Periprosthetic left hip fracture Attending Physician: Roderick Garcia MD Primary Care Provider: Evangelist Duvall History of Present Illness History of Present Illness Regino Calvert is a 59 year old male with a periprosthetic left hip fracture. His history and physical findings are well outlined in my office note from yesterday, 02/15/2020. Please use this as my note of consultation. Meds/Allergies Home Medications and Allergies Home Medications Medication Instructions Recorded Confirmed Last Taken Type Xigduo XR 1 tab PO DAILY #30 each 09/27/19 02/15/20 02/15/20 Rx gabapentin [Neurontin] 800 mg PO TID #30 tab 09/27/19 02/15/20 02/15/20 Rx omeprazole 20 mg PO DAILY #30 cap 09/27/19 02/15/20 02/15/20 Rx 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 #1 ea NS 10/20/19 02/15/20 Unknown Rx Post operative hinged Left knee #1 ea NS 11/23/19 02/15/20 Unknown Rx brace FRONT WHEEL FOLDING WALKER #1 ea NS 12/14/19 02/15/20 Unknown Rx Otc Muscle Cramps 1 tab PO DAILY 02/15/20 02/15/20 02/14/20 History multivit-iron [id number]-lycop 1 ea PO DAILY 02/15/20 02/15/20 02/15/20 History [Multi For Him] Allergies Allergy/AdvReac Type Severity Reaction Status Date / Time No Known Allergies Allergy Verified 02/15/20 13:07 Current Medications Current Medications Generic Name Dose Route Start Last Admin Trade Name Freq PRN Reason Stop Dose Admin Enoxaparin Sodium 40 mg 02/15/20 15:30 02/16/20 15:01 Enoxaparin 40 Mg/0.4 Ml Syringe SUBCUT 40 mg Q24H ANA LAURA Administration Hydromorphone HCl 4 mg 02/15/20 14:34 02/16/20 15:00 Hydromorphone 4 Mg Tablet PO 4 mg Q6H PRN Administration SEVERE PAIN Insulin Aspart 0 unit 02/15/20 18:00 02/16/20 13:05 Insulin Aspart 100 Unit/1 Ml SUBCUT 4 unit WM&BEDTIME ANA LAURA Administration Protocol Morphine Sulfate 2 mg 02/15/20 14:34 02/16/20 11:56 Morphine 4 Mg/Ml Sdv 1 Ml IVP 2 mg Q4H PRN Administration SEVERE PAIN PFSH Acute PFSH: Medical History Chronic anemia CKD (chronic kidney disease) stage 2, GFR 60-89 ml/min Diabetes mellitus type 2, noninsulin dependent Diabetic peripheral neuropathy Fall GERD (gastroesophageal reflux disease) History of osteomyelitis Right foot History of septic arthritis Left knee Hx of fracture of left hip Hyperlipidemia Hypertension Surgical History History of hand surgery History of knee surgery Bilateral History of toe surgery History of total knee arthroplasty Family History Other Cancer Diabetes Social History Smoking and tobacco status: never smoked Alcohol intake: current Alcohol intake frequency: 3 or more drinks per day Alcohol type: beer Household members: spouse and children Marital status: Vitals/I&O/Wt Last Vital Signs Temp 97.7 F 02/16/20 12:00 Pulse 69 02/16/20 12:00 Resp 16 02/16/20 15:00 BP 128/68 02/16/20 12:00 Pulse Ox 94 02/16/20 12:00 02/16/20 02/16/20 02/16/20 06:59 14:59 22:59 Intake Total 300 / 300 Output Total 475 / 875 300 / 300 120 / 420 Balance -475 / -875 0 / 0 -120 / -120 Weight last 48 hrs Weight 179 lb Weight 177 lb A&P Assessment and plan (1) Periprosthetic fracture around internal prosthetic left hip joint, initial encounter: Patient is scheduled for open reduction internal fixation of his periprosthetic hip fracture. This occurred after leaving my office yesterday. I have a full note and documentation of the injury with evaluation for surgery and discussion of surgery in my office note. Please consider this my consultation note. Today when the patient is seen, Covid testing is still pending. The patient and his both understand the surgical procedure. She was present at the discussion in my office. Status: Acute Consult Attestations Medical Necessity Statement: Patient required hospitalization for optimization prior to surgery. Covid testing is still pending. His surgery is scheduled for tomorrow. Coding Level of Care Code Acute Convention Services Director for Ivonabbey Rayo Diagnoses Periprosthetic fracture around internal prosthetic left hip joint, initial encounter M97.02XA
[2020-02-16 16:55] LABS: Glucose Point of Care 96 mg/dL (70-110)
--- NOTE | 2020-02-16 18:00 | PC.NURSE ---
Fernando's traction applied using [address] Yu's order. Patient immediately complained of an increase in pain and asked that the traction be removed. Traction taken off. Pain medication given per orders.
--- NOTE | 2020-02-16 18:33 | PC.PT ---
Assisted nursing per their request; set up of King's traction at 5 pounds;Left LE,no increased pain,and pt denied pain ,until requesting removal due to increased pain about 15 minutes later ,and this was done.
--- NOTE | 2020-02-16 18:41 | PM.PN ---
Subjective Subjective: Interval history: Patient is complaining of pain in the lt hip area as well as left thigh. Vitals :Stable Medications: Reviewed: Yes Vitals/I&O/Wt Last Vital Signs Temp 98.9 F 02/16/20 16:00 Pulse 75 02/16/20 16:00 Resp 16 02/16/20 18:17 BP 127/67 02/16/20 16:00 Pulse Ox 96 02/16/20 16:00 02/16/20 02/16/20 02/16/20 06:59 14:59 22:59 Intake Total 300 / 300 Output Total 475 / 875 300 / 300 420 / 720 Balance -475 / -875 0 / 0 -420 / -420 Weight last 48 hrs Weight 81.193 kg Weight 80.286 kg Physical Exam Const: COMMON NORMALS: patient oriented x3 HENMT: COMMON NORMALS: normocephalic, atraumatic, hearing grossly normal bilaterally and external ears normal HEAD & SCALP: normocephalic and atraumatic EXTERNAL EAR: Yes external ears normal Eye: COMMON NORMALS: no scleral icterus GENERAL EYE: appearance normal, both eyes and all related structures Chest: COMMONS NORMALS: normal inspection of the chest and normal palpation of entire chest wall CHEST: Yes Symmetrical chest wall rise Resp: COMMON NORMALS: normal respiratory effort, No retractions, No use of accessory muscles and clear to auscultation bilaterally EFFORT & INSPECTION: Yes symmetric chest movement AUSCULTATION: clear to auscultation bilaterally Cardio: COMMON NORMALS: regular rate, regular rhythm, S1 normal heart sound present, S2 normal heart sound present, No gallops present (Cardio), No murmurs present (Cardio), No rub (Cardio) and Peripheral pulses 2+ throughout RATE: regular rate RHYTHM: regular rhythm HEART SOUNDS: S1 normal heart sound present and S2 normal heart sound present PERIPHERAL PULSES: Peripheral pulses 2+ throughout GI: COMMON NORMALS: Normal to inspection, nondistended, normoactive bowel sounds present, Soft to palpation, non-tender, No hepatosplenomegaly present and no masses AUSCULTATION: Yes normoactive bowel sounds PALPATION: Yes Soft to palpation and Yes No hepatosplenomegaly present RECTAL EXAM: Yes deferred Extremity: COMMON NORMALS: no clubbing, cyanosis or edema and no pedal edema NARRATIVE EXTREMITY EXAM: Lt hip tenderness present . Lt hip ROM not tested due to pain.ROM of other joints normal. Neuro: COMMON NORMALS: patient oriented x3 Data : 02/16/20 02:35 02/16/20 02:35 A&P Assessment and plan (1) Femur fracture: Proximal and middle thirds of the left femur fracture. Pain Control Dr.jolly Nevarez appreciated Status: Acute Qualifiers: Encounter type: subsequent encounter Femur location: unspecified portion of femur Fracture type: closed Fracture morphology: unspecified fracture morphology Laterality: left Fracture healing: with routine healing Qualified Code(s): S72.92XD - Unspecified fracture of left femur, subsequent encounter for closed fracture with routine healing (2) Type 2 diabetes mellitus: LDSSI Monitor FSG Diabetic Diet Status: Acute (3) Chronic kidney disease (CKD): Status: Acute (4) History of total knee arthroplasty: Status: Acute Qualifiers: Laterality: left Qualified Code(s): Z96.652 - Presence of left artificial knee joint (5) Status post hip hemiarthroplasty: Status: Acute (6) Chronic anemia: Monitor CBC Status: Inactive (7) Hypertension: Currently Normotensive Monitor B/P Status: Inactive Qualifiers: Hypertension type: essential hypertension Qualified Code(s): I10 - Essential (primary) hypertension Additional A&P Information DVT PPX: Lovenox 40 mg sc daily Code status :Full code Disposition :Home Attestations Medical Necessity Statement*: Patient needs to be in hospital for the management of Periprosthetic fracture around internal prosthetic left hip joint, Coding Level of Care Code 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
[2020-02-16 20:28] LABS: Glucose Point of Care 118 mg/dL (70-110)
[2020-02-17] VITALS (23 sets, daily range): BP systolic 107–172; BP diastolic 63–116; PULSE 61–113; RESP 14–20; TEMP 36.2–36.8; O2SAT 94–99; BMI 25.0
--- NOTE | 2020-02-17 | XR_ITS ---
WS: [id number] Left femur and thigh, C-arm fluoroscopy views, 02/17/2020 Clinical Data: OR PICS, Cable femur Comparison: Left thigh and femur, 02/15/2020. Findings: Circumferential wires now surround the proximal left femur. The longstem femoral intramedullary prosthesis remains in same position. There may be a small cortica l fracture but it is less visible. XR/XR femur LT min 2V* [id number] Impression: Circumferential wires surrounding proximal left femur to stabilize small cortic al fracture.
--- NOTE | 2020-02-17 | SCC_ITS ---
Procedure Done: Open reduction internal fixation left periprosthetic hip fracture utilizing 2.0 mm cerclage wires x2 45.8 seconds of fluoroscopic guidance, for a cumulative dose of 4.32 mGy, was provided to Dr. Yu by the radiology department. C-arm images of the LEFT femur were saved for the patient's permanent record. [facility]
[2020-02-17 05:43] LABS: Basophils % 0.2 %; Eosinophils % 0.2 %; Hematocrit 35.3 % (42.0-52.0); Hemoglobin 10.9 g/dL (11.7-16.6); Lymphocytes # 0.9 10^3/uL (0.8-4.8); Lymphocytes % 8.4 %; Mean Corpuscular HGB Conc 30.9 g/dL (30.0-36.0); Mean Corpuscular Hemoglobin 23.3 pg (28.0-34.0); Mean Corpuscular Volume 75.6 fL (80-94); Mean Platelet Volume 9.8 fL (7.4-10.4); Monocytes # 0.7 10^3/uL (0.2-0.9); Monocytes % 6.6 %; Neutrophils # 9.45 10^3/uL (1.8-7.7); Neutrophils % 84.2 %; Nucleated Red Blood Cells % 0 %; Platelet Count 404 10^3/cmm (130-400); Red Blood Count 4.67 10^6/uL (4.1-5.3); White Blood Count 11.2 10^3/uL (4.0-10.0)
[2020-02-17 06:00] LABS: INR 1.11 (0.8-1.2)
[2020-02-17 06:01] LABS: Partial Thromboplastin Time 37.7 SECONDS (23.9-36.7)
[2020-02-17 06:08] LABS: Alanine Aminotransferase 11 U/L (0-41); Alkaline Phosphatase 143 IU/L (40-130); Aspartate Amino Transferase 16 U/L (0-40); Blood Urea Nitrogen 16 mg/dL (6-20); Calcium 9.4 mg/dL (8.5-10.5); Carbon Dioxide 20 mmol/L (22-29); Chloride 99 mmol/L (98-107); Globulin 3.4 g/dL (1.3-4.6); Glomerular Filtration Rate 115.8 mL/min (90-130); Glucose 141 mg/dL (65-115); Magnesium 1.8 mg/dL (1.7-2.3); Osmolality Calculated 286 mOsm/kg (285-295); Phosphorus 3.3 mg/dL (2.5-4.5); Sodium 136 mmol/L (136-145); Total Bilirubin 0.5 mg/dL (0.15-1.2); Total Protein 7.4 g/dL (6.6-8.7)
[2020-02-17 06:43] LABS: Glucose Point of Care 144 mg/dL (70-110)
[2020-02-17] MEDS: sodium chloride 0.9% 1,000 ML 30 ML IV (09:45)
[2020-02-17] MEDS: CELEcoxib 200 mg Capsule 400 MG PO (09:45)
--- NOTE | 2020-02-17 11:10 | P.ANESASSM_ITS ---
Pre-Anesthetic Assessment Pre-Anesthetic Assessment: Height/Weight: Height 1.8 m Weight 81.193 kg Temp Pulse Resp BP Pulse Ox 97.7 F 86 18 149/84 98 02/17/20 09:32 02/17/20 09:32 02/17/20 09:32 02/17/20 09:32 02/17/20 09:32 Preop Diagnosis: Left periprosthetic hip fracture Proposed Procedure: Operation Date: 02/17/20 10:35 Proposed Procedures p ORIF Femur(Left) - Kylie Yu MD Last intake: Intake Last Liquid Date 02/05/20 Last Liquid Time 23:59 Last Solid Date 02/15/20 Last Solid Time 20:00 Social: Social History: No alcohol and No tobacco Exam: Pre-Anes Outpt Exam: alert, oriented x 3, clear to auscultation bilaterally and regular rate & rhythm Airway: Submandibular: WNL and Other Cervical ROM: WNL MP: 2 Dentition: Full History/ROS: No significant history except as noted and No significant complaints Pulmonary: Pulmonary: None reported CV/HEM: CV/HEM: HTN Comments: HGB 8.7. 2 PRBCs ordered : : Chronic renal Insufficiency Hepatic: Hepatic: None reported GI: GI: None reported Metabolic: Metabolic: DM Musc/skel: Musc/skel: OA/DJD Neuropsych: Neuropsych: Neuropathy Anesthetic Plan: ASA status: 4 Anesthesia: Anesthesia Evaluation and Gene ral Risk of > 500 ml blood loss (7ml/kg in children): No Meds/Allergies Current Medications: Current Medications Generic Name Dose Route Start Last Admin Trade Name Freq PRN Reason Stop Dose Admin Enoxaparin Sodium 40 mg 02/15/20 15:30 02/16/20 15:01 Enoxaparin 40 Mg /0.4 Ml Syringe SUBCUT 40 mg Q24H ANA LAURA Administration Hydromorphone HCl 4 mg 02/15/20 14:34 02/17/20 09:16 Hydromorphone 4 Mg Tablet PO 4 mg Q6H PRN Administration SEVERE PAIN Sodium Chloride 1,000 mls @ 30 ml s/hr 02/17/20 09:45 02/17/20 09:45 Sodium Chloride 0.9% IV 02/18/20 09:44 30 mls/hr .Q24H ANA LAURA Administration Insulin Aspart 0 unit 02/15/20 18:00 02/17/20 09:16 Insulin Aspart 1 00 Unit/1 Ml SUBCUT 2 unit WM&BEDTIME ANA LAURA Administration Protocol Morphine Sulfate 2 mg 02/15/20 14:34 02/16/20 18:17 Morphine 4 Mg/Ml Sdv 1 Ml IVP 2 mg Q4H PRN Administration SEVERE PAIN PFSH Anesthesia PFSH: Medical History Chronic anemia CKD (chronic kidney disease) stage 2, GFR 60-89 ml/min Diabetes mellitus type 2, noninsulin dependent Diabetic peripheral neuropathy Fall GERD (gastroesophageal reflux disease) History of osteomyelitis Right foot History of septic arthritis Left knee Hx of fracture of left hip Hyperlipidemia Hypertension Surgical History History of hand surgery History of knee surgery Bilateral History of toe surgery History of total knee arthroplasty Family History Other Cancer Diabetes Social History Smoking and tobacco status: never smoked Alcohol intake: current Alcohol intake frequency: 3 or more drinks per day Alcohol type: beer Household members: spouse and children Marital status: Data Anesthesia CBC & Chem 7: 02/17/20 05:00 02/17/20 05:00 Other Labs: Laboratory Results - last 48 hr 02/15/20 02/15/20 02/15/20 13:24 13:24 13:24 WBC 9.3 RBC 4.53 Hgb 10.6 L Hct 34.5 L MCV 76.2 L MCH 23.4 L MCHC 30.7 RDW 17.3 H Plt Count 396 MPV 9.1 Neut % (Auto) 82.6 Lymph % (Auto) 10.6 Andrews % (Auto) 5.7 Eos % (Auto) 0.4 Baso % (Auto) 0.3 Neut # (Auto) 7.70 Lymph # (Auto) 1.0 Andrews # (Auto) 0.5 Eos # (Auto) 0.0 Baso # (Auto) 0.0 Nucleated RBC % (auto) 0 Nucleated RBCs # 0.0 PT 14.70 INR 1.11 APTT 31.4 Sodium 137 Potassium 3.7 Chloride 100 Carbon Dioxide 24 Anion Gap 16.7 BUN 19 Creatinine 0.8 GFR Calculation 99.3 Glucose 131 H POC Glucose Calculated Osmolality 288 Calcium 9.5 Phosphorus Magnesium Total Bilirubin 0.3 AST 19 ALT 16 Alkaline Phosphatase 158 H Total Protein 7.9 Albumin 4.3 Globulin 3.6 Urine Color Urine Appearance Urine pH Ur Specific [place] Urine Protein Urine Glucose (UA) Urine Ketones Urine Blood Urine Nitrate Urine Bilirubin Urine Urobilinogen Ur Leukocyte Esterase 02/15/20 02/15/20 02/16/20 14:20 21:15 02:35 WBC 8.2 RBC 4.15 Hgb 9.6 L Hct 31.3 L MCV 75.4 L MCH 23.1 L MCHC 30.7 RDW 17.2 H Plt Count 358 MPV 9.7 Neut % (Auto) 73.8 Lymph % (Auto) 17.9 Andrews % (Auto) 7.8 Eos % (Auto) 0.1 Baso % (Auto) 0.2 Neut # (Auto) 6.06 Lymph # (Auto) 1.5 Andrews # (Auto) 0.6 Eos # (Auto) 0.0 Baso # (Auto) 0.0 Nucleated RBC % (auto) 0 Nucleated RBCs # 0.0 PT INR APTT Sodium Potassium Chloride Carbon Dioxide Anion Gap BUN Creatinine GFR Calculation Glucose POC Glucose 126 Calculated Osmolality Calcium Phosphorus Magnesium Total Bilirubin AST ALT Alkaline Phosphatase Total Protein Albumin Globulin Urine Color Yellow Urine Appearance Clear Urine pH 6 Ur Specific [place] 1.010 Urine Protein Neg Urine Glucose (UA) 4+ H Urine Ketones Negative Urine Blood Neg Urine Nitrate Negative Urine Bilirubin Neg Urine Urobilinogen Norm Ur Leukocyte Esterase Negative 02/16/20 02/16/20 02/16/20 02:35 02:35 06:55 WBC RBC Hgb Hct MCV MCH MCHC RDW Plt Count MPV Neut % (Auto) Lymph % (Auto) Andrews % (Auto) Eos % (Auto) Baso % (Auto) Neut # (Auto) Lymph # (Auto) Andrews # (Auto) Eos # (Auto) Baso # (Auto) Nucleated RBC % (auto) Nucleated RBCs # PT 15.60 H INR 1.20 APTT 38.3 H Sodium 135 L Potassium 4.0 Chloride 99 Carbon Dioxide 23 Anion Gap 17.0 BUN 18 Creatinine 0.9 GFR Calculation 86.7 L Glucose 141 H POC Glucose 115 Calculated Osmolality 284 L Calcium 8.8 Phosphorus 3.8 Magnesium 2.0 Total Bilirubin 0.5 AST 15 ALT 12 Alkaline Phosphatase 142 H Total Protein 7.2 Albumin 3.8 Globulin 3.4 Urine Color Urine Appearance Urine pH Ur Specific [place] Urine Protein Urine Glucose (UA) Urine Ketones Urine Blood Urine Nitrate Urine Bilirubin Urine Urobilinogen Ur Leukocyte Esterase 02/16/20 02/16/20 02/16/20 10:47 16:49 20:25 WBC RBC Hgb Hct MCV MCH MCHC RDW Plt Count MPV Neut % (Auto) Lymph % (Auto) Andrews % (Auto) Eos % (Auto) Baso % (Auto) Neut # (Auto) Lymph # (Auto) Andrews # (Auto) Eos # (Auto) Baso # (Auto) Nucleated RBC % (auto) Nucleated RBCs # PT INR APTT Sodium Potassium Chloride Carbon Dioxide Anion Gap BUN Creatinine GFR Calculation Glucose POC Glucose 189 96 118 Calculated Osmolality Calcium Phosphorus Magnesium Total Bilirubin AST ALT Alkaline Phosphatase Total Protein Albumin Globulin Urine Color Urine Appearance Urine pH Ur Specific [place] Urine Protein Urine Glucose (UA) Urine Ketones Urine Blood Urine Nitrate Urine Bilirubin Urine Urobilinogen Ur Leukocyte Esterase 02/17/20 02/17/20 02/17/20 05:00 05:00 05:00 WBC 11.2 H RBC 4.67 Hgb 10.9 L Hct 35.3 L MCV 75.6 L MCH 23.3 L MCHC 30.9 RDW 17.0 H Plt Count 404 H MPV 9.8 Neut % (Auto) 84.2 Lymph % (Auto) 8.4 Andrews % (Auto) 6.6 Eos % (Auto) 0.2 Baso % (Auto) 0.2 Neut # (Auto) 9.45 H Lymph # (Auto) 0.9 Andrews # (Auto) 0.7 Eos # (Auto) 0.0 Baso # (Auto) 0.0 Nucleated RBC % (auto) 0 Nucleated RBCs # 0.0 PT 14.70 INR 1.11 APTT 37.7 H Sodium 136 Potassium 4.0 Chloride 99 Carbon Dioxide 20 L Anion Gap 21.0 H BUN 16 Creatinine 0.7 GFR Calculation 115.8 Glucose 141 H POC Glucose Calculated Osmolality 286 Calcium 9.4 Phosphorus 3.3 Magnesium 1.8 Total Bilirubin 0.5 AST 16 ALT 11 Alkaline Phosphatase 143 H Total Protein 7.4 Albumin 4.0 Globulin 3.4 Urine Color Urine Appearance Urine pH Ur Specific [place] Urine Protein Urine Glucose (UA) Urine Ketones Urine Blood Urine Nitrate Urine Bilirubin Urine Urobilinogen Ur Leukocyte Esterase 02/17/20 06:39 WBC RBC Hgb Hct MCV MCH MCHC RDW Plt Count MPV Neut % (Auto) Lymph % (Auto) Andrews % (Auto) Eos % (Auto) Baso % (Auto) Neut # (Auto) Lymph # (Auto) Andrews # (Auto) Eos # (Auto) Baso # (Auto) Nucleated RBC % (auto) Nucleated RBCs # PT INR APTT Sodium Potassium Chloride Carbon Dioxide Anion Gap BUN Creatinine GFR Calculation Glucose POC Glucose 144 Calculated Osmolality Calcium Phosphorus Magnesium Total Bilirubin AST ALT Alkaline Phosphatase Total Protein Albumin Globulin Urine Color Urine Appearance Urine pH Ur Specific [place] Urine Protein Urine Glucose (UA) Urine Ketones Urine Blood Urine Nitrate Urine Bilirubin Urine Urobilinogen Ur Leukocyte Esterase Cardiac Studies: No Data to Display
[2020-02-17] MEDS: vancomycin 1,000 MG in sodium chloride 0.9% 250 ML 250 MG IV ×2 (12:30→16:41)
--- NOTE | 2020-02-17 13:24 | PM.PN ---
Subjective Subjective: Interval history: is doing ok,though in pain because of Left periprosthetic hip fracture. Vitals stable. Labs Reviewed Medications: Reviewed: Yes Vitals/I&O/Wt Last Vital Signs Temp 97.7 F 02/17/20 09:32 Pulse 86 02/17/20 09:32 Resp 18 02/17/20 09:32 BP 149/84 02/17/20 09:32 Pulse Ox 98 02/17/20 09:32 02/16/20 02/17/20 02/17/20 22:59 06:59 14:59 Output Total 620 / 920 400 / 1320 200 / 200 Balance -620 / -620 -400 / -1020 -200 / -200 Weight last 48 hrs Weight 81.193 kg Weight 81.193 kg Physical Exam HENMT: COMMON NORMALS: normocephalic and atraumatic HEAD & SCALP: normocephalic and atraumatic Eye: COMMON NORMALS: Equal, round and reactive pupils present GENERAL EYE: appearance normal, both eyes and all related structures PUPIL: Yes Equal, round and reactive pupils present Neck/C-Spine: COMMON NORMALS: no JVD Resp: COMMON NORMALS: normal respiratory effort and clear to auscultation bilaterally AUSCULTATION: clear to auscultation bilaterally Cardio: COMMON NORMALS: no JVD, regular rate, regular rhythm, S1 normal heart sound present, S2 normal heart sound present and Peripheral pulses 2+ throughout RATE: regular rate RHYTHM: regular rhythm HEART SOUNDS: S1 normal heart sound present and S2 normal heart sound present PERIPHERAL PULSES: Peripheral pulses 2+ throughout GI: COMMON NORMALS: Normal to inspection, nondistended, normoactive bowel sounds present, Soft to palpation, non-tender, No hepatosplenomegaly present and no masses PALPATION: Yes Soft to palpation and Yes No hepatosplenomegaly present Extremity: NARRATIVE EXTREMITY EXAM: Lt hip tenderness present . Lt hip ROM not tested due to pain.ROM of other joints normal. Data : 02/18/20 05:35 02/18/20 05:35 A&P Assessment and plan (1) Femur fracture: Left periprosthetic hip fracture: Open reduction internal fixation left periprosthetic hip fracture. Proximal and middle thirds of the left femur fracture. Pain Control Dr.jolly Nevarez appreciated Status: Acute Qualifiers: Encounter type: subsequent encounter Femur location: unspecified portion of femur Fracture healing: with routine healing Fracture morphology: unspecified fracture morphology Fracture type: closed Laterality: left Qualified Code(s): S72.92XD - Unspecified fracture of left femur, subsequent encounter for closed fracture with routine healing (2) COVID-19: COVID PCR :Positive Currently no requiring supplemental oxygen.Saturating well on RA. Xray Chest : No nodules, masses or effusions are seen. The heart is normal. The pulmonary vascularity is not increased. No pneumonia or pneumothorax is seen. Status: Acute (3) Type 2 diabetes mellitus: LDSSI Monitor FSG Diabetic Diet Status: Acute (4) Chronic kidney disease (CKD): Status: Acute (5) History of total knee arthroplasty: Status: Acute Qualifiers: Laterality: left Qualified Code(s): Z96.652 - Presence of left artificial knee joint (6) Status post hip hemiarthroplasty: Status: Acute (7) Chronic anemia: Monitor CBC Status: Inactive (8) Hypertension: Currently Normotensive Monitor B/P Status: Inactive Qualifiers: Hypertension type: essential hypertension Qualified Code(s): I10 - Essential (primary) hypertension Additional A&P Information DVT PPX: Lovenox 40 mg sc daily Code status :Full code Disposition :Home Attestations Medical Necessity Statement*: Patient needs to be in hospital for the management of Left periprosthetic hip fracture S/P Open reduction internal fixation left periprosthetic hip fracture, as well as COVID 19 Infection. 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
[2020-02-17] MEDS: ceFAZolin 1,000 mg SDV 1000 MG IRRIGATION (13:35)
[2020-02-17 14:37] LABS: Coronavirus Lab Test PTC Positive
[2020-02-17] MEDS: labetalol 5 mg/mL SDV 20mL 10 MG IVP (14:50)
--- NOTE | 2020-02-17 15:13 | PM.OP ---
Operative Report Date of procedure: February 17, 2020 Pre-op Diagnosis: Left periprosthetic hip fracture Post-op diagnosis: same Procedure Done: Open reduction internal fixation left periprosthetic hip fracture utilizing 2.0 mm cerclage wires x2 Pathology: none sent Surgeon: Kylie Yu [employer] Electrician: [facility] OR technicians Anesthesia: General (General, intubated, ASA 4) Estimated blood loss (mL): 500 IV fluids (mL): 500 Urine output (mL): 700 Complications: None Findings: Left periprosthetic fracture Condition: stable Disposition: PACU (Then to floor for postoperative rehabilitation and pain management) Brief History: This 59-year-old gentleman presented for follow-up in my office on February 13. He had had a previous periprosthetic hip fracture treated with a revision zoroastrianism modular system. He was doing well and was discharged to follow-up in 6 months. While his was getting in the car at the conclusion of the visit, he was waiting for her in the parking lot, and he fell. He was brought back into the clinic where new x-rays were obtained. Patient was found to have an acute periprosthetic hip fracture with minimal to no displacement. He subsequently was admitted to the hospital. He was optimized for surgery and taken for open reduction internal fixation today. Questions were answered with the patient and his . . Procedure: Patient is brought to the operating theater. After undergoing adequate general anesthesia with intubation, ASA 4, the patient was transferred to the fracture table, positioned on the table and fluoroscopic guidance obtained throughout the surgical procedure. Prior to the commencement of the surgical procedure, a surgical pause was performed. At the time of the surgical pause, we confirmed the site and side of surgery as well as preoperative surgical markings and appropriate and timely administration of IV antibiotics, vancomycin 1 g. Availability of equipment was also confirmed. Fluoroscopy was used to confirm the fracture was appropriately reduced in both AP and lateral planes. An incision was then made centering proximal to and progressing toward the fracture. Soft tissues were incised, hemostasis was obtained using electrocautery. Tensor fascia prudencio was incised longitudinally. Vastus lateralis splitting incision was utilized to go down onto the lateral aspect of the femur. Fluoroscopic guidance was again utilized to determine appropriate position. Soft tissues were elevated from the femur circumferentially so that we could place cerclage wires. Cerclage wires were placed with 2.0 mm beaded cables. These were then tightened into position. After the wires were tightened, imaging was obtained in AP and lateral planes. Being satisfied that the fracture was reduced and that the 2 wires were in optimal position, the wires were cramped so that they would remain in position. Following this, the wound was irrigated. The fascia of the vastus lateralis was closed with an interrupted 2-0 Monocryl. The tensor fascia prudencio was closed with interrupted 0 Vicryl. Subcutaneous tissues were closed with 2-0 Monocryl. The skin was closed with a continuous 3-0 Monocryl subcuticular stitch. This was then covered with Exofin and Tegaderm. The wound was injected with half percent bupivacaine for local anesthetic. The patient was removed from the fracture table and returned to recovery in satisfactory condition. The patient will be discharged to the floor for postoperative rehabilitation and pain management. There were no specimens obtained. Associated Problem List Diagnoses (1) Periprosthetic fracture around internal prosthetic left hip joint, initial encounter: (2) Lab test positive for detection of COVID-19 virus:
--- NOTE | 2020-02-17 15:36 | SUR.PHASEI ---
1525 PATIENT TO MED SURG. DENIES PAIN. DRESSING TO LEFT HIP, CDI WITH FIRST ICE IN PLACE. GÓMEZ CATH IN PLACE.
--- NOTE | 2020-02-17 16:19 | PM.PACU ---
PACU note Post-Anesthesia Exam: awake and vital signs stable Disposition: back to floor
[2020-02-17] MEDS: CELEcoxib 200 mg Capsule PO (16:40)
[2020-02-17 18:15] LABS: Glucose Point of Care 152 mg/dL (70-110)
[2020-02-17] MEDS: chlorhexidine gluconate 0.12% Btl 473 mL 30 ML MUCOUS MEM ×2 (18:39→23:04)
[2020-02-17] MEDS: calcium carbonate 500 mg Chew Tablet 1000 MG PO (18:40)
[2020-02-17] MEDS: sennosides-docusate Tablet 2 TAB PO (18:40)
[2020-02-17] MEDS: iron polysaccharide complex 150 mg Capsule PO (18:40)
[2020-02-17 22:09] LABS: Glucose Point of Care 195 mg/dL (70-110)
[2020-02-18] VITALS (8 sets, daily range): BP systolic 109–117; BP diastolic 65–70; PULSE 61–79; RESP 16–18; TEMP 36.4–37.8; O2SAT 93–98
[2020-02-18] MEDS: CELEcoxib 200 mg Capsule PO ×2 (04:07→18:15)
[2020-02-18 06:02] LABS: Basophils % 0.3 %; Eosinophils # 0.2 10^3/uL (0.0-0.8); Eosinophils % 1.8 %; Hematocrit 37.1 % (42.0-52.0); Hemoglobin 11.8 g/dL (11.7-16.6); Lymphocytes # 1.2 10^3/uL (0.8-4.8); Lymphocytes % 12.9 %; Mean Corpuscular HGB Conc 31.8 g/dL (30.0-36.0); Mean Corpuscular Hemoglobin 24.4 pg (28.0-34.0); Mean Corpuscular Volume 76.7 fL (80-94); Mean Platelet Volume 9.5 fL (7.4-10.4); Monocytes % 10.5 %; Neutrophils # 6.69 10^3/uL (1.8-7.7); Neutrophils % 74.2 %; Nucleated Red Blood Cells % 0 %; Platelet Count 341 10^3/cmm (130-400); Red Blood Count 4.84 10^6/uL (4.1-5.3); Red Cell Distribution Width 16.4 % (12.1-15.1)
[2020-02-18 06:44] LABS: INR 1.17 (0.8-1.2)
[2020-02-18 06:45] LABS: Partial Thromboplastin Time 35.4 SECONDS (23.9-36.7)
[2020-02-18 06:49] LABS: Glucose Point of Care 137 mg/dL (70-110)
[2020-02-18 06:50] LABS: Alanine Aminotransferase 11 U/L (0-41); Albumin Level 3.5 g/dL (3.5-5.2); Alkaline Phosphatase 119 IU/L (40-130); Anion Gap 17.1 (5-19); Aspartate Amino Transferase 22 U/L (0-40); Blood Urea Nitrogen 23 mg/dL (6-20); Calcium 8.9 mg/dL (8.5-10.5); Carbon Dioxide 24 mmol/L (22-29); Chloride 99 mmol/L (98-107); Globulin 3.2 g/dL (1.3-4.6); Glomerular Filtration Rate 99.3 mL/min (90-130); Glucose 127 mg/dL (65-115); Osmolality Calculated 287 mOsm/kg (285-295); Phosphorus 3.8 mg/dL (2.5-4.5); Potassium 4.1 mmol/L (3.5-5.1); Sodium 136 mmol/L (136-145); Total Bilirubin 0.8 mg/dL (0.15-1.2); Total Protein 6.7 g/dL (6.6-8.7)
[2020-02-18] MEDS: sennosides-docusate Tablet 2 TAB PO ×2 (08:40→18:14)
[2020-02-18] MEDS: calcium carbonate 500 mg Chew Tablet 1000 MG PO ×2 (08:40→18:15)
[2020-02-18] MEDS: chlorhexidine gluconate 0.12% Btl 473 mL 30 ML MUCOUS MEM ×4 (08:41→21:42)
[2020-02-18] MEDS: multivitamin therapeutic Tablet 1 TAB PO (08:41)
[2020-02-18] MEDS: cholecalciferol (vitamin D3) 1,000 unit Tablet 1000 UNIT PO (08:41)
[2020-02-18] MEDS: iron polysaccharide complex 150 mg Capsule PO ×2 (08:41→18:15)
--- NOTE | 2020-02-18 11:39 | PM.PN ---
Subjective Subjective: Interval history: Mr. Calvert reports he is doing very well. He has slight pain in the left lower extremity with movement. Has remained afebrile, saturating well on room air. Labs are stable Medications: Reviewed: Yes Vitals/I&O/Wt Last Vital Signs Temp 97.8 F 02/18/20 08:00 Pulse 71 02/18/20 08:00 Resp 16 02/18/20 08:13 BP 117/65 02/18/20 08:00 Pulse Ox 98 02/18/20 08:13 02/17/20 02/18/20 02/18/20 22:59 06:59 14:59 Intake Total 100 / 460 100 / 560 Output Total 800 / 2600 300 / 2900 Balance -700 / -2140 -200 / -2340 Weight last 48 hrs Weight 80.286 kg Weight 81.193 kg Physical Exam Const: COMMON NORMALS: patient oriented x3 HENMT: COMMON NORMALS: normocephalic, atraumatic and hearing grossly normal bilaterally HEAD & SCALP: normocephalic and atraumatic Eye: COMMON NORMALS: no scleral icterus GENERAL EYE: appearance normal, both eyes and all related structures Resp: COMMON NORMALS: clear to auscultation bilaterally AUSCULTATION: clear to auscultation bilaterally Cardio: COMMON NORMALS: regular rate, regular rhythm, S1 normal heart sound present, S2 normal heart sound present, No gallops present (Cardio), No murmurs present (Cardio), No rub (Cardio) and Peripheral pulses 2+ throughout RATE: regular rate RHYTHM: regular rhythm HEART SOUNDS: S1 normal heart sound present and S2 normal heart sound present PERIPHERAL PULSES: Peripheral pulses 2+ throughout GI: COMMON NORMALS: Normal to inspection, nondistended, normoactive bowel sounds present, Soft to palpation, non-tender, No hepatosplenomegaly present and no masses AUSCULTATION: Yes normoactive bowel sounds PALPATION: Yes Soft to palpation and Yes No hepatosplenomegaly present RECTAL EXAM: Yes deferred Extremity: COMMON NORMALS: no clubbing, cyanosis or edema and no pedal edema OTHER: LEFT LOWER EXTREMITY: hip joint (Incision site is clean with minimal bleeding.) Thigh is soft and nontender, ROM (Gentle range of motion is not painful) Neuro: COMMON NORMALS: patient oriented x3 Urinary Catheter Management^: Truong: Cath Placed During This Visit: yes Reason for Continuing Indwelling Catheter: Perioperative Use in Selected Surgeries Urinary Catheter Date of Insertion: 02/17/20 Urinary Catheter Time of Insertion: 13:15 Data : 02/18/20 05:35 02/18/20 05:35 A&P Assessment and plan (1) Femur fracture: Left periprosthetic hip fracture: Open reduction internal fixation left periprosthetic hip fracture. Proximal and middle thirds of the left femur fracture. Pain Control Dr.jolly Roque leavitt Status: Acute Qualifiers: Encounter type: subsequent encounter Femur location: unspecified portion of femur Fracture type: closed Fracture morphology: unspecified fracture morphology Laterality: left Fracture healing: with routine healing Qualified Code(s): S72.92XD - Unspecified fracture of left femur, subsequent encounter for closed fracture with routine healing (2) COVID-19: COVID PCR :Positive Currently no requiring supplemental oxygen.Saturating well on RA. Xray Chest : No nodules, masses or effusions are seen. The heart is normal. The pulmonary vascularity is not increased. No pneumonia or pneumothorax is seen. Status: Acute (3) Type 2 diabetes mellitus: LDSSI Monitor FSG Diabetic Diet Status: Acute (4) Chronic kidney disease (CKD): Status: Acute (5) History of total knee arthroplasty: Status: Acute Qualifiers: Laterality: left Qualified Code(s): Z96.652 - Presence of left artificial knee joint (6) Status post hip hemiarthroplasty: Status: Acute (7) Chronic anemia: Monitor CBC Status: Inactive (8) Hypertension: Currently Normotensive Monitor B/P Status: Inactive Qualifiers: Hypertension type: essential hypertension Qualified Code(s): I10 - Essential (primary) hypertension Additional A&P Information DVT PPX: Lovenox 40 mg sc daily Code status :Full code Disposition :Home Attestations Medical Necessity Statement*: Patient is awaiting placement to senior care facility. Coding Level of Care Code Acute [facility] Diagnoses Femur fracture S72.92XD Encounter type: subsequent encounter Femur location: unspecified portion of femur Fracture type: closed Fracture morphology: unspecified fracture morphology Laterality: left Fracture healing: with routine healing COVID-19 U07.1 Type 2 diabetes mellitus E11.9 Chronic kidney disease (CKD) N18.9 History of total knee arthroplasty Z96.652 Laterality: left Status post hip hemiarthroplasty Z96.649 Chronic anemia D64.9 Hypertension I10 Hypertension type: essential hypertension
[2020-02-18 12:28] LABS: Glucose Point of Care 250 mg/dL (70-110)
--- NOTE | 2020-02-18 13:40 | PC.SOCIAL ---
Pg 2 IMM Explained to pt Pg 2 IMM. No questions voiced. Provided the nurse a copy to give to pt. Signed, dated, & timed a copy for chart.
--- NOTE | 2020-02-18 13:58 | P.PN_ITS ---
Subjective Subjective: Interval history: Patient is much more comfortable today. I am able to flex and extend his hip with minimal discomfort. He is comfortable, but surprised that he has Covid. Medications: Reviewed: Yes Vitals/I&O/Wt Last Vital Signs Temp 97.6 F 02/18/20 12:00 Pulse 73 02/18/20 12:00 Resp 18 02/18/20 12:00 BP 109/65 02/18/20 12:00 Pulse Ox 94 02/18/20 12:00 02/17/20 02/18/20 02/18/20 22:59 06:59 14:59 Intake Total 100 / 460 100 / 560 480 / 480 Output Total 800 / 2600 300 / 2900 Balance -700 / -2140 -200 / -2340 480 / 480 Weight last 48 hrs Weight 177 lb Weight 179 lb Physical Exam Const: COMMON NORMALS: no acute distress, average body habitus, patient oriented x3 and alert GENERAL APPEARANCE: cooperative and comfortable ORIENTATION/CONSCIOUSNESS: Yes awake HENMT: COMMON NORMALS: normocephalic and atraumatic HEAD & SCALP: normocephalic and atraumatic Eye: GENERAL EYE: appearance normal, both eyes and all related structures Chest: COMMONS NORMALS: normal inspection of the chest Resp: COMMON NORMALS: normal respiratory effort EFFORT & INSPECTION: Yes able to speak in complete sentences and Yes symmetric chest movement Extremity: LEFT LOWER EXTREMITY: Yes hip joint (Incision is benign with minimal bleeding.) Left hip: Yes inspection (Thigh is soft and nontender), Yes ROM (Gentle range of motion is not painful) and Yes neurovascular exam (Intact distally) Neuro: COMMON NORMALS: patient oriented x3 SENSORIUM/ORIENTATION: Yes alert Psych: COMMON NORMALS: mental status grossly normal APPEARANCE: Yes grossly normal ATTITUDE: Yes calm and Yes engaged ATTENTION/CONCENTRATION: Yes attention grossly intact Skin: COMMON NORMALS: no rashes or lesions noted GENERAL SKIN EXAM: no rashes or lesions noted Urinary Catheter Management^: Truong: Cath Placed During This Visit: yes Reason for Continuing Indwelling Catheter: Perioperative Use in Selected Surgeries Urinary Catheter Date of Insertion: 02/17/20 Urinary Catheter Time of Insertion: 13:15 Data : 02/18/20 05:35 02/18/20 05:35 A&P Assessment and plan (1) Periprosthetic fracture around internal prosthetic left hip joint, initial encounter: Patient underwent open reduction internal fixation of his periprosthetic hip fracture. Today, he is doing well. His rehabilitation will be complicated by the fact that he did test Covid positive. He is to be touchdown weightbea ring only. He may work with physical therapy as tolerated. Status: Acute (2) Lab test positive for detection of COVID-19 virus: Status: Acute Attestations Medical Necessity Statement*: Patient requires ongoing hospitalization following periprosthetic hip fracture and is being managed by the medical service. 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
[2020-02-18] MEDS: acetaminophen 325 mg Tablet 650 MG PO ×2 (18:13→21:29)
[2020-02-18] MEDS: enoxaparin 40 mg/0.4 mL Syringe SUBCUT (18:15)
[2020-02-18 20:40] LABS: Glucose Point of Care 171 mg/dL (70-110)
[2020-02-19] VITALS (8 sets, daily range): BP systolic 101–122; BP diastolic 57–67; PULSE 60–70; RESP 16–20; TEMP 36.3–37.2; O2SAT 94–98
[2020-02-19] MEDS: acetaminophen 325 mg Tablet 650 MG PO ×4 (03:35→22:21)
[2020-02-19] MEDS: CELEcoxib 200 mg Capsule PO ×2 (03:35→15:21)
[2020-02-19 05:36] LABS: Basophils % 0.4 %; Eosinophils # 0.2 10^3/uL (0.0-0.8); Eosinophils % 2.5 %; Hemoglobin 10.9 g/dL (11.7-16.6); Lymphocytes # 1.5 10^3/uL (0.8-4.8); Lymphocytes % 19.4 %; Mean Corpuscular HGB Conc 31.1 g/dL (30.0-36.0); Mean Corpuscular Hemoglobin 24.5 pg (28.0-34.0); Mean Corpuscular Volume 78.8 fL (80-94); Mean Platelet Volume 10.1 fL (7.4-10.4); Monocytes # 0.8 10^3/uL (0.2-0.9); Monocytes % 10.7 %; Neutrophils # 5.26 10^3/uL (1.8-7.7); Neutrophils % 66.7 %; Nucleated Red Blood Cells % 0 %; Platelet Count 301 10^3/cmm (130-400); Red Blood Count 4.44 10^6/uL (4.1-5.3); Red Cell Distribution Width 17.2 % (12.1-15.1); White Blood Count 7.9 10^3/uL (4.0-10.0)
[2020-02-19 06:16] LABS: Glucose Point of Care 136 mg/dL (70-110)
[2020-02-19] MEDS: iron polysaccharide complex 150 mg Capsule PO ×2 (08:28→18:00)
[2020-02-19] MEDS: sennosides-docusate Tablet 2 TAB PO ×2 (08:29→18:00)
[2020-02-19] MEDS: multivitamin therapeutic Tablet 1 TAB PO (08:29)
[2020-02-19] MEDS: cholecalciferol (vitamin D3) 1,000 unit Tablet 1000 UNIT PO (08:29)
[2020-02-19] MEDS: chlorhexidine gluconate 0.12% Btl 473 mL 30 ML MUCOUS MEM ×4 (08:30→22:20)
[2020-02-19] MEDS: mupirocin oint 22 gm 1 APPLIC NASAL ×2 (08:30→18:03)
[2020-02-19 10:50] LABS: Glucose Point of Care 173 mg/dL (70-110)
--- NOTE | 2020-02-19 11:15 | P.PN_ITS ---
Subjective Subjective: Interval history: is doing good.Has no pain with movement.No cough, sob, chest pain, loss of taste,anosmia, smell,fever,fatigue,weakness. Medications: Reviewed: Yes Vitals/I&O/Wt Last Vital Signs Temp 97.6 F 02/19/20 08:00 Pulse 70 02/19/20 08:00 Resp 16 02/19/20 08:29 BP 112/63 02/19/20 08:00 Pulse Ox 97 02/19/20 08:29 02/18/20 02/19/20 02/19/20 22:59 06:59 14:59 Intake Total 360 / 360 Output Total 250 / 1400 Balance -250 / -200 360 / 360 Weight last 48 hrs Weight 72.892 kg Weight 80.286 kg Physical Exam Const: COMMON NORMALS: patient oriented x3 HENMT: COMMON NORMALS: normocephalic and atraumatic HEAD & SCALP: normocephalic and atraumatic Eye: GENERAL EYE: appearance normal, both eyes and all related structures Resp: COMMON NORMALS: normal respiratory effort and clear to auscultation bilaterally AUSCULTATION: clear to auscultation bilaterally Cardio: COMMON NORMALS: regular rate, regular rhythm, S1 normal heart sound present, S2 normal heart sound present, No gallops present (Cardio), No murmurs present (Cardio), No rub (Cardio) and Peripheral pulses 2+ throughout RATE: regular rate RHYTHM: regular rhythm HEART SOUNDS: S1 normal heart sound present and S2 normal heart sound present PERIPHERAL PULSES: Peripheral pulses 2+ throughout GI: COMMON NORMALS: Normal to inspection, nondistended, normoactive bowel sounds present, Soft to palpation, non-tender, No hepatosplenomegaly present and no masses AUSCULTATION: Yes normoactive bowel sounds PALPATION: Yes Soft to palpation and Yes No hepatosplenomegaly present RECTAL EXAM: Yes deferred Extremity: COMMON NORMALS: no clubbing, cyanosis or edema and no pedal edema Neuro: COMMON NORMALS: patient oriented x3 Urinary Catheter Management^: Truong: Cath Placed During This Visit: yes, but has since been removed by the nurse Reason for Continuing Indwelling Catheter: Decision to DC Catheter Urinary Catheter Date of Insertion: 02/17/20 Urinary Catheter Time of Insertion: 13:15 Date Urinary Catheter Removed: 02/18/20 Time Urinary Catheter Discontinued: 08:00 Data : 02/19/20 05:18 02/18/20 05:35 A&P Assessment and plan (1) Anemia: Microcytic Anemia. Anemia Panel,B12 ,Folic acid Status: Acute (2) Femur fracture: Left periprosthetic hip fracture: Open reduction internal fixation left periprosthetic hip fracture. Proximal and middle thirds of the left femur fracture. Pain Control Dr.jolly Roque leavitt Status: Acute Qualifiers: Encounter type: subsequent encounter Femur location: unspecified portion of femur Fracture type: closed Fracture morphology: unspecified fracture morphology Laterality: left Fracture healing: with routine healing Qualified Code(s): S72.92XD - Unspecified fracture of left femur, subsequent encounter for closed fracture with routine healing (3) COVID-19: COVID PCR :Positive Currently no requiring supplemental oxygen.Saturating well on RA. Xray Chest : No nodules, masses or effusions are seen. The heart is normal. The pulmonary vascularity is not increased. No pneumonia or pneumothorax is seen. Status: Acute (4) Type 2 diabetes mellitus: LDSSI Monitor FSG Diabetic Diet Status: Acute (5) Chronic kidney disease (CKD): Status: Acute (6) History of total knee arthroplasty: Status: Acute Qualifiers: Laterality: left Qualified Code(s): Z96.652 - Presence of left artificial knee joint (7) Status post hip hemiarthroplasty: Status: Acute (8) Chronic anemia: Monitor CBC Status: Inactive (9) Hypertension: Currently Normotensive Monitor B/P Status: Inactive Qualifiers: Hypertension type: essential hypertension Qualified Code(s): I10 - Essential (primary) hypertension Additional A&P Information DVT PPX: Lovenox 40 mg sc daily Code status :Full code Disposition :[facility] Attestations Medical Necessity Statement*: Patient is awaiting placement,pending approval. 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
[2020-02-19] MEDS: enoxaparin 40 mg/0.4 mL Syringe SUBCUT (15:21)
[2020-02-19 17:35] LABS: Glucose Point of Care 122 mg/dL (70-110)
[2020-02-19] MEDS: calcium carbonate 500 mg Chew Tablet 1000 MG PO (18:00)
[2020-02-19 21:26] LABS: Glucose Point of Care 184 mg/dL (70-110)
[2020-02-20 00:03] VITALS: RESP 18; O2SAT 97
[2020-02-20] MEDS: acetaminophen 325 mg Tablet 650 MG PO ×3 (03:31→14:29)
[2020-02-20] MEDS: CELEcoxib 200 mg Capsule PO ×2 (03:31→14:30)
[2020-02-20 04:00] VITALS: BP 111/66; PULSE 62; RESP 20; TEMP 37.1; O2SAT 97
[2020-02-20 04:30] LABS: Basophils % 0.5 %; Eosinophils # 0.2 10^3/uL (0.0-0.8); Eosinophils % 3.1 %; Hematocrit 33.5 % (42.0-52.0); Hemoglobin 10.5 g/dL (11.7-16.6); Lymphocytes # 1.7 10^3/uL (0.8-4.8); Mean Corpuscular HGB Conc 31.3 g/dL (30.0-36.0); Mean Corpuscular Hemoglobin 24.6 pg (28.0-34.0); Mean Corpuscular Volume 78.5 fL (80-94); Mean Platelet Volume 9.7 fL (7.4-10.4); Monocytes # 0.6 10^3/uL (0.2-0.9); Monocytes % 9.8 %; Neutrophils # 3.88 10^3/uL (1.8-7.7); Neutrophils % 60.3 %; Nucleated Red Blood Cells % 0 %; Platelet Count 333 10^3/cmm (130-400); Red Blood Count 4.27 10^6/uL (4.1-5.3); Red Cell Distribution Width 17.5 % (12.1-15.1); White Blood Count 6.4 10^3/uL (4.0-10.0)
[2020-02-20 06:23] LABS: Glucose Point of Care 168 mg/dL (70-110)
[2020-02-20] MEDS: iron polysaccharide complex 150 mg Capsule PO (07:29)
[2020-02-20] MEDS: multivitamin therapeutic Tablet 1 TAB PO (07:54)
[2020-02-20] MEDS: calcium carbonate 500 mg Chew Tablet 1000 MG PO (07:54)
[2020-02-20] MEDS: sennosides-docusate Tablet 2 TAB PO (07:54)
[2020-02-20] MEDS: cholecalciferol (vitamin D3) 1,000 unit Tablet 1000 UNIT PO (07:55)
[2020-02-20] MEDS: chlorhexidine gluconate 0.12% Btl 473 mL 30 ML MUCOUS MEM ×2 (07:55→12:07)
[2020-02-20 08:00] VITALS: BP 117/69; PULSE 57; RESP 18; TEMP 36.6; O2SAT 98
--- NOTE | 2020-02-20 10:00 | PC.SOCIAL ---
IMM Page 2 of IMM given to nursing staff to provide to patient's room d/t him being COVID +. Initialed, dated, and timed and placed in chart.
[2020-02-20 10:55] LABS: Glucose Point of Care 215 mg/dL (70-110)
--- NOTE | 2020-02-20 11:29 | PM.DCS ---
Discharge Providers Date of Admission: 02/15/20 14:36 Date of Discharge: February 20, 2020 Attending Provider at Admission: Roderick Garcia MD Attending Provider at Discharge: Roderick Garcia MD Primary Care Provider: Evangelist Duvall Diagnoses at Discharge Discharge Diagnosis (1) Femur fracture: Status: Resolved Qualifiers: Encounter type: subsequent encounter Femur location: unspecified portion of femur Fracture healing: with routine healing Fracture morphology: unspecified fracture morphology Fracture type: closed Laterality: left Qualified Code(s): S72.92XD - Unspecified fracture of left femur, subsequent encounter for closed fracture with routine healing (2) COVID-19: Status: Resolved (3) Type 2 diabetes mellitus: Status: Chronic (4) Chronic kidney disease (CKD): Status: Chronic (5) History of total knee arthroplasty: Status: Chronic Qualifiers: Laterality: left Qualified Code(s): Z96.652 - Presence of left artificial knee joint (6) Status post hip hemiarthroplasty: Status: Chronic (7) Chronic anemia: Status: Inactive (8) Hypertension: Status: Inactive Qualifiers: Hypertension type: essential hypertension Qualified Code(s): I10 - Essential (primary) hypertension Reason for Visit Reason for Visit: L HIP PAIN,S/P FALL,SENT BY DR [facility] Hospital Course 59 year old male HTN, NIDDM type II and complicated by peripheral neuropathy, GERD, Chronic anemia, CKD stage 2,L total knee arthroplasty,was admitted post mechanical fall at orthopedic clinic today.He was managed for Periprosthetic fracture around internal prosthetic left hip joint s/p open reduction internal fixation of his periprosthetic hip fracture. During the hospital stay he was also diagnosed with COVID-19.He was completely asymptomatic, denied any SOB,fever,chills,cough,headache,loss of taste, loss of smell,loss of apetite,weakness,bodyache,headache. Throughout the hospital stay he was saturating well on R.A.He remained afebrile,vitals were stable,was eating and drinking well.Xray chest No nodules, masses or effusions are seen. The heart is normal. The pulmonary vascularity is not increased. No pneumonia or pneumothorax is seen. There was no need to start the patient on dexamethasone or remedesivir. His operative site was clean,he was able to moving the lt lower extremity with minimum pain.He has been discharged to SNF. Physical Exam Const: COMMON NORMALS: patient oriented x3 HENMT: COMMON NORMALS: normocephalic and atraumatic HEAD & SCALP: normocephalic and atraumatic Resp: COMMON NORMALS: clear to auscultation bilaterally AUSCULTATION: clear to auscultation bilaterally Cardio: COMMON NORMALS: regular rate, regular rhythm, S1 normal heart sound present, S2 normal heart sound present, No gallops present (Cardio), No murmurs present (Cardio), No rub (Cardio) and Peripheral pulses 2+ throughout RATE: regular rate RHYTHM: regular rhythm HEART SOUNDS: S1 normal heart sound present and S2 normal heart sound present PERIPHERAL PULSES: Peripheral pulses 2+ throughout GI: COMMON NORMALS: Normal to inspection, nondistended, normoactive bowel sounds present, Soft to palpation, non-tender, No hepatosplenomegaly present and no masses AUSCULTATION: Yes normoactive bowel sounds PALPATION: Yes Soft to palpation and Yes No hepatosplenomegaly present RECTAL EXAM: Yes deferred Extremity: COMMON NORMALS: no clubbing, cyanosis or edema and no pedal edema OTHER: lt upper leg Incision site is clean at the mid thigh area.minimal tenderness on palpation around the incision site. Neuro: COMMON NORMALS: patient oriented x3 Urinary Catheter Management^: Truong: Cath Placed During This Visit: yes, but has since been removed by the nurse Reason for Continuing Indwelling Catheter: Decision to DC Catheter Urinary Catheter Date of Insertion: 02/17/20 Urinary Catheter Time of Insertion: 13:15 Date Urinary Catheter Removed: 02/18/20 Time Urinary Catheter Discontinued: 08:00 Discharge Data Data Completed and Pending: Completed Studies During Hospitalization Category Date Time Status XR chest 1V ben ble [id number] Stat Exams 02/15/20 13:47 Completed XR femur LT min 2 V* [id number] Routine Exams 02/17/20 Completed Labs from last 24 hours 02/20/20 02/20/20 02/20/20 10:50 06:19 03:51 WBC 6.4 RBC 4.27 Hgb 10.5 L Hct 33.5 L MCV 78.5 L MCH 24.6 L MCHC 31.3 RDW 17.5 H Plt Count 333 MPV 9.7 Neut % (Auto) 60.3 Lymph % (Auto) 26.0 [place] % (Auto) 9.8 Eos % (Auto) 3.1 Baso % (Auto) 0.5 Neut # (Auto) 3.88 Lymph # (Auto) 1.7 [place] # (Auto) 0.6 Eos # (Auto) 0.2 Baso # (Auto) 0.0 Nucleated RBC % (a uto) 0 Nucleated RBCs # 0.0 POC Glucose 215 168 02/19/20 02/19/20 21:21 17:29 WBC RBC Hgb Hct MCV MCH MCHC RDW Plt Count MPV Neut % (Auto) Lymph % (Auto) [place] % (Auto) Eos % (Auto) Baso % (Auto) Neut # (Auto) Lymph # (Auto) [place] # (Auto) Eos # (Auto) Baso # (Auto) Nucleated RBC % (a uto) Nucleated RBCs # POC Glucose 184 122 Vitals: Last Vital Signs Temp 97.9 F 02/20/20 08:00 Pulse 57 L 02/20/20 08:00 Resp 18 02/20/20 08:00 BP 117/69 02/20/20 08:00 Pulse Ox 98 02/20/20 08:00 Discharge Plan Discharge Patient Disposition: Xfer SNF Condition: Stable Prescriptions: New hydromorphone 2 mg tablet 2 mg PO Q6H PRN (Reason: pain) Qty: 10 RF: 0 Continued multivit-iron sex-ZS-Q8-lycop 18 mg-400 mcg- 1,000 unit Powder In Packet 1 ea PO DAILY RF: 0 Otc Muscle Cramps 1 tab PO DAILY RF: 0 gabapentin [Neurontin] 800 mg tablet 800 mg PO TID Qty: 30 RF: 0 omeprazole 20 mg capsule,delayed release(DR/EC) 20 mg PO DAILY Qty: 30 RF: 0 Xigduo XR 10-500 mg tablet, IR - ER, biphasic 24hr 1 tab PO DAILY Qty: 30 RF: 0 No 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 See Rx Instructions .Route .MEDSUPPLY Qty: 1 RF: 0 (DME) 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 See Rx Instructions .Route .MEDSUPPLY Qty: 1 RF: 0 (DME) Post operative hinged Left knee brace See Rx Instructions .Route .MEDSUPPLY Qty: 1 RF: 0 Discharge Orders: Discharge Order (Routine); Ordered 02/20/20 Ordered By: Roderick Garcia Referrals: [facility] [Outside] Evangelist Duvall [Primary Care Provider] - Discharge Diet: Regular Discharge Activity: Limit activity as instructed, Use walker/crutches as instructed and As per PT/OT instructions Patient Instructions: Hydromorphone (By mouth), Open Reduction and Internal Fixation of a Hip Fracture (DC) Activity Restrictions/Additional Instructions: Touchdown weightbearing only to the left lower extremity. Change dressing as needed. 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
[2020-02-20 11:32] VITALS: BP 118/68; PULSE 68; RESP 18; TEMP 36.4; O2SAT 96
--- NOTE | 2020-02-20 13:32 | PM.PN ---
Subjective Subjective: Interval history: Patient is doing well following his periprosthetic fracture on the left hip. Although he tested positive for Covid, he has had no cough, no loss of sense of smell or taste. He is ready for discharge to residential. Medications: Reviewed: Yes Vitals/I&O/Wt Last Vital Signs Temp 97.6 F 02/20/20 11:32 Pulse 68 02/20/20 11:32 Resp 18 02/20/20 11:32 BP 118/68 02/20/20 11:32 Pulse Ox 96 02/20/20 11:32 02/19/20 02/20/20 02/20/20 22:59 06:59 14:59 Intake Total 240 / 840 Output Total 250 / 850 400 / 1250 200 / 200 Balance -10 / -10 -400 / -410 -200 / -200 Weight last 48 hrs Weight 160 lb Weight 160 lb 11.2 oz Physical Exam Const: COMMON NORMALS: no acute distress, average body habitus, patient oriented x3 and alert GENERAL APPEARANCE: cooperative and comfortable ORIENTATION/CONSCIOUSNESS: Yes awake HENMT: COMMON NORMALS: normocephalic and atraumatic HEAD & SCALP: normocephalic and atraumatic Eye: GENERAL EYE: appearance normal, both eyes and all related structures Chest: COMMONS NORMALS: normal inspection of the chest Resp: COMMON NORMALS: normal respiratory effort EFFORT & INSPECTION: Yes able to speak in complete sentences and Yes symmetric chest movement Extremity: LEFT LOWER EXTREMITY: Yes upper leg (Incision is benign at the mid thigh area.) Left upper leg: Yes inspection (There is no drainage or evidence of infection.), Yes palpation (No tenderness to palpation around the incision.) and Yes neurovascular exam (Decreased as per preoperative function.) Neuro: COMMON NORMALS: patient oriented x3 SENSORIUM/ORIENTATION: Yes alert Psych: COMMON NORMALS: mental status grossly normal APPEARANCE: Yes grossly normal ATTITUDE: Yes calm and Yes engaged ATTENTION/CONCENTRATION: Yes attention grossly intact Skin: COMMON NORMALS: no rashes or lesions noted GENERAL SKIN EXAM: no rashes or lesions noted Urinary Catheter Management^: Truong: Cath Placed During This Visit: yes, but has since been removed by the nurse Reason for Continuing Indwelling Catheter: Decision to DC Catheter Urinary Catheter Date of Insertion: 02/17/20 Urinary Catheter Time of Insertion: 13:15 Date Urinary Catheter Removed: 02/18/20 Time Urinary Catheter Discontinued: 08:00 Data : 02/20/20 03:51 02/18/20 05:35 A&P Assessment and plan (1) Periprosthetic fracture around internal prosthetic left hip joint, initial encounter: Patient underwent open reduction internal fixation of his periprosthetic hip fracture. Today, he is doing well. His rehabilitation will be complicated by the fact that he did test Covid positive. He is to be touchdown weightbearing only. He may work with physical therapy as tolerated. Plans are made for his discharge to residential today Status: Acute (2) Lab test positive for detection of COVID-19 virus: Status: Acute Attestations Medical Necessity Statement*: Patient is ready for discharge to residential. 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
[2020-02-20] MEDS: enoxaparin 40 mg/0.4 mL Syringe SUBCUT (14:29)
[2020-02-20 16:00] VITALS: BP 125/64; PULSE 68; RESP 18; TEMP 36.4; O2SAT 96
[2020-02-20 16:24] VITALS: BP 125/64; PULSE 68; RESP 18; TEMP 36.4; O2SAT 96
== END 2020-02-20 16:24 | disposition skilled nursing facility (03) | DRG 480 ==
LOC: ER 15:17 → MEDSURG 16:51
PROVIDERS: Specialist; Admitting Provider Internal Medicine; Emergency Provider Family Medicine; PCP Student in an Organized Health Care Education/Training Program; Visit Provider Internal Medicine
PROC: 0SSB04Z Reposition Left Hip Joint with Internal Fixation Device, Open Approach (ICD-10-PCS; principal; 2020-02-17 10:35)
DX: M97.02XA Periprosthetic fracture around internal prosthetic left hip joint, initial encounter (principal); U07.1 COVID-19; W19.XXXA Unspecified fall, initial encounter; E11.22 Type 2 diabetes mellitus with diabetic chronic kidney disease; I12.9 Hypertensive chronic kidney disease with stage 1 through stage 4 chronic kidney disease, or unspecified chronic kidney disease; N18.2 Chronic kidney disease, stage 2 (mild); K21.9 Gastro-esophageal reflux disease without esophagitis; D63.1 Anemia in chronic kidney disease; Z96.652 Presence of left artificial knee joint; Z96.642 Presence of left artificial hip joint; E78.5 Hyperlipidemia, unspecified; F10.10 Alcohol abuse, uncomplicated
CPT/HCPCS: 12345; 36415; 36416; 51702; 71045; 73502; 73552; 73560; 73565; 76000; 80053; 81003; 82962; 83735; 84100; 85025; 85610; 85730; 86850; 86900; 86920; 87635; 93005; 96365; 96372; 96375; 97110; 97116; 97162; 97166; 97530; 97535; 99282; C1713; J0131; J0690; J1650; J1815; J2270; J2405; J2704; J3010; J3370; J3490; J7030; J7050; P9016

== ENCOUNTER → 2020-03-14 14:53 | Outpatient (BNVA) | payer MEDICARE, BC, SELFPAY | PROVIDERS: PCP Student in an Organized Health Care Education/Training Program; Visit Provider Specialist | DX: M97.02XA Periprosthetic fracture around internal prosthetic left hip joint, initial encounter (principal) | CPT/HCPCS: 73502 ==

== ENCOUNTER → 2020-05-28 14:12 | Outpatient (BNVA) | payer MEDICARE, BC, SELFPAY | PROVIDERS: PCP Student in an Organized Health Care Education/Training Program; Visit Provider Specialist | DX: Z47.1 Aftercare following joint replacement surgery (principal); M97.02XD Periprosthetic fracture around internal prosthetic left hip joint, subsequent encounter; X58.XXXD Exposure to other specified factors, subsequent encounter | CPT/HCPCS: 73502 ==

== ENCOUNTER → 2020-08-30 11:58 | Outpatient (BNVA) | payer MEDICARE, BC, SELFPAY | PROVIDERS: PCP Student in an Organized Health Care Education/Training Program; Visit Provider Specialist | DX: T84.54XA Infection and inflammatory reaction due to internal left knee prosthesis, initial encounter (principal); Z96.652 Presence of left artificial knee joint; M25.462 Effusion, left knee; M97.02XA Periprosthetic fracture around internal prosthetic left hip joint, initial encounter; Z96.649 Presence of unspecified artificial hip joint; M00.9 Pyogenic arthritis, unspecified; M25.559 Pain in unspecified hip; Y83.8 Other surgical procedures as the cause of abnormal reaction of the patient, or of later complication, without mention of misadventure at the time of the procedure | CPT/HCPCS: 73502; 73560; 73565; 80500; 87070; 87077; 87184; 87205; 89051 ==

== ENCOUNTER → 2020-09-06 15:00 | Outpatient (BNVA) | payer MEDICARE, BC, SELFPAY | PROVIDERS: PCP Student in an Organized Health Care Education/Training Program; Referring Provider Specialist; Visit Provider Student in an Organized Health Care Education/Training Program | DX: M00.9 Pyogenic arthritis, unspecified (principal) | CPT/HCPCS: 80053; 82550; 85025; 85651; 86140; 87040 ==

== ENCOUNTER → 2020-09-11 09:37 | Day surgery (SDC) | payer MEDICARE, BC, SELFPAY ==
--- NOTE | 2020-09-11 10:23 | XR_ITS ---
WS: [id number] PORTABLE CHEST HISTORY: picc line COMPARISON: 02/15/2020 RIGHT PICC line inserted with tip in the mid to distal SVC. No complications. Lungs are clear and well expanded. No pleural effusion or pneumothorax. Cardiac size: Normal. Mediastinum/Aorta: Normal mediastinum. No osseous abnormality seen. XR/XR chest 1V portable [id number] IMPRESSION: Uncomplicated placement RIGHT PICC line.
[2020-09-11] MEDS: DAPTOmycin 500 MG in sodium chloride 0.9% (100 ml) 100 ML 100 MG IV (11:27)
== END ==
PROVIDERS: PCP Student in an Organized Health Care Education/Training Program; Visit Provider Student in an Organized Health Care Education/Training Program
DX: M00.9 Pyogenic arthritis, unspecified (principal)
CPT/HCPCS: 36569; 71045; 96365; J0878

== ENCOUNTER 2020-09-19 14:31 | Outpatient (CLI) | payer MEDICARE, BC, SELFPAY ==
[2020-09-19 15:49] LABS: White Blood Count 7.6 10^3/uL (4.0-10.0)
[2020-09-19 16:14] LABS: C Reactive Protein 15.5 mg/L (0.0-4.9); Creatine Phosphokinase 69 U/L (39-308); Glomerular Filtration Rate 86.4 mL/min (90-130)
== END 2020-09-19 14:32 | disposition home or self-care (01) ==
LOC: LAB 14:37
PROVIDERS: PCP Student in an Organized Health Care Education/Training Program; Visit Provider Student in an Organized Health Care Education/Training Program
DX: Z45.2 Encounter for adjustment and management of vascular access device (principal); M00.9 Pyogenic arthritis, unspecified
CPT/HCPCS: 82550; 82565; 85048; 86140

== ENCOUNTER 2020-09-26 13:57 | Outpatient (CLI) | payer MEDICARE, BC, SELFPAY ==
[2020-09-26 14:14] LABS: White Blood Count 8.1 10^3/uL (4.0-10.0)
[2020-09-26 14:44] LABS: C Reactive Protein 13.9 mg/L (0.0-4.9); Creatine Phosphokinase 88 U/L (39-308); Glomerular Filtration Rate 98.9 mL/min (90-130)
== END 2020-09-26 13:58 | disposition home or self-care (01) ==
PROVIDERS: PCP Student in an Organized Health Care Education/Training Program; Visit Provider Student in an Organized Health Care Education/Training Program
DX: Z45.2 Encounter for adjustment and management of vascular access device (principal); M00.9 Pyogenic arthritis, unspecified
CPT/HCPCS: 82550; 82565; 85048; 86140

== ENCOUNTER 2020-10-03 14:08 | Outpatient (CLI) | payer MEDICARE, BC, SELFPAY ==
[2020-10-03 14:27] LABS: White Blood Count 6.6 10^3/uL (4.0-10.0)
[2020-10-03 14:46] LABS: C Reactive Protein 17.1 mg/L (0.0-4.9); Creatine Phosphokinase 65 U/L (39-308); Glomerular Filtration Rate 86.4 mL/min (90-130)
== END 2020-10-03 14:09 | disposition home or self-care (01) ==
PROVIDERS: PCP Student in an Organized Health Care Education/Training Program; Visit Provider Student in an Organized Health Care Education/Training Program
DX: Z45.2 Encounter for adjustment and management of vascular access device (principal); M00.9 Pyogenic arthritis, unspecified
CPT/HCPCS: 82550; 82565; 85048; 86140

== ENCOUNTER 2020-10-10 15:43 | Outpatient (CLI) | payer MEDICARE, BC, SELFPAY ==
[2020-10-10 16:20] LABS: White Blood Count 6.3 10^3/uL (4.0-10.0)
[2020-10-10 17:12] LABS: C Reactive Protein 20.4 mg/L (0.0-4.9); Creatine Phosphokinase 185 U/L (39-308); Glomerular Filtration Rate 86.4 mL/min (90-130)
== END 2020-10-10 15:44 | disposition home or self-care (01) ==
PROVIDERS: PCP Student in an Organized Health Care Education/Training Program; Visit Provider Student in an Organized Health Care Education/Training Program
DX: Z45.2 Encounter for adjustment and management of vascular access device (principal); M00.9 Pyogenic arthritis, unspecified
CPT/HCPCS: 82550; 82565; 85048; 86140

== ENCOUNTER 2020-10-17 13:54 | Outpatient (CLI) | payer MEDICARE, BC, SELFPAY ==
[2020-10-17 14:21] LABS: White Blood Count 7.1 10^3/uL (4.0-10.0)
[2020-10-17 15:09] LABS: Creatine Phosphokinase 105 U/L (39-308); Glomerular Filtration Rate 56.5 mL/min (90-130)
== END 2020-10-17 13:55 | disposition home or self-care (01) ==
PROVIDERS: PCP Student in an Organized Health Care Education/Training Program; Visit Provider Student in an Organized Health Care Education/Training Program
DX: Z45.2 Encounter for adjustment and management of vascular access device (principal); M00.9 Pyogenic arthritis, unspecified
CPT/HCPCS: 82550; 82565; 85048; 86140

== ENCOUNTER 2020-10-24 12:43 | Outpatient (CLI) | payer MEDICARE, BC, SELFPAY ==
[2020-10-24 12:59] LABS: White Blood Count 6.1 10^3/uL (4.0-10.0)
[2020-10-24 13:32] LABS: C Reactive Protein 8.4 mg/L (0.0-4.9); Creatine Phosphokinase 130 U/L (39-308); Glomerular Filtration Rate 76.5 mL/min (90-130)
== END 2020-10-24 12:44 | disposition home or self-care (01) ==
PROVIDERS: PCP Student in an Organized Health Care Education/Training Program; Visit Provider Student in an Organized Health Care Education/Training Program
DX: Z45.2 Encounter for adjustment and management of vascular access device (principal); M00.9 Pyogenic arthritis, unspecified
CPT/HCPCS: 82550; 82565; 85048; 86140

== ENCOUNTER 2020-10-31 14:01 | Outpatient (CLI) | payer MEDICARE, BC, SELFPAY ==
[2020-10-31 14:17] LABS: White Blood Count 5.6 10^3/uL (4.0-10.0)
[2020-10-31 14:49] LABS: C Reactive Protein 22.8 mg/L (0.0-4.9); Creatine Phosphokinase 82 U/L (39-308); Glomerular Filtration Rate 76.5 mL/min (90-130)
== END 2020-10-31 14:02 | disposition home or self-care (01) ==
PROVIDERS: PCP Student in an Organized Health Care Education/Training Program; Visit Provider Student in an Organized Health Care Education/Training Program
DX: Z45.2 Encounter for adjustment and management of vascular access device (principal); M00.9 Pyogenic arthritis, unspecified
CPT/HCPCS: 82550; 82565; 85048; 86140

== ENCOUNTER → 2020-11-26 14:31 | Outpatient (BNVA) | payer MEDICARE, BC, SELFPAY | PROVIDERS: PCP Student in an Organized Health Care Education/Training Program; Visit Provider Specialist | DX: M97.02XA Periprosthetic fracture around internal prosthetic left hip joint, initial encounter (principal); Z48.89 Encounter for other specified surgical aftercare; S72.009A Fracture of unspecified part of neck of unspecified femur, initial encounter for closed fracture; M97.02XD Periprosthetic fracture around internal prosthetic left hip joint, subsequent encounter; Z96.649 Presence of unspecified artificial hip joint; Z96.652 Presence of left artificial knee joint; X58.XXXA Exposure to other specified factors, initial encounter | CPT/HCPCS: 73502; 73560; 73565 ==

== ENCOUNTER → 2021-03-04 11:30 | Outpatient (BNVA) | payer MEDICARE, BC, SELFPAY | PROVIDERS: PCP Student in an Organized Health Care Education/Training Program; Visit Provider Specialist | DX: M25.562 Pain in left knee (principal); Z98.890 Other specified postprocedural states; Z96.652 Presence of left artificial knee joint; W19.XXXA Unspecified fall, initial encounter | CPT/HCPCS: 73560; 73565 ==

== ENCOUNTER → 2022-05-15 10:13 | Outpatient (BNVA) | payer MEDICARE, SELFPAY | PROVIDERS: PCP Family Medicine; Referring Provider Family Medicine; Visit Provider Internal Medicine | DX: E11.21 Type 2 diabetes mellitus with diabetic nephropathy (principal); L97.501 Non-pressure chronic ulcer of other part of unspecified foot limited to breakdown of skin; E78.5 Hyperlipidemia, unspecified; E05.00 Thyrotoxicosis with diffuse goiter without thyrotoxic crisis or storm; E05.90 Thyrotoxicosis, unspecified without thyrotoxic crisis or storm; Z74.09 Other reduced mobility; Z79.84 Long term (current) use of oral hypoglycemic drugs | CPT/HCPCS: 99204 ==

== ENCOUNTER 2022-05-27 09:58 | Outpatient (CLI) | payer MEDICARE, SELFPAY ==
[2022-05-27 11:11] LABS: Thyroid Stimulating Hormone 0.34 uIU/mL (0.27-4.20)
[2022-05-28 09:39] LABS: T3 Total 116 ng/dL (76-181)
[2022-05-28 17:18] LABS: Thyroid Peroxidase Antobodies 2 IU/mL (<9)
[2022-06-01 02:10] LABS: TSH Receptor Binding Antibody <1.00 IU/L (< OR = 2.00)
== END 2022-05-27 09:59 | disposition home or self-care (01) ==
PROVIDERS: PCP Family Medicine; Visit Provider Internal Medicine
DX: E11.8 Type 2 diabetes mellitus with unspecified complications (principal); E11.42 Type 2 diabetes mellitus with diabetic polyneuropathy; L60.3 Nail dystrophy; M20.41 Other hammer toe(s) (acquired), right foot; M20.42 Other hammer toe(s) (acquired), left foot; M20.10 Hallux valgus (acquired), unspecified foot; Z91.81 History of falling
CPT/HCPCS: 11721; 36415; 83516; 84439; 84443; 84480; 86376; 99204; J9352

== ENCOUNTER → 2022-06-09 15:18 | Outpatient (BNVA) | payer MEDICARE, SELFPAY | PROVIDERS: PCP Family Medicine; Visit Provider Podiatrist Foot & Ankle Surgery | DX: E11.621 Type 2 diabetes mellitus with foot ulcer (principal); L97.411 Non-pressure chronic ulcer of right heel and midfoot limited to breakdown of skin | CPT/HCPCS: 73630; 99213 ==

== ENCOUNTER 2022-06-12 09:14 | Outpatient (CLI) | payer MEDICARE, SELFPAY ==
--- NOTE | 2022-06-12 09:00 | US_ITS ---
WS: [id number] THYROID ULTRASOUND HISTORY: graves disease COMPARISON: None available. Right lobe: 2.1 cm x 2.1 cm x 5.3 cm (w x ap x l). Volume: 12.0 cm3. Minimally prominent gland. No hypervascularity and the echotexture is normal. No mass or nodule. Left lobe: 1.6 cm x 1.9 cm x 4.5 cm (w x ap x l). Volume: 7.4 cm3. Normal size and echotexture. No significant or dominant nodules are present. Isthmus: 0.5 cm. US/US thyroid [id number] IMPRESSION: 1. No ultrasound evidence for Graves' disease. There is no hypervascularity an d the echogenicity is normal. 2. Very minimal enlargement of the RIGHT thyroid. No mass or nodule.
== END 2022-06-12 09:15 | disposition home or self-care (01) ==
LOC: RAD 09:17
PROVIDERS: PCP Family Medicine; Visit Provider Internal Medicine
DX: E05.00 Thyrotoxicosis with diffuse goiter without thyrotoxic crisis or storm (principal)
CPT/HCPCS: 76536; 99204

== ENCOUNTER → 2022-06-24 13:25 | Outpatient (BNVA) | payer MEDICARE, SELFPAY | PROVIDERS: PCP Family Medicine; Visit Provider Podiatrist Foot & Ankle Surgery | DX: E11.621 Type 2 diabetes mellitus with foot ulcer (principal); L97.411 Non-pressure chronic ulcer of right heel and midfoot limited to breakdown of skin | CPT/HCPCS: 99213 ==

== ENCOUNTER → 2022-07-24 12:48 | Outpatient (BNVA) | payer MEDICARE, SELFPAY | PROVIDERS: PCP Family Medicine; Visit Provider Podiatrist Foot & Ankle Surgery | DX: E11.9 Type 2 diabetes mellitus without complications (principal); L60.3 Nail dystrophy | CPT/HCPCS: 99213 ==

== ENCOUNTER 2022-07-26 14:29 | Emergency (ER) | payer MEDICARE, SELFPAY ==
[2022-07-26 14:34] VITALS: BP 115/67; PULSE 71; RESP 16; TEMP 36.4; O2SAT 96
--- NOTE | 2022-07-26 14:45 | W.ED.FALL ---
HPI - Fall General: Chief Complaint: Fall Stated Complaint: fall left hip pain Time Seen by Provider: 07/26/22 14:43 Source: patient and family Mode of arrival: wheelchair Limitations: no limitations History of Present Illness: Patient is a nice 62-year-old male who presents to ED today along with family for concerns of left hip pain. Family states approximately 2 days ago he accidentally fell and landed on the left hip and has been complaining of pain since. Family states patient chronically has issues with gait stemming from multiple lower extremity pathologies including a total knee arthroplasty with subsequent septic arthritis, left hip arthroplasty with subsequent periprosthetic fracture requiring revision, chronic lower extremity neuropathy secondary to diabetes, history of osteonecrosis, etc. He receives some type of home health/home physical therapy who is helping with strengthening/gait. Denies any other injuries during the fall. MD complaint: fall Onset (ago): day(s) Fall from: standing Fall witnessed: no Place fall occurred: home Loss of consciousness: None Prolonged down time: no Symptoms prior to fall: none Context: tripped/slipped Location of injury: other (L hip) Associated symptoms-after fall: Reports difficulty walking (chronic); Denies abdominal pain, chest pain, headache(s) or neck pain Review of Systems Const: Denies: fever(s), chills, body aches, fatigue or malaise Card: Denies: chest pain Resp: Denies: dyspnea GI: Denies: abdominal pain : Denies: flank pain or dysuria Musc: Reports: joint pain (L hip); Denies: neck pain, back pain, extremity pain, extremity swelling, joint swelling, joint redness or joint warmth Skin/Breast: Denies: rash Neuro: Reports: sensory changes (chronic neuropathy) and difficulty walking (chronic); Denies: headache(s) PFSH ED PFSH: Medical History Anemia Chronic anemia Chronic kidney disease (CKD) CKD (chronic kidney disease) stage 2, GFR 60-89 ml/min COVID-19 Diabetes mellitus type 2, noninsulin dependent Diabetic peripheral neuropathy Fall Femur fracture GERD (gastroesophageal reflux disease) History of osteomyelitis Right foot History of septic arthritis Left knee Hx of fracture of left hip Hyperlipidemia Hypertension Lab test positive for detection of COVID-19 virus Periprosthetic fracture around internal prosthetic left hip joint, initial encounter Type 2 diabetes mellitus Surgical History History of hand surgery History of knee surgery Bilateral History of toe surgery History of total knee arthroplasty Status post hip hemiarthroplasty Family History Other Cancer Diabetes Social History Smoking and tobacco status: never smoked Alcohol intake: current Alcohol intake frequency: 3 or more drinks per day Alcohol type: beer Substance/Drug Use: never Household members: spouse and children Marital status: Physical Exam Const: COMMON NORMALS: no acute distress, average body habitus, patient oriented x3, no limitations, alert and well nourished GENERAL APPEARANCE: cooperative ORIENTATION/CONSCIOUSNESS: Yes awake, Yes oriented to person, Yes oriented to place and Yes oriented to time HENMT: COMMON NORMALS: normocephalic and atraumatic HEAD & SCALP: normal to inspection, normocephalic and atraumatic Neck/C-Spine: CERVICAL SPINE: No Cervical spine tenderness Resp: COMMON NORMALS: normal respiratory effort and clear to auscultation bilaterally AUSCULTATION: clear to auscultation bilaterally Cardio: COMMON NORMALS: regular rate and regular rhythm RATE: regular rate RHYTHM: regular rhythm Back/Pelvis: THORACIC SPINE/UPPER BACK: Yes normal to inspection and No thoracic spinal tenderness LUMBAR SPINE/LOWER BACK: Yes normal to inspection and No lumbar spinal tenderness PELVIS: Yes buttocks normal SACRUM: no tenderness COCCYX: no tenderness OTHER: seems to be most tender to posterior superior iliac spine BACK IMAGE (MALE): 1. TTP Extremity: COMMON NORMALS: normal to inspection, full ROM, capillary refill normal, no joint enlargement, no clubbing, cyanosis or edema, no calf tenderness and no pedal edema NARRATIVE EXTREMITY EXAM: chronic bilateral atrophy GENERAL: Yes normal exam except as noted Neuro: GER COMA SCALE: document GCS findings [place] coma scale eye opening: Spontaneous [place] coma scale verbal response: Orientated [place] coma scale motor response: Obey commands [place] coma scale total score: 15 COMMON NORMALS: patient oriented x3, moves all extremities, no focal motor deficits and no sensory deficits noted SENSORIUM/ORIENTATION: Yes alert, Yes oriented to person, Yes oriented to place and Yes oriented to time Skin: COMMON NORMALS: no rashes or lesions noted GENERAL SKIN EXAM: no rashes or lesions noted TRAUMA: no lacerations or abrasions Course Vital Signs: Vital signs: Vital Signs Temperature 97.6 F 07/26/22 14:34 Pulse Rate 71 07/26/22 14:34 Respiratory Rate 16 07/26/22 15:27 Blood Pressure 115/67 07/26/22 14:34 Pulse Oximetry 96 07/26/22 14:34 Oxygen Delivery Me thod Room Air 07/26/22 14:34 MDM - Fall Medical Decision Making XR hip/pelvis negative for acute fracture. We will provide him a short course of pain medications and recommend he follow-up with his primary care provider early this week. Family verbalizes agreement of current plan. Lab Data Radiology Impressions Hip/Pelvis X-Ray 07/26/22 14:55 IMPRESSION: No acute bony abnormalities. Discharge Plan Discharge Patient Disposition: Home Clinical Impression: Injury of left hip Qualifiers: Encounter type: initial encounter Qualified Code(s): S79.912A - Unspecified injury of left hip, initial encounter Condition: Stable Prescriptions: New hydrocodone-acetaminophen 5-325 mg tablet 1 tab PO Q6H PRN (Reason: pain) Qty: 14 0RF No 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 See Rx Instructions .Route .MEDSUPPLY Qty: 1 0RF Rx Instructions: As directed daptomycin 500 mg recon soln 600 mg IV Q24H 42 Days Qty: 42 0RF Rx Instructions: administer over 30 mins (DME) 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 See Rx Instructions .Route .MEDSUPPLY Qty: 1 0RF Rx Instructions: As directed (DME) Post operative hinged Left knee brace See Rx Instructions .Route .MEDSUPPLY Qty: 1 0RF Rx Instructions: As directed set at 0-60 (DME) KAFO KNEE BRACE See Rx Instructions .Route .MEDSUPPLY Qty: 1 0RF Rx Instructions: As directed mupirocin 2 % ointment 1 applic topical BID 14 Days Qty: 22 6RF Januvia 50 mg tablet 50 mg PO DAILY Qty: 90 2RF (DME) Diabetic Boots with 3 pairs of Inserts- Doctor Comfort- RANGER style See Rx Instructions .Route .MEDSUPPLY Qty: 1 0RF Rx Instructions: As directed HOME multivit-iron cuh-SI-[id number]-lycop 18 mg-400 mcg- 1,000 unit Powder In Packet 1 ea PO DAILY Otc Muscle Cramps 1 tab PO DAILY Rx Instructions: TAKE FOR MUSCLE CRAMPS/SPASMS gabapentin [Neurontin] 800 mg tablet 800 mg PO TID Qty: 30 0RF omeprazole 20 mg capsule,delayed release(DR/EC) 20 mg PO DAILY Qty: 30 0RF Xigduo XR 10-500 mg tablet, IR - ER, biphasic 24hr 1 tab PO DAILY Qty: 30 0RF Discharge Orders: Discharge ED (Routine); Ordered 07/26/22 Ordered By: Criselda Rueda Referrals: Antonio Jaeger MD [Primary Care Provider] - Patient Instructions: Hip Contusion (ED) Coding Level of Care Code ED [employer]ing [employer] for [employer]
--- NOTE | 2022-07-26 14:55 | XRR_ITS ---
PROCEDURE INFORMATION: Exam: XR Left Hip Exam date and time: 07/26/2022 3:10 PM Age: 62 years old Clinical indication: Injury or trauma; Fall; Blunt trauma (contusions or hematomas); Left; Hip; Prior surgery; Surgery date: 6+ months; Additional info: Fall/pain; One view pelvis too please TECHNIQUE: Imaging protocol: Radiologic exam of the left hip. Views: 2 or 3 views hip with pelvis when performed. COMPARISON: CR XR hip LT 2-3V wo/w pel* [id number] 11/26/2020 2:39 PM FINDINGS: Bones/joints: There is a bipolar left hip prosthesis in place within the left hip joint. Hardware is intact. Bone metal interface is unremarkable. No periprosthetic fracture. Remainder of visualized osseous structures are unremarkable. Soft tissues: Unremarkable. XR/XR hip LT 2-3V wo/w pel* [id number] IMPRESSION: No acute bony abnormalities.
[2022-07-26 15:27] VITALS: RESP 16
[2022-07-26] MEDS: morphine 4 mg/mL SDV 1 mL IM (15:27)
== END 2022-07-26 16:10 | disposition home or self-care (01) ==
PROVIDERS: Emergency Provider Physician Assistant; PCP Family Medicine
DX: S79.912A Unspecified injury of left hip, initial encounter (principal); I12.9 Hypertensive chronic kidney disease with stage 1 through stage 4 chronic kidney disease, or unspecified chronic kidney disease; E11.22 Type 2 diabetes mellitus with diabetic chronic kidney disease; N18.2 Chronic kidney disease, stage 2 (mild); E78.5 Hyperlipidemia, unspecified; W19.XXXA Unspecified fall, initial encounter
CPT/HCPCS: 73502; 96372; 99284; J2270

== ENCOUNTER → 2022-08-27 12:50 | Outpatient (BNVA) | payer MEDICARE, SELFPAY | PROVIDERS: PCP Family Medicine; Visit Provider Internal Medicine | DX: E11.9 Type 2 diabetes mellitus without complications (principal); E05.90 Thyrotoxicosis, unspecified without thyrotoxic crisis or storm; Z74.09 Other reduced mobility; E53.8 Deficiency of other specified B group vitamins; Z79.84 Long term (current) use of oral hypoglycemic drugs | CPT/HCPCS: 36415; 80053; 80061; 82044; 82607; 83036; 84439; 84443; 84480; 99214 ==

== ENCOUNTER → 2022-09-23 13:28 | Outpatient (BNVA) | payer MEDICARE, SELFPAY | PROVIDERS: PCP Family Medicine; Visit Provider Podiatrist Foot & Ankle Surgery | DX: E11.8 Type 2 diabetes mellitus with unspecified complications (principal); L60.3 Nail dystrophy | CPT/HCPCS: 99213 ==

== ENCOUNTER 2022-11-27 11:21 | Outpatient (CLI) | payer MEDICARE, SELFPAY ==
--- NOTE | 2022-11-27 11:31 | XR_ITS ---
WS: [id number] EXAMINATION: XR knee LT 3V* [id number] REASON FOR EXAM: S/P REVISION OF TOTAL KNEE COMPARISON: 03/04/2021 ORDER DATE: 11/27/2022 11:38 AM FINDINGS/IMPRESSION: There has been revision of the total knee prosthesis since the last study with the prosthetic compone nts appearing to be in satisfactory position. Significant increased intramedullary cement placement i s demonstrated at each prosthesis. No sign of loosening. No specific acute soft tissue change.
== END 2022-11-27 11:22 | disposition home or self-care (01) ==
LOC: RAD 11:24
PROVIDERS: PCP Family Medicine; Visit Provider Orthopaedic Surgery
DX: Z96.652 Presence of left artificial knee joint (principal)
CPT/HCPCS: 73562

== ENCOUNTER 2023-01-26 10:16 | Outpatient (CLI) | payer MEDICARE, SELFPAY ==
--- NOTE | 2023-01-26 10:23 | FL_ITS ---
WS: [id number] Exam: FL barium swallow modifd [id number] Date/Time of Exam: 01/26/2023 10:25 AM Reason For Exam: Other dysphagia Fluoroscopy time: 4min [id number] minutes # of spot films: Modified barium swallow was performed in conjunction with the speech therapy service. The patient experienced significant difficulty initiating the swallowing process at the level of the oropharynx specifically elevating the tongue to the hard palate to initiate swallowing. Significant a spiration was identified when the patient swallowed thin liquid and nectar consistency barium. The pa tient tolerated moderately thick liquid barium without obvious aspiration. Solid barium mixture foods tuffs were swallowed without aspiration. The patient swallowed a barium tablet which passed into the stomach without complication. IMPRESSION: 1. The exam is positive for significant aspiration of thin liquid and nectar consistency barium mixtu re foodstuffs. 2. Significant dysfunction of oral pharyngeal swallowing phase as discussed above. A separate report of findings and recommendations will follow from the speech therapy service.
== END 2023-01-26 10:17 | disposition home or self-care (01) ==
LOC: RAD 10:16
PROVIDERS: PCP Family Medicine; Visit Provider Family Medicine
DX: R13.10 Dysphagia, unspecified (principal)
CPT/HCPCS: 74230; 92611

== ENCOUNTER → 2023-03-05 10:52 | Outpatient (BNVA) | payer MEDICARE, SELFPAY | PROVIDERS: PCP Family Medicine; Referring Provider Family Medicine; Visit Provider Psychiatry & Neurology Neurology | DX: R13.10 Dysphagia, unspecified (principal); R53.1 Weakness; R55 Syncope and collapse; R05.4 Cough syncope; R29.6 Repeated falls; G62.9 Polyneuropathy, unspecified; M54.2 Cervicalgia; E55.9 Vitamin D deficiency, unspecified; Z74.09 Other reduced mobility; Z91.81 History of falling | CPT/HCPCS: 36415; 82306; 83735; 85025; 86592; 86780; 95812; 95816; 99203 ==

== ENCOUNTER 2023-04-01 14:01 | Outpatient (CLI) | payer MEDICARE, SELFPAY ==
--- NOTE | 2023-04-01 14:25 | MR_ITS ---
WS: [id number] MRI HEAD WITH CONTRAST TECHNIQUE: Sagittal T1, T2 axial, T2 axial FLAIR, axial susceptibility weighted imaging, axial diffus ion weighted images, and coronal T2 images were obtained. Pre and post-T1 axial and post T1 coronal i mages. ADC and FSPGR images. CLINICAL INFORMATION: R29.6 - Repeated falls COMPARISON: None. FINDINGS: No evidence of restricted diffusion to suggest acute ischemia. Ventricular system and basilar cistern s are patent. Minimal small vessel changes. Moderate parenchymal volume loss worse in the parietal lo bes. Small vessel changes in the belem. Normal posterior fossa. Normal vascular flow voids at the skul l base. No extra-axial fluid collections. No evidence of mass or mass effect. Paranasal sinuses are w ell aerated. Mastoid air cells are well aerated. Normal optic chiasm and pituitary infundibulum. No abnormal gadolinium enhancement. Normal dural veno us sinuses. IMPRESSION: 1. No evidence of restricted diffusion to suggest acute ischemia. 2. Minimal small vessel changes. Small vessel changes in the belem. Moderate parenchymal volume loss. Parenchymal volume loss more prominent in the bilateral parietal lobes. 3. Mild symmetric atrophy temporal lobes and hippocampal formations. 4. No hemosiderin on susceptibility-weighted images. 5. No abnormal gadolinium enhancement.
--- NOTE | 2023-04-01 14:30 | MR_ITS ---
WS: [id number] MR CERVICAL SPINE WO/W DATE OF EXAMINATION: 11/18/2022 COMPARISON: None. HISTORY: TECHNIQUE: Sagittal T1, T2 and T2 inversion recovery; axial T2, T2 gradient and fiesta. Post gadolini um imaging with fat saturation technique. FINDINGS:Straightening of the normal cervical lordosis. Mild congenital central canal stenosis. Cord signal appears normal C2-3: Moderate facet arthropathy. Mild RIGHT greater than LEFT bony foraminal narrowing.. C3-4: Mild disc bulge with a tiny central protrusion. Moderate LEFT and mild RIGHT foraminal narrowin g. Moderate facet arthropathy. C4-5: Mild disc bulging with LEFT paracentral protrusion. Slight indentation LEFT ventral cervical co rd. Moderate to severe LEFT bony foraminal narrowing. Moderate LEFT facet arthropathy. C5-6: Disc osteophyte complex with endplate ridging. Slight indentation LEFT ventral cervical cord. M ild central canal stenosis. Severe LEFT bony foraminal narrowing. Moderate facet arthropathy. C6-7: RIGHT paracentral shallow disc osteophyte protrusion. Mild central canal stenosis. Moderate to severe bilateral bony foraminal narrowing worse on the LEFT. C7-T1: Shallow central protrusion with mild central canal stenosis. Moderate LEFT greater than RIGHT bony foraminal narrowing. IMPRESSION: Some images degraded by motion. 1. Straightening of the normal cervical lordosis with moderate spondylitic changes. Mild congenital central canal narrowing 2. Mild central canal stenosis worse at C4-C5, C5-C6, C6-C7, and C7-T1 with small disc osteophyte pr otrusions.. 3. Multilevel disc osteophyte protrusions with slight indentation on the cervical cord at LEFT C4-C5 , LEFT C5-C6, and RIGHT C6-C7. 4. Multilevel bony foraminal narrowing moderate to severe at LEFT C4-C5, LEFT C5-C6 and bilateral C6 -7. Moderate bilateral foraminal narrowing C7-T1 LEFT greater than RIGHT. 5. No abnormal gadolinium enhancement.
[2023-04-01] MEDS: gadobenate dimeglumine 20 mL vial IV (16:29)
== END 2023-04-01 14:02 | disposition home or self-care (01) ==
LOC: RAD 14:01
PROVIDERS: PCP Family Medicine; Visit Provider Family Medicine
DX: R29.6 Repeated falls (principal); R13.10 Dysphagia, unspecified; M54.2 Cervicalgia; M48.02 Spinal stenosis, cervical region; M47.812 Spondylosis without myelopathy or radiculopathy, cervical region; M25.78 Osteophyte, vertebrae
CPT/HCPCS: 70553; 72156; A9577

== ENCOUNTER 2023-04-01 14:04 | Outpatient (CLI) | payer MEDICARE, SELFPAY ==
[2023-04-01 17:15] LABS: Creatinine Urine, Random 145 mg/dL (39-259); Microalbum Creatinine Ratio Ur 7 mg/dL (0-20); Microalbumin Random Urine 1 ug/dL (0-20)
[2023-04-01 17:45] LABS: Alanine Aminotransferase 17 U/L (0-41); Albumin Level 4.4 g/dL (3.5-5.2); Alkaline Phosphatase 123 U/L (40-130); Anion Gap 19.3 (5-19); Aspartate Amino Transferase 19 U/L (0-40); Blood Urea Nitrogen 33 mg/dL (8-23); Calcium 9.3 mg/dL (8.5-10.5); Carbon Dioxide 24 mmol/L (22-29); Chloride 101 mmol/L (98-107); Chol HDL Ratio 2.87 mg/dL (1.0-5.00); Cholesterol 175 mg/dL (0-200); Globulin 3.2 g/dL (1.3-4.6); Glomerular Filtration Rate 55.9 mL/min (90-130); Glucose 128 mg/dL (65-115); HDL Cholesterol 61 mg/dL (60-100); LDL Cholesterol Calculated 102 mg/dL (50-129); LDL HDL Ratio 1.67 RATIO (0.00-3.22); Osmolality Calculated 299 mOsm/kg (285-295); Potassium 4.3 mmol/L (3.5-5.1); Sodium 140 mmol/L (136-145); Thyroid Stimulating Hormone 0.17 uIU/mL (0.27-4.20); Total Bilirubin 0.4 mg/dL (0.15-1.2); Total Protein 7.6 g/dL (6.6-8.7); Triglycerides 61 mg/dL (0-150)
[2023-04-01 19:28] LABS: Estmated Average Glucose 137; Hemoglobin A1C 6.4 % (4.0-6.0)
[2023-04-01 19:57] LABS: Vitamin B12 > 2000 pg/mL (232-1245)
[2023-04-01 20:07] LABS: Free T4 Free Thyroxine 1.57 ng/dL (0.82-1.77)
[2023-04-03 07:19] LABS: T3 Total 119 ng/dL (76-181)
== END 2023-04-01 14:05 | disposition home or self-care (01) ==
LOC: LAB 14:08
PROVIDERS: Internal Medicine; PCP Family Medicine; Visit Provider Family Medicine
DX: E11.9 Type 2 diabetes mellitus without complications (principal); E05.90 Thyrotoxicosis, unspecified without thyrotoxic crisis or storm; Z74.09 Other reduced mobility; E53.8 Deficiency of other specified B group vitamins
CPT/HCPCS: 36415; 80053; 80061; 82044; 82607; 83036; 84439; 84443; 84480

== ENCOUNTER → 2023-04-09 09:53 | Outpatient (BNVA) | payer MEDICARE, SELFPAY | PROVIDERS: PCP Family Medicine; Visit Provider Internal Medicine | DX: E11.9 Type 2 diabetes mellitus without complications (principal); E05.90 Thyrotoxicosis, unspecified without thyrotoxic crisis or storm; Z74.09 Other reduced mobility; E53.8 Deficiency of other specified B group vitamins; Z79.84 Long term (current) use of oral hypoglycemic drugs | CPT/HCPCS: 84439; 84443; 84480; 99213; 99214 ==

== ENCOUNTER 2023-05-20 12:30 | Outpatient (CLI) | payer MEDICARE, SELFPAY ==
[2023-05-20 13:14] LABS: Thyroid Stimulating Hormone 0.25 uIU/mL (0.27-4.20)
== END 2023-05-20 12:31 | disposition home or self-care (01) ==
LOC: LAB 12:31
PROVIDERS: PCP Family Medicine; Visit Provider Internal Medicine
DX: E05.90 Thyrotoxicosis, unspecified without thyrotoxic crisis or storm (principal)
CPT/HCPCS: 84443

== ENCOUNTER → 2023-06-24 14:50 | Outpatient (BNVA) | payer MEDICARE, SELFPAY | PROVIDERS: PCP Family Medicine; Visit Provider Psychiatry & Neurology Neurology | DX: R13.10 Dysphagia, unspecified (principal); R25.3 Fasciculation; R53.1 Weakness; Z74.09 Other reduced mobility; R55 Syncope and collapse; R05.4 Cough syncope; Z91.81 History of falling | CPT/HCPCS: 99212 ==

== ENCOUNTER 2023-07-31 13:29 | Emergency (ER) | payer MEDICARE, SELFPAY ==
[2023-07-31 13:31] VITALS: BP 99/62; PULSE 56; RESP 16; TEMP 36.6; O2SAT 98
--- NOTE | 2023-07-31 13:43 | XRR_ITS ---
PROCEDURE INFORMATION: Exam: XR Chest Exam date and time: 07/31/2023 1:54 PM Age: 63 years old Clinical indication: Shortness of breath TECHNIQUE: Imaging protocol: Radiologic exam of the chest. Views: 1 view. COMPARISON: CR XR chest 1V portable [id number] 09/11/2020 10:35 AM FINDINGS: Lungs: Unremarkable. No consolidation. Pleural spaces: Unremarkable. No pleural effusion. No pneumothorax. Heart/Mediastinum: Unremarkable. No cardiomegaly. Bones/joints: Unremarkable. XR/XR chest 1V [id number] IMPRESSION: No acute findings.
--- NOTE | 2023-07-31 13:43 | ED_ITS ---
HPI - Weakness 2 General: Chief complaint: Weakness Stated complaint: Weakness/Dizzy/ Confused Time Seen by Provider: 07/31/23 13:38 History of Present Illness: 63-year-old man with history of hyperten percy, hyperlipidemia, diabetic peripheral neuropathy, diabetes, chronic kidney disease and a history of alcohol abuse. He still drinks but family says not much . He is brought to the emergency room today for increased somnolence and some slight confusion. He has a pressure ulcer on the right lateral foot. This is opened a bit more than it was they say. Does not appear infected. No focal motor deficits. No known fevers. No vomiting. Blood pressure is a bit low on presentation. Although historically his blood pressure normally runs between 105 and 115 systolic. Review of Systems 2 Narrative: Constitutional symptoms: Negative except as documented in HPI. Skin symptoms: Negative except as documented in HPI. Eye symptoms: Negative except as documented in HPI. ENMT symptoms: Negative except as documented in HPI. Respiratory symptoms: Negative except as documented in HPI. Cardiovascular symptoms: Negative except as documented in HPI. Gastrointestinal symptoms: Negative except as documented in HPI. Genitourinary symptoms: Negative except as documented in HPI. Musculoskeletal symptoms: Negative except as documented in HPI. Neurologic symptoms: Negative except as documented in HPI. Psychiatric symptoms: Negative except as documented in HPI. Endocrine symptoms: Negative except as documented in HPI. PFSH ED 2 PFSH: Medical History Cough syncope Anemia COVID-19 Lab test positive for detection of COVID-19 virus Femur fracture Chronic kidney disease (CKD) Type 2 diabetes mellitus Periprosthetic fracture around internal prosthetic left hip joint, initial encounter CKD (chronic kidney disease) stage 2, GFR 60-89 ml/min Chronic anemia GERD (gastroesophageal reflux disease) Fall Hx of fracture of left hip Diabetes mellitus type 2, noninsulin dependent Diabetic peripheral neuropathy History of osteomyelitis Right foot Hyperlipidemia Hypertension History of septic arthritis Left knee Surgical History History of total knee arthroplasty Status post hip hemiarthroplasty History of toe surgery History of hand surgery History of knee surgery Bilateral Family History Other Cancer Diabetes Social History Smoking and tobacco/nicotine status: never used tobacco/nicotine Alcohol intake: current Alcohol intake frequency: 3 or more drinks per day Alcohol type: beer Substance/Drug Use: never Household members: spouse and children Marital status: Physical Exam 2 Narrative: EXAM NARRATIVE: General: Alert, somnolent but arousable Skin: Warm, dry. Head: Normocephalic, atraumatic. Neck: Supple, trachea midline. Eye: Extraocular movements are intact. Ears, nose, mouth and throat: Tacky oral mucosa Cardiovascular: Regular, Normal peripheral perfusion. Respiratory: Lungs are clear to auscultation, respirations are non-labored, breath sounds are equal, Symmetrical chest wall expansion. Gastrointestinal: Soft, Nontender, Non distended, Normal bowel sounds. Musculoskeletal: Normal ROM, no deformity. Neurological: Oriented to family, no focal neurological deficit observed. Psychiatric: Cooperative Course 2 Vital Signs: Vital signs: Vital Signs Temperature 97.9 F 07/31/23 13:31 Pulse Rate 50 L 07/31/23 16:04 Respiratory Rate 18 07/31/23 14:44 Blood Pressure 136/77 07/31/23 16:04 Pulse Oximetry 94 07/31/23 16:04 Oxygen Delivery Me thod Room Air 07/31/23 16:04 MDM - Weakness Medical Decision Making Medical decision making: Differential diagnosis for patient presenting with generalized weakness including but not limited to and based on the above HPI, review of systems and physical exam: Sepsis. Dehydration. Renal failure. Electrolyte abnormalities. Anemia. Congestive heart failure. Hypotension. Coronary syndrome. Hepatitis. Cirrhosis. Infections such as pneumonia, urinary tract infection, [place] bourne illness, Cellulitis, Viral infections including influenza and Covid-19. Workup: labwork and lab/exam driven imaging ordered to evaluate, rule in and rule out above pathologies. Lab Review: Laboratory results were reviewed and interpreted by myself the emergency room physician. No leukocytosis. No renal failure. No anemia. Urinalysis is negative. Respiratory panel is negative. Ammonia is negative. EKG: Time 1404 rate 49 sinus bradycardia, No ST-T changes, no ectopy, normal CO & QRS intervals, This was reviewed and interpreted by myself the ER physician at 1405. Chest x-ray: No acute process. No infiltrate. No pneumothorax. No cardiomegaly. This was reviewed and interpreted by myself the ER physician. I reviewed the patient's medical record. Reexamination: Patient remained stable. He seems less somnolent than when he first got here. This appears to be at his baseline. No increased work of breathing. Lab Data 07/31/23 14:12 07/31/23 14:12 Radiology Impressions Chest X-Ray 07/31/23 13:43 IMPRESSION: No acute findings. Laboratory Results WBC 5.21 10^3/uL (3.29-11.43) 07/31/23 14:12 RBC 4.97 10^6/uL (3.85-5.65) 07/31/23 14:12 Hgb 14.60 g/dL (11.27-16.99) 07/31/23 14:12 Hct 44.9 % (37-53) 07/31/23 14:12 MCV 90.3 fl (82-101) 07/31/23 14:12 MCH 29.4 pg (27-33) 07/31/23 14:12 MCHC 32.5 g/dL (30-55) 07/31/23 14:12 RDW 14.1 % (12.1-15.1) 07/31/23 14:12 Plt Count 239 10^3/cmm (157-399) 07/31/23 14:12 MPV 9.6 fL (7.4-10.4) 07/31/23 14:12 Neut % (Auto) 61.8 % 07/31/23 14:12 Lymph % (Auto) 27.3 % 07/31/23 14:12 [place] % (Auto) 8.8 % 07/31/23 14:12 Eos % (Auto) 1.5 % 07/31/23 14:12 Baso % (Auto) 0.4 % 07/31/23 14:12 Neut # (Auto) 3.22 10^3/uL (1.8-7.7) 07/31/23 14:12 Lymph # (Auto) 1.4 10^3/uL (0.8-4.8) 07/31/23 14:12 [place] # (Auto) 0.5 10^3/uL (0.2-0.9) 07/31/23 14:12 Eos # (Auto) 0.1 10^3/uL (0.0-0.8) 07/31/23 14:12 Baso # (Auto) 0.0 10^3/uL (0.0-0.1) 07/31/23 14:12 Nucleated RBC % (auto) 0 % 07/31/23 14:12 Nucleated RBCs # 0.0 /100WBC 07/31/23 14:12 ESR 1 mm/hr (0-10) 07/31/23 14:12 Sodium 140 mmol/L (136-145) 07/31/23 14:12 Potassium 4.4 mmol/L (3.5-5.1) 07/31/23 14:12 Chloride 102 mmol/L (98-107) 07/31/23 14:12 Carbon Dioxide 28 mmol/L (22-29) 07/31/23 14:12 Anion Gap 14.4 (5-19) 07/31/23 14:12 BUN 23 mg/dL (8-23) 07/31/23 14:12 Creatinine 1.2 mg/dL (0.7-1.2) 07/31/23 14:12 GFR Calculation 61.3 mL/min (90-130) L 07/31/23 14:12 Glucose 97 mg/dL (65-115) 07/31/23 14:12 Calculated Osmolality 294 mOsm/kg (285-295) 07/31/23 14:12 Lactic Acid 0.9 mmol/L (0.5-2.2) 07/31/23 14:12 Calcium 9.5 mg/dL (8.5-10.5) 07/31/23 14:12 Total Bilirubin 0.6 mg/dL (0.15-1.2) 07/31/23 14:12 AST 14 U/L (0-40) 07/31/23 14:12 ALT 12 U/L (0-41) 07/31/23 14:12 Alkaline Phosphatase 117 U/L (40-130) 07/31/23 14:12 Ammonia 17 umol/L (16-60) 07/31/23 14:12 Troponin T Baseline 19 ng/L (0-15) H 07/31/23 14:12 Troponin T 120 Minute 18.33 ng/L (0-15) H 07/31/23 15:42 Delta Troponin T -0.67 ABS# (0-10) L 07/31/23 15:42 C-Reactive Protein 4.4 mg/L (0.0-4.9) 07/31/23 14:12 Total Protein 7.1 g/dL (6.6-8.7) 07/31/23 14:12 Albumin 4.3 g/dL (3.5-5.2) 07/31/23 14:12 Globulin 2.8 g/dL (1.3-4.6) 07/31/23 14:12 Urine Color Yellow (Yellow) 07/31/23 16:00 Urine Appearance Clear (CLEAR) 07/31/23 16:00 Urine pH 5 (5-7) 07/31/23 16:00 Ur Specific [place] 1.025 (1.005-1.030) 07/31/23 16:00 Urine Protein Neg (Negative) 07/31/23 16:00 Urine Glucose (UA) Norm (Normal) 07/31/23 16:00 Urine Ketones 1+ (Negative) H 07/31/23 16:00 Urine Blood Neg (Negative) 07/31/23 16:00 Urine Nitrate Negative (Negative) 07/31/23 16:00 Urine Bilirubin 1+ (Negative) H 07/31/23 16:00 Urine Urobilinogen Norm mg/dL (Negative) 07/31/23 16:00 Ur Leukocyte Esterase Negative (Negative) 07/31/23 16:00 Urine RBC 0-4 /hpf (0-2) H 07/31/23 16:00 Urine WBC None /hpf (0-5) 07/31/23 16:00 Ur Squamous Epith Cells None /hpf (0-5) 07/31/23 16:00 Amorphous Sediment Not Reportable 07/31/23 16:00 Urine Bacteria Trace /hpf (NONE) 07/31/23 16:00 Urine Sperm 1+ /hpf 07/31/23 16:00 Adenovirus (PCR) Not detected (NOT DETECT) 07/31/23 14:40 C. pneumoniae DNA (PCR) Not detected (NOT DETECT) 07/31/23 14:40 Coronavirus 229E (PCR) Not detected (NOT DETECT) 07/31/23 14:40 Human Metapneumovir PCR Not detected (NOT DETECT) 07/31/23 14:40 Influenza A (H1) PCR Not detected (NOT DETECT) 07/31/23 14:40 Influ A (H1/09) PCR Not detected (NOT DETECT) 07/31/23 14:40 Influenza A (H3) PCR Not detected (NOT DETECT) 07/31/23 14:40 Influenza Type A (PCR) Not detected (NOT DETECT) 07/31/23 14:40 Influenza Type B (PCR) Not detected (NOT DETECT) 07/31/23 14:40 M. pneumoniae (PCR) Not detected (NOT DETECT) 07/31/23 14:40 Parainfluenza 1 (PCR) Not detected (NOT DETECT) 07/31/23 14:40 Parainfluenza 2 (PCR) Not detected (NOT DETECT) 07/31/23 14:40 Parainfluenza 3 (PCR) Not detected (NOT DETECT) 07/31/23 14:40 Parainfluenza 4 (PCR) Not detected (NOT DETECT) 07/31/23 14:40 RSV Type A (PCR) Not detected (NOT DETECT) 07/31/23 14:40 RSV Type B (PCR) Not detected (NOT DETECT) 07/31/23 14:40 Entero/Rhino (PCR) Not detected (NOT DETECT) 07/31/23 14:40 SARS-CoV-2 (PCR) Not detected (NOT DETECT) 07/31/23 14:40 All radiology interpretation(s) finalized by discharge Other Data Assessment and plan: Somnolence - Discharged home - Discussed findings and plan with patient. Answered any questions. - All laboratory values were reviewed and interpreted personally by myself, the ER physician - All imaging was reviewed and interpreted personally by myself, the ER physician. - Evaluation and treatment of this problem were appropriate in the emergency setting Discharge Plan Discharge Patient Disposition: Home Clinical Impression: Somnolence, Decubitus ulcer of foot Condition: Stable Prescriptions: New cephalexin 500 mg capsule 500 mg PO Q12H 7 Days Qty: 14 0RF No 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 See Rx Instructions .Route .MEDSUPPLY Qty: 1 0RF Rx Instructions: As directed (DME) 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 See Rx Instructions .Route .MEDSUPPLY Qty: 1 0RF Rx Instructions: As directed (DME) Post operative hinged Left knee brace See Rx Instructions .Route .MEDSUPPLY Qty: 1 0RF Rx Instructions: As directed set at 0-60 (DME) KAFO KNEE BRACE See Rx Instructions .Route .MEDSUPPLY Qty: 1 0RF Rx Instructions: As directed hyoscyamine sulfate [Oscimin] 0.125 mg tablet 0.125 mg PO QID Januvia 50 mg tablet 50 mg PO DAILY Breztri Aerosphere 160-9-4.8 mcg/actuation HFA aerosol inhaler 2 inh inhalation BID thiamine HCl (vitamin B1) 100 mg tablet 100 mg PO DAILY Qty: 60 3RF (DME) Diabetic Boots with 3 pairs of Inserts- Doctor Comfort- RANGER style See Rx Instructions .Route .MEDSUPPLY Qty: 1 0RF Rx Instructions: As directed HOME methimazole 5 mg tablet 2.5 mg PO DAILY Qty: 60 0RF gabapentin [Neurontin] 800 mg tablet 800 mg PO TID Qty: 30 0RF diclofenac sodium 1 % gel 4 g TOPICAL DAILY PRN (Reason: Pain) Discharge Orders: Discharge ED (Routine); Ordered 07/31/23 Ordered By: Mary Kay Strong Referrals: Antonio Jaeger MD [Primary Care Provider] - (You have been screened and evaluated and felt safe for discharge. Health conditions do change or evolve sometimes and as such it is important that you follow up with your Primary Doctor to be re checked, 3-5 days is a general good time frame for follow up. You are always welcome to return to the ED for re assessment if your symptoms are worsening or you have new concerns) Patient Instructions: Opioid Safety, Pain Management Coding Level of Care Code ED Manager [employer] for Jack Rayo
[2023-07-31 14:25] LABS: Basophils % 0.4 %; Eosinophils # 0.1 10^3/uL (0.0-0.8); Eosinophils % 1.5 %; Hematocrit 44.9 % (37-53); Lymphocytes # 1.4 10^3/uL (0.8-4.8); Lymphocytes % 27.3 %; Mean Corpuscular HGB Conc 32.5 g/dL (30-55); Mean Corpuscular Hemoglobin 29.4 pg (27-33); Mean Corpuscular Volume 90.3 fl (82-101); Mean Platelet Volume 9.6 fL (7.4-10.4); Monocytes # 0.5 10^3/uL (0.2-0.9); Monocytes % 8.8 %; Neutrophils # 3.22 10^3/uL (1.8-7.7); Neutrophils % 61.8 %; Nucleated Red Blood Cells % 0 %; Platelet Count 239 10^3/cmm (157-399); Red Blood Count 4.97 10^6/uL (3.85-5.65); Red Cell Distribution Width 14.1 % (12.1-15.1); White Blood Count 5.21 10^3/uL (3.29-11.43)
[2023-07-31 14:36] LABS: Erythrocyte Sedimentation Rate 1 mm/hr (0-10)
[2023-07-31 14:42] LABS: Troponin(5th) Baseline 19 ng/L (0-15)
[2023-07-31 14:44] VITALS: BP 110/69; RESP 18; O2SAT 96
[2023-07-31 14:44] LABS: Alanine Aminotransferase 12 U/L (0-41); Albumin Level 4.3 g/dL (3.5-5.2); Alkaline Phosphatase 117 U/L (40-130); Anion Gap 14.4 (5-19); Aspartate Amino Transferase 14 U/L (0-40); Blood Urea Nitrogen 23 mg/dL (8-23); C Reactive Protein 4.4 mg/L (0.0-4.9); Calcium 9.5 mg/dL (8.5-10.5); Carbon Dioxide 28 mmol/L (22-29); Chloride 102 mmol/L (98-107); Creatinine Clr Calc Pharmacy 69.4521; Globulin 2.8 g/dL (1.3-4.6); Glomerular Filtration Rate 61.3 mL/min (90-130); Glucose 97 mg/dL (65-115); Osmolality Calculated 294 mOsm/kg (285-295); Potassium 4.4 mmol/L (3.5-5.1); Sodium 140 mmol/L (136-145); Total Bilirubin 0.6 mg/dL (0.15-1.2); Total Protein 7.1 g/dL (6.6-8.7)
[2023-07-31 14:45] LABS: Lactic Sepsis W/Reflex 0.9 mmol/L (0.5-2.2)
[2023-07-31] MEDS: sodium chloride 0.9% 1,000 ML 999 ML IV (14:46)
[2023-07-31 14:52] LABS: Ammonia 17 umol/L (16-60)
--- NOTE | 2023-07-31 15:42 | ECG_ITS ---
[facility] Test Date: 2023-07-31 Pat Name: Regino Calvert Department: Room: Gender: Male Eligibility Counselor: : 1960 Requested By: Mary Kay Go Order Number: [id number] Edilma MD: Landen Alanis M.D. Measurements Intervals [place] Rate: 49 P: 69 [place]: 173 QRS: -4 QRSD: 82 T: 28 QT: 446 QTc: 406 Interpretive Statements SINUS BRADYCARDIA Compared to ECG 02/15/2020 14:05:41 Sinus rhythm no longer present Electronically Signed On 08-01-2023 19:56:53 CDT by Landen Alanis M.D. [email or web address]
[2023-07-31 16:04] VITALS: BP 136/77; PULSE 50; O2SAT 94
[2023-07-31 16:04] LABS: Troponin 5 2HR 18.33 ng/L (0-15)
[2023-07-31 16:06] LABS: Troponin 5 2HR Delta -0.67 ABS# (0-10)
[2023-07-31 16:21] LABS: Bilirubin Urine 1+ (Negative); Blood Urine Neg (Negative); Glucose Urine UA Norm (Normal); Ketones Urine 1+ (Negative); Leukocyte Esterase Urine Negative (Negative); Nitrate Urine Negative (Negative); Protein Urine Neg (Negative); Specific Gravity, Urine 1.025 (1.005-1.030); Urine Appearance Clear (CLEAR); Urine Color Yellow (Yellow); Urobilinogen Urine Norm (Negative); pH Urine 5 (5-7)
[2023-07-31 16:23] LABS: Add Urine Culture? No; Bacteria Urine TRACE /hpf; RBC Urine 0-4 /hpf (0-2); Sperm Urine 1+ /hpf
[2023-07-31 16:28] LABS: Adenovirus Not Detected (NOT DETECT); Chlamydia Pneumoniae Not Detected (NOT DETECT); Coronavirus 229E,HKU1,NL63,OC4 Not Detected (NOT DETECT); Human Metapneumovirus Not Detected (NOT DETECT); Human Rhinovirus/Enterovirus Not Detected (NOT DETECT); Influenza A Not Detected (NOT DETECT); Influenza A H1 Not Detected (NOT DETECT); Influenza A H1-2009 Not Detected (NOT DETECT); Influenza A H3 Not Detected (NOT DETECT); Influenza B Not Detected (NOT DETECT); Mycoplasma Pneumoniae Not Detected (NOT DETECT); Parainfluenza Virus Type 1 Not Detected (NOT DETECT); Parainfluenza Virus Type 2 Not Detected (NOT DETECT); Parainfluenza Virus Type 3 Not Detected (NOT DETECT); Parainfluenza Virus Type 4 Not Detected (NOT DETECT); Respiratory Syncytial Virus A Not Detected (NOT DETECT); Respiratory Syncytial Virus B Not Detected (NOT DETECT); SARS-COV-2 Not Detected (NOT DETECT)
== END 2023-07-31 17:23 | disposition home or self-care (01) ==
PROVIDERS: Emergency Provider Emergency Medicine; PCP Family Medicine
DX: R40.0 Somnolence (principal); L89.899 Pressure ulcer of other site, unspecified stage; E11.22 Type 2 diabetes mellitus with diabetic chronic kidney disease; I12.9 Hypertensive chronic kidney disease with stage 1 through stage 4 chronic kidney disease, or unspecified chronic kidney disease; N18.2 Chronic kidney disease, stage 2 (mild); E78.5 Hyperlipidemia, unspecified; Z11.52 Encounter for screening for COVID-19
CPT/HCPCS: 36415; 71045; 80053; 81001; 82140; 83605; 84484; 85025; 85651; 86140; 87040; 87486; 87581; 87633; 93005; 99285; J7030

== ENCOUNTER 2023-08-03 09:42 | Outpatient (CLI) | payer MEDICARE, SELFPAY ==
--- NOTE | 2023-08-03 10:15 | MR_ITS ---
WS: [id number] MRI THORACIC SPINE with and without contrast HISTORY: R25.3 - Fasciculation COMPARISON: None available. TECHNIQUE: Multiplanar sequences are performed in sagittal and axial planes. Postcontrast imaging, 17 mL MultiHance. Increase in thoracic kyphosis since curvature with scoliosis. No acute compression fractures. No retr opulsion of the thoracic vertebral bodies. Signal within the cord is normal. There is no central sign al abnormality or enhancement. No cord atrophy or enlargement. On the postcontrast imaging there is no enhancing mass. No significant high-grade central stenosis. M ild bilateral facet joint arthritis. No high-grade foraminal stenosis. Small central disc protrusion at C7-T1. LEFT paracentral T7-8 disc protrusion. Paravertebral soft tissues are normal. MR/MR thoracic spine wo/w [id number] IMPRESSION: 1. No high-grade central or foraminal stenosis. 2. No signal abnormality within the thoracic cord, atrophy or enlargement. No mass.
--- NOTE | 2023-08-03 11:00 | MR_ITS ---
WS: [id number] MRI LUMBAR SPINE WITH AND WITHOUT CONTRAST HISTORY: R53.1 - Weakness COMPARISON: None available. TECHNIQUE: Sagittal and axial multisequence imaging is submitted. Postcontrast imaging MultiHance 17 mL. Mild straightening and slight reversal of the normal cervical lordosis. Concave deformity superior endplates of L1 and L2 with a small amount of residual edema suggesting ac lumbee to subacute fractures. Concave deformity suggesting Schmorl's nodes defects may also be contribut ing to the edema. There is no retropulsion. The remaining vertebral bodies in the lumbar spine are ne gative. The spaces are narrowed. Conus terminates normally at L1-2 disc level. T12-L1: Mild annular disc bulging and osteophytic ridging. No high-grade stenosis. L1-L2: Mild annular disc bulging with ligamentum flavum and facet arthritis. Mild subarticular recess and foraminal stenosis. L2-L3: Mild annular disc bulging with mild foraminal narrowing. L3-L4: Mild annular disc bulging, ligamentum flavum and facet arthritis. Small amount of fluid in the facet joints. Mild bilateral foraminal stenosis. L4-L5: Moderate annular disc bulging with a shallow broad-based central disc protrusion, osteophytic ridging, ligamentum flavum and facet arthritis. Mild central stenosis. Moderate subarticular recess a nd foraminal stenosis, RIGHT greater than LEFT. There is mild disc contact on the traversing L5 nerve roots. L5-S1: Mild annular disc bulging. Shallow central disc protrusion does contact the traversing S1 nerv e roots, bilateral. Mild contact on the ventral thecal sac. Moderate bilateral foraminal stenosis. Ad ditional disc contact on the exiting L5 nerve roots. Mild dilatation of the RIGHT renal pelvis. The calyces appear slightly prominent. Portion of the prox imal RIGHT ureter cannot be followed. At the level of L5 there is a 7 mm tubular structure which coul d be the dilated RIGHT ureter or gonadal vein. Urinary bladder is moderately distended. No enhancing mass identified. MR/MR lumbar spine wo/w con [id number] IMPRESSION: 1. Acute compression deformities involving the superior endplates of L1 and L2 without retropulsion. 2. L4-5: Mild central stenosis with moderate subarticular recess and foraminal stenosis. Disc contacts the traversing L5 nerve roots. 3. L5-S1: Moderate bilateral foraminal stenosis. There is also disc contact on the traversing S1 nerve roots. 4. Component of mild subarticular recess and foraminal stenosis at L1-2, L2-3 and L3-4. 5. Mild dilatation of the RIGHT renal pelvis. The RIGHT ureter is not visualiz ed in its entirety but suspect dilatation at the level of L5 along with an over ly distended urinary bladder. Dilated tubular structure at L5 may be a prominen t gonadal vein. Correlate for bladder outlet obstruction. Consider follow-up ul trasound of the kidneys and urinary bladder. 6. No enhancing mass.
== END 2023-08-03 09:43 | disposition home or self-care (01) ==
LOC: RAD 09:42
PROVIDERS: PCP Family Medicine; Visit Provider Psychiatry & Neurology Neurology
DX: R53.1 Weakness (principal); R25.3 Fasciculation; Z74.09 Other reduced mobility; M48.061 Spinal stenosis, lumbar region without neurogenic claudication; M48.07 Spinal stenosis, lumbosacral region
CPT/HCPCS: 72157; 72158; A9577

== ENCOUNTER 2023-08-14 08:50 | Outpatient (CLI) | payer MEDICARE, SELFPAY ==
--- NOTE | 2023-08-14 09:15 | MR_ITS ---
WS: [id number] MRA CAROTID WITHOUT AND WITH GADOLINIUM ENHANCEMENT TECHNIQUE: Axial 2-D TOF and gadolinium bolus images obtained with axial images and axial, sagittal, and coronal 2-D reformatted images. CLINICAL INFORMATION: R55 - Syncope and collapse COMPARISON: None. FINDINGS: RIGHT: RIGHT common carotid artery is patent. No significant RIGHT ICA stenosis. RIGHT ICA is patent to the skull base. LEFT: LEFT common carotid artery is patent. No significant LEFT ICA stenosis. LEFT ICA is patent to t he skull base. Codominant and patent vertebral arteries bilaterally. Proximal basilar artery is patent. Proximal sub clavian arteries are patent. Normal branching aortic arch anatomy. MR/MR angio neck w con* [id number] IMPRESSION: 1. No significant ICA stenosis bilaterally. Both ICAs are patent to the skull base. 2. Codominant and patent vertebral arteries bilaterally. 3. Proximal subclavian arteries are patent.
--- NOTE | 2023-08-14 10:00 | MR_ITS ---
WS: [id number] MRA HEAD TECHNIQUE: Axial 3-D TOF images obtained with axial images and axial, sagittal, and coronal 2-D refor matted images. CLINICAL INFORMATION: R55 - Syncope and collapse COMPARISON: MRI 04/01/2023 FINDINGS: Distal vertebral arteries are patent. Basilar artery is patent. Persistent RIGHT DIRECTOR INFORMATICS. Normal va scularity to the DIRECTOR INFORMATICS territory bilaterally. Both ICAs are patent at the skull base. Normal vascularity to the MARIA EUGENIA and MCA territories bilaterally . No evidence of high-grade proximal stenosis or aneurysm. Mild intracranial atheromatous disease. MR/MR angio head wo con [id number] IMPRESSION: 1. No evidence of high-grade proximal flow-limiting stenosis or aneurysm. 2. Mild intracranial atheromatous disease. 3. Persistent RIGHT DIRECTOR INFORMATICS with normal vascularity to the DIRECTOR INFORMATICS territory. 4. No other acute findings.
[2023-08-14] MEDS: gadobenate dimeglumine 20 mL vial IV (10:56)
[2023-08-14 12:12] LABS: Creatinine Urine, Random 70 mg/dL (39-259); Microalbum Creatinine Ratio Ur 14 mg/dL (0-20); Microalbumin Random Urine 1 ug/dL (0-20)
[2023-08-14 12:15] LABS: Estmated Average Glucose 126
[2023-08-14 12:25] LABS: Alanine Aminotransferase 11 U/L (0-41); Alkaline Phosphatase 116 U/L (40-130); Anion Gap 12.2 (5-19); Aspartate Amino Transferase 14 U/L (0-40); Blood Urea Nitrogen 22 mg/dL (8-23); Calcium 9.3 mg/dL (8.5-10.5); Carbon Dioxide 28 mmol/L (22-29); Chloride 103 mmol/L (98-107); Chol HDL Ratio 2.43 mg/dL (1.0-5.00); Cholesterol 168 mg/dL (0-200); Creatinine Clr Calc Pharmacy 82.7528; Free T4 Free Thyroxine 1.21 ng/dL (0.82-1.77); Globulin 3.3 g/dL (1.3-4.6); Glomerular Filtration Rate 75.7 mL/min (90-130); Glucose 107 mg/dL (65-115); HDL Cholesterol 69 mg/dL (60-100); LDL Cholesterol Calculated 91 mg/dL (50-129); LDL HDL Ratio 1.32 RATIO (0.00-3.22); Osmolality Calculated 292 mOsm/kg (285-295); Potassium 4.2 mmol/L (3.5-5.1); Sodium 139 mmol/L (136-145); Thyroid Stimulating Hormone 0.44 uIU/mL (0.27-4.20); Total Bilirubin 0.6 mg/dL (0.15-1.2); Total Protein 7.3 g/dL (6.6-8.7); Triglycerides 39 mg/dL (0-150)
[2023-08-16 04:50] LABS: T3 Total 88 ng/dL (76-181)
[2023-08-17 13:39] LABS: Thyroid Peroxidase Antobodies 1 IU/mL (<9)
[2023-08-17 13:48] LABS: Thyroglobulin AB <1 IU/mL (< or = 1)
[2023-08-25 16:39] LABS: TSH Receptor Binding Antibody 1.36 IU/L (< OR = 2.00)
== END 2023-08-14 08:51 | disposition home or self-care (01) ==
PROVIDERS: Absent Provider Internal Medicine; PCP Family Medicine; Visit Provider Psychiatry & Neurology Neurology
DX: R55 Syncope and collapse (principal); E11.9 Type 2 diabetes mellitus without complications; E05.90 Thyrotoxicosis, unspecified without thyrotoxic crisis or storm
CPT/HCPCS: 70544; 70548; 80053; 80061; 82044; 83036; 83516; 84439; 84443; 84480; 86376; 86800; A9577

== ENCOUNTER → 2023-08-18 09:39 | Outpatient (BNVA) | payer MEDICARE, SELFPAY | PROVIDERS: PCP Family Medicine; Visit Provider Podiatrist Foot & Ankle Surgery | DX: E11.621 Type 2 diabetes mellitus with foot ulcer (principal); L97.512 Non-pressure chronic ulcer of other part of right foot with fat layer exposed; M54.42 Lumbago with sciatica, left side; M54.41 Lumbago with sciatica, right side; G89.29 Other chronic pain | CPT/HCPCS: 72100; 99204; 99213 ==

== ENCOUNTER → 2023-08-20 12:08 | Outpatient (BNVA) | payer MEDICARE, SELFPAY | PROVIDERS: PCP Family Medicine; Visit Provider Internal Medicine | DX: E11.9 Type 2 diabetes mellitus without complications (principal); E05.90 Thyrotoxicosis, unspecified without thyrotoxic crisis or storm; Z74.09 Other reduced mobility; E53.8 Deficiency of other specified B group vitamins; Z79.84 Long term (current) use of oral hypoglycemic drugs | CPT/HCPCS: 99214 ==

== ENCOUNTER 2023-08-20 22:17 | Emergency (ER) | payer MEDICARE, SELFPAY ==
[2023-08-20 22:21] VITALS: BP 118/86; PULSE 60; RESP 16; TEMP 36.7; O2SAT 97; BMI 23.7
--- NOTE | 2023-08-20 22:24 | XRR_ITS ---
PROCEDURE INFORMATION: Exam: XR Right Tibia and Fibula Exam date and time: 08/20/2023 10:38 PM Age: 63 years old Clinical indication: Injury or trauma; Fall; Other: Pain TECHNIQUE: Imaging protocol: Radiologic exam of the right tibia and fibula. Views: 2 views. COMPARISON: CR XR foot RT min 3V* [id number] 06/09/2022 3:21 PM FINDINGS: Bones/joints: Normal mineralization and alignment. No evidence of acute fracture or dislocation. Degenerative changes of the right knee and ankle. Soft tissues: Normal. Vasculature: Peripheral atherosclerotic calcifications. XR/XR tibia fibula RT 2V [id number] IMPRESSION: No evidence of acute fracture or dislocation.
--- NOTE | 2023-08-20 22:24 | XRR_ITS ---
PROCEDURE INFORMATION: Exam: XR Right Femur Exam date and time: 08/20/2023 10:32 PM Age: 63 years old Clinical indication: Injury or trauma; Fall; Other: Pain TECHNIQUE: Imaging protocol: Radiologic exam of the right femur. Views: 2 views. COMPARISON: CR XR lumbar spine 2-3V* [id number] 08/18/2023 10:02 AM FINDINGS: Bones/joints: Normal mineralization and alignment. No evidence of acute fracture or dislocation. [id number] degenerative changes of the right hip and knee. Soft tissues: Unremarkable. Vasculature: Peripheral atherosclerotic calcifications. XR/XR femur RT min 2V* [id number] IMPRESSION: No evidence of acute fracture or dislocation.
--- NOTE | 2023-08-20 22:28 | ED_ITS ---
HPI - Fall General: Chief Complaint: Fall Stated Complaint: fall Time Seen by Provider: 08/20/23 22:20 History of Present Illness: 63-year-old male patient was at home and was being transferred from his bed to his wheelchair to go to the bathroom when he fell. Patient reports that his right knee popped. Patient's caregiver felt that he needed to be evaluated for this injury. Patient appears nontoxic. Patient reports no pain. Patient denies any blood thinners. Patient has chronic history of diabetes type 2, chronic kidney disease, hyperthyroidism, peripheral neuropathy, anemia, osteomyelitis. Review of Systems General: Reports: 10 or more systems reviewed and unremarkable except in HPI and below PFSH ED PFSH: Medical History Cough syncope Anemia COVID-19 Lab test positive for detection of COVID-19 virus Femur fracture Chronic kidney disease (CKD) Type 2 diabetes mellitus Periprosthetic fracture around internal prosthetic left hip joint, initial encounter CKD (chronic kidney disease) stage 2, GFR 60-89 ml/min Chronic anemia GERD (gastroesophageal reflux disease) Fall Hx of fracture of left hip Diabetes mellitus type 2, noninsulin dependent Diabetic peripheral neuropathy History of osteomyelitis Right foot Hyperlipidemia Hypertension History of septic arthritis Left knee Surgical History History of total knee arthroplasty Status post hip hemiarthroplasty History of toe surgery History of hand surgery History of knee surgery Bilateral Family History Other Cancer Diabetes Social History Smoking and tobacco/nicotine status: never used tobacco/nicotine Alcohol intake: current Alcohol intake frequency: 3 or more drinks per day Alcohol type: beer Substance/Drug Use: never Household members: spouse and children Marital status: Physical Exam Const: COMMON NORMALS: alert HENMT: COMMON NORMALS: normocephalic HEAD & SCALP: normocephalic Neck/C-Spine: COMMON NORMALS: full ROM Resp: COMMON NORMALS: normal respiratory effort and clear to auscultation bilaterally AUSCULTATION: clear to auscultation bilaterally Cardio: COMMON NORMALS: regular rate and regular rhythm RATE: regular rate RHYTHM: regular rhythm GI: COMMON NORMALS: Soft to palpation and non-tender PALPATION: Yes Soft to palpation Back/Pelvis: COMMON NORMALS: thoracic and lumbar spine normal to inspection Extremity: NARRATIVE EXTREMITY EXAM: Contractures noted to bilateral hands, decreased range of motion of lower extremities. Patient is able to lift legs off the table without difficulty. No pain is elicited with palpation of extremities back or chest. Neuro: SENSORIUM/ORIENTATION: Yes alert Skin: COMMON NORMALS: turgor normal GENERAL SKIN EXAM: turgor normal Course Vital Signs: Vital signs: Vital Signs Temperature 98.1 F 08/20/23 22:21 Pulse Rate 60 08/20/23 22:32 Respiratory Rate 16 08/20/23 22:32 Blood Pressure 114/68 08/20/23 22:32 Pulse Oximetry 97 08/20/23 22:32 Oxygen Delivery Me thod Room Air 08/20/23 22:21 MDM - Fall Medical Decision Making 63-year-old male patient comes in today for complaints of fall injury. On exam patient has no obvious deformities or musculoskeletal pain. Distal pulses and sensation are intact in all extremities. Abdomen soft nontender. Skin is warm and dry. Vital signs are normal. Differential diagnosis includes fracture, contusions, sprain. X-ray of the right femur and right tib-fib noted no bony acute abnormality. Reviewed exam with patient with recommendations for treatment and follow-up. Family agreed to stay with patient at night for monitoring. Recommend return to the ER for new concerns. 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 See Rx Instructions .Route .MEDSUPPLY Qty: 1 0RF Rx Instructions: As directed (DME) 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 See Rx Instructions .Route .MEDSUPPLY Qty: 1 0RF Rx Instructions: As directed (DME) Post operative hinged Left knee brace See Rx Instructions .Route .MEDSUPPLY Qty: 1 0RF Rx Instructions: As directed set at 0-60 (DME) KAFO KNEE BRACE See Rx Instructions .Route .MEDSUPPLY Qty: 1 0RF Rx Instructions: As directed hyoscyamine sulfate [Oscimin] 0.125 mg tablet 0.125 mg PO QID Januvia 50 mg tablet 50 mg PO DAILY Breztri Aerosphere 160-9-4.8 mcg/actuation HFA aerosol inhaler 2 inh inhalation BID thiamine HCl (vitamin B1) 100 mg tablet 100 mg PO DAILY Qty: 60 3RF levalbuterol HCl 1.25 mg/3 mL solution for nebulization inhalation (DME) Diabetic Boots with 3 pairs of Inserts- Doctor Comfort- RANGER style See Rx Instructions .Route .MEDSUPPLY Qty: 1 0RF Rx Instructions: As directed HOME methimazole 5 mg tablet 2.5 mg PO DAILY Qty: 60 0RF gabapentin [Neurontin] 800 mg tablet 800 mg PO TID Qty: 30 0RF diclofenac sodium 1 % gel 4 g TOPICAL DAILY PRN (Reason: Pain) Discharge Orders: Discharge ED (Routine); Ordered 08/20/23 Ordered By: Flavio Ward Referrals: Antonio Jaeger MD [Primary Care Provider] - Discharge Diet: Usual diet Discharge Activity: Resume usual activity Patient Instructions: Musculoskeletal Pain (ED) Activity Restrictions/Additional Instructions: Continue with routine care. Follow-up with primary care for further concerns. Return to ED for new concerns. 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
[2023-08-20 22:32] VITALS: BP 114/68; PULSE 60; RESP 16; O2SAT 97
== END 2023-08-20 23:19 | disposition home or self-care (01) ==
PROVIDERS: Emergency Provider Nurse Practitioner Family; PCP Family Medicine
DX: S89.91XA Unspecified injury of right lower leg, initial encounter (principal); E11.9 Type 2 diabetes mellitus without complications; Z79.84 Long term (current) use of oral hypoglycemic drugs; W01.0XXA Fall on same level from slipping, tripping and stumbling without subsequent striking against object, initial encounter
CPT/HCPCS: 73552; 73590; 99283

== ENCOUNTER → 2023-09-09 14:18 | Outpatient (BNVA) | payer MEDICARE, SELFPAY | PROVIDERS: PCP Family Medicine; Visit Provider Podiatrist Foot & Ankle Surgery | DX: E08.621 Diabetes mellitus due to underlying condition with foot ulcer (principal); L97.411 Non-pressure chronic ulcer of right heel and midfoot limited to breakdown of skin | CPT/HCPCS: 99213 ==

== ENCOUNTER → 2023-09-28 14:42 | Outpatient (BNVA) | payer MEDICARE, SELFPAY | PROVIDERS: PCP Family Medicine; Visit Provider Psychiatry & Neurology Neurology | DX: R13.10 Dysphagia, unspecified (principal); R25.3 Fasciculation; R53.1 Weakness; Z74.09 Other reduced mobility; R55 Syncope and collapse; R05.4 Cough syncope; G62.9 Polyneuropathy, unspecified; Z91.81 History of falling | CPT/HCPCS: 99212 ==

== ENCOUNTER → 2023-10-26 13:19 | Outpatient (BNVA) | payer MEDICARE, SELFPAY | PROVIDERS: PCP Family Medicine; Visit Provider Psychiatry & Neurology Neurology | DX: R13.10 Dysphagia, unspecified (principal); R05.4 Cough syncope; R53.1 Weakness; Z74.09 Other reduced mobility; Z91.81 History of falling; F10.21 Alcohol dependence, in remission; E11.42 Type 2 diabetes mellitus with diabetic polyneuropathy; E11.22 Type 2 diabetes mellitus with diabetic chronic kidney disease; I12.9 Hypertensive chronic kidney disease with stage 1 through stage 4 chronic kidney disease, or unspecified chronic kidney disease; N18.2 Chronic kidney disease, stage 2 (mild); Z79.84 Long term (current) use of oral hypoglycemic drugs | CPT/HCPCS: 99212 ==

== ENCOUNTER → 2023-11-17 10:49 | Outpatient (BNVA) | payer MEDICARE, SELFPAY | PROVIDERS: PCP Family Medicine; Visit Provider Podiatrist Foot & Ankle Surgery | DX: L60.3 Nail dystrophy; E11.69 Type 2 diabetes mellitus with other specified complication | CPT/HCPCS: 99213 ==

== ENCOUNTER → 2024-01-07 14:24 | Outpatient (BNVA) | payer MEDICARE, SELFPAY | PROVIDERS: PCP Family Medicine; Visit Provider Internal Medicine | DX: R07.9 Chest pain, unspecified (principal) | CPT/HCPCS: 93005; 99214 ==

== ENCOUNTER → 2024-01-28 15:01 | Outpatient (BNVA) | payer MEDICARE, SELFPAY | PROVIDERS: PCP Family Medicine; Visit Provider Podiatrist Foot & Ankle Surgery | DX: M79.671 Pain in right foot (principal); M25.572 Pain in left ankle and joints of left foot; E11.69 Type 2 diabetes mellitus with other specified complication; L60.3 Nail dystrophy; S92.911A Unspecified fracture of right toe(s), initial encounter for closed fracture; Z91.81 History of falling; M21.371 Foot drop, right foot; M21.372 Foot drop, left foot; L97.211 Non-pressure chronic ulcer of right calf limited to breakdown of skin; X58.XXXA Exposure to other specified factors, initial encounter | CPT/HCPCS: 11721; 73610; 73630; 99213 ==

== ENCOUNTER 2024-02-10 11:35 | Outpatient (CLI) | payer MEDICARE, SELFPAY ==
--- NOTE | 2024-02-10 12:00 | USCV_ITS ---
Regino Calvert Age: 63 Gender: M : 1960 Exam Date: 02/10/2024 11:49 Ordering Phys: Dakota Ambriz M.D ([email or web address]) Technologist: CT Exam Location: [facility] [place] Indication: cp BP: 116 / 66 HR: 56 Rhythm: Sinus Technical Quality: Adequate MEASUREMENTS (Male / Female) Normal Values 2D ECHO LVOT Diameter 2.2 cm LV Ejection Fraction MOD 4C 67.6 % LV Ejection Fraction MOD 2C 41.7 % LV Ejection Fraction 2C AL 46.4 % LA Diameter 3.4 cm RA Systolic Volume 4C AL 35.6 ml RA Systolic Volume 4C MOD 36.5 ml LA Sys Volume AL 39.8 cm cubed LA Sys Volume Index AL 20.2 cm cubed/m squared Aorta at Sinotubular Diameter 2.6 cm M-MODE LA Ao Ratio MM 1.2 AV Cusp Separation MM 2.0 cm DOPPLER AV Peak Velocity 133.0 cm/s LVOT Peak Velocity 84.0 cm/s AV Area Cont Eq vti 2.3 cm squared AV Area Cont Eq pk 2.4 cm squared MV Peak Velocity 66.0 cm/s MV Area PHT 3.2 cm squared Mitral E to A Ratio 1.1 TV Peak Velocity 159.0 cm/s TR Peak Velocity 178.0 cm/s TR Peak Gradient 12.7 mmHg TV Peak E Velocity 59.0 cm/s Right Atrial Pressure 3.0 mmHg Pulmonary Artery Systolic Pressu 15.7 mmHg PV Peak Velocity 93.0 cm/s FINDINGS Left Ventricle Normal LV size and ejection fraction of 55%(visual)). Relative hypokinesia of the mid and apical segment Right Ventricle The right ventricle is normal in size and function. Right Atrium The right atrium is normal in size. Left Atrium The left atrium is normal in size. Mitral Valve No gross abnormalities noted Aortic Valve No gross abnormalities noted Tricuspid Valve Trace tricuspid valve regurgitation. Pulmonic Valve No gross abnormalities noted Pericardium Normal pericardium without effusion. Aorta Normal ascending aorta dimension. IVC The inferior vena cava appears normal. CONCLUSIONS Normal LV size and ejection fraction of 55%(visual)). Trace tricuspid valve regurgitation. Relative hypokinesia of the mid and apical segment. Estimated pulmonary artery peak systolic pressure within normal limit Normal cardiac chamber sizes. There is no pericardial effusion. There are no intracardiac masses. No similar previous studies are available for comparison Dr Landen Alanis MD FACC (Electronically Signed) Final Date: 14 February 2024 17:28 S
== END 2024-02-10 11:36 | disposition home or self-care (01) ==
LOC: RAD 11:35
PROVIDERS: PCP Family Medicine; Visit Provider Internal Medicine
DX: R07.9 Chest pain, unspecified (principal); R06.02 Shortness of breath
CPT/HCPCS: 93306

== ENCOUNTER 2024-02-19 12:04 | Outpatient (CLI) | payer MEDICARE, SELFPAY ==
[2024-02-19 13:15] LABS: Estmated Average Glucose 103; Hemoglobin A1C 5.2 % (4.0-6.0)
[2024-02-19 13:27] LABS: Creatinine Urine, Random 110 mg/dL (39-259); Microalbum Creatinine Ratio Ur 9 mg/dL (0-20); Microalbumin Random Urine 1 ug/dL (0-20)
[2024-02-19 13:40] LABS: Alanine Aminotransferase 20 U/L (0-41); Alkaline Phosphatase 117 U/L (40-130); Anion Gap 14.2 (5-19); Aspartate Amino Transferase 20 U/L (0-40); Blood Urea Nitrogen 26 mg/dL (8-23); Calcium 9.2 mg/dL (8.5-10.5); Carbon Dioxide 27 mmol/L (22-29); Chloride 107 mmol/L (98-107); Cholesterol 110 mg/dL (0-200); Free T4 Free Thyroxine 1.33 ng/dL (0.82-1.77); Globulin 2.6 g/dL (1.3-4.6); Glomerular Filtration Rate 61.3 mL/min (90-130); Glucose 98 mg/dL (65-115); HDL Cholesterol 44 mg/dL (60-100); LDL Cholesterol Calculated 59 mg/dL (50-129); LDL HDL Ratio 1.34 RATIO (0.00-3.22); Osmolality Calculated 301 mOsm/kg (285-295); Potassium 5.2 mmol/L (3.5-5.1); Sodium 143 mmol/L (136-145); Thyroid Stimulating Hormone 0.68 uIU/mL (0.27-4.20); Total Bilirubin 0.3 mg/dL (0.15-1.2); Total Protein 6.6 g/dL (6.6-8.7); Triglycerides 33 mg/dL (0-150)
[2024-02-20 07:45] LABS: T3 Total 80 ng/dL (76-181)
== END 2024-02-19 12:05 | disposition home or self-care (01) ==
LOC: LAB 12:05
PROVIDERS: PCP Family Medicine; Visit Provider Internal Medicine
DX: E11.9 Type 2 diabetes mellitus without complications (principal); E05.90 Thyrotoxicosis, unspecified without thyrotoxic crisis or storm
CPT/HCPCS: 80053; 80061; 82044; 83036; 84439; 84443; 84480

== ENCOUNTER → 2024-02-25 14:18 | Outpatient (BNVA) | payer MEDICARE, SELFPAY | PROVIDERS: PCP Family Medicine; Visit Provider Internal Medicine | DX: R55 Syncope and collapse (principal); R05.4 Cough syncope | CPT/HCPCS: 99214 ==

== ENCOUNTER 2024-03-25 15:17 | Emergency (ER) | payer MEDICARE, SELFPAY ==
[2024-03-25 15:21] VITALS: BP 112/62; PULSE 61; RESP 16; TEMP 36.5; O2SAT 94; BMI 23.7
--- NOTE | 2024-03-25 16:03 | XRR_ITS ---
PROCEDURE INFORMATION: Exam: XR Right Ribs with PA Chest Exam date and time: 03/25/2024 4:18 PM Age: 64 years old Clinical indication: Painful respiration; Patient HX: RT rib pain post fall TECHNIQUE: Imaging protocol: Radiologic exam of the right ribs with PA chest. Views: 3 views COMPARISON: CR XR chest 1V [id number] 07/31/2023 1:54 PM FINDINGS: Lungs: Unremarkable. No consolidation. Pleural spaces: Unremarkable. No pleural effusion. No pneumothorax. Heart/Mediastinum: Unremarkable. No cardiomegaly. Bones/joints: There appear to be nondisplaced fractures of the anterior right 9th and possibly 10th ribs. XR/XR ribs RT mn 3V w CXR1V [id number] IMPRESSION: There appear to be nondisplaced fractures of the anterior right 9th and possibly 10th ribs. No acute cardiopulmonary abnormality.
--- NOTE | 2024-03-25 18:38 | ED_ITS ---
HPI - Fall General: Chief Complaint: Fall Stated Complaint: right rib pain Time Seen by Provider: 03/25/24 18:27 History of Present Illness: 61-year-old male presents emergency room after falling and hitting his right lateral chest wall on a bathtub edge yesterday. He lost his balance while in the bathroom. Did not strike his head there is no loss consciousness he has significant rib pain in the area where he fell. He denies any hemoptysis. Associated symptoms-after fall: Reports chest pain; Denies abdominal pain or neck pain Related Data Home Medications Medication Instructions Recorded Confirmed hyoscyamine sulfate 0.125 mg 0.125 mg PO QID 03/05/23 02/25/24 tablet (Oscimin) diclofenac sodium 1 % topical gel 4 g topical DAILY PRN Pain 07/31/23 02/25/24 levalbuterol HCl 1.25 mg/3 mL mg inhalation 08/20/23 02/25/24 solution for nebulization paroxetine HCl 10 mg tablet mg PO 09/09/23 02/25/24 budesonide 160 mcg-glycopyr 9 2 inh inhalation BID PRN 01/07/24 02/25/24 mcg-formot 4.8 mcg/actuation HFA inhaler (Breztri Aerosphere) tamsulosin 0.4 mg capsule (Flomax) 0.4 mg PO DAILY 01/07/24 02/25/24 mirabegron 50 mg tablet,extended 50 mg PO DAILY 02/25/24 02/25/24 release 24 hr (Myrbetriq) Previous Rx's Medication Instructions Recorded 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 #1 ea 10/20/19 Post operative hinged Left knee #1 ea 11/23/19 brace FRONT WHEEL FOLDING WALKER #1 ea 12/14/19 KAFO KNEE BRACE #1 ea 03/04/21 Modifications to diabetic shoes #1 ea 09/11/23 Diabetic Boots with 3 pairs of #1 ea 09/14/23 Inserts- Doctor Comfort- RANGER style gabapentin 400 mg capsule 400 mg PO BID #60 caps 10/26/23 riluzole 50 mg tablet 50 mg PO BID #60 tabs 10/26/23 thiamine HCl (vitamin B1) 100 mg 100 mg PO DAILY #60 tabs 10/26/23 tablet bilateral AFO #1 ea 01/28/24 mupirocin 2 % topical ointment 1 applic topical TID #15 grams 01/28/24 methimazole 5 mg tablet See Rx Instructions .Route 03/11/24 .COMPLEX #30 tabs hydrocodone 5 mg-acetaminophen 325 1 tab PO Q6H PRN pain #20 tabs 03/25/24 mg tablet Allergies Allergy/AdvReac Type Severity Reaction Status Date / Time No Known Allergies Allergy Verified 02/25/24 14:41 Review of Systems Const: Denies: fever(s) or chills Card: Reports: chest pain Resp: Denies: dyspnea GI: Denies: abdominal pain : Denies: dysuria, urinary frequency or urinary urgency Musc: Denies: neck pain or back pain Skin/Breast: Denies: rash PFSH ED PFSH: Medical History Cough syncope Anemia COVID-19 Lab test positive for detection of COVID-19 virus Femur fracture Chronic kidney disease (CKD) Type 2 diabetes mellitus Periprosthetic fracture around internal prosthetic left hip joint, initial encou nter CKD (chronic kidney disease) stage 2, GFR 60-89 ml/min Chronic anemia GERD (gastroesophageal reflux disease) Fall Hx of fracture of left hip Diabetes mellitus type 2, noninsulin dependent Diabetic peripheral neuropathy History of osteomyelitis Right foot Hyperlipidemia Hypertension History of septic arthritis Left knee Surgical History History of total knee arthroplasty Status post hip hemiarthroplasty History of toe surgery History of hand surgery History of knee surgery Bilateral Family History Other Cancer Diabetes Social History Smoking and tobacco/nicotine status: never used tobacco/nicotine Alcohol intake: current Alcohol intake frequency: 3 or more drinks per day Alcohol type: beer Substance/Drug Use: never Household members: spouse and children Marital status: Physical Exam Const: COMMON NORMALS: no acute distress GENERAL APPEARANCE: cooperative and comfortable ORIENTATION/CONSCIOUSNESS: Yes awake, Yes oriented to person, Yes oriented to place and Yes oriented to time HENMT: COMMON NORMALS: normocephalic, atraumatic and hearing grossly normal bilaterally HEAD & SCALP: normocephalic and atraumatic Chest: OTHER: Tenderness right lower chest wall Resp: COMMON NORMALS: normal respiratory effort, No retractions, No use of accessory muscles and clear to auscultation bilaterally AUSCULTATION: clear to auscultation bilaterally Cardio: COMMON NORMALS: regular rate, regular rhythm and No murmurs present (Cardio) RATE: regular rate RHYTHM: regular rhythm GI: COMMON NORMALS: Soft to palpation and No hepatosplenomegaly present AUSCULTATION: Yes normoactive bowel sounds PALPATION: Yes Soft to palpation, No Tenderness to palpation present (GI), No Guarding due to palpation present (GI) and Yes No hepatosplenomegaly present Extremity: COMMON NORMALS: normal to inspection, capillary refill normal, no clubbing, cyanosis or edema, no calf tenderness and no pedal edema Neuro: SENSORIUM/ORIENTATION: Yes oriented to person, Yes oriented to place and Yes oriented to time Skin: COMMON NORMALS: no rashes or lesions noted GENERAL SKIN EXAM: no rashes or lesions noted Course Vital Signs: Vital signs: Vital Signs Temperature 97.7 F 03/25/24 15:21 Pulse Rate 61 03/25/24 18:48 Respiratory Rate 16 03/25/24 15:21 Blood Pressure 116/63 03/25/24 18:48 Pulse Oximetry 95 03/25/24 18:48 Oxygen Delivery Me thod Room Air 03/25/24 15:21 MDM - Fall Medical Decision Making X-ray with rib detail shows nondisplaced fractures of right ninth and 10th ribs. No crepitus no signs of pneumothorax. Will discharge patient home with hydrocodone to use as needed follow-up with primary care as needed Medical Records I reviewed the patient's medical records. Lab Data I reviewed the patient's lab results. Radiology Impressions Ribs X-Ray 03/25/24 16:03 IMPRESSION: There appear to be nondisplaced fractures of the anterior right 9th and possibly 10th ribs. No acute cardiopulmonary abnormality. 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 See Rx Instructions .Route .MEDSUPPLY Qty: 1 0RF Rx Instructions: As directed (DME) 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 See Rx Instructions .Route .MEDSUPPLY Qty: 1 0RF Rx Instructions: As directed (DME) Post operative hinged Left knee brace See Rx Instructions .Route .MEDSUPPLY Qty: 1 0RF Rx Instructions: As directed set at 0-60 (DME) KAFO KNEE BRACE See Rx Instructions .Route .MEDSUPPLY Qty: 1 0RF Rx Instructions: As directed tamsulosin [Flomax] 0.4 mg capsule 0.4 mg PO DAILY hyoscyamine sulfate [Oscimin] 0.125 mg tablet 0.125 mg PO QID Breztri Aerosphere 160-9-4.8 mcg/actuation HFA aerosol inhaler 2 inh inhalation BID PRN levalbuterol HCl 1.25 mg/3 mL solution for nebulization inhalation paroxetine HCl 10 mg tablet PO riluzole 50 mg tablet 50 mg PO BID Qty: 60 10RF Rx Instructions: administer on an empty stomach, at least 1 hour before or 2 hours after food/meal(s) thiamine HCl (vitamin B1) 100 mg tablet 100 mg PO DAILY Qty: 60 10RF gabapentin 400 mg capsule 400 mg PO BID Qty: 60 10RF mirabegron [Myrbetriq] 50 mg tablet extended release 24 hr 50 mg PO DAILY (DME) bilateral AFO See Rx Instructions .Route .MEDSUPPLY Qty: 1 0RF Rx Instructions: As directed mupirocin 2 % ointment 1 applic topical TID Qty: 15 0RF Rx Instructions: apply to wound TID and as needed with dressing changes, cover with band-aid (DME) Modifications to diabetic shoes See Rx Instructions .Route .MEDSUPPLY Qty: 1 0RF Rx Instructions: As directed by HOME *Patient is getting sores on feet due to shoes being TOO tight* (DME) Diabetic Boots with 3 pairs of Inserts- Doctor Comfort- RANGER style See Rx Instructions .Route .MEDSUPPLY Qty: 1 0RF Rx Instructions: As directed HOME methimazole 5 mg tablet See Rx Instructions .ROUTE .COMPLEX Qty: 30 0RF Dose Instruction: TAKE ONE HALF (1/2) TABLET BY MOUTH DAILY Rx Instructions: TAKE ONE HALF (1/2) TABLET BY MOUTH DAILY diclofenac sodium 1 % gel 4 g TOPICAL DAILY PRN (Reason: Pain) Discharge Orders: Discharge ED (Routine); Ordered 03/25/24 Ordered By: Johnny Hager Referrals: Antonio Jaeger MD [Primary Care Provider] - Discharge Diet: Usual diet Discharge Activity: Increase activity as tolerated Patient Instructions: Opioid Safety, Pain Management, Fractures - Rib Activity Restrictions/Additional Instructions: Thank you for choosing [facility] for your healthcare needs today. It is very important that you follow up as instructed or that you return to the Emergency Department should you have concerns or if your condition changes or worsens in any way. You were seen in the emergency room after a fall. X-ray shows nondisplaced rib fractures on the right side at ribs 9 and 10. No further treatment is needed for these other than pain control. Avoid applying heat or using rib belts as these can actually worsen recovery. You can use the pain medications given ice packs as needed. 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
[2024-03-25 18:48] VITALS: BP 116/63; PULSE 61; O2SAT 95
== END 2024-03-25 18:49 | disposition home or self-care (01) ==
PROVIDERS: Emergency Provider Family Medicine; PCP Family Medicine
DX: S22.41XA Multiple fractures of ribs, right side, initial encounter for closed fracture (principal); E11.22 Type 2 diabetes mellitus with diabetic chronic kidney disease; I12.9 Hypertensive chronic kidney disease with stage 1 through stage 4 chronic kidney disease, or unspecified chronic kidney disease; N18.2 Chronic kidney disease, stage 2 (mild); E78.5 Hyperlipidemia, unspecified; W19.XXXA Unspecified fall, initial encounter
CPT/HCPCS: 71101; 99283

== ENCOUNTER → 2024-05-24 08:00 | Outpatient (BNVA) | payer MEDICARE, SELFPAY | PROVIDERS: PCP Family Medicine; Visit Provider Podiatrist Foot & Ankle Surgery | DX: L60.3 Nail dystrophy (principal); Z91.81 History of falling; M25.373 Other instability, unspecified ankle; M21.371 Foot drop, right foot; M21.372 Foot drop, left foot; E11.69 Type 2 diabetes mellitus with other specified complication | CPT/HCPCS: 99213 ==

== ENCOUNTER → 2024-06-17 12:19 | Outpatient (BNVA) | payer MEDICARE, SELFPAY | PROVIDERS: PCP Family Medicine; Visit Provider Internal Medicine | DX: E11.9 Type 2 diabetes mellitus without complications (principal); E05.90 Thyrotoxicosis, unspecified without thyrotoxic crisis or storm; Z74.09 Other reduced mobility; E53.8 Deficiency of other specified B group vitamins | CPT/HCPCS: 99213 ==

== ENCOUNTER 2024-07-01 08:28 | Outpatient (CLI) | payer MEDICARE, SELFPAY ==
--- NOTE | 2024-07-01 08:37 | FL_ITS ---
WS: [id number] Exam: FL barium swallow [id number] Date/Time of Exam: 07/01/2024 8:45 AM Reason For Exam: DYSPHAGIA Fluoroscopy time: 0min [id number] minutes # of spot films: 0 Initial drink of barium showed immediate aspiration into the RIGHT mainstem bronchus. The exam was terminated at that point. FL/FL barium swallow [id number] IMPRESSION: 1. Immediate aspiration of liquid barium into the RIGHT mainstem bronchus. These results were discussed by phone with Dr. Antonio Jaeger the attending phys ician at 9:31 a.m. 07/01/2024.
== END 2024-07-01 08:29 | disposition home or self-care (01) ==
LOC: RAD 08:32
PROVIDERS: PCP Family Medicine; Visit Provider Family Medicine
DX: R47.02 Dysphasia (principal); R93.89 Abnormal findings on diagnostic imaging of other specified body structures
CPT/HCPCS: 74220

== ENCOUNTER → 2024-07-27 13:06 | Outpatient (BNVA) | payer MEDICARE, SELFPAY | PROVIDERS: PCP Family Medicine; Visit Provider Psychiatry & Neurology Neurology | DX: R13.10 Dysphagia, unspecified (principal); R25.3 Fasciculation; R53.1 Weakness; Z74.09 Other reduced mobility; R55 Syncope and collapse; R05.4 Cough syncope; G62.9 Polyneuropathy, unspecified; Z91.81 History of falling | CPT/HCPCS: 99212 ==

== ENCOUNTER → 2024-08-02 11:13 | Outpatient (BNVA) | payer MEDICARE, SELFPAY | PROVIDERS: PCP Family Medicine; Visit Provider Surgery | DX: R13.10 Dysphagia, unspecified (principal) | CPT/HCPCS: 99204 ==

== ENCOUNTER 2024-08-15 08:26 | Outpatient (CLI) | payer MEDICARE, SELFPAY ==
--- NOTE | 2024-08-15 08:34 | FL_ITS ---
WS: [id number] Exam: FL barium swallow modifd [id number] Date/Time of Exam: 08/15/2024 8:54 AM Reason For Exam: Other dysphagia Fluoroscopy time: 2min [id number] minutes # of spot films: 0 Modified barium swallow test was performed in conjunction with the speech therapy service. When ingesting nectar consistency barium mixture foodstuffs the patient aspirated immediately. The patient tolerated pudding consistency barium foodstuffs without difficulty. The patient experienced minimal penetration into the laryngeal inlet when ingesting honey consistency barium. FL/FL barium swallow modifd [id number] IMPRESSION: 1. The patient experienced aspiration when ingesting nectar consistency barium mixture foodstuffs. 2. Mild penetration when ingesting honey consistency barium foodstuffs. A separate report with recommendations will follow from the speech therapy serv ice.
== END 2024-08-15 08:27 | disposition home or self-care (01) ==
PROVIDERS: PCP Family Medicine; Visit Provider Family Medicine
DX: G12.21 Amyotrophic lateral sclerosis (principal); R13.10 Dysphagia, unspecified; R93.89 Abnormal findings on diagnostic imaging of other specified body structures
CPT/HCPCS: 74230; 92611

== ENCOUNTER → 2024-08-23 08:10 | Outpatient (BNVA) | payer MEDICARE, SELFPAY | PROVIDERS: PCP Family Medicine; Visit Provider Podiatrist Foot & Ankle Surgery | DX: L60.3 Nail dystrophy (principal); Z91.81 History of falling; M25.373 Other instability, unspecified ankle; M21.371 Foot drop, right foot; M21.372 Foot drop, left foot; E11.69 Type 2 diabetes mellitus with other specified complication; M25.372 Other instability, left ankle; M25.371 Other instability, right ankle | CPT/HCPCS: 99213 ==

== ENCOUNTER 2024-08-25 07:35 | Day surgery (SDC) | payer MEDICARE, SELFPAY ==
[2024-08-25 07:50] VITALS: BP 100/54; PULSE 45; RESP 16; TEMP 36.5; O2SAT 93; BMI 22.8
--- NOTE | 2024-08-25 07:59 | W.PM.OPSUD ---
Surgery/Procedure H&P Update DATE OF PROCEDURE: August 25, 2024 DATE H&P PERFORMED: 08/02/24 H&P UPDATE INFORMATION: I have reviewed H&P completed within last 30 days, I have examined patient prior to procedure, No changes to prior documentation, Changes to prior documentation as noted here and Risks and benefits of the procedure reviewed PLANNED PROCEDURE: Operation Date: 08/25/24 09:00 Proposed Procedures p PEG Tube Insertion Gastric Tube Insertion 29697, R13.10(Not Applicable) - Regan Cope MD
[2024-08-25] MEDS: sodium chloride 0.9% 1,000 ML 30 ML IV (08:13)
--- NOTE | 2024-08-25 08:17 | ANES.PREANE2 ---
Pre-Anesthetic Assessment Height/Weight: Height 5 ft 11 in Weight 163 lb 12.8 oz Temp Pulse Resp BP Pulse Ox O2 Del Method 97.7 F 45 L 16 100/54 93 Room Air 08/25/24 07:50 08/25/24 07:50 08/25/24 07:50 08/25/24 07:50 08/25/24 07:50 08/25/24 07:50 Preop Diagnosis: Dysphagia, malnutrition Operation Date: 08/25/24 09:00 Proposed Procedures p PEG Tube Insertion Gastric Tube Insertion [id number], R13.10(Not Applicable) - Regan Cope MD Was Beta Yee taken within 24 hours: N/A Was Clonidine taken within 24 hours: N/A Last intake: Intake Last Liquid Date 08/24/24 Last Liquid Time 20:00 Last Solid Date 08/24/24 Last Solid Time 20:00 Social No alcohol and No tobacco Exam alert, oriented x 3, clear to auscultation bilaterally and regular rate & rhythm Airway Mallampati: Class IV Dentition: full Comments: Comments: Patient has very limited mouth opening and almost no neck extension. Anesthetic Plan ASA status: 3 Anesthesia: MAC Other: No prior issues with anesthesia NPO since yesterday evening Patient has diffuse weakness, has been bedbound for many years. 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 Has not drank in years Plan for MAC anesthesia. Medications/Allergies Home Medications ?Medication ?Instructions ?Recorded ?Confirmed ?Last Taken ?Type 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 #1 ea 10/20/19 08/25/24 Unknown Rx Post operative hinged Left knee #1 ea 11/23/19 08/25/24 Unknown Rx brace FRONT WHEEL FOLDING WALKER #1 ea 12/14/19 08/25/24 Unknown Rx KAFO KNEE BRACE #1 ea 03/04/21 08/25/24 Unknown Rx hyoscyamine sulfate 0.125 mg 0.125 mg PO QID 03/05/23 08/25/24 08/24/24 History tablet (Oscimin) diclofenac sodium 1 % topical gel 4 g topical DAILY PRN Pain 07/31/23 08/25/24 08/24/24 History levalbuterol HCl 1.25 mg/3 mL 1.25 mg inhalation TID PRN 08/20/23 08/25/24 08/24/24 History solution for nebulization shortness of breath paroxetine HCl 10 mg tablet 10 mg PO DAILY 09/09/23 08/25/24 08/24/24 History Modifications to diabetic shoes #1 ea 09/11/23 08/25/24 Unknown Rx Diabetic Boots with 3 pairs of #1 ea 09/14/23 08/25/24 Unknown Rx Inserts- Doctor Comfort- RANGER style gabapentin 400 mg capsule 400 mg PO BID #60 caps 10/26/23 08/25/24 08/25/24 Rx riluzole 50 mg tablet 50 mg PO BID #60 tabs 10/26/23 08/25/24 08/24/24 Rx thiamine HCl (vitamin B1) 100 mg 100 mg PO DAILY #60 tabs 10/26/23 08/25/24 08/24/24 Rx tablet tamsulosin 0.4 mg capsule (Flomax) 0.4 mg PO DAILY 01/07/24 08/25/24 08/24/24 History bilateral AFO #1 ea 01/28/24 08/25/24 Unknown Rx mirabegron 50 mg tablet,extended 50 mg PO DAILY 02/25/24 08/25/24 08/24/24 History release 24 hr (Myrbetriq) hydrocodone 5 mg-acetaminophen 325 1 tab PO Q6H PRN pain #20 tabs 03/26/24 08/25/24 08/24/24 Rx mg tablet Extra depth Diabetic shoes #1 ea 05/24/24 08/25/24 Unknown Rx fluticasone propionate 50 1 spray intranasal DAILY 08/22/24 08/25/24 08/24/24 History mcg/actuation nasal spray,suspension (Flonase Allergy Relief) methimazole 5 mg tablet 2.5 mg PO DAILY 08/22/24 08/25/24 08/24/24 History naproxen 500 mg tablet 500 mg PO BID 08/22/24 08/25/24 08/24/24 History omeprazole 20 mg capsule,delayed 20 mg PO DAILY 08/22/24 08/25/24 08/25/24 History release Allergies Allergy/AdvReac Type Severity Reaction Status Date / Time No Known Allergies Allergy Verified 08/25/24 07:55 Current Medications Generic Name Dose Route Start Last Admin Trade Name Ilsa PRN Reason Stop Dose Admin Sodium Chloride 1,000 mls @ 30 mls/hr 08/25/24 08:00 08/25/24 08:13 Sodium Chloride 0.9% IV 08/26/24 07:59 30 mls/hr .Q24H ANA LAURA Administration PFSH Anesthesia Medical History Cough syncope Anemia COVID-19 Lab test positive for detection of COVID-19 virus Femur fracture Chronic kidney disease (CKD) Type 2 diabetes mellitus Periprosthetic fracture around internal prosthetic left hip joint, initial encounter CKD (chronic kidney disease) stage 2, GFR 60-89 ml/min Chronic anemia GERD (gastroesophageal reflux disease) Fall Hx of fracture of left hip Diabetes mellitus type 2, noninsulin dependent Diabetic peripheral neuropathy History of osteomyelitis Right foot Hyperlipidemia Hypertension History of septic arthritis Left knee Surgical History History of total knee arthroplasty Status post hip hemiarthroplasty History of toe surgery History of hand surgery History of knee surgery Bilateral Family History Other Cancer Diabetes Social History Smoking and tobacco/nicotine status: never used tobacco/nicotine Alcohol intake: current Alcohol intake frequency: 3 or more drinks per day Alcohol type: beer Substance/Drug Use: never Household members: spouse and children Marital status: Data Anesthesia Cardiac Studies: Echocardiogram 02/10/24 Cardiac Event Monitor 01/07/24
[2024-08-25 10:09] VITALS: BP 91/55; PULSE 64; RESP 15; TEMP 36.4; O2SAT 93
[2024-08-25 10:24] VITALS: BP 93/60; PULSE 64; RESP 16; O2SAT 92
[2024-08-25 10:42] VITALS: BP 99/62; PULSE 56; RESP 16; O2SAT 93
[2024-08-25 11:00] VITALS: BP 103/69; PULSE 52; RESP 16; O2SAT 94
--- NOTE | 2024-08-25 13:36 | ANE.PACU2 ---
Inpatient post-anesthesia follow up: Airway intact: Yes Vital signs: Temperature 97.6 F Pulse Rate 52 Respiratory Rate 16 Blood Pressure 103/69 Pulse Oximetry 94 Oxygen Delivery Me thod Room Air Oxygen Flow Rate Fraction of Inspir ed Oxygen Hydration adequate: No Nausea and vomiting: Yes Pain level: 2 Mental status: Baseline
== END 2024-08-25 11:20 | disposition home or self-care (01) ==
PROVIDERS: PCP Family Medicine; Visit Provider Surgery
PROC: 0DH63UZ Insertion of Feeding Device into Stomach, Percutaneous Approach (ICD-10-PCS; CPT 43246; principal; 2024-08-25 09:00)
DX: R13.10 Dysphagia, unspecified (principal); N18.2 Chronic kidney disease, stage 2 (mild); E11.40 Type 2 diabetes mellitus with diabetic neuropathy, unspecified; E11.22 Type 2 diabetes mellitus with diabetic chronic kidney disease; E78.5 Hyperlipidemia, unspecified; Z79.899 Other long term (current) drug therapy
CPT/HCPCS: 43246; J2250; J2704; J7030; J9999

== ENCOUNTER → 2024-09-05 15:11 | Outpatient (BNVA) | payer MEDICARE, SELFPAY | PROVIDERS: PCP Family Medicine; Visit Provider Psychiatry & Neurology Neurology | DX: R13.10 Dysphagia, unspecified (principal); R53.1 Weakness; R55 Syncope and collapse; R05.4 Cough syncope; G62.9 Polyneuropathy, unspecified; Z74.09 Other reduced mobility; Z91.81 History of falling | CPT/HCPCS: 99212 ==

== ENCOUNTER → 2024-09-06 09:00 | Outpatient (BNVA) | payer MEDICARE, SELFPAY | PROVIDERS: PCP Family Medicine; Visit Provider Surgery | DX: Z09 Encounter for follow-up examination after completed treatment for conditions other than malignant neoplasm (principal) | CPT/HCPCS: 99213 ==

== ENCOUNTER → 2024-11-15 08:47 | Outpatient (BNVA) | payer MEDICARE, SELFPAY | PROVIDERS: PCP Family Medicine; Visit Provider Podiatrist Foot & Ankle Surgery | DX: E11.8 Type 2 diabetes mellitus with unspecified complications (principal); L60.3 Nail dystrophy; Z91.81 History of falling; M21.371 Foot drop, right foot; M21.372 Foot drop, left foot; M25.371 Other instability, right ankle; M25.372 Other instability, left ankle | CPT/HCPCS: 11721 ==

== ENCOUNTER 2025-01-11 11:41 | Inpatient (IN) | payer MEDICARE, SELFPAY ==
[2025-01-11] VITALS (10 sets, daily range): BP systolic 95–122; BP diastolic 49–77; PULSE 62–91; RESP 16–70; TEMP 36.2–36.8; O2SAT 90–96
--- NOTE | 2025-01-11 11:48 | XR_ITS ---
WS: [id number] MARY, AP view, 01/11/2025 Clinical Data: feeding tube Comparison: None. Findings: Contrast material is within the stomach. There is a gastric tube in the midportion of the stomach. The bowel gas pattern is not remarkable. XR/XR KUB portable [id number] Impression: Injection of contrast material into the stomach via a gastric tube.
--- NOTE | 2025-01-11 12:01 | PC.NURSE ---
Pt G-tube flushed with 40cc sterile water, then gastric contents aspirated well, smooth flow noted, flushed fluid back in and 20cc sterile water flushed. Pt tolerated well.
--- NOTE | 2025-01-11 12:05 | W.ED.GENADLT ---
HPI - General Adult General: Chief complaint: General Medical Stated complaint: Feeding tube displacement Source: EMS Mode of arrival: EMS Limitations: no limitations History of Present Illness: 64-year-old male that is here from [facility] he does do tube feedings nursing was concerned that he had some difficulty using his tube and was concerned it was dislodged or not working correctly. It is currently in place he has had no vomiting no known pain or fever. I did speak to patient's daughter shortly after originally seen him and she also states that he has been had some abdominal distention and felt like he may have some weight gain and slight increased confusion as well Related Data Home Medications ?Medication ?Instructions ?Recorded ?Confirmed diclofenac sodium 1 % topical gel 4 g topical DAILY PRN Pain 07/31/23 01/11/25 levalbuterol HCl 1.25 mg/3 mL 1.25 mg inhalation TID PRN 08/20/23 01/11/25 solution for nebulization shortness of breath paroxetine HCl 10 mg tablet 10 mg PO DAILY 09/09/23 01/11/25 tamsulosin 0.4 mg capsule (Flomax) 0.4 mg PO DAILY 01/07/24 01/11/25 fluticasone propionate 50 1 spray intranasal DAILY 08/22/24 01/11/25 mcg/actuation nasal spray,suspension (Flonase Allergy Relief) methimazole 5 mg tablet 5 mg PO DAILY 08/22/24 01/11/25 omeprazole 20 mg capsule,delayed 20 mg PO DAILY 08/22/24 01/11/25 release acetaminophen 500 mg tablet 1,000 mg PO Q6H PRN Pain 01/11/25 01/11/25 (Tylenol Extra Strength) calcium carbonate (Calcium Antacid) 200 mg PO BID 01/11/25 01/11/25 magnesium hydroxide 400 mg/5 mL 30 ml PO DAILY PRN Constipation 01/11/25 01/11/25 oral suspension (Milk of Magnesia) multivitamin 1 tab PO QAM 01/11/25 01/11/25 zolpidem 5 mg tablet 5 mg PO BEDTIME 01/11/25 01/11/25 Previous Rx's ?Medication ?Instructions ?Recorded 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 #1 ea 10/20/19 Post operative hinged Left knee #1 ea 11/23/19 brace FRONT WHEEL FOLDING WALKER #1 ea 12/14/19 KAFO KNEE BRACE #1 ea 03/04/21 Modifications to diabetic shoes #1 ea 09/11/23 Diabetic Boots with 3 pairs of #1 ea 09/14/23 Inserts- Doctor Comfort- RANGER style gabapentin 400 mg capsule 400 mg PO BID #60 caps 10/26/23 riluzole 50 mg tablet 50 mg PO BID #60 tabs 10/26/23 bilateral AFO #1 ea 01/28/24 hydrocodone 5 mg-acetaminophen 325 1 tab PO Q6H PRN pain #20 tabs 03/26/24 mg tablet Extra depth Diabetic shoes #1 ea 05/24/24 glycopyrrolate 1 mg tablet 1 mg PO BID 90 days #180 tabs 10/19/24 Allergies Allergy/AdvReac Type Severity Reaction Status Date / Time No Known Allergies Allergy Verified 11/15/24 08:51 PFSH ED PFSH: Medical History Cough syncope Anemia COVID-19 Lab test positive for detection of COVID-19 virus Femur fracture Chronic kidney disease (CKD) Type 2 diabetes mellitus Periprosthetic fracture around internal prosthetic left hip joint, initial encounter CKD (chronic kidney disease) stage 2, GFR 60-89 ml/min Chronic anemia GERD (gastroesophageal reflux disease) Fall Hx of fracture of left hip Diabetes mellitus type 2, noninsulin dependent Diabetic peripheral neuropathy History of osteomyelitis Right foot Hyperlipidemia Hypertension History of septic arthritis Left knee Surgical History History of total knee arthroplasty Status post hip hemiarthroplasty History of toe surgery History of hand surgery History of knee surgery Bilateral Family History Other Cancer Diabetes Social History Smoking and tobacco/nicotine status: never used tobacco/nicotine Alcohol intake: current Alcohol intake frequency: 3 or more drinks per day Alcohol type: beer Substance/Drug Use: never Household members: spouse and children Marital status: Physical Exam Const: COMMON NORMALS: negative for patient oriented x3 GENERAL APPEARANCE: ill appearing HENMT: COMMON NORMALS: normocephalic and atraumatic HEAD & SCALP: normocephalic and atraumatic Eye: COMMON NORMALS: conjunctivae normal CONJUNCTIVA: Yes conjunctivae normal Chest: COMMONS NORMALS: normal inspection of the chest Resp: COMMON NORMALS: normal respiratory effort and clear to auscultation bilaterally AUSCULTATION: clear to auscultation bilaterally Cardio: COMMON NORMALS: regular rate and regular rhythm RATE: regular rate RHYTHM: regular rhythm GI: COMMON NORMALS: Soft to palpation PALPATION: Yes Soft to palpation OTHER: Feeding tube in place no erythema, distended abd over bladder Extremity: COMMON NORMALS: normal to inspection Neuro: COMMON NORMALS: negative for patient oriented x3 Skin: COMMON NORMALS: no rashes or lesions noted GENERAL SKIN EXAM: no rashes or lesions noted Course Vital Signs: Vital signs: Vital Signs Pulse Rate 70 01/11/25 15:00 Respiratory Rate 18 01/11/25 11:42 Blood Pressure 107/65 01/11/25 15:00 Pulse Oximetry 93 01/11/25 15:00 Oxygen Delivery Me thod Room Air 01/11/25 15:00 [facility] - General Adult Medical Decision Making Patient presents here from [facility] with initial concern of malfunctioning feeding tube once family arrived and stated that been a little more confused than normal and seem to be having some abdominal distention. I did flush the feeding tube and did a Gastrografin study KUB that was showed it functioning well no dislodgment or obstruction. Did further workup for his abdominal distention and confusion he is found to have acute kidney injury with an elevated creatinine along with UTI. CT scan here showed likely bladder outlet obstruction causing some hydronephrosis likely causing a little obstructive uropathy which could be contributing to his elevated creatinine. Did place a Truong here had over a liter out at this time. Patient was given IV Rocephin as well along with a liter of fluids. I did go over all the findings with family did speak to Dr. June hospitalist will admit at this time. Medical Records I reviewed the patient's medical records. Lab Data I reviewed the patient's lab results. 01/11/25 12:43 01/11/25 12:43 Radiology Impressions KUB X-Ray 01/11/25 11:48 Impression: Injection of contrast material into the stomach via a gastric tube. Head CT 01/11/25 12:14 IMPRESSION: 1. No evidence of intracranial hemorrhage or mass effect. 2. No acute intracranial findings. Abdomen/Pelvis CT 01/11/25 13:26 IMPRESSION: 1. Qnby-ea-igpcojso bilateral hydroureteronephrosis with mild perinephric and periureteral stranding. No distal obstructing stone is seen. This could be due to bladder outlet obstruction as the urinary bladder is distended with mild diffuse thickening of the wall. Please correlate clinically. Follow-up ultrasound including postvoid images may be helpful to evaluate persistent hydronephrosis. 2. Percutaneous gastrostomy tube within the stomach. 3. Patchy bibasilar atelectasis with tiny bilateral pleural effusions. 4. Other chronic findings described above. Laboratory Results WBC 8.62 10^3/uL (3.29-11.43) 01/11/25 12:43 RBC 3.45 10^6/uL (3.85-5.65) L 01/11/25 12:43 Hgb 10.30 g/dL (11.27-16.99) L 01/11/25 12:43 Hct 30.9 % (37-53) L 01/11/25 12:43 MCV 89.6 fl (82-101) 01/11/25 12:43 MCH 29.9 pg (27-33) 01/11/25 12:43 MCHC 33.3 g/dL (30-55) 01/11/25 12:43 RDW 14.6 % (12.1-15.1) 01/11/25 12:43 Plt Count 70 10^3/cmm (157-399) L 01/11/25 12:43 MPV 10.9 fL (7.4-10.4) H 01/11/25 12:43 Neut % (Auto) 87.6 % 01/11/25 12:43 Lymph % (Auto) 7.4 % 01/11/25 12:43 [place] % (Auto) 3.6 % 01/11/25 12:43 Eos % (Auto) 0.6 % 01/11/25 12:43 Baso % (Auto) 0.5 % 01/11/25 12:43 Neut # (Auto) 7.55 10^3/uL (1.8-7.7) 01/11/25 12:43 Lymph # (Auto) 0.6 10^3/uL (0.8-4.8) L 01/11/25 12:43 [place] # (Auto) 0.3 10^3/uL (0.2-0.9) 01/11/25 12:43 Eos # (Auto) 0.1 10^3/uL (0.0-0.8) 01/11/25 12:43 Baso # (Auto) 0.0 10^3/uL (0.0-0.1) 01/11/25 12:43 Nucleated RBC % (auto) 0 % 01/11/25 12:43 Nucleated RBCs # 0.0 /100WBC 01/11/25 12:43 Sodium 130 mmol/L (136-145) L 01/11/25 12:43 Potassium 5.6 mmol/L (3.5-5.1) H 01/11/25 12:43 Chloride 91 mmol/L (98-107) L 01/11/25 12:43 Carbon Dioxide 22 mmol/L (22-29) 01/11/25 12:43 Anion Gap 22.6 (5-19) H 01/11/25 12:43 BUN 106 mg/dL (8-23) H* D 01/11/25 12:43 Creatinine 6.9 mg/dL (0.7-1.2) H* 01/11/25 12:43 GFR Calculation 8.1 mL/min (90-130) L 01/11/25 12:43 Glucose 233 mg/dL (65-115) H 01/11/25 12:43 Calculated Osmolality 311 mOsm/kg (285-295) H 01/11/25 12:43 Calcium 8.6 mg/dL (8.5-10.5) 01/11/25 12:43 Total Bilirubin 0.7 mg/dL (0.15-1.2) 01/11/25 12:43 AST 30 U/L (0-40) 01/11/25 12:43 ALT 22 U/L (0-41) 01/11/25 12:43 Alkaline Phosphatase 165 U/L (40-130) H 01/11/25 12:43 Ammonia 15 umol/L (16-60) L 01/11/25 12:43 Total Protein 6.1 g/dL (6.6-8.7) L 01/11/25 12:43 Albumin 2.9 g/dL (3.5-5.2) L 01/11/25 12:43 Globulin 3.2 g/dL (1.3-4.6) 01/11/25 12:43 Lipase 12 U/L (13-60) L 01/11/25 12:43 Urine Color Dark yellow (Yellow) A 01/11/25 14:49 Urine Appearance Turbid (CLEAR) A 01/11/25 14:49 Urine pH 6.5 (5-7) 01/11/25 14:49 Ur Specific [place] 1.013 (1.005-1.030) 01/11/25 14:49 Urine Protein 2+ (Negative) A 01/11/25 14:49 Urine Glucose (UA) Negative (Normal) 01/11/25 14:49 Urine Ketones Negative (Negative) 01/11/25 14:49 Urine Blood 3+ (Negative) A 01/11/25 14:49 Urine Nitrate Negative (Negative) 01/11/25 14:49 Urine Bilirubin Negative (Negative) 01/11/25 14:49 Urine Urobilinogen 1.0 mg/dL (Negative) 01/11/25 14:49 Ur Leukocyte Esterase 3+ (Negative) A 01/11/25 14:49 Urine RBC 5-10 /hpf (0-2) H 01/11/25 14:49 Urine WBC >100 /hpf (0-5) H 01/11/25 14:49 Ur Squamous Epith Cells 0-4 /hpf (0-5) H 01/11/25 14:49 Amorphous Sediment Not Reportable 01/11/25 14:49 Urine Bacteria 4+ /hpf (NONE) H 01/11/25 14:49 Urine Mucus Trace /hpf 01/11/25 14:49 All radiology interpretation(s) finalized by discharge EKG Data EKG 1: I personally reviewed and interpreted this EKG as follows: EKG interpretation date: 01/11/25 EKG interpretation time: 14:42 Interpretation: nsr hr [address] elevation qrs 84 qtc 400 Computer generated interpretation: KUB X-Ray 01/11/25 11:48 Impression: Injection of contrast material into the stomach via a gastric tube. Head CT 01/11/25 12:14 IMPRESSION: 1. No evidence of intracranial hemorrhage or mass effect. 2. No acute intracranial findings. Abdomen/Pelvis CT 01/11/25 13:26 IMPRESSION: 1. Uorf-nc-suaxscqc bilateral hydroureteronephrosis with mild perinephric and periureteral stranding. No distal obstructing stone is seen. This could be due to bladder outlet obstruction as the urinary bladder is distended with mild diffuse thickening of the wall. Please correlate clinically. Follow-up ultrasound including postvoid images may be helpful to evaluate persistent hydronephrosis. 2. Percutaneous gastrostomy tube within the stomach. 3. Patchy bibasilar atelectasis with tiny bilateral pleural effusions. 4. Other chronic findings described above. Discharge Plan Discharge Patient Disposition: Admitted As Inpatient Clinical Impression: Acute urinary retention, Acute cystitis, Acute kidney injury Condition: Stable Coding Level of Care Code ED Cook Mayonnaise for Jack Rayo
--- NOTE | 2025-01-11 12:14 | CT_ITS ---
WS: [id number] CT HEAD TECHNIQUE: Noncontrast CT of the head obtained from the skullbase to the vertex. CLINICAL INFORMATION: confsuion COMPARISON: None. DLP: 1097.[address] scans at [facility] use at least one of these dose optimization techniques: automated exposure control; mA and/or kV adjustment per patient size (includes targeted exams where dose is matched to clinical indication); or iterative reconstruction. FINDINGS: No evidence of intracranial hemorrhage or mass effect. Ventricular system and basal cisterns are patent. Moderate small vessel changes with moderate parenchymal volume loss. No extra-axial fluid collections. No evidence of mass or mass effect. Vascular calcification Mild mucosal thickening in the paranasal sinuses. Mastoid air cells are well aerated. CT/CT head wo con* [id number] IMPRESSION: 1. No evidence of intracranial hemorrhage or mass effect. 2. No acute intracranial findings.
[2025-01-11 12:53] LABS: Hematocrit 30.9 % (37-53); Hemoglobin 10.30 g/dL (11.27-16.99); Mean Corpuscular HGB Conc 33.3 g/dL (30-55); Mean Corpuscular Hemoglobin 29.9 pg (27-33); Mean Corpuscular Volume 89.6 fl (82-101); Nucleated Red Blood Cells % 0 %; Platelet Count 70 10^3/cmm (157-399); Red Blood Count 3.45 10^6/uL (3.85-5.65); White Blood Count 8.62 10^3/uL (3.29-11.43)
[2025-01-11 13:13] LABS: Alanine Aminotransferase 22 U/L (0-41); Albumin Level 2.9 g/dL (3.5-5.2); Alkaline Phosphatase 165 U/L (40-130); Anion Gap 22.6 (5-19); Aspartate Amino Transferase 30 U/L (0-40); Calcium 8.6 mg/dL (8.5-10.5); Carbon Dioxide 22 mmol/L (22-29); Chloride 91 mmol/L (98-107); Globulin 3.2 g/dL (1.3-4.6); Glucose 233 mg/dL (65-115); Lipase 12 U/L (13-60); Osmolality Calculated 311 mOsm/kg (285-295); Potassium 5.6 mmol/L (3.5-5.1); Sodium 130 mmol/L (136-145); Total Protein 6.1 g/dL (6.6-8.7)
[2025-01-11 13:19] LABS: Ammonia 15 umol/L (16-60)
[2025-01-11 13:24] LABS: Blood Urea Nitrogen 106 mg/dL (8-23)
--- NOTE | 2025-01-11 13:26 | CTR_ITS ---
PROCEDURE INFORMATION: Exam: CT Abdomen And Pelvis Without Contrast Exam date and time: 01/11/2025 2:00 PM Age: 64 years old Clinical indication: Bloating; Prior surgery; Surgery date: 6+ months; Surgery type: Hip hemiarthroplasty; Patient presents from [facility], [place] patients gtube was working/flushed well prior to giving medications and then gave meds, and had leakage around the gtube. ; Additional info: Abd swelling TECHNIQUE: Imaging protocol: Computed tomography of the abdomen and pelvis without contrast. Radiation optimization: All CT scans at this facility use at least one of these dose optimization techniques: automated exposure control; mA and/or kV adjustment per patient size (includes targeted exams where dose is matched to clinical indication); or iterative reconstruction. COMPARISON: CR XR KUB portable [id number] 01/11/2025 11:56 AM RADIATION DOSE METRICS: Total DLP (mGy-cm): 965.93 FINDINGS: Tubes, catheters and devices: There is a percutaneous gastrostomy tube within the stomach, which appears intraluminal. Lungs: There is mild bibasilar atelectasis with tiny bilateral pleural effusions. Liver: There is very mild decreased attenuation throughout the liver compatible with very mild fatty infiltration. Gallbladder and biliary ducts: There is a tiny radiopaque stone within the dependent portion of the gallbladder. No significant biliary ductal dilatation. Pancreas: Moderate to marked fatty atrophy. Spleen: Unremarkable. Adrenal glands: The left adrenal gland is slightly nodular without a discrete mass seen. The right adrenal gland appears normal.. Kidneys and ureters: No renal or ureteral calculi are detected. There is pqbt-mz-uigttvue hydroureteronephrosis bilaterally with mild perinephric and periureteral stranding. Stomach and bowel: Percutaneous gastrostomy tube within the stomach, which is distended with gastric contents, fluid, contrast, and air. Small and large bowel loops are normal in caliber. Appendix: The appendix is normal in caliber. No evidence of acute appendicitis. Intraperitoneal space: Unremarkable. No free air. No significant fluid collection. Vasculature: The abdominal aorta is normal in caliber. There is mild atherosclerotic calcification. No abdominal aortic aneurysm. Lymph nodes: Unremarkable. No enlarged lymph nodes. Urinary bladder: Moderate to marked distension with mild diffuse thickening of the bladder wall. Evaluation is somewhat limited by metallic artifact from a left hip prosthesis. Reproductive: The prostate gland is enlarged measuring 4.9 x 4.4 x 4.2 cm. Central calcifications are noted. Bones/joints: There are compression fractures of the L1 and L2 vertebral bodies with approximately 50-60% loss of height at each level. There are degenerative changes, particularly at L5-S1. There is a left hip prosthesis in place. There is abnormal sclerosis in the right femoral head suggestive of avascular necrosis. Soft tissues: Unremarkable. CT/CT abdomen pelvis wo con [id number] IMPRESSION: 1. [place]ork-gc-mtmxdtol bilateral hydroureteronephrosis with mild perinephric and periureteral stranding. No distal obstructing stone is seen. This could be due to bladder outlet obstruction as the urinary bladder is distended with mild diffuse thickening of the wall. Please correlate clinically. Follow-up ultrasound including postvoid images may be helpful to evaluate persistent hydronephrosis. 2. Percutaneous gastrostomy tube within the stomach. 3. Patchy bibasilar atelectasis with tiny bilateral pleural effusions. 4. Other chronic findings described above.
[2025-01-11 13:30] LABS: Slide Review Slide Review Perform
--- NOTE | 2025-01-11 14:11 | ECG_ITS ---
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
[2025-01-11 14:58] LABS: Glucose Urine UA Negative (Normal); Nitrate Urine Negative (Negative); Specific Gravity, Urine 1.013 (1.005-1.030)
[2025-01-11 15:22] LABS: Add Urine Microscopic? YES
[2025-01-11] MEDS: cefTRIAXone 1,000 mg SDV 1000 MG IVP (15:48)
--- NOTE | 2025-01-11 20:04 | PM.HP ---
Providers/Chief Complaint Admitting Physician: Tomás Goddard MD Primary Care Provider: Antonio Jaeger MD Chief Complaint: Feeding tube displacement History of Present Illness Regino Calvert is a 64 year old male with history of lower motor neuron ALS diagnosed 6 months ago. Prior to that he had only ever been told he had peripheral neuropathy. This was diagnosed by Dr. Arvin Luz who has left his practice in [place]. Patient has been wheelchair-bound since May 2024. He is at [facility]. He is companied by his daughter Danielle Bay who is a [id number] mom whose is [place] a TEAROOM HOSTESS here at [facility]. Patient was admitted with urine retention greater than 1000 cc with obstructive uropathy, distended bladder and bilateral hydroureteronephrosis. He has had incontinence related to ALS treated with medications that resulted in urinary retention and those meds adjusted again. Daughter thinks these medications were Myrbetriq and ropinirole. He takes ropinirole for drooling patient had UTI treat with antibiotics about a month ago Thursday she noted him to be okay but Thursday was lethargic abdomen was distended face puffy torso swollen no leg swelling. Speech is garbled at baseline but understandable to her and she thinks most people today he is so weak that he cannot move his jaws to speak. Patient has been diagnosed with possibly COPD in the past but has never been a smoker. They have attributed this to his ALS disease. Patient is a retired [employer] 23 years was in 2000 remarried 2002 and that second left him 3 years ago after getting her name on the D of the [employer]. Patient has never been a smoker or illicit use or he drank alcohol too much until 5 years ago but does not have cirrhosis. He has a son who was on his honeymoon in [facility] and daughter Danielle Bay who is a [id number] mother with 3 children ages 10 7 and 2 Patient wants DNR status as previously discussed. He has hinted that he does not want to live the way he currently has to at the [facility] but has not made decision for limited interventions or comfort care formal in the past. Medications/Allergies Home Medications ?Medication ?Instructions ?Recorded ?Confirmed ?Last Taken ?Type 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 #1 ea 10/20/19 01/11/25 Unknown Rx Post operative hinged Left knee #1 ea 11/23/19 01/11/25 Unknown Rx brace FRONT WHEEL FOLDING WALKER #1 ea 12/14/19 01/11/25 Unknown Rx KAFO KNEE BRACE #1 ea 03/04/21 01/11/25 Unknown Rx diclofenac sodium 1 % topical gel 4 g topical DAILY PRN Pain 07/31/23 01/11/25 08/24/24 History levalbuterol HCl 1.25 mg/3 mL 1.25 mg inhalation TID PRN 08/20/23 01/11/25 08/24/24 History solution for nebulization shortness of breath paroxetine HCl 10 mg tablet 10 mg PO DAILY 09/09/23 01/11/25 01/10/25 15:30 History Modifications to diabetic shoes #1 ea 09/11/23 01/11/25 Unknown Rx Diabetic Boots with 3 pairs of #1 ea 09/14/23 01/11/25 Unknown Rx Inserts- Doctor Comfort- RANGER style gabapentin 400 mg capsule 400 mg PO BID #60 caps 10/26/23 01/11/25 01/11/25 06:40 Rx riluzole 50 mg tablet 50 mg PO BID #60 tabs 10/26/23 01/11/25 01/11/25 06:40 Rx tamsulosin 0.4 mg capsule (Flomax) 0.4 mg PO DAILY 01/07/24 01/11/25 01/10/25 15:30 History bilateral AFO #1 ea 01/28/24 01/11/25 Unknown Rx hydrocodone 5 mg-acetaminophen 325 1 tab PO Q6H PRN pain #20 tabs 03/26/24 01/11/25 08/24/24 Rx mg tablet Extra depth Diabetic shoes #1 ea 05/24/24 01/11/25 Unknown Rx fluticasone propionate 50 1 spray intranasal DAILY 08/22/24 01/11/25 01/11/25 06:40 History mcg/actuation nasal spray,suspension (Flonase Allergy Relief) methimazole 5 mg tablet 5 mg PO DAILY 08/22/24 01/11/25 01/10/25 15:30 History omeprazole 20 mg capsule,delayed 20 mg PO DAILY 08/22/24 01/11/25 01/11/25 06:40 History release glycopyrrolate 1 mg tablet 1 mg PO BID 90 days #180 tabs 10/19/24 01/11/25 01/11/25 06:40 Rx acetaminophen 500 mg tablet 1,000 mg PO Q6H PRN Pain 01/11/25 01/11/25 01/10/25 09:35 History (Tylenol Extra Strength) calcium carbonate (Calcium Antacid) 200 mg PO BID 01/11/25 01/11/25 Unknown History magnesium hydroxide 400 mg/5 mL 30 ml PO DAILY PRN Constipation 01/11/25 01/11/25 Unknown History oral suspension (Milk of Magnesia) multivitamin 1 tab PO QAM 01/11/25 01/11/25 01/11/25 06:40 History zolpidem 5 mg tablet 5 mg PO BEDTIME 01/11/25 01/11/25 01/08/25 22:00 History Allergies Allergy/AdvReac Type Severity Reaction Status Date / Time No Known Allergies Allergy Verified 11/15/24 08:51 PFSH Acute PFSH: Medical History (Updated 01/11/25 @ 20:14 by Tomás Goddard MD) ALS (amyotrophic lateral sclerosis) Lower motor neuron disease Cough syncope Anemia COVID-19 Lab test positive for detection of COVID-19 virus Femur fracture Chronic kidney disease (CKD) Type 2 diabetes mellitus Periprosthetic fracture around internal prosthetic left hip joint, initial encounter CKD (chronic kidney disease) stage 2, GFR 60-89 ml/min Chronic anemia GERD (gastroesophageal reflux disease) Fall Hx of fracture of left hip Diabetes mellitus type 2, noninsulin dependent Diabetic peripheral neuropathy History of osteomyelitis Right foot Hyperlipidemia Hypertension History of septic arthritis Left knee Surgical History History of total knee arthroplasty Status post hip hemiarthroplasty History of toe surgery History of hand surgery History of knee surgery Bilateral Family History Other Cancer Diabetes Social History (Updated 01/11/25 @ 20:11 by Toáms Goddard MD) Smoking and tobacco/nicotine status: never used tobacco/nicotine Alcohol intake: former Year of sobriety/quit date alcohol: 2020 Former alcohol use details: Previously judged to be modestly excessive by his daughter Substance/Drug Use: never Additional social history: DNR as discussed with Tomás Goddard MD by his daughter Danielle Bay on 01/11/2025 Household members: spouse and children Marital status: Current occupational status: retired Previous occupational history: [employer] Vitals/I&O/Wt Last Vital Signs Temp 97.4 F L 01/11/25 17:05 Pulse 70 01/11/25 17:05 Resp 70 H 01/11/25 17:05 BP 107/49 01/11/25 17:05 Pulse Ox 96 01/11/25 17:05 O2 Del Method Room Air 01/11/25 17:05 01/11/25 01/11/25 01/11/25 06:59 14:59 22:59 Intake Total 1000 / 1000 Output Total 850 / 850 Balance 1000 / 1000 -850 / 150 Weight last 48 hrs Weight 77.4 kg Physical Exam Narrative: General Well-developed well-nourished male contracted head and neck tilted and contracted to the right. He is in semifetal position laying on his right. CV regular rate and rhythm Lungs clear to auscultation bilaterally with adequate air movement Abdomen diminished bowel tones soft nontender Truong is in place as is feeding tube Calves no tenderness cords pedal edema Musculoskeletal he has contractures with knees pulled up partially to chest. He is stiff to movement with high muscle tone. Neck also stiff and he is uncomfortable with passive range of motion Patient is able to wake given to noxious stimuli and loud verbal and opens his eyes weakly. He nods weakly to questions but is not reliable what he is nodding yes to because he did not give any negative gestures Urinary Catheter Management: Truong: Cath Placed During This Visit: yes Reason for Continuing Indwelling Catheter: Acute Urinary Retention or Obstruction Urinary Catheter Date of Insertion: 01/11/25 Data 01/11/25 12:43 01/11/25 12:43 A&P Assessment and plan 1. Acute kidney injury: Patient rehydrated he has dialysis range renal failure but I think this will recover. I discussed treatment options including comfort care with the daughter and daughter thinks that the patient would have wanted comfort care but she needs to think about this and discuss with her as well as her brother 2. Acute urinary retention: Truong to remain in place 3. Acute cystitis: Treated with Rocephin 4. Lower motor neuron disease: Unchanged 5. ALS (amyotrophic lateral sclerosis): Chronic and progressive disease. Patient has advanced directives for DNR. PDMP PDMP Reviewed: Not Reviewed Attestations Medical Necessity Statement*: Patient will require greater than 2 midnights in the hospital for IV antibiotics and IV fluids for UTI and acute kidney failure Coding Level of Care Code 45158 Diagnoses Acute kidney injury N17.9 Acute urinary retention R33.8 Acute cystitis N30.00 Lower motor neuron disease G12.29 ALS (amyotrophic lateral sclerosis) G12.21 Time Spent (min) 70
--- NOTE | 2025-01-11 20:48 | PC.NURSE ---
Patient's platelet count is 70. I notified Dr. Bedoya about scheduled subcutaneous heparin per MAR that is due to give. said to hold heparin for now and get a CBC and look at new platelet count to see if it is lower than last time taken or not. Provider notification put in.
[2025-01-11 21:22] LABS: Hematocrit 28.4 % (37-53); Hemoglobin 9.60 g/dL (11.27-16.99); Mean Corpuscular HGB Conc 33.8 g/dL (30-55); Mean Corpuscular Hemoglobin 29.6 pg (27-33); Mean Corpuscular Volume 87.7 fl (82-101); Nucleated Red Blood Cells % 0 %; Platelet Count 56 10^3/cmm (157-399); Red Blood Count 3.24 10^6/uL (3.85-5.65); White Blood Count 7.52 10^3/uL (3.29-11.43)
[2025-01-11 21:54] LABS: Slide Review Slide Review Perform
[2025-01-12] VITALS (10 sets, daily range): BP systolic 106–144; BP diastolic 63–76; PULSE 55–78; RESP 16–18; TEMP 36.3–36.9; O2SAT 90–96
[2025-01-12] MEDS: fluticasone nasal spray 16gm Btl 1 SPRAY INTRANASAL (05:05)
[2025-01-12 05:11] LABS: Hematocrit 28.7 % (37-53); Hemoglobin 9.90 g/dL (11.27-16.99); Mean Corpuscular HGB Conc 34.5 g/dL (30-55); Mean Corpuscular Hemoglobin 30.3 pg (27-33); Mean Corpuscular Volume 87.8 fl (82-101); Nucleated Red Blood Cells % 0 %; Platelet Count 58 10^3/cmm (157-399); Red Blood Count 3.27 10^6/uL (3.85-5.65); White Blood Count 9.60 10^3/uL (3.29-11.43)
[2025-01-12] MEDS: cefTRIAXone 1,000 mg SDV 1000 MG IVP (05:11)
[2025-01-12 05:37] LABS: Anion Gap 21.9 (5-19); Calcium 8.5 mg/dL (8.5-10.5); Carbon Dioxide 20 mmol/L (22-29); Chloride 98 mmol/L (98-107); Creatinine Clr Calc Pharmacy 10.7141; Glucose 126 mg/dL (65-115); Magnesium 2.2 mg/dL (1.7-2.3); Potassium 5.9 mmol/L (3.5-5.1); Sodium 134 mmol/L (136-145)
[2025-01-12 05:42] LABS: Slide Review Slide Review Perform
[2025-01-12 06:00] LABS: Blood Urea Nitrogen 129 mg/dL (8-23)
[2025-01-12 06:01] LABS: Osmolality Calculated 321 mOsm/kg (285-295)
--- NOTE | 2025-01-12 07:30 | PC.NURSE ---
Repeat CBC was 56. said to watch for CBC in AM. AM CBC was 58. said if below 20 we will give platelets.
[2025-01-12] MEDS: FUROsemide 10 mg/mL SDV 4mL 40 MG IVP (09:23)
--- NOTE | 2025-01-12 11:37 | PM.PN ---
Subjective Subjective: 64 yo WM with obstructive uropathy but also ALS so could be neurogenic uropathy had Truong overnight and is making urine but creatinine still elevated. Patient's daughter Danielle is present at bedside and patient is alert today able to answer yes and no questions. Patient's son is coming back from [facility] [place] and will be back on Thursday. Patient's daughter Danielle's julieta lives in [place]. Patient is able to speak in short slurred words but understandable. He confirms that he wants DNR status. He further states that in his condition yesterday with lethargy and acute illness he would have wanted to be made comfortable and not have IV fluids and antibiotic treatment. We went over options with him today and he states that he would be leaning towards comfort care. [facility] is not [facility] and [facility] condition nor to the [facility] at all. He does not want dialysis. Vitals/I&O/Wt Last Vital Signs Temp 98.1 F 01/12/25 07:58 Pulse 68 01/12/25 09:02 Resp 18 01/12/25 09:02 BP 114/70 01/12/25 07:58 Pulse Ox 92 01/12/25 09:02 O2 Del Method Room Air 01/12/25 09:02 01/11/25 01/12/25 01/12/25 22:59 06:59 14:59 Intake Total 1000 / 2000 1000 / 3000 Output Total 1000 / 1000 300 / 1300 Balance 0 / 1000 700 / 1700 Weight last 48 hrs Weight 77.111 kg Weight 77.4 kg Physical Exam Narrative: General Well-developed well-nourished male in semifetal position on his right side. Eyes are open and he is able to nod and shake appropriately he is able to speak the words yes and no CV regular rate and rhythm Lungs clear with poor air movement Abdomen soft Calves no tenderness cords pedal edema Urinary Catheter Management: Truong: Cath Placed During This Visit: yes Reason for Continuing Indwelling Catheter: Acute Urinary Retention or Obstruction Urinary Catheter Date of Insertion: 01/11/25 Data 01/12/25 04:25 01/12/25 04:25 Micro: Microbiology 01/11/25 14:49 Urine Culture - Preliminary Urine,Clean Catch Gram Negative Rods A&P Assessment and plan 1. Acute cystitis: Continue with Rocephin and Truong 2. Acute urinary retention: Continue with Truong 3. Acute kidney injury: Will continue with Truong and IV fluids today. Patient wants limited interventions and is considering hospice care. He is in discussion with his family 4. ALS (amyotrophic lateral sclerosis): As above PDMP PDMP Reviewed: Not Reviewed Attestations Medical Necessity Statement*: Patient julisa in the hospital for IV fluids and antibiotics and [facility] Coding Level of Care Code 15071 Diagnoses Acute cystitis N30.00 Acute urinary retention R33.8 Acute kidney injury N17.9 ALS (amyotrophic lateral sclerosis) G12.21 Time Spent (min) 35
[2025-01-12] MEDS: LORazepam 1 MG/0.5 ML injection 0.5 MG IVP ×2 (13:03→20:20)
[2025-01-13 03:53] VITALS: BP 112/70; PULSE 71; RESP 16; TEMP 36.7; O2SAT 92
[2025-01-13 05:07] LABS: Anion Gap 21.6 (5-19); Calcium 8.3 mg/dL (8.5-10.5); Carbon Dioxide 17 mmol/L (22-29); Chloride 103 mmol/L (98-107); Creatinine Clr Calc Pharmacy 10.6979; Glucose 98 mg/dL (65-115); Potassium 5.6 mmol/L (3.5-5.1); Sodium 136 mmol/L (136-145)
[2025-01-13 05:28] LABS: Blood Urea Nitrogen 136 mg/dL (8-23); Osmolality Calculated 326 mOsm/kg (285-295)
[2025-01-13] MEDS: cefTRIAXone 1,000 mg SDV 1000 MG IVP (06:33)
[2025-01-13] MEDS: LORazepam 1 MG/0.5 ML injection 0.5 MG IVP ×2 (06:33→14:43)
[2025-01-13 07:50] VITALS: PULSE 50; RESP 18; O2SAT 95
[2025-01-13 08:00] VITALS: BP 111/65; PULSE 53; RESP 18; O2SAT 95
--- NOTE | 2025-01-13 10:24 | P.DS_ITS ---
Documented by User: Tomás Goddard MD 01/13/25 12:14 Discharge Providers Date of Admission: 01/11/25 16:13 Date of Discharge: January 13, 2025 Attending Provider at Admission: Tomás Goddard MD Attending Provider at Discharge: Tomás Goddard MD Primary Care Provider: Antonio Jaeger MD Diagnoses at Discharge Discharge Diagnosis 1. Acute cystitis: Details from hospital stay: Indwelling catheter was placed this visit and Rocephin was given. Patient expressed wishes for DNR status including stopping IV fluids and antibiotic treatment. Truong will remain in place for comfort but patient and daughter directed that antibiotics will not further be given following discharge 2. Acute urinary retention: 3. Acute kidney injury: 4. ALS (amyotrophic lateral sclerosis): Reason for Visit Reason for Visit: Feeding tube displacement Brief History: Regino Calvert is a 64 year old male with history of lower motor neuron ALS diagnosed 6 months ago. Prior to that he had only ever been told he had peripheral neuropathy. This was diagnosed by Dr. Arvin Luz who has left his practice in [place]. Patient has been wheelchair-bound since May 2024. He is at [facility]. He is companied by his daughter Danielle Bay who is a [id number] mom whose is [employer] a MANAGER [employer] here at [facility]. Patient was admitted with urine retention greater than 1000 cc with obstructive uropathy, distended bladder and bilateral hydroureteronephrosis. He has had incontinence related to ALS treated with medications that resulted in urinary retention and those meds adjusted again. Daughter thinks these medications were Myrbetriq and ropinirole. He takes ropinirole for drooling patient had UTI treat with antibiotics about a month ago Thursday she noted him to be okay but Thursday was lethargic abdomen was distended face puffy torso swollen no leg swelling. Speech is garbled at baseline but understandable to her and she thinks most people today he is so weak that he cannot move his jaws to speak. Patient has been diagnosed with possibly COPD in the past but has never been a smoker. They have attributed this to his ALS disease. 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 Patient has never been a smoker or illicit use or he drank alcohol too much until 5 years ago but does not have cirrhosis. He has a son who was [place] [facility] and daughter Danielle Bay who is a [id number] mother with 3 children ages 10 7 and 2 Patient wants DNR status as previously discussed. He has hinted that he does not want to live the way he currently has to at the senior care but has not made decision for limited interventions or comfort care formal in the past. Hospital Course Hospital Course Regino Calvert is 64y M with hx of lower motor neuron ALS diagnosed 6 months ago. Primary inpatient stay was for urinary retention >1000cc with obstructive uropathy, distended bladder, and bilateral hydroureteronephrosis. Patient was admitted from [facility] with for chief concern of malfunctioning feeding tube. Presence of confusion and abdominal distention prompted workup which found acute kidney injury with elevated creatinine along with urinary tract infection. CT scan performed in ED showed likely bladder outlet obstruction causing bilateral hydronephrosis. Truong catheter was placed, IV Rocephin and IV fluids were started and patient was admitted. Patient was rehydrated and goals of discussion conversation occurred with family present. Patient was able to communicate wishes for DNR and would prefer to not have future IV Fluids, dialysis, nor antibiotic treatment. He wishes to have comfort care and wishes to not return to the senior care. Patient will be discharged to [facility] for comfort care. I had multiple conversations with the patient as well as his daughter Danielle Bay and her [employer]. Patient indicated that he wanted comfort care. He will return to [facility] and his son is coming back from [facility] and will see him tomorrow Physical Exam Narrative: General Well-developed well-nourished male in semifetal position on his right side. Eyes are open and he is able to nod and shake appropriately he is able to speak the words yes and no CV regular rate and rhythm Lungs clear with poor air movement Abdomen soft Calves no tenderness cords pedal edema Urinary Catheter Management: Truong: Cath Placed During This Visit: yes Reason for Continuing Indwelling Catheter: Acute Urinary Retention or Obstruction Urinary Catheter Date of Insertion: 01/11/25 Discharge Data Studies Completed and Pending Completed Studies During Hospitalization Category Date Time Status CT abdomen pelvis wo con [id number] Stat Cat Scan 01/11/25 13:[address] head wo con* [id number] Stat Cat Scan 01/11/25 12:14 Completed XR KUB portable [id number] Stat Exams 01/11/25 11:48 Completed Pending at discharge Category Date Time Status Basic Metabolic Panel AM LABS Lab 01/14/25 04:00 Ordered Urine Culture Stat Lab 01/11/25 14:49 Results Radiology Impressions KUB X-Ray 01/11/25 11:48 Impression: Injection of contrast material into the stomach via a gastric tube. Head CT 01/11/25 12:14 IMPRESSION: 1. No evidence of intracranial hemorrhage or mass effect. 2. No acute intracranial findings. Abdomen/Pelvis CT 01/11/25 13:26 IMPRESSION: 1. [id number] bilateral hydroureteronephrosis with mild perinephric and periureteral stranding. No distal obstructing stone is seen. This could be due to bladder outlet obstruction as the urinary bladder is distended with mild diffuse thickening of the wall. Please correlate clinically. Follow-up ultrasound including postvoid images may be helpful to evaluate persistent hydronephrosis. 2. Percutaneous gastrostomy tube within the stomach. 3. Patchy bibasilar atelectasis with tiny bilateral pleural effusions. 4. Other chronic findings described above. Laboratory Results WBC 9.60 10^3/uL (3.29-11.43) 01/12/25 04:25 RBC 3.27 10^6/uL (3.85-5.65) L 01/12/25 04:25 Hgb 9.90 g/dL (11.27-16.99) L 01/12/25 04:25 Hct 28.7 % (37-53) L 01/12/25 04:25 MCV 87.8 fl (82-101) 01/12/25 04:25 MCH 30.3 pg (27-33) 01/12/25 04:25 MCHC 34.5 g/dL (30-55) 01/12/25 04:25 RDW 14.5 % (12.1-15.1) 01/12/25 04:25 Plt Count 58 10^3/cmm (157-399) L 01/12/25 04:25 MPV 11.7 fL (7.4-10.4) H 01/12/25 04:25 Neut % (Auto) 78.7 % 01/12/25 04:25 Lymph % (Auto) 9.4 % 01/12/25 04:25 [place] % (Auto) 9.0 % 01/12/25 04:25 Eos % (Auto) 1.9 % 01/12/25 04:25 Baso % (Auto) 0.5 % 01/12/25 04:25 Neut # (Auto) 7.56 10^3/uL (1.8-7.7) 01/12/25 04:25 Lymph # (Auto) 0.9 10^3/uL (0.8-4.8) 01/12/25 04:25 [place] # (Auto) 0.9 10^3/uL (0.2-0.9) 01/12/25 04:25 Eos # (Auto) 0.2 10^3/uL (0.0-0.8) 01/12/25 04:25 Baso # (Auto) 0.1 10^3/uL (0.0-0.1) 01/12/25 04:25 Nucleated RBC % (auto) 0 % 01/12/25 04:25 Nucleated RBCs # 0.0 /100WBC 01/12/25 04:25 Sodium 136 mmol/L (136-145) 01/13/25 04:22 Potassium 5.6 mmol/L (3.5-5.1) H 01/13/25 04:22 Chloride 103 mmol/L (98-107) 01/13/25 04:22 Carbon Dioxide 17 mmol/L (22-29) L 01/13/25 04:22 Anion Gap 21.6 (5-19) H 01/13/25 04:22 BUN 136 mg/dL (8-23) H* 01/13/25 04:22 Creatinine 7.6 mg/dL (0.7-1.2) H* 01/13/25 04:22 GFR Calculation 7.3 mL/min (90-130) L 01/13/25 04:22 Glucose 98 mg/dL (65-115) 01/13/25 04:22 Calculated Osmolality 326 mOsm/kg (285-295) H 01/13/25 04:22 Calcium 8.3 mg/dL (8.5-10.5) L 01/13/25 04:22 Phosphorus 2.3 mg/dL (2.5-4.5) L 01/12/25 04:25 Magnesium 2.2 mg/dL (1.7-2.3) 01/12/25 04:25 Total Bilirubin 0.7 mg/dL (0.15-1.2) 01/11/25 12:43 AST 30 U/L (0-40) 01/11/25 12:43 ALT 22 U/L (0-41) 01/11/25 12:43 Alkaline Phosphatase 165 U/L (40-130) H 01/11/25 12:43 Ammonia 15 umol/L (16-60) L 01/11/25 12:43 Total Protein 6.1 g/dL (6.6-8.7) L 01/11/25 12:43 Albumin 2.9 g/dL (3.5-5.2) L 01/11/25 12:43 Globulin 3.2 g/dL (1.3-4.6) 01/11/25 12:43 Lipase 12 U/L (13-60) L 01/11/25 12:43 Urine Color Dark yellow (Yellow) A 01/11/25 14:49 Urine Appearance Turbid (CLEAR) A 01/11/25 14:49 Urine pH 6.5 (5-7) 01/11/25 14:49 Ur Specific Commiskey 1.013 (1.005-1.030) 01/11/25 14:49 Urine Protein 2+ (Negative) A 01/11/25 14:49 Urine Glucose (UA) Negative (Normal) 01/11/25 14:49 Urine Ketones Negative (Negative) 01/11/25 14:49 Urine Blood 3+ (Negative) A 01/11/25 14:49 Urine Nitrate Negative (Negative) 01/11/25 14:49 Urine Bilirubin Negative (Negative) 01/11/25 14:49 Urine Urobilinogen 1.0 mg/dL (Negative) 01/11/25 14:49 Ur Leukocyte Esterase 3+ (Negative) A 01/11/25 14:49 Urine RBC 5-10 /hpf (0-2) H 01/11/25 14:49 Urine WBC >100 /hpf (0-5) H 01/11/25 14:49 Ur Squamous Epith Cells 0-4 /hpf (0-5) H 01/11/25 14:49 Amorphous Sediment Not Reportable 01/11/25 14:49 Urine Bacteria 4+ /hpf (NONE) H 01/11/25 14:49 Urine Mucus Trace /hpf 01/11/25 14:49 Vitals Last Vital Signs Temp 98.0 F 01/13/25 03:53 Pulse 53 L 01/13/25 08:00 Resp 18 01/13/25 08:00 BP 111/65 01/13/25 08:00 Pulse Ox 95 01/13/25 08:00 O2 Del Method Room Air 01/13/25 07:50 Discharge Plan Discharge Patient Disposition: Xfer SNF Condition: Stable Prescriptions: New morphine 10 mg/5 mL solution 10 mg PO Q1H PRN (Reason: pain) Qty: 150 0RF lorazepam 1 mg tablet 1 mg PO Q6H PRN (Reason: anxiety) Qty: 14 0RF Continued tamsulosin [Flomax] 0.4 mg capsule 0.4 mg PO DAILY levalbuterol HCl 1.25 mg/3 mL solution for nebulization 1.25 mg inhalation TID PRN (Reason: shortness of breath) paroxetine HCl 10 mg tablet 10 mg PO DAILY gabapentin 400 mg capsule 400 mg PO BID Qty: 60 10RF glycopyrrolate 1 mg tablet 1 mg PO BID 90 Days Qty: 180 3RF diclofenac sodium 1 % gel 4 g TOPICAL DAILY PRN (Reason: Pain) omeprazole 20 mg capsule,delayed release(DR/EC) 20 mg PO DAILY fluticasone propionate [Flonase Allergy Relief] 50 mcg/actuation [place] nsion 1 spray INTRANASAL DAILY Rx Instructions: administer into each nostril methimazole 5 mg tablet 5 mg PO DAILY Rx Instructions: TAKE ONE TABLET BY MOUTH DAILY hydrocodone-acetaminophen 5-325 mg tablet 1 tab PO Q6H PRN (Reason: pain) Qty: 20 0RF acetaminophen [Tylenol Extra Strength] 500 mg Tablet 1,000 mg PO Q6H PRN (Reason: Pain) magnesium hydroxide [Milk of Magnesia] 400 mg/5 mL Suspension 30 ml PO DAILY PRN (Reason: Constipation) zolpidem 5 mg tablet 5 mg PO BEDTIME calcium carbonate [Calcium Antacid] 200 mg calcium (500 mg) Tablet,Chewable 200 mg PO BID Discontinued riluzole 50 mg tablet 50 mg PO BID Qty: 60 10RF Rx Instructions: administer on an empty stomach, at least 1 hour before or 2 hours after food/meal(s) multivitamin [Men's Multi-Vitamin] Tablet 1 tab PO QAM No 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 See Rx Instructions .Route .MEDSUPPLY Qty: 1 0RF Rx Instructions: As directed (DME) 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 See Rx Instructions .Route .MEDSUPPLY Qty: 1 0RF Rx Instructions: As directed (DME) Post operative hinged Left knee brace See Rx Instructions .Route .MEDSUPPLY Qty: 1 0RF Rx Instructions: As directed set at 0-60 (DME) KAFO KNEE BRACE See Rx Instructions .Route .MEDSUPPLY Qty: 1 0RF Rx Instructions: As directed (DME) Extra depth Diabetic shoes See Rx Instructions .ROUTE .MEDSUPPLY Qty: 1 0RF Rx Instructions: With 3 pairs of inserts (DME) bilateral AFO See Rx Instructions .Route .MEDSUPPLY Qty: 1 0RF Rx Instructions: As directed (DME) Modifications to diabetic shoes See Rx Instructions .Route .MEDSUPPLY Qty: 1 0RF Rx Instructions: As directed by HOME *Patient is getting sores on feet due to shoes being TOO tight* (DME) Diabetic Boots with 3 pairs of Inserts- Doctor Comfort- RANGER style See Rx Instructions .Route .MEDSUPPLY Qty: 1 0RF Rx Instructions: As directed HOME Referrals: [facility] [Outside] [facility] [Outside] Antonio Jaeger MD [Primary Care Provider, Family Practice] Discharge Diet: Resume prior tube feeds Discharge Activity: Resume usual activity Patient Instructions: Comfort Measures (GEN), Opioid Safety, Patient Portal & Becca Instructions Activity Restrictions/Additional Instructions: Return to [facility] You can resume your tube feeds or tube fluid as desired for comfort. You can take oral feed for comfort but are at high risk for aspiration Truong to remain in place for comfort due to urinary retention Discharge Attestations Time Spent in Discharge Care*: greater than 30 min Time Spent in Smoking Cessation: Patient does not smoke Status at Discharge: Cognitive status at discharge: cognitively intact , Behavioral status at discharge: cooperative , Quality Metrics Clinical Quality Measures [ No reported AMI, CVA or VTE this stay] Coding Level of Care Code 65599 Diagnoses Acute cystitis N30.00 Acute urinary retention R33.8 Acute kidney injury N17.9 ALS (amyotrophic lateral sclerosis) G12.21 Time Spent (min) 45 Documented by User: VALERIA Myrick 01/13/25 11:56 Diagnoses at Discharge Discharge Diagnosis 1. Acute cystitis: Details from hospital stay: Indwelling catheter was placed this visit and Rocephin was given. Patient expressed wishes for DNR status including stopping IV fluids and antibiotic treatment. 2. Acute urinary retention: Details from hospital stay: Urinary retention suspected to be neurogenic or obstructive. Truong catheter was placed for long-term care. Patient wants limited interventions and DNR status. 3. Acute kidney injury: Details from hospital stay: Patient was rehydrated with IV fluids during stay. Patient was able to speak in short slurred words and expressed wishes for DNR, comfort care, and cessation of IV fluids and antibiotics. Patient does not want dialysis. 4. ALS (amyotrophic lateral sclerosis): Details from hospital stay: Chronic, progressive disease. Patient expressed wishes for DNR and comfort care. Reason for Visit Reason for Visit: Feeding tube displacement Hospital Course Hospital Course Regino Calvert is 64y M with hx of lower motor neuron ALS diagnosed 6 months ago. Primary inpatient stay was for urinary retention >1000cc with obstructive uropathy, distended bladder, and bilateral hydroureteronephrosis. Patient was admitted from [facility] with for chief concern of malfunctioning feeding tube. Presence of confusion and abdominal distention prompted workup which found acute kidney injury with elevated creatinine along with urinary tract infection. CT scan performed in ED showed likely bladder outlet obstruction causing bilateral hydronephrosis. Truong catheter was placed, IV Rocephin and IV fluids were started and patient was admitted. Patient was rehydrated and goals of discussion conversation occurred with family present. Patient was able to communicate wishes for DNR and would prefer to not have future IV Fluids, dialysis, nor antibiotic treatment. He wishes to have comfort care and wishes to not return to the senior care. Patient will be discharged to [facility] for comfort care. I had multiple conversations with the patient as well as his daughter Danielle Bay and her [employer]. Patient indicated that he wanted comfort care. He will return to [facility] and his son is coming back from [facility] and will see him tomorrow Physical Exam Narrative: General: Alert and oriented adult male in semifetal position on his right side. He is able to speak short one-syllable words in grunts. CV: Regular rate and rhythm. Lungs: Clear with poor air movement. Abdomen: Soft, nontender in all quadrants. Percutaneous gastronomy tube intact with no swelling, tenderness, or warmth. Extremities: No pedal edema noted. Urinary Catheter Management: Truong: Cath Placed During This Visit: yes Discharge Plan Discharge Patient Disposition: Xfer SNF Condition: Stable Prescriptions: New morphine 10 mg/5 mL solution 10 mg PO Q1H PRN (Reason: pain) Qty: 150 0RF lorazepam 1 mg tablet 1 mg PO Q6H PRN (Reason: anxiety) Qty: 14 0RF Continued tamsulosin [Flomax] 0.4 mg capsule 0.4 mg PO DAILY levalbuterol HCl 1.25 mg/3 mL solution for nebulization 1.25 mg inhalation TID PRN (Reason: shortness of breath) paroxetine HCl 10 mg tablet 10 mg PO DAILY gabapentin 400 mg capsule 400 mg PO BID Qty: 60 10RF glycopyrrolate 1 mg tablet 1 mg PO BID 90 Days Qty: 180 3RF diclofenac sodium 1 % gel 4 g TOPICAL DAILY PRN (Reason: Pain) omeprazole 20 mg capsule,delayed release(DR/EC) 20 mg PO DAILY fluticasone propionate [Flonase Allergy Relief] 50 mcg/actuation [place],Suspension 1 spray INTRANASAL DAILY Rx Instructions: administer into each nostril methimazole 5 mg tablet 5 mg PO DAILY Rx Instructions: TAKE ONE TABLET BY MOUTH DAILY hydrocodone-acetaminophen 5-325 mg tablet 1 tab PO Q6H PRN (Reason: pain) Qty: 20 0RF acetaminophen [Tylenol Extra Strength] 500 mg Tablet 1,000 mg PO Q6H PRN (Reason: Pain) magnesium hydroxide [Milk of Magnesia] 400 mg/5 mL Suspension 30 ml PO DAILY PRN (Reason: Constipation) zolpidem 5 mg tablet 5 mg PO BEDTIME calcium carbonate [Calcium Antacid] 200 mg calcium (500 mg) Tablet,Chewable 200 mg PO BID Discontinued riluzole 50 mg tablet 50 mg PO BID Qty: 60 10RF Rx Instructions: administer on an empty stomach, at least 1 hour before or 2 hours after food/meal(s) multivitamin [Men's Multi-Vitamin] Tablet 1 tab PO QAM No 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 See Rx Instructions .Route .MEDSUPPLY Qty: 1 0RF Rx Instructions: As directed (DME) 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 See Rx Instructions .Route .MEDSUPPLY Qty: 1 0RF Rx Instructions: As directed (DME) Post operative hinged Left knee brace See Rx Instructions .Route .MEDSUPPLY Qty: 1 0RF Rx Instructions: As directed set at 0-60 (DME) KAFO KNEE BRACE See Rx Instructions .Route .MEDSUPPLY Qty: 1 0RF Rx Instructions: As directed (DME) Extra depth Diabetic shoes See Rx Instructions .ROUTE .MEDSUPPLY Qty: 1 0RF Rx Instructions: With 3 pairs of inserts (DME) bilateral AFO See Rx Instructions .Route .MEDSUPPLY Qty: 1 0RF Rx Instructions: As directed (DME) Modifications to diabetic shoes See Rx Instructions .Route .MEDSUPPLY Qty: 1 0RF Rx Instructions: As directed by HOME *Patient is getting sores on feet due to shoes being TOO tight* (DME) Diabetic Boots with 3 pairs of Inserts- Doctor Comfort- RANGER style See Rx Instructions .Route .MEDSUPPLY Qty: 1 0RF Rx Instructions: As directed HOME Referrals: [facility] [Outside] [facility] [Outside] Antonio Jaeger MD [Primary Care Provider, Family Practice] Discharge Diet: Resume prior tube feeds Discharge Activity: Resume usual activity Patient Instructions: Comfort Measures (GEN), Opioid Safety, Patient Portal & Becca Instructions Activity Restrictions/Additional Instructions: Return to [facility] You can resume your tube feeds or tube fluid as desired for comfort. You can take oral feed for comfort but are at high risk for aspiration Truong to remain in place for comfort due to urinary retention Coding Level of Care Code 83333 Diagnoses Acute cystitis N30.00 Acute urinary retention R33.8 Acute kidney injury N17.9 ALS (amyotrophic lateral sclerosis) G12.21 Time Spent (min) 45
[2025-01-13 11:35] VITALS: BP 110/67; PULSE 52; RESP 18; TEMP 36.3; O2SAT 95
== END 2025-01-13 15:25 | disposition hospice, home (50) | DRG 683 ==
LOC: ER 15:26 → MEDSURG 16:13
PROVIDERS: Internal Medicine; Admitting Provider Internal Medicine; Emergency Provider Emergency Medicine; PCP Family Medicine; Visit Provider Internal Medicine
DX: N17.9 Acute kidney failure, unspecified (principal); G12.21 Amyotrophic lateral sclerosis; N30.00 Acute cystitis without hematuria; N13.30 Unspecified hydronephrosis; R33.9 Retention of urine, unspecified; R32 Unspecified urinary incontinence; Z66 Do not resuscitate; I12.9 Hypertensive chronic kidney disease with stage 1 through stage 4 chronic kidney disease, or unspecified chronic kidney disease; N18.2 Chronic kidney disease, stage 2 (mild); D63.1 Anemia in chronic kidney disease; E11.42 Type 2 diabetes mellitus with diabetic polyneuropathy; E78.5 Hyperlipidemia, unspecified; Z79.899 Other long term (current) drug therapy; Z87.440 Personal history of urinary (tract) infections; Z86.16 Personal history of COVID-19
CPT/HCPCS: 36415; 51702; 70450; 74018; 74176; 80048; 80053; 81001; 82140; 83690; 83735; 84100; 85025; 87077; 87086; 87186; 93005; 94664; 96361; 96374; 99285; J0696; J1938; J2060; J7030; J9999; Q9963